=== PATIENT | male | born 1950 | race African-American/Black ===

== ENCOUNTER 2017-06-21 17:43 | Inpatient (IN) | payer OTHER ==
[2017-06-21] MEDS ORDERED: Aspirin Low Dose CHEW TAB* 81 MG PO ONE (18:30)
[2017-06-21 18:55] LABS: Hematocrit 44 % (42-52); Hemoglobin 14.6 g/dl (14.0-18.0); Mean Corpuscular HGB Conc 33 g/dl (31-36); Mean Corpuscular Hemoglobin 30 pg (27-31); Mean Corpuscular Volume 90 fL (80-94); Mean Platelet Volume 8 um3 (7.4-10.4); Red Blood Count 4.91 10^6/ul (4.0-5.4); Red Cell Distribution Width 15 % (10.5-15); White Blood Count 7.7 10^3/ul (3.5-10.8)
[2017-06-21 19:09] LABS: Albumin 3.2 g/dL (3.2-5.2); BUN/Creatinine Ratio 13.3 (8-20); Calcium 8.9 mg/dL (8.6-10.3); EGFR African American 56.4 (>60); EGFR Non-African American 43.8 (>60); Globulin 2.3 g/dL (2-4); Potassium 4.2 mmol/L (3.5-5.0); Total Bilirubin 1.1 mg/dL (0.2-1.0); Total Protein 5.5 g/dL (6.4-8.9)
--- NOTE | 2017-06-21 19:10 | RAD ---
Indication: Pneumonia, CHF. No prior study is available for comparison. 2 views of the chest including dual energy PA views demonstrates cardiomegaly. There is no evidence of alveolar consolidation. No pleural fluid, pneumonia or pneumothorax is noted. There may be some mild vascular congestion noted. IMPRESSION: Cardiomegaly with mild vascular congestion.
[2017-06-21] MEDS ORDERED: Furosemide IV* 10 MG/ML 2 ML VIAL (20 MG) IV SLOW PU ONE (19:33)
[2017-06-21 20:22] LABS: Troponin I 0.08 ng/mL (<0.04)
--- NOTE | 2017-06-21 20:38 | ED ---
Estefani Christopher Thomas, scribed for Alexandra Núñez MD on 06/21/17 at 1905 . HPI Chest Pain - HPI Summary HPI Summary: The pt is a 67 y/o M referred to the ED from Dr. Gagnon office and c/o chest pressure that began three weeks. The pt rates the pressure 6/10 and has been intermittent over the last three weeks. The pressure is aggravated by lying down. The pressure is alleviated by nothing. The patient has treated the pressure with nothing [employer]. Pt additionally c/o pedal edema and SOB (when he lies down and during exertion). In the last day, there are no acute changes from these complaints, which have been present for the last three weeks. The pressure is present in the ED. He is not on any blood thinners. He does not take daily ASA. PMHx: HTN, TIA. PSHx: hernia repair. SHx: no smoking, no alcohol use, no illicit drug use. FHx: negative for CVA. - History of Current Complaint Chief Complaint: EDChestPainROMI Hx Obtained From: Patient Onset/Duration: Started Weeks Ago - 3, Still Present Timing: Constant Pain Intensity: 6 Pain Scale Used: 0-10 Numeric Character: Pressure/Squeezing Aggravating Factor(s): Position - lying down Alleviating Factor(s): Nothing Associated Signs and Symptoms: Positive: Shortness of Breath - when lying down and during exertion, Edema - pedal, Other: - POS: chest pressure. Negative: Chest Pain - Allergy/Home Medications Allergies/Adverse Reactions: Allergies Allergy/AdvReac Type Severity Reaction Status Date / Time No Known Allergies Allergy Verified 06/21/17 19:16 PMH/Surg Hx/FS Hx/Imm Hx Previously Healthy: No Cardiovascular History: Reports: Hx Hypertension Neurological History: Reports: Hx Transient Ischemic Attacks (TIA) - Surgical History Surgery Procedure, Year, and Place: hernia repair Infectious Disease History: No Infectious Disease History: Denies: Traveled Outside the [place] in Last 30 Days - Family History Known Family History: Negative: Other - NEG: CVA - Social History Alcohol Use: None Substance Use Type: Reports: None Smoking Status (MU): Never Smoked Tobacco Review of Systems Negative: Fever Positive: Other - POS: chest pressure (onset three weeks ago). Negative: Chest Pain Positive: Shortness Of Breath Positive: Edema - pedal All Other Systems Reviewed And Are Negative: Yes Physical Exam Triage Information Reviewed: Yes Vital Signs On Initial Exam: Initial Vitals Temp Pulse Resp BP Pulse Ox 97.8 F 50 14 142/103 98 06/21/17 17:50 06/21/17 17:50 06/21/17 17:50 06/21/17 17:50 06/21/17 17:50 Vital Signs Reviewed: Yes Appearance: Positive: Well-Appearing, No Pain Distress Skin: Positive: Warm, Skin Color Reflects Adequate Perfusion, Dry Eyes: Positive: EOMI, JOHANNY ENT: Positive: Pharynx normal, TMs normal Neck: Positive: Supple, Nontender Respiratory/Lung Sounds: Positive: Clear to Auscultation, Breath Sounds Present. Negative: Rales, Rhonchi, Wheezes Cardiovascular: Positive: RRR, Leg Edema Left, Leg Edema Right. Negative: Murmur, Rub, Other - NEG: gallop Abdomen Description: Positive: Nontender, Soft. Negative: Distended, Guarding, Other: - NEG: rebound Musculoskeletal: Positive: Strength/ROM Intact, Edema Left, Edema Right Neurological: Positive: Sensory/Motor Intact, Alert, Oriented to Person Place, Time, CN Intact II-III Psychiatric: Positive: Affect/Mood Appropriate - Sanchez Coma Scale Coma Scale Total: 15 Diagnostics - Vital Signs Vital Signs Temp Pulse Resp BP Pulse Ox 06/21/17 18:35 98.5 F 108 20 128/107 100 06/21/17 18:34 98 06/21/17 17:50 97.8 F 50 14 142/103 98 - Laboratory Lab Results: Lab Results 06/21/17 Range/Units 18:46 WBC 7.7 (3.5-10.8) 10^3/ul RBC 4.91 (4.0-5.4) 10^6/ul Hgb 14.6 (14.0-18.0) g/dl Hct 44 (42-52) % MCV 90 (80-94) fL MCH 30 (27-31) pg MCHC 33 (31-36) g/dl RDW 15 (10.5-15) % Plt Count 246 (150-450) 10^3/ul MPV 8 (7.4-10.4) um3 Neut % (Auto) 73.9 (38-83) % Lymph % (Auto) 15.5 L (25-47) % Ransom % (Auto) 7.9 (1-9) % Eos % (Auto) 2.0 (0-6) % Baso % (Auto) 0.7 (0-2) % Absolute Neuts (auto) 5.7 (1.5-7.7) 10^3/ul Absolute Lymphs (auto) 1.2 (1.0-4.8) 10^3/ul Absolute Monos (auto) 0.6 (0-0.8) 10^3/ul Absolute Eos (auto) 0.2 (0-0.6) 10^3/ul Absolute Basos (auto) 0.1 (0-0.2) 10^3/ul Absolute Nucleated RBC 0.01 10^3/ul Nucleated RBC % 0.1 Result Diagrams: 06/21/17 18:46 06/21/17 18:46 Lab Statement: Any lab studies that have been ordered have been reviewed, and results considered in the medical decision making process. - Radiology CXR Xray Interpretation: No Acute Changes - CXR reveals Cardiomegaly with mild vascular congestion. ED physician has reviewed this radiology report and agrees. Radiology Interpretation Completed By: Radiologist - EKG 17:56 Cardiac Rate: NL - 80 BPM EKG Interpretation: A-Fib. LVH. PVCs. Nonspecific T-wave changes. EKG Comparison: Other - None to compare Re-Evaluation - Re-Evaluation First Eval Re-Evaluation Time: 17:30 Change: Unchanged Comment: He does have a Hx of cardiomegaly, but he does not have a Hx of CHF. He states that he has a Hx of A-Fib but only during stress tests. Chest Pain Course/Dx - Course Course Of Treatment: 67 yo male sent by Dr. Huber with 3 weeks of cp and sob lying down ekg shows lvh and afib and new twave inversions (per dr. Huber's ekg ). Pt only knows of a hx of afib on stress test, he does have mild failure and cardiomegaly on cxr - the cardiomegaly is not new. Pt's trop is .08 low dose lasix was started given failure, lower ext edema and elevated bnp. Case discussed with Dr. Morales who is admitting the pt - Diagnoses Provider Diagnoses: Coronary syndrome, acute, CHF (congestive heart failure) - Provider Notifications Discussed Care Of Patient With: Mike Morales Time Discussed With Above Provider: 19:25 Instructed by Provider To: Other - I consulted with Dr. Morales, hospitalist, who accepts the patient for admission. Discharge - Discharge Plan Condition: Fair Disposition: ADMITTED TO [facility] Referrals: Javier Huber MD [Primary Care Provider] - The documentation as recorded by the Estefani serna Thomas accurately reflects the service I personally performed and the decisions made by me, Alexandra Núñez MD.
[2017-06-21 20:55] LABS: TSH (Thyroid Stimulating Horm) 1.2 mcIU/mL (0.34-5.60)
[2017-06-21] MEDS ORDERED: Albuterol HFA INHALER* 8 gm MDI INH PRN (21:14)
[2017-06-21] MEDS: Metoprolol Tartrate TAB* 25 MG PO SCH (22:26)
[2017-06-21] MEDS: Rivaroxaban TAB(*) 20 MG TAB PO SCH (22:27)
[2017-06-21 22:37] LABS: Magnesium 2.2 mg/dL (1.9-2.7)
--- NOTE | 2017-06-22 01:00 | HP ---
MEDICINE HISTORY AND PHYSICAL: DATE OF ADMISSION: 06/21/17 PROVIDER: Akua Darby NP ATTENDING PHYSICIAN: Dr. Mike Morales * (as dictated by Akua Darby NP) PRIMARY CARE PROVIDER: Javier Huber MD CHIEF COMPLAINT: Increasing dyspnea. HISTORY OF PRESENT ILLNESS: Mr. Bhatia is a 67-year-old male patient who was referred to the ER by his primary care provider with concerns for increasing dyspnea and chest pain. Mr. Bhatia is a very pleasant 67-year-old gentleman who endorses a history of increasing dyspnea x3 weeks. He reports that he has difficulty breathing mostly at night and with exertion. The patient reports paroxysmal nocturnal dyspnea with resultant decrease in sleep. He reports orthopnea and states that he does feel better when he sits up. He reports accompanying pressure in his throat and mid sternum that occurs when he is lying down, but is better when he sits up. He reports decreased p.o. intake, loss of appetite as well as fatigue. The patient states that he is still working at the [employer], but that he has to push himself to get through the day as he does become tired more easily and has dyspnea with exertion. He has been using his albuterol inhaler more often and yesterday used it 3 times. He has been treating his symptoms with . The patient is noted to be in atrial fibrillation. Upon entering the room, I did note rate as high as 130 when I initially entered and then they settle down into the 120s to 110s. Mr. Bhatia states that he knew he had a history of AFib. He was told that he had it on a stress test once but then thought it went away. He states he is to see a sap bw architect, but he does not the name of the sap bw architect. He states that he had a stress test and was seeing the sap bw architect for high blood pressure. He states that he was then taken off of his medications because he did not need them anymore. He does note that he has a history of mitral valve regurgitation and is unaware of any other cardiac concerns expressed in the past. Here in the ER, the patient was noted to have a BNP of 897. His chest x-ray shows cardiomegaly with mild vascular congestion. His EKG shows atrial fibrillation with nonspecific ST changes and T-wave inversions noted in the lateral leads. There are no old medical records for comparison. PAST MEDICAL HISTORY: 1. Hypertension. 2. Paroxysmal atrial fibrillation, not previously on medication. 3. Exercise-induced asthma. 4. Mitral regurgitation. 5. Seasonal allergies. HOME MEDICATIONS: Include albuterol 2 puffs inhaled q.4 hours p.r.n. Of note, the patient's medications list from [place] states Advair, but the patient states he has not taken this for many months. ALLERGIES: Environmental allergies. No known drug allergies. FAMILY HISTORY: The patient reports his uncle and aunt with diabetes. He reports a history of breast and throat cancer in his mother. SOCIAL HISTORY: The patient states that he once smoked one pack of cigarettes in high school and no further smoking history. He drinks very rarely and socially only. He denies any history of illicit drug use. He works at the [employer]. He is . His , Emily, is his surrogate decision maker and healthcare proxy. REVIEW OF SYSTEMS: As per HPI, all those not mentioned in the HPI are negative. PHYSICAL EXAMINATION GENERAL: Mr. Bhatia is a very pleasant gentleman, who is lying in the ED stretcher, in no acute distress. VITAL SIGNS: Temperature 98.5, heart rate 112, respiratory rate 22, blood pressure 105/82, and O2 saturation is 99% on 2 L nasal cannula. HEENT: Head is atraumatic, normocephalic. Face is symmetrical. Pupils are equal, round, reactive to light. Extraocular movements are intact. Oral mucosa appears moist. There is no oropharyngeal erythema or exudate. NECK: Supple, no lymphadenopathy appreciated. No JVD noted. RESPIRATORY: Lungs are clear to auscultation. No accessory muscle use was noted. CARDIAC: S1, S2 heart sounds. Regular rate and rhythm. No murmurs, rubs or gallops. ABDOMEN: Soft, nontender, nondistended. EXTREMITIES: The patient has 2+ pitting edema to the bilateral lower extremities. Distal pulses are 1+ and symmetrical. There was no clubbing or cyanosis. The patient has full range of motion in all extremities. SKIN: Limited assessment, but appears warm, dry and grossly intact. NEURO: Cranial nerves II through XII are grossly intact. The patient moves all extremities. Sensation is intact to light touch in the upper and lower extremities. PSYCH: He is alert and oriented x3. His affect is appropriate. LABORATORY DATA AND DIAGNOSTIC STUDIES: CBC, WBC 7.7, hemoglobin 14.6, hematocrit 44, platelet count 246. CMP, sodium 138, potassium 4.2, chloride 107 , carbon dioxide 25, BUN 21, creatinine 1.58, glucose 95, lactic acid 1.4. Calcium 8.9. Total bilirubin 1.1. Troponin 0.08, BNP 897. Albumin 3.2, TSH 1.2. Chest x-ray again shows cardiomegaly with mild vascular congestion. EKG as per above. ASSESSMENT AND PLAN: Mr. Bhatia is a 67-year-old male patient who presents today with concern for increasing dyspnea, atrial fibrillation, and symptoms concerning for congestive heart failure with acute exacerbation. He will be admitted to the telemetry floor. Plan is as follows: 1. Suspected congestive heart failure exacerbation. The patient will be monitored on telemetry. He is ordered strict I's and O's and daily weights. He will be started on metoprolol given his concurrent atrial fibrillation as well as captopril. The patient's blood pressures here in the ER are rather variable and are as high as 142/103 and as low as 105/82, which is likely secondary to the Lasix the patient received. He was ordered a transthoracic echocardiogram and he will continue the IV Lasix tomorrow morning. Again, the patient was just started on beta-dionna and JEY inhibitor given the concern for new heart failure. 2. History of paroxysmal atrial fibrillation. It is unclear if the patient is in paroxysmal atrial fibrillation or if he has chronic atrial fibrillation at this point. The patient does not appear to have had good followup in regards to his atrial fibrillation with Cardiology and I am not sure if there are other EKGs on record from [place]. We will request records from [place] to better understand the patient's cardiac history and in any case, I have discussed with the patient the concern for his increased stroke risk with atrial fibrillation and being asymptomatic. The patient has had symptoms for greater than 3 weeks, which is likely secondary to atrial fibrillation, which was not symptomatic until the patient started to decompensate. The patient has a CHADS2-VASC score of 2 for age 65 to 74 and hypertension history. The patient is started on Xarelto and we will also start him on metoprolol 25 mg b.i.d. We will also attempt to see if we can locate the patient's Cardiology records. I was unable to locate any records for the patient. 3. Elevated creatinine. This appears to be secondary to mild chronic kidney disease. The patient has had previously elevated creatinine as far back as 2012 and this is actually improved from previous. 4. History of hypertension. The patient is not previously on any medications, but is currently on metoprolol and captopril. Continue to monitor patient's pressure and adjust medications accordingly. 5. History of mitral regurgitation. Continue to follow. We will reevaluate on echocardiogram. 6. History of exercise-induced asthma, continue p.r.n. albuterol. 7. FEN, the patient is ordered a vegetarian, heart healthy diet. 8. DVT prophylaxis. The patient will be started on Xarelto, has also ordered LIBRADO hose to help with lower extremity. 9. Code status. The patient is a full code. TIME SPENT: Time spent on this admission was approximately 60 minutes, more than half that time was spent [id number] with the patient and family obtaining history and physical, performing physical examination and reviewing the plan of care. Plan of care was also reviewed with my attending, Dr. Morales , who is in agreement. AKUA DARBY, YULIYA [id number]/[facility] #: [id number] CELE
[2017-06-22 06:27] LABS: Hematocrit 43 % (42-52); Hemoglobin 14.3 g/dl (14.0-18.0); Mean Corpuscular HGB Conc 33 g/dl (31-36); Mean Corpuscular Hemoglobin 30 pg (27-31); Mean Corpuscular Volume 91 fL (80-94); Mean Platelet Volume 8 um3 (7.4-10.4); Red Blood Count 4.72 10^6/ul (4.0-5.4); Red Cell Distribution Width 15 % (10.5-15); White Blood Count 7.2 10^3/ul (3.5-10.8)
[2017-06-22 06:47] LABS: BUN/Creatinine Ratio 11.9 (8-20); Calcium 8.7 mg/dL (8.6-10.3); EGFR African American 52.5 (>60); EGFR Non-African American 40.8 (>60); Potassium 4.3 mmol/L (3.5-5.0)
[2017-06-22] MEDS: Rivaroxaban TAB(*) 20 MG TAB PO SCH (08:39)
[2017-06-22] MEDS: Metoprolol Tartrate TAB* 25 MG PO SCH (08:40)
[2017-06-22] MEDS: Captopril TAB* 12.5 MG PO SCH ×3 (08:40→20:49)
[2017-06-22] MEDS: Furosemide IV* 10 MG/ML VIAL (40 MG) IV SLOW PU SCH (08:41)
[2017-06-22] MEDS ORDERED: Metolazone TAB* 5 MG PO ONE (09:10)
--- NOTE | 2017-06-22 09:32 | ECHO ---
Patient: FAIZA PATINO Rec#: [id number] : 1950 Date: 06/22/2017 Age: 67y Height: 175.26 cm / 69.0 in Weight: 81.65 kg / 180.0 lbs Sex: M BSA: 1.98 Room#: [facility] Admit Date#: 06/21/2017 Type: Inpatient Referring: Cecy Cordova Reading: Olu Sterling DO [employer] Worker: Angela Reyes RDCS CC: Javier Huber MD Transthoracic Echocardiogram Indication: Dyspnea, CHF. BP: 113/85 HR: 99 Rhythm: A-Fib Findings History: HTN, PAF, and mitral regurgitation. Technical Comments: The study quality is good. Completed at 0835. Left Ventricle: The left ventricular chamber size is moderately dilated. Moderate concentric left ventricular hypertrophy is observed. There is global hypokinesis of the left ventricle with minor regional variation. There is severely decreased left ventricular systolic function. The estimated ejection fraction is 20-25%. The assessment of diastolic function is non-diagnostic. Left Atrium: The left atrium is severely dilated. Right Ventricle: The right ventricular cavity size is normal. The right ventricular global systolic function is moderately reduced. Right Atrium: The right atrial cavity size is severely dilated. Aortic Valve: The aortic valve is trileaflet. The aortic valve leaflets are mildly thickened. There is a trace of aortic regurgitation. There is no evidence of aortic stenosis. Mitral Valve: Mild mitral annular calcification present. There is moderate to severe mitral regurgitation. There is no evidence of mitral stenosis. Tricuspid Valve: The tricuspid valve leaflets are mildly thickened. There is moderate tricuspid regurgitation. There is evidence of severe pulmonary hypertension. There is no tricuspid stenosis. Pulmonic Valve: The pulmonic valve appears normal. There is trace to mild pulmonic regurgitation. There is no pulmonic stenosis. Pericardium: There is no significant pericardial effusion. Aorta: There is mild dilatation of the ascending aorta. There is no dilatation of the aortic arch. The aortic root is normal in size. Pulmonary Artery: The main pulmonary artery appears normal. Venous: The inferior vena cava is dilated. There is less than 50% respiratory change in the inferior vena cava dimension. Conclusions The left ventricular chamber size is moderately dilated. Moderate concentric left ventricular hypertrophy is observed. There is global hypokinesis of the left ventricle with minor regional variation. There is severely decreased left ventricular systolic function. The estimated ejection fraction is 20-25%. The left atrium is severely dilated. The right ventricular cavity size is normal. The right ventricular global systolic function is moderately reduced. The right atrial cavity size is severely dilated. There is moderate to severe mitral regurgitation, more consistent with severe secondary/functional mitral regurgitation There is moderate tricuspid regurgitation. There is evidence of severe pulmonary hypertension. No prior studies available for comparison at time of interpretation Measurements Name Value Normal Range RVIDd (AP) 2D 3.7 cm (0.9 - 2.6) RVDdMajor (2D) 4.2 cm (2.2 - 4.4) RAd ISD 4CH 7.4 cm (3.4 - 4.9) RA (A4C)W 4.8 cm (2.9 - 4.6) IVSd (2D) 1.5 cm (0.6 - 1) LVPWd (2D) 1.3 cm (0.6 - 1) LVIDd (2D) 6.2 cm (3.6 - 5.4) LVIDs (2D) 5.4 cm - LV FS (2D) 14 % (25 - 45) Aortic Annulus 2.4 cm (1.4 - 2.6) Ao root diameter (2D) 3.4 cm (2.1 - 3.5) Ascending Ao 3.7 cm (2.1 - 3.4) Aortic arch 2.7 cm (1.8 - 3.4) LA dimension (AP) 2D 5.7 cm (2.3 - 3.8) LAd ISD 4CH 7 cm (2.9 - 5.3) LA ISD 4CH W 7.3 cm (2.5 - 4.5) Name Value Normal Range LA ESV SP 4CH (A/L) 178 ml - LA ESV SP 2CH (A/L) 204 ml - LA ESV BP (A/L) 209 ml - LA ESV BP (A/L) index 105.6 ml/m2 - LA ESV SP 4CH (MOD) 149 ml - LA ESV SP 2CH (MOD) 187 ml - Name Value Normal Range MV E-wave Vmax 0.79 m/sec - MV deceleration time 126.8 msec - MV A-wave Vmax 0.22 m/sec - MV E:A ratio 51.15 ratio - LV septal e' Vmax 0.04 m/sec - LV lateral e' Vmax 0.05 m/sec - LV E:e' septal ratio 19.75 ratio - LV E:e' lateral ratio 15.8 ratio - Name Value Normal Range AV Vmax 0.87 m/sec - AV VTI 17.6 cm - AV peak gradient 3.06 mmHg - AV mean gradient 1.99 mmHg - LVOT Vmax 0.52 m/sec - LVOT VTI 9.23 cm - LVOT peak gradient 1.1 mmHg - LVOT mean gradient 0.63 mmHg - Name Value Normal Range MR Vmax 4.3 m/sec - MR VTI 129 cm - MR flow (PISA) 273 ml/sec - MR PISA radius 0.9 cm - Name Value Normal Range TR Vmax 3.57 m/sec - TR peak gradient 51 mmHg - RAP 20 mmHg - RVSP 71 mmHg - IVC diameter 2.7 cm - Name Value Normal Range PV Vmax 0.6 m/sec - PV peak gradient 1.46 mmHg -
[2017-06-22] MEDS ORDERED: Furosemide IV* 10 MG/ML 2 ML VIAL (20 MG) IV SLOW PU ONE (09:40)
--- NOTE | 2017-06-22 10:12 | PN ---
Subjective Date of Service: 06/22/17 Interval History: HOSPITALIST PROGRESS NOTE Patient seen and examined at bedside. He feels a little better today, but still has some dyspnea, especially with exertion, and some chest pressure. Thinks he gained 6lbs total, but it appears to be more than that. Family History: Unchanged from Admission Social History: Unchanged from Admission Past Medical History: Unchanged from Admission Objective Active Medications: Albuterol (Ventolin Hfa Inhaler*) 2 puff INH Q4H PRN PRN Reason: SOB/WHEEZING Last Admin: 06/22/17 00:36 Dose: 2 puff Captopril (Capoten Tab*) 6.25 mg PO TID [facility] Last Admin: 06/22/17 08:40 Dose: 6.25 mg Carvedilol (Coreg Tab*) 12.5 mg PO BID [facility] Furosemide (Lasix Iv*) 40 mg IV SLOW PU DAILY [facility] Last Admin: 06/22/17 08:41 Dose: 40 mg Rivaroxaban (Xarelto (*)) 20 mg PO DAILY [facility] Last Admin: 06/22/17 08:39 Dose: 20 mg Spironolactone (Aldactone Tab*) 25 mg PO DAILY [facility] Vital Signs 06/22/17 06/22/17 06/22/17 02:23 07:15 07:20 Temperature 97.7 F 97.5 F Pulse Rate 82 70 Respiratory 16 19 18 Rate Blood Pressure 113/85 100/80 (mmHg) O2 Sat by Pulse 100 100 Oximetry 06/22/17 08:31 Temperature Pulse Rate Respiratory Rate Blood Pressure 132/106 (mmHg) O2 Sat by Pulse Oximetry Oxygen Devices in Use Now: None Appearance: Pleasant gentleman sitting up in bed in [facility]. Eyes: No Scleral Icterus Ears/Nose/Mouth/Throat: Mucous Membranes Moist Neck: Trachea Midline Respiratory: Symmetrical Chest Expansion and Respiratory Effort, - - BS+ bilaterally with bibasilar rales Cardiovascular: - - Normal S1 and S2, irregularly irregular, +SM Abdominal: NL Sounds; No Tenderness; No Distention Extremities: - - Bilateral LE edema Neurological: Alert and Oriented x 3, NL Muscle Strength and Tone Lines/Tubes/Other Access: Clean, Dry and Intact Peripheral IV Nutrition: Taking PO's Result Diagrams: 06/22/17 05:58 06/22/17 05:58 Assess/Plan/Problems-Billing Assessment: Mr. Bhatia is a 67yo M with PMH of HTN, PAF, asthma, mitral regurgitation, who presented to ED with c/o dyspnea and chest pain, found to have newly diagnosed CHF. - Patient Problems (1) Acute systolic CHF (congestive heart failure) Comment: - Echo showed EF 20-25% with global hypokinesis, moderate to severe MR. - Continue diuresis, but will add Metolazone to Furosemide. - Continue ACEI and beta-dionna. - Continue Xarelto. - Cardiology consult requested. (2) Atrial fibrillation Comment: - Rate is controlled with beta-dionna. - Continue Xarelto. (3) CKD (chronic kidney disease) stage 3, GFR 30-59 ml/min Comment: - Monitor renal function with addition of diuretics and ACEI. (4) Asthma Comment: - Continue Albuterol PRN. (5) DVT prophylaxis (6) Full code status Status and Disposition: Inpatient for management of symptomatic CHF requiring >48h for stabilization.
[2017-06-22] MEDS: Spironolactone TAB* 25 MG PO SCH (10:30)
[2017-06-22] MEDS: Carvedilol TAB* 25 MG PO SCH ×2 (10:35→20:49)
--- NOTE | 2017-06-22 14:17 | CONSULT ---
Subjective Date of Service: 06/22/17 Interval History: Date of consult 06/22/[address] Javier Huber Wood Box Maker: Dr. Palumbo CC: Dyspnea Reason for consult: Systolic HF, atrial fibrillation, mitral regurgitation. HPI Mr. Bhatia is a 67 year old black man with a history of HTN not currently on treatment with known hypertensive EKG and Echo changes 02/2016, CKD, PAfib, mitral valve prolapse. His BP was 142/98 in 03/2016 and at that time oral anti- coagulation and anti-hypertensives were recommended and he declined. He presented to his PMD's office with increasing dyspnea for 3 weeks, orthopnea, chest pressure when laying flat. He also reports poor appetite and fatigue. No recent syncope. No palpitations. He was found with recurrent atrial fibrillation and systolic heart failure with moderate to severe (more consistent with severe MR). He has received IV diuretics and has had good UOP. PAST MEDICAL HISTORY: 1. Hypertension. 2. Hypertensive heart disease 3. Paroxysmal atrial fibrillation 4. Mitral regurgitation. ALLERGIES: Environmental allergies. No known drug allergies. FAMILY HISTORY: The patient reports his uncle and aunt with diabetes. He reports a history of breast and throat cancer in his mother. SOCIAL HISTORY: No tobacco use He drinks very rarely and socially only. He denies any history of illicit drug use. He works at the [employer]. He is . His , Emily, is his surrogate decision maker and healthcare proxy. Medications Active Medications: Albuterol (Ventolin Hfa Inhaler*) 2 puff INH Q4H PRN PRN Reason: SOB/WHEEZING Last Admin: 06/22/17 00:36 Dose: 2 puff Captopril (Capoten Tab*) 6.25 mg PO TID [facility] Last Admin: 06/22/17 08:40 Dose: 6.25 mg Carvedilol (Coreg Tab*) 12.5 mg PO BID [facility] Last Admin: 06/22/17 10:35 Dose: 12.5 mg Furosemide (Lasix Iv*) 40 mg IV SLOW PU DAILY [facility] Last Admin: 06/22/17 08:41 Dose: 40 mg Rivaroxaban (Xarelto(*)) 15 mg PO DAILY@1700 [facility] Spironolactone (Aldactone Tab*) 25 mg PO DAILY [facility] Last Admin: 06/22/17 10:30 Dose: 25 mg Home Medications: Albuterol HFA INHALER* [Ventolin HFA Inhaler*] 2 puff INH Q4H PRN 06/21/17 [ History Confirmed 06/21/17] Review of Systems - Measurements Intake and Output: Intake and Output Last 24 Hours 06/20/17 06/21/17 06/22/17 06/23/17 06:59 06:59 06:59 06:59 Intake Total 150 220 Output Total 600 1000 Balance -450 -780 Weight 179 lb 14.4 oz 178 lb 12.8 oz Intake: Oral 150 220 Output: Urine 600 1000 Other: Estimated Void Medium # Bowel Movements 0 # Voids 2 - Review of Systems Constitutional Symptoms: Positive: Weakness, Fatigue Dermatology: Negative: Rash, Skin Lesions HEENT: Negative: Change in Hearing, Vertigo Eyes: Negative: Change in Vision, Double Vision Thyroid: Negative: Cold Intolerance, Heat Intolerance, Sweatiness, Primary Hypothyroidism, Primary Hyperthyroidism Pulmonary: Positive: Respiratory Distress, Shortness of Breath, Exercise Intolerance Negative: Cough, Sputum, Hemoptysis, Wheezing, COPD, Home Oxygen Cardiology: Positive: Chest Pain, Shortness of Breath, Edema, Orthopnea Negative: Palpitations, Swelling of Ankles, Peripheral Vascular Dis, Syncope , Claudication Gastroenterology: Positive: Nausea, Anorexia Negative: Abdominal Pain, Vomiting, Constipation, Diarrhea Musculoskeletal: Negative: Joint Pain, Joint Stiffness Endocrinology: Negative: Calluses, Hirsutism, Polydipsia, Polyuria Hematologic/Lymphatic: Negative: Anemia, Easy Brusing, Use of Anticoagulant, Use of Antiplatelet Drugs Neurology: Negative: Change in Balancing, Change in Coordination, Change in Memory, Change in Speech, Change in Sphincter Function, Change in Walking, Numbness\ Paresthesiae, Unexplained Weakness Psychiatry: Negative: Unusual Anxiety, Suicidal Ideation Allergic/Immunologic: Negative: Hx Anaphylaxis, Hx Angioedema, Hx HIV, Immunocompromise Review of Systems Statement: All other review of systems negative, unless stated above. Objective Vital Signs: Temp Pulse Resp BP Pulse Ox 97.6 F 97 18 134/113 98 06/22/17 11:36 06/22/17 11:31 06/22/17 11:31 06/22/17 11:31 06/22/17 11:31 Oxygen Devices in Use Now: None Appearance: nad, very pleasant Neck: Trachea Midline, - - probable + jvd Respiratory: Symmetrical Chest Expansion and Respiratory Effort, - - bibasilar cracles Cardiovascular: RRR, - - no obvious significant murmur appreciated, 1-2+ pitting lower extremity edema Abdominal: NL Sounds; No Tenderness; No Distention Extremities: No Clubbing, Cyanosis Skin: No Rash or Ulcers Neurological: Alert and Oriented x 3 Laboratory Results: 06/22/17 05:58 06/22/17 05:58 Total Bilirubin 1.10 mg/dL (0.2-1.0) H 06/21/17 18:46 AST 30 U/L (13-39) 06/21/17 18:46 ALT 39 U/L (7-52) 06/21/17 18:46 Alkaline Phosphatase 53 U/L (34-104) 06/21/17 18:46 B-Natriuretic Peptide 897 pg/mL (-100) H 06/21/17 18:46 Total Protein 5.5 g/dL (6.4-8.9) L 06/21/17 18:46 Albumin 3.2 g/dL (3.2-5.2) 06/21/17 18:46 Globulin 2.3 g/dL (2-4) 06/21/17 18:46 Albumin/Globulin Ratio 1.4 (1-3) 06/21/17 18:46 TSH 1.20 mcIU/mL (0.34-5.60) 06/21/17 18:46 06/21/17 06/22/17 21:47 01:04 Troponin I 0.08 H* 0.07 H* Labs 01/2016: Cr 1.6 Tchol 165, tri 168, hdl 80, ldl 51 Diagnostic Imagin03/16/2016: Normal LV cavity size Moderate LVH, LVEF 55% Severe LA enlargement Mild RV enlargement with preserved RV function Mild MVP with moderate eccentric MR Mild-mod TR, normal estimated PASP EKG 01/31/2016: Afib, LVH with repolarization abnormalities EKG 02/28/2016: NSR, LVH with repolarization abnormalities EKG 06/21/2017: Probable coarse AFib rate 80 bpm, LVH with repolarization abnormalities, PVC's CXR 06/21/2017: Enlarged cardiac silhouette with mild vascular congestion TTE 06/22/2017: LVEDD 6.2 cm moderately dilated, LVEF 20-25%, LA severely dilated , RV size normal with moderately reduced function, moderate to severe MR ( appears more consistent with severe) appearance of secondary/functional MR, severe RA dilation Assessment/Plan Mr. Bhatia is a 67-year-old man with a history of hypertension, hypertensive heart disease not adherent with BP medication, CKD, PAfib, mitral regurgitation admitted with new onset systolic HF LVEF 20-25% in the setting of severe hypertension - Continue IV diuresis, trend bmp, i/o, weights - Add aldactone 25 mg PO daily (ordered) - Add coreg 12.5 mg PO BID (ordered) - Continue captopril 6.25 mg PO TID - Uptitrate AceI and BB dosing as tolerated - Continue oral anticoagulation - I emphasized medication adherence with patient - Discussed with Dr. Palumbo on phone. Overall I suspect hypertensive heart disease as main culprit for presentation. Will optimize CHF medications, plan for coronary angiogram. If no need for revascularization patient will follow up with Dr. Palumbo to re-evaluate etiology and severity of MR once BP better controlled and medically optimized. Thank you for allowing me to participate in the cardiovascular care of this patient. Please do not hesitate to contact me with questions or concerns.
[2017-06-22] MEDS ORDERED: Acetaminophen TAB* 325 MG PO PRN (14:39)
[2017-06-23 05:51] LABS: BUN/Creatinine Ratio 12.3 (8-20); Calcium 8.9 mg/dL (8.6-10.3); EGFR African American 44.2 (>60); EGFR Non-African American 34.4 (>60); Potassium 3.7 mmol/L (3.5-5.0)
--- NOTE | 2017-06-23 08:55 | PN ---
Subjective Date of Service: 06/23/17 Interval History: HOSPITALIST PROGRESS NOTE Patient seen and examined at bedside. He feels better this AM. Breathing is easier, but he has not walked around yet. Denies CP or palpitations. Family History: Unchanged from Admission Social History: Unchanged from Admission Past Medical History: Unchanged from Admission Objective Active Medications: Acetaminophen (Tylenol Tab*) 650 mg PO Q6H PRN PRN Reason: pain/fever Albuterol (Ventolin Hfa Inhaler*) 2 puff INH Q4H PRN PRN Reason: SOB/WHEEZING Last Admin: 06/22/17 00:36 Dose: 2 puff Captopril (Capoten Tab*) 6.25 mg PO TID [facility] Last Admin: 06/22/17 20:49 Dose: 6.25 mg Carvedilol (Coreg Tab*) 12.5 mg PO BID [facility] Last Admin: 06/22/17 20:49 Dose: 12.5 mg Furosemide (Lasix Iv*) 40 mg IV SLOW PU DAILY [facility] Last Admin: 06/22/17 08:41 Dose: 40 mg Prochlorperazine Edisylate (Compazine Inj*) 5 mg IV Q6H PRN PRN Reason: NAUSEA/VOMITING Rivaroxaban (Xarelto(*)) 15 mg PO DAILY@1700 [facility] Spironolactone (Aldactone Tab*) 25 mg PO DAILY [facility] Last Admin: 06/22/17 10:30 Dose: 25 mg Vital Signs 06/23/17 06/23/17 06/23/17 00:16 03:57 07:44 Temperature 98.5 F 98.4 F 97.8 F Pulse Rate 92 130 77 Respiratory 16 16 18 Rate Blood Pressure 118/79 130/81 117/83 (mmHg) O2 Sat by Pulse 95 100 99 Oximetry Oxygen Devices in Use Now: None Appearance: Pleasant gentleman sitting up in bed in [facility]. Eyes: No Scleral Icterus Ears/Nose/Mouth/Throat: Mucous Membranes Moist Neck: Trachea Midline Respiratory: Symmetrical Chest Expansion and Respiratory Effort, - - BS+ bilaterally with faint bibasilar rales Cardiovascular: - - Normal S1 and S2, irregularly irregular Abdominal: NL Sounds; No Tenderness; No Distention Extremities: - - Bilateral mild to moderate LE edema Neurological: Alert and Oriented x 3, NL Muscle Strength and Tone Lines/Tubes/Other Access: Clean, Dry and Intact Peripheral IV Nutrition: Taking PO's Result Diagrams: 06/22/17 05:58 06/23/17 05:31 Assess/Plan/Problems-Billing Assessment: Mr. Bhatia is a 67yo M with PMH of HTN, PAF, asthma, mitral regurgitation, who presented to ED with c/o dyspnea and chest pain, found to have newly diagnosed CHF. - Patient Problems (1) Acute systolic CHF (congestive heart failure) Comment: - Echo showed EF 20-25% with global hypokinesis, moderate to severe MR. - Responded well to Metolazone and Furosemide - weight down to 170lbs, breathing is easier. - Continue ACEI and beta-dionna. - Continue Xarelto. - Cardiology consult appreciated. (2) Atrial fibrillation Comment: - Rate is controlled with beta-dionna. - Continue Xarelto. (3) CKD (chronic kidney disease) stage 3, GFR 30-59 ml/min Comment: - Monitor renal function with addition of diuretics and ACEI. - Creatinine trending up, but likely revealing his true renal function. (4) Asthma Comment: - Continue Albuterol PRN. (5) DVT prophylaxis Comment: - Xarelto. (6) Full code status Status and Disposition: Inpatient for management of symptomatic CHF requiring >48h for stabilization. Son called at [phone] and updated about patient's condition with his permission.
[2017-06-23] MEDS: Spironolactone TAB* 25 MG PO SCH (09:24)
[2017-06-23] MEDS: Furosemide IV* 10 MG/ML VIAL (40 MG) IV SLOW PU SCH (09:24)
[2017-06-23] MEDS: Carvedilol TAB* 25 MG PO SCH ×2 (09:25→20:58)
[2017-06-23] MEDS: Captopril TAB* 12.5 MG PO SCH ×3 (09:25→20:58)
[2017-06-23] MEDS ORDERED: Potassium Chlor TAB* 20 MEQ TAB.ER PO ONE (12:45)
[2017-06-23] MEDS: Rivaroxaban TAB(*) 15 MG PO SCH (17:12)
[2017-06-24 05:51] LABS: BUN/Creatinine Ratio 13.4 (8-20); Calcium 8.4 mg/dL (8.6-10.3); EGFR African American 44.5 (>60); EGFR Non-African American 34.6 (>60); Potassium 3.2 mmol/L (3.5-5.0)
[2017-06-24] MEDS: Potassium Chlor TAB* 20 MEQ TAB.ER PO SCH ×2 (07:53→12:36)
[2017-06-24] MEDS: Captopril TAB* 12.5 MG PO SCH ×3 (07:55→20:22)
[2017-06-24] MEDS: Carvedilol TAB* 25 MG PO SCH ×2 (07:55→20:23)
[2017-06-24] MEDS: Spironolactone TAB* 25 MG PO SCH (07:55)
[2017-06-24 11:10] LABS: Magnesium 1.9 mg/dL (1.9-2.7)
--- NOTE | 2017-06-24 13:02 | PN ---
Subjective Date of Service: 06/24/17 Interval History: HOSPITALIST PROGRESS NOTE Patient seen and examined at bedside. He feels better today. Breathing is much better, but felt some lightheadedness after walking yesterday. Denies CP or palpitations. Had some episodes of Vtach, asymptomatic. Family History: Unchanged from Admission Social History: Unchanged from Admission Past Medical History: Unchanged from Admission Objective Active Medications: Acetaminophen (Tylenol Tab*) 650 mg PO Q6H PRN PRN Reason: pain/fever Albuterol (Ventolin Hfa Inhaler*) 2 puff INH Q4H PRN PRN Reason: SOB/WHEEZING Last Admin: 06/22/17 00:36 Dose: 2 puff Captopril (Capoten Tab*) 6.25 mg PO TID [facility] Last Admin: 06/24/17 07:55 Dose: 6.25 mg Carvedilol (Coreg Tab*) 12.5 mg PO BID [facility] Last Admin: 06/24/17 07:55 Dose: 12.5 mg Prochlorperazine Edisylate (Compazine Inj*) 5 mg IV Q6H PRN PRN Reason: NAUSEA/VOMITING Rivaroxaban (Xarelto(*)) 15 mg PO DAILY@1700 [facility] Stop: 06/24/17 19:00 Last Admin: 06/23/17 17:12 Dose: 15 mg Spironolactone (Aldactone Tab*) 25 mg PO DAILY [facility] Last Admin: 06/24/17 07:55 Dose: 25 mg Vital Signs 06/24/17 06/24/17 06/24/17 09:11 09:12 11:27 Temperature 98.5 F Pulse Rate 58 85 Respiratory 19 18 Rate Blood Pressure 113/75 (mmHg) O2 Sat by Pulse 98 98 99 Oximetry Oxygen Devices in Use Now: None Appearance: Pleasant gentleman sitting up in bed in [facility]. Eyes: No Scleral Icterus Ears/Nose/Mouth/Throat: Mucous Membranes Moist Neck: Trachea Midline Respiratory: Symmetrical Chest Expansion and Respiratory Effort, Clear to Auscultation Cardiovascular: - - Normal S1 and S2, irregularly irregular Abdominal: NL Sounds; No Tenderness; No Distention Extremities: - - Mild bilateral LE edema Neurological: Alert and Oriented x 3, NL Muscle Strength and Tone Lines/Tubes/Other Access: Clean, Dry and Intact Peripheral IV Nutrition: Taking PO's Result Diagrams: 06/22/17 05:58 06/24/17 05:12 Assess/Plan/Problems-Billing Assessment: Mr. Bhatia is a 67yo M with PMH of HTN, PAF, asthma, mitral regurgitation, who presented to ED with c/o dyspnea and chest pain, found to have newly diagnosed CHF. - Patient Problems (1) Acute systolic CHF (congestive heart failure) Comment: - Echo showed EF 20-25% with global hypokinesis, moderate to severe MR. - Responded well to Metolazone and Furosemide - weight down to 169lbs, breathing is easier. - Will hold Lasix for now, as he was lightheaded yesterday and creatinine trended up. - Continue ACEI and beta-dionna. - Continue Xarelto. - Cardiology consult appreciated - plan for cath 06/26/17. (2) Atrial fibrillation Comment: - Rate is controlled with beta-dionna. - Continue Xarelto. (3) CKD (chronic kidney disease) stage 3, GFR 30-59 ml/min Comment: - Monitor renal function with addition of diuretics and ACEI. - Creatinine trending up, but likely revealing his true renal function. (4) Asthma Comment: - Continue Albuterol PRN. (5) DVT prophylaxis Comment: - Xarelto. (6) Full code status Status and Disposition: Inpatient for management of symptomatic CHF requiring >48h for stabilization. Son called at [phone] and updated about patient's condition with his permission.
[2017-06-24] MEDS: PROCHLORPERAZINE INJ 5 MG/ML 2 ML VIAL IV PRN (15:28)
[2017-06-24] MEDS: Simethicone CHEW TAB* 80 MG PO PRN (19:05)
[2017-06-24] MEDS: Rivaroxaban TAB(*) 15 MG PO SCH (20:23)
[2017-06-24] MEDS: Al Hydrox/Mg Hydrox/Simet LIQ* 30 ML UDC PO PRN (20:23)
[2017-06-24] MEDS ORDERED: Morphine INJ* 2 MG/ML 1 ML SYRINGE IV ONE (21:26)
--- NOTE | 2017-06-24 22:22 | PN ---
Progress Note - Progress Note Date of Service: 06/24/17 Note: Cross cover note Called for abdominal pain. Given simethicone then maalox without help. 2mg IV morphine without effect. Seen by this author. Pt reports pain since lunch. Last BM "a little while ago" not bloody nor diarrhea. Abdominal exam- soft, non tender to deep palpation, +bs, ND. Will check abdominal film and follow.
[2017-06-25] MEDS ORDERED: Metoprolol Tartrate IV* 1 MG/ML 5 ML VIAL IV ONE (02:53)
[2017-06-25] MEDS: Al Hydrox/Mg Hydrox/Simet LIQ* 30 ML UDC PO PRN (03:16)
[2017-06-25] MEDS: Simethicone CHEW TAB* 80 MG PO PRN (03:16)
[2017-06-25 05:43] LABS: BUN/Creatinine Ratio 16.4 (8-20); Calcium 9.2 mg/dL (8.6-10.3); EGFR African American 51.5 (>60); Potassium 3.8 mmol/L (3.5-5.0)
[2017-06-25] MEDS: PROCHLORPERAZINE INJ 5 MG/ML 2 ML VIAL IV PRN (08:26)
--- NOTE | 2017-06-25 08:27 | RAD ---
Indication: Abdominal pain. CHF. Dyspnea. Comparison: No relevant prior exams available on the [facility] for comparison. Technique: Supine and LEFT lateral decubitus abdomen views. Report: Long segment mild to moderate small bowel dilatation with air-fluid levels. Negative for dilatation of the colon or appreciable stool within the colon. Negative for free air. Negative for suspicious calcifications or mass effect. IMPRESSION: The constellation of findings may represent ileus or partial distal small bowel obstruction.
[2017-06-25] MEDS: Captopril TAB* 12.5 MG PO SCH ×3 (09:40→20:59)
[2017-06-25] MEDS: Carvedilol TAB* 25 MG PO SCH ×2 (09:40→20:58)
[2017-06-25] MEDS: Spironolactone TAB* 25 MG PO SCH (09:40)
[2017-06-25] MEDS ORDERED: Morphine INJ* 2 MG/ML 1 ML SYRINGE IV PRN (11:27)
[2017-06-25] MEDS ORDERED: diPHENhydraMINE PO* 25 MG PO ONE (11:42)
[2017-06-25] MEDS ORDERED: Diazepam TAB(*) 5 MG PO ONE (11:42)
--- NOTE | 2017-06-25 12:43 | PN ---
Subjective Date of Service: 06/25/17 Interval History: HOSPITALIST PROGRESS NOTE Patient seen and examined at bedside. He denies CP, palpitations or dyspnea. His major complaint at this time is nausea. He states after eating a garden burger yesterday, he developed abdominal pain, followed by nausea. One episode of vomiting last night, but no diarrhea so far. Abdominal pain is improved today, but nausea persists. Family History: Unchanged from Admission Social History: Unchanged from Admission Past Medical History: Unchanged from Admission Objective Active Medications: Acetaminophen (Tylenol Tab*) 650 mg PO Q6H PRN PRN Reason: pain/fever Al Hydrox/Mg Hydrox/Simethicone (Maalox Plus*) 30 ml PO Q4H PRN PRN Reason: INDIGESTION Last Admin: 06/25/17 03:16 Dose: 30 ml Albuterol (Ventolin Hfa Inhaler*) 2 puff INH Q4H PRN PRN Reason: SOB/WHEEZING Last Admin: 06/22/17 00:36 Dose: 2 puff Captopril (Capoten Tab*) 6.25 mg PO TID [facility] Last Admin: 06/25/17 09:40 Dose: 6.25 mg Carvedilol (Coreg Tab*) 25 mg PO BID [facility] Last Admin: 06/25/17 09:40 Dose: 25 mg Sodium Chloride (Ns 0.9% 1000 Ml*) 1,000 mls @ 75 mls/hr IV .per rate [facility] Morphine Sulfate (Morphine Inj (Syringe)*) 2 mg IV Q4H PRN PRN Reason: PAIN Prochlorperazine Edisylate (Compazine Inj*) 5 mg IV Q6H PRN PRN Reason: NAUSEA/VOMITING Last Admin: 06/25/17 08:26 Dose: 5 mg Simethicone (Mylicon*) 80 mg PO BID PRN PRN Reason: INDIGESTION Last Admin: 06/25/17 03:16 Dose: 80 mg Spironolactone (Aldactone Tab*) 25 mg PO DAILY [facility] Last Admin: 06/25/17 09:40 Dose: 25 mg Vital Signs 06/25/17 06/25/17 07:49 08:00 Temperature 99.4 F Pulse Rate 83 Respiratory 16 16 Rate Blood Pressure 131/104 (mmHg) O2 Sat by Pulse 98 Oximetry Oxygen Devices in Use Now: None Appearance: Pleasant gentleman lying in bed in NAD. Eyes: No Scleral Icterus Ears/Nose/Mouth/Throat: Mucous Membranes Moist Neck: Trachea Midline Respiratory: Symmetrical Chest Expansion and Respiratory Effort, Clear to Auscultation Cardiovascular: - - Normal S1 and S2 Abdominal: - - Mild distention, soft, NT, NG, NR, BS+ and hypoactive Extremities: - - Mild bilateral LE edema Neurological: Alert and Oriented x 3, NL Muscle Strength and Tone Lines/Tubes/Other Access: Clean, Dry and Intact Peripheral IV Nutrition: Taking PO's Result Diagrams: 06/22/17 05:58 06/25/17 05:06 Assess/Plan/Problems-Billing Assessment: Mr. Bhatia is a 67yo M with PMH of HTN, PAF, asthma, mitral regurgitation, who presented to ED with c/o dyspnea and chest pain, found to have newly diagnosed CHF. - Patient Problems (1) Ileus Comment: - AxR suggests ileus vs pSBO. - Will change diet to clear liquids and continue symptomatic treatment. - Encouraged to ambulate. (2) Acute systolic CHF (congestive heart failure) Comment: - Echo showed EF 20-25% with global hypokinesis, moderate to severe MR. - Responded well to Metolazone and Furosemide - weight down to 169lbs, breathing is easier. - Will hold Lasix for now, as he was lightheaded yesterday and creatinine trended up. - Continue ACEI and will increase beta-dionna. - Continue Xarelto. - Cardiology consult appreciated - plan for cath 06/26/17. (3) Atrial fibrillation Comment: - Increase beta-dionna. - Continue Xarelto. (4) CKD (chronic kidney disease) stage 3, GFR 30-59 ml/min Comment: - Monitor renal function with addition of diuretics and ACEI. - Creatinine down to 1.7. (5) Asthma Comment: - Continue Albuterol PRN. (6) DVT prophylaxis Comment: - Xarelto. (7) Full code status Status and Disposition: Inpatient for management of symptomatic CHF requiring >48h for stabilization.
[2017-06-26] MEDS: NS 0.9% 1000 ML* 1,000 ML IV SCH ×2 (00:19→14:23)
[2017-06-26 05:31] LABS: BUN/Creatinine Ratio 19.6 (8-20); Calcium 8.4 mg/dL (8.6-10.3); EGFR African American 58.5 (>60); EGFR Non-African American 45.5 (>60); Potassium 3.6 mmol/L (3.5-5.0)
[2017-06-26] MEDS ORDERED: diPHENhydraMINE PO* 25 MG PO ONE (06:00)
[2017-06-26] MEDS ORDERED: Diazepam TAB(*) 5 MG PO ONE (06:00)
--- NOTE | 2017-06-26 08:15 | RAD ---
INDICATION: Follow-up ileus COMPARISON: Similar radiograph June 24, 2017 TECHNIQUE: Supine and upright views of the abdomen were obtained. FINDINGS: Again seen are multiple air-filled loops of small bowel on the supine view radiograph measuring up to 3.4 cm in diameter. On the standing view there are multiple air-fluid levels throughout the small bowel. There is a paucity of gas and stool overlying the distal colon and rectum. IMPRESSION: Radiographic findings are compatible with ileus with a slight reduction in diameter of the dilated small bowel from 3.8 to 3.4 cm.
[2017-06-26] MEDS ORDERED: Diazepam TAB(*) 5 MG ONE (08:38)
[2017-06-26] MEDS ORDERED: diPHENhydraMINE PO* 25 MG ONE (08:39)
[2017-06-26] MEDS ORDERED: fentaNYL* 50 MCG/ML 2 ML VIAL (100 MCG VIAL) ONE (08:59)
[2017-06-26] MEDS ORDERED: Midazolam* 1 MG/ML 5 ML VIAL (5 MG) ONE (08:59)
[2017-06-26] MEDS ORDERED: Heparin 2 UNITS/ML IVPREMIX* 3,000 ML IV ONE (09:00)
[2017-06-26] MEDS ORDERED: Iodixanol* (CONTRAST) 320 MG/ML 100 ML SDV ONE (09:00)
[2017-06-26] MEDS ORDERED: Lidocaine 1% INJ* 10 MG/ML 30 ML SDV ONE (09:00)
[2017-06-26] MEDS ORDERED: Heparin 2 UNITS/ML IVPREMIX* 1,000 ML IV ONE ×2 (09:29→09:36)
[2017-06-26] MEDS: Captopril TAB* 12.5 MG PO SCH (10:32)
--- NOTE | 2017-06-26 13:07 | PN ---
Subjective Date of Service: 06/26/17 Interval History: HOSPITALIST PROGRESS NOTE Patient seen and examined at bedside. He just returned from [facility] where he received Benadryl and Valium and he's now sedated. Family History: Unchanged from Admission Social History: Unchanged from Admission Past Medical History: Unchanged from Admission Objective Active Medications: Acetaminophen (Tylenol Tab*) 650 mg PO Q6H PRN PRN Reason: pain/fever Al Hydrox/Mg Hydrox/Simethicone (Maalox Plus*) 30 ml PO Q4H PRN PRN Reason: INDIGESTION Last Admin: 06/25/17 03:16 Dose: 30 ml Albuterol (Ventolin Hfa Inhaler*) 2 puff INH Q4H PRN PRN Reason: SOB/WHEEZING Last Admin: 06/22/17 00:36 Dose: 2 puff Apixaban (Eliquis*) 5 mg PO BID [facility] Carvedilol (Coreg Tab*) 25 mg PO BID [facility] Last Admin: 06/25/17 20:58 Dose: 25 mg Sodium Chloride (Ns 0.9% 1000 Ml*) 1,000 mls @ 75 mls/hr IV .per rate [facility] Stop: 06/26/17 16:00 Last Admin: 06/26/17 00:19 Dose: 75 mls/hr Lisinopril (Prinivil Tab*) 10 mg PO DAILY [facility] Morphine Sulfate (Morphine Inj (Syringe)*) 2 mg IV Q4H PRN PRN Reason: PAIN Last Admin: 06/25/17 15:18 Dose: 2 mg Prochlorperazine Edisylate (Compazine Inj*) 5 mg IV Q6H PRN PRN Reason: NAUSEA/VOMITING Last Admin: 06/25/17 08:26 Dose: 5 mg Simethicone (Mylicon*) 80 mg PO BID PRN PRN Reason: INDIGESTION Last Admin: 06/25/17 03:16 Dose: 80 mg Spironolactone (Aldactone Tab*) 25 mg PO DAILY [facility] Last Admin: 06/25/17 09:40 Dose: 25 mg Vital Signs 06/26/17 06/26/17 06/26/17 10:57 11:00 11:01 Temperature 97.2 F Pulse Rate 60 88 63 Respiratory 18 Rate Blood Pressure 130/99 130/99 (mmHg) O2 Sat by Pulse 96 91 96 Oximetry Oxygen Devices in Use Now: Nasal Cannula Appearance: Pleasant gentleman lying in bed in NAD. Eyes: No Scleral Icterus Ears/Nose/Mouth/Throat: Mucous Membranes Moist Neck: Trachea Midline Respiratory: Symmetrical Chest Expansion and Respiratory Effort, Clear to Auscultation Cardiovascular: - - Normal S1 and S2, irregularly irregular, +SM Neurological: - - Sedated, arousable to voice and touch Lines/Tubes/Other Access: Clean, Dry and Intact Peripheral IV Nutrition: Taking PO's Result Diagrams: 06/22/17 05:58 06/26/17 04:54 Assess/Plan/Problems-Billing Assessment: Mr. Bhatia is a 67yo M with PMH of HTN, PAF, asthma, mitral regurgitation, who presented to ED with c/o dyspnea and chest pain, found to have newly diagnosed CHF. - Patient Problems (1) Ileus Comment: - AxR suggests ileus vs pSBO, improving. - Will advance diet when he's more awake. - Encouraged to ambulate. (2) Acute systolic CHF (congestive heart failure) Comment: - Echo showed EF 20-25% with global hypokinesis, moderate to severe MR. - Responded well to Metolazone and Furosemide - weight down to 168lbs, breathing is easier. - Continue ACEI and beta-dionna. - Continue Xarelto. - Cath showed no CAD. (3) Atrial fibrillation Comment: - Continue beta-dionna. - Continue Xarelto. (4) CKD (chronic kidney disease) stage 3, GFR 30-59 ml/min Comment: - Monitor renal function with addition of diuretics and ACEI. - Creatinine down to 1.5. (5) Asthma Comment: - Continue Albuterol PRN. (6) DVT prophylaxis Comment: - Xarelto. (7) Full code status Status and Disposition: Inpatient for management of symptomatic CHF requiring >48h for stabilization. Plan for d/c in AM if renal function stable, with [facility] to f/u with Dr. Palumbo.
[2017-06-26] MEDS: Carvedilol TAB* 25 MG PO SCH ×2 (14:26→20:45)
[2017-06-26] MEDS: Spironolactone TAB* 25 MG PO SCH (14:26)
[2017-06-26] MEDS ORDERED: Lisinopril TAB* 10 MG PO SCH (17:00)
[2017-06-26] MEDS: Apixaban* 5 MG TAB PO SCH (20:45)
--- NOTE | 2017-06-27 04:01 | CATH ---
CC: Dr. Palumbo, [facility]; Olu Sterling, * CARDIAC CATHETERIZATION REPORT: DATE OF PROCEDURE: 06/26/17 - ROOM #441 PROCEDURE: Cardiac catheterization including right heart catheterization, coronary angiography. INDICATIONS: Congestive heart failure, mitral regurgitation, atrial fibrillation. The patient is a 67-year-old gentleman, who came to the hospital because of congestive heart failure. He was found to have a severely reduced LV systolic function, ejection fraction of 25% with severe mitral regurgitation. The patient also had positive troponins. Cardiac catheterization was recommended. DESCRIPTION OF PROCEDURE: The patient was brought to the cardiac catheterization lab in a fasting state. Informed consent had been obtained prior to the procedure. All labs were reviewed. The patient does have chronic renal insufficiency, thus a left ventriculogram was not done. The patient did use Visipaque dye. The patient was placed supine on the catheterization table. Both femoral arteries were cleaned and draped in usual fashion. 1% lidocaine was used for local anesthesia. The right femoral vein was entered by a modified Seldinger technique and an 8-Green[place]ic sheath introducer was placed. The patient underwent a right heart catheterization using a balloon tip [place] catheter. Multiple hemodynamic and oxygen saturation tracings were obtained. The right femoral artery was entered via modified Seldinger technique, and a 6- [place] sheath introducer was placed. The patient underwent coronary angiography using a 6-Green[place] JL4 catheter, a 6-[place] AR1 catheter. At the end of the procedure, an angiogram of the femoral artery demonstrated normal position of the catheter and a Mynx closure device was deployed. The patient tolerated the procedure well. There were no complications. A total of 60 cc of Visipaque dye was used. A total of 11 minutes of fluoro time was used. FINDINGS: HEMODYNAMICS: Right atrial pressure with a mean of 9, right ventricular pressure 36/5 with an end-diastolic pressure of 8, pulmonary artery pressure of 34/18 with a mean of 24, pulmonary capillary wedge pressure with mean of 19 with V-waves up to 26. Central aortic blood pressure 112/86 with a mean of 98. Oxygen saturation, right atrial saturation 60%, pulmonary artery saturation was clotted and could not be measured, central aortic saturation 90%. CORONARY ARTERIES: 1. Left main artery: The left main was normal in size. It bifurcated into the LAD and circumflex. There was no evidence of stenosis. 2. Left anterior descending artery: The LAD was normal in size. It gave off 2 diagonal vessels. There was no evidence of stenosis. 3. Left circumflex artery: The left circumflex artery was normal in size. It gave off 2 obtuse marginal branches. There was no evidence of stenosis. 4. Right coronary artery: The right coronary artery was a large dominant vessel. It gave off the PDA. There was no evidence of stenosis. IMPRESSION: 1. Moderate pulmonary hypertension. 2. Normal coronary arteries. 3. Mynx closure device to the femoral artery. RECOMMENDATIONS: The patient will be continued on maximum medical therapy. The patient will be discharged on a Life Vest because of his LV dysfunction and nonsustained ventricular tachycardia. The patient will have a repeat echocardiogram in a month to reevaluate his mitral regurgitation and LV function. [id number] #: [id number] MTDLiseth
[2017-06-27 05:26] LABS: EGFR African American 55.2 (>60); EGFR Non-African American 42.9 (>60); Potassium 3.6 mmol/L (3.5-5.0)
[2017-06-27] MEDS: Spironolactone TAB* 25 MG PO SCH (09:29)
[2017-06-27] MEDS: Apixaban* 5 MG TAB PO SCH ×2 (09:30→22:23)
[2017-06-27] MEDS: Lisinopril TAB* 10 MG PO SCH (09:30)
[2017-06-27] MEDS: Carvedilol TAB* 25 MG PO SCH ×2 (09:30→22:24)
--- NOTE | 2017-06-27 10:32 | PN ---
Subjective Date of Service: 06/27/17 - CC: leg edema Interval History: Breathing is good, no orthopnea or PND. His is not yet walking post cath. Leg swelling persists. Medications Active Medications: Acetaminophen (Tylenol Tab*) 650 mg PO Q6H PRN PRN Reason: pain/fever Al Hydrox/Mg Hydrox/Simethicone (Maalox Plus*) 30 ml PO Q4H PRN PRN Reason: INDIGESTION Last Admin: 06/25/17 03:16 Dose: 30 ml Albuterol (Ventolin Hfa Inhaler*) 2 puff INH Q4H PRN PRN Reason: SOB/WHEEZING Last Admin: 06/22/17 00:36 Dose: 2 puff Apixaban (Eliquis*) 5 mg PO BID [facility] Last Admin: 06/27/17 09:30 Dose: 5 mg Carvedilol (Coreg Tab*) 25 mg PO BID [facility] Last Admin: 06/27/17 09:30 Dose: 25 mg Lisinopril (Prinivil Tab*) 10 mg PO 09 [facility] Last Admin: 06/27/17 09:30 Dose: 10 mg Morphine Sulfate (Morphine Inj (Syringe)*) 2 mg IV Q4H PRN PRN Reason: PAIN Last Admin: 06/25/17 15:18 Dose: 2 mg Prochlorperazine Edisylate (Compazine Inj*) 5 mg IV Q6H PRN PRN Reason: NAUSEA/VOMITING Last Admin: 06/25/17 08:26 Dose: 5 mg Simethicone (Mylicon*) 80 mg PO BID PRN PRN Reason: INDIGESTION Last Admin: 06/25/17 03:16 Dose: 80 mg Spironolactone (Aldactone Tab*) 25 mg PO DAILY [facility] Last Admin: 06/27/17 09:29 Dose: 25 mg Objective Vital Signs: Temp Pulse Resp BP Pulse Ox 98.5 F 89 16 108/74 99 06/27/17 09:16 06/27/17 09:16 06/27/17 09:16 06/27/17 09:16 06/27/17 09:16 Oxygen Devices in Use Now: Nasal Cannula Appearance: lying in bed, 40 degrees in nad, very pleasant Eyes: No Scleral Icterus, PERRLA Ears/Nose/Mouth/Throat: Clear Oropharnyx, Mucous Membranes Moist Neck: NL Appearance and Movements; NL JVP, Trachea Midline, - Respiratory: Symmetrical Chest Expansion and Respiratory Effort, Clear to Auscultation, - Cardiovascular: - - Irregularly irregular, soft systolic murmer apex. Abdominal: NL Sounds; No Tenderness; No Distention Extremities: No Clubbing, Cyanosis - Teds on, 2+ edema in the feet, minimal in his legs. Skin: No Rash or Ulcers Neurological: Alert and Oriented x 3 Lines/Tubes/Other Access: Clean, Dry and Intact Peripheral IV Laboratory Results: 06/22/17 05:58 06/27/17 04:47 Total Bilirubin 1.10 mg/dL (0.2-1.0) H 06/21/17 18:46 AST 30 U/L (13-39) 06/21/17 18:46 ALT 39 U/L (7-52) 06/21/17 18:46 Alkaline Phosphatase 53 U/L (34-104) 06/21/17 18:46 B-Natriuretic Peptide 897 pg/mL (-100) H 06/21/17 18:46 Total Protein 5.5 g/dL (6.4-8.9) L 06/21/17 18:46 Albumin 3.2 g/dL (3.2-5.2) 06/21/17 18:46 Globulin 2.3 g/dL (2-4) 06/21/17 18:46 Albumin/Globulin Ratio 1.4 (1-3) 06/21/17 18:46 TSH 1.20 mcIU/mL (0.34-5.60) 06/21/17 18:46 06/21/17 06/22/17 21:47 01:04 Troponin I 0.08 H* 0.07 H* Diagnostic Imagin03/16/2016: Normal LV cavity size Moderate LVH, LVEF 55% Severe LA enlargement Mild RV enlargement with preserved RV function Mild MVP with moderate eccentric MR Mild-mod TR, normal estimated PASP TTE 06/22/2017: LVEDD 6.2 cm moderately dilated, LVEF 20-25%, LA severely dilated , RV size normal with moderately reduced function, moderate to severe MR ( appears more consistent with severe) appearance of secondary/functional MR, severe RA dilation Cath 06/26/17: Normal C's. No V gram. EKG Data: Monitor: afib, 70's - 90's, rare PVC's. Assessment/Plan Mr. Bhatia is a 67-year-old man with a history of hypertension, MVProlapse and MR longstanding, admitted with CHF, history c/w 3 weeks CHF prior to admission found in recurrent afib, RVR, newly depressed LVEF 20-25%, worsened MR and TR and severe elevation in PA pressure. Cath yesterday showed normal coronary arteries, LVEDP normal, wedge 19. Improved clinically with dieresis and CHF cocktail. Renal function is stable post cath. AFIB: Needs ANAHY guided CV, will likely need an antiarrhythmic based on MR/MVPr and enlarged LA. It sounds like plans for out patient follow up for this were made with Dr. Perales. Lifelong anticoagulation for asymptomatic afib, CHADs score 2 (CHF and HTN), CHADsVasc 3. CM: Continue Coreg, lisinopril and diuretic, as discussed consider alternating aldactone with furosemide with daily weights and follow up electrolytes for KCL , BUN and creatinine. Continue with plans for life vest on discharge. MR/MVPr: Careful follow up needed, he may need valve repair to help stabilize CM, afib , I discussed this possibility with the patient. Focused f/u echo today to look at MR on medical management. May go back to moderate if/when sinus rhythm restored if not back there now. Recommend airline radio operator to assist with education on low salt diet.
[2017-06-27] MEDS ORDERED: Potassium Chlor TAB* 20 MEQ TAB.ER PO ONE (12:16)
[2017-06-27] MEDS ORDERED: Midazolam* 1 MG/ML 5 ML VIAL (5 MG) ONE (13:31)
[2017-06-27] MEDS ORDERED: Naloxone* 0.4 MG/ML 1 ML VIAL ONE (13:31)
[2017-06-27] MEDS ORDERED: fentaNYL* 50 MCG/ML 2 ML VIAL (100 MCG VIAL) ONE (13:31)
[2017-06-27] MEDS ORDERED: Lidocaine 2% VISCOUS* 15 ML UDC ONE (13:32)
[2017-06-27] MEDS ORDERED: Flumazenil* 0.1 MG/ML 5 ML MDV ONE (13:32)
--- NOTE | 2017-06-27 16:03 | PN ---
Subjective Date of Service: 06/27/17 Interval History: HOSPITALIST PROGRESS NOTE Patient seen and examined at bedside. He feels well today, offered no complaints. Family History: Unchanged from Admission Social History: Unchanged from Admission Past Medical History: Unchanged from Admission Objective Active Medications: Acetaminophen (Tylenol Tab*) 650 mg PO Q6H PRN PRN Reason: pain/fever Al Hydrox/Mg Hydrox/Simethicone (Maalox Plus*) 30 ml PO Q4H PRN PRN Reason: INDIGESTION Last Admin: 06/25/17 03:16 Dose: 30 ml Albuterol (Ventolin Hfa Inhaler*) 2 puff INH Q4H PRN PRN Reason: SOB/WHEEZING Last Admin: 06/22/17 00:36 Dose: 2 puff Apixaban (Eliquis*) 5 mg PO BID [facility] Last Admin: 06/27/17 09:30 Dose: 5 mg Carvedilol (Coreg Tab*) 25 mg PO BID [facility] Last Admin: 06/27/17 09:30 Dose: 25 mg Lisinopril (Prinivil Tab*) 10 mg PO 09 [facility] Last Admin: 06/27/17 09:30 Dose: 10 mg Morphine Sulfate (Morphine Inj (Syringe)*) 2 mg IV Q4H PRN PRN Reason: PAIN Last Admin: 06/25/17 15:18 Dose: 2 mg Prochlorperazine Edisylate (Compazine Inj*) 5 mg IV Q6H PRN PRN Reason: NAUSEA/VOMITING Last Admin: 06/25/17 08:26 Dose: 5 mg Simethicone (Mylicon*) 80 mg PO BID PRN PRN Reason: INDIGESTION Last Admin: 06/25/17 03:16 Dose: 80 mg Spironolactone (Aldactone Tab*) 25 mg PO DAILY [facility] Last Admin: 06/27/17 09:29 Dose: 25 mg Vital Signs 06/27/17 06/27/17 10:47 11:16 Temperature 98.4 F Pulse Rate 70 Respiratory 16 Rate Blood Pressure 91/53 106/70 (mmHg) O2 Sat by Pulse 100 Oximetry Oxygen Devices in Use Now: None Appearance: Pleasant gentleman sitting up in bed in NAD. Eyes: No Scleral Icterus Ears/Nose/Mouth/Throat: Mucous Membranes Moist Neck: Trachea Midline Respiratory: Symmetrical Chest Expansion and Respiratory Effort, Clear to Auscultation Cardiovascular: - - Normal S1 and S2, irregularly irregular Abdominal: NL Sounds; No Tenderness; No Distention Neurological: Alert and Oriented x 3, NL Muscle Strength and Tone Lines/Tubes/Other Access: Clean, Dry and Intact Peripheral IV Nutrition: Taking PO's Result Diagrams: 06/22/17 05:58 06/27/17 04:47 Assess/Plan/Problems-Billing Assessment: Mr. Bhatia is a 67yo M with PMH of HTN, PAF, asthma, mitral regurgitation, who presented to ED with c/o dyspnea and chest pain, found to have newly diagnosed CHF. - Patient Problems (1) Ileus Comment: - AxR suggests ileus vs pSBO, improving. Feels hungry today. - Encouraged to ambulate. (2) Acute systolic CHF (congestive heart failure) Comment: - Echo showed EF 20-25% with global hypokinesis, moderate to severe MR. - Responded well to Metolazone and Furosemide - weight down to 166lbs, breathing is easier. - Continue ACEI and beta-dionna. - Continue Xarelto. - Cath showed no CAD. - Initially plan was to follow up with Dr. Palumbo as outpatient, but patient has now decided to follow up with Dr. Velasquez. - Awaiting Life Vest. (3) Atrial fibrillation Comment: - Continue beta-dionna. - Continue Eliquis. - Dr. Velasquez will attempt ANAHY CV today. (4) CKD (chronic kidney disease) stage 3, GFR 30-59 ml/min Comment: - Monitor renal function with addition of diuretics and ACEI. - Creatinine stable around 1.6. (5) Asthma Comment: - Continue Albuterol PRN. (6) DVT prophylaxis Comment: - Eliquis. (7) Full code status Status and Disposition: Inpatient for management of symptomatic CHF requiring >48h for stabilization. and son called and updated.
[2017-06-27] MEDS ORDERED: NS 0.9% 250 ML* 250 ML IV ONE (18:59)
--- NOTE | 2017-06-27 19:51 | TEE ---
Patient: FAIZA PATINO Rec#: [id number] : 1950 Date: 06/27/2017 Age: 67y Height: 175 cm / 68.9 in Weight: 82 kg / 180.7 lbs Sex: M BSA: 1.98 Room#: 441 Admit Date#: 06/21/2017 Type: Inpatient Referring: Carol Velasquez MD Performing: Carol Velasquez MD Reading: Carol Velasquez MD Principal Network Architect: Tiffany Santos RD,RDMS Nurse: Mary Rogers Transesophageal Echocardiogram Indication: AFIB BP: 130/94 HR: 83 Rhythm: A-Fib Findings History: HTN, MVP, MV regurge, Afib Technical Comments: The study quality is good. Left Ventricle: The left ventricular chamber size is moderately dilated. There is diffuse global hypokinesis of the left ventricle. There is severely decreased left ventricular systolic function. The estimated ejection fraction is 20-25%. The assessment of diastolic function is non-diagnostic. Left Atrium: The left atrium is severely dilated. There is severe continuous spontaneous echo contrast visualized in the left atrium cavity and appendage. The left atrial appendage velocity is moderately reduced. Unable to rule out a mass or thrombus in the left atrial appendage. Right Ventricle: The right ventricular cavity size is normal. The right ventricular global systolic function is mildly reduced. Right Atrium: The right atrial cavity size is severely dilated. The bubble study is negative. A patent foramen ovale is not demonstrated with color Doppler and agitated contrast. Aortic Valve: The aortic valve is trileaflet. Small, fine echogenicities ,most likely Lambl's excrescences, noted on valve There is a trace of aortic regurgitation. There is no evidence of aortic stenosis. Mitral Valve: The mitral valve leaflets are mildly thickened. There is mild mitral valve prolapse. There is mild mitral regurgitation. There is no evidence of mitral stenosis. Tricuspid Valve: The tricuspid valve leaflets are normal. There is trace tricuspid regurgitation. Pulmonic Valve: The pulmonic valve appears normal. There is a trace pulmonic regurgitation. Pericardium: There is no significant pericardial effusion. Aorta: There is borderline dilatation of the ascending aorta. There is mild dilatation of the aortic root. Pulmonary Artery: The main pulmonary artery appears normal. Venous: The inferior vena cava appears normal. The flow pattern of the pulmonary veins appear normal. 3 out of 4 viens well visualized The superior vena cava appears normal. ANAHY Procedures: All standard views were attempted within the limitations of patient tolerance and safety. History and physical as well as labs were reviewed. The patient was in a fasting state. Risks and benefits of the procedure, including alternatives, were discussed and written informed consent was obtained. The patient and/or their health care guest services representative expressed understanding of the procedure, risks and benefits. Baseline and continuous monitoring of blood pressure, heart rate, pulse oximetry and heart rhythm was performed throughout the procedure. The appropriate time-out procedure was performed as per [facility] protocol. The patient was placed in the left lateral decubitus position. The patient's posterior pharynx was anesthetized with 20ml of 2% viscous lidocaine. The patient received IV Midazolam with a total dose of 5 mg. The patient received IV Fentanyl with a total dose of 25 mcg. An oral bite block was inserted for protection of oral dentition. The multiplane transesophageal echocardiogram probe was inserted through the posterior oropharynx and advanced into the esophagus without difficulty. Multiple 2D images were obtained of the heart and its related structures. Color flow Doppler was used for evaluation. Spectral Doppler was also used. The atrial septum was interrogated with color flow Doppler. At the conclusion of the procedure the probe was removed with continuous suction without complications. The patient tolerated the procedure with no apparent complications. Contrast: Intravenous agitated saline contrast was used to assess intracardiac shunting. Image 55 Conclusions The left ventricular chamber size is moderately dilated. There is diffuse global hypokinesis of the left ventricle. The estimated ejection fraction is 20-25%. The right ventricular global systolic function is mildly reduced. There is a trace of aortic regurgitation. There is trace to mild mitral regurgitation. There is trace tricuspid regurgitation. There is borderline dilatation of the ascending aorta: 3.6 c,. The left atrium is severely dilated. There is severe continuous spontaneous echo contrast visualized in the left atrium cavity and appendage. Possible thrombus in the left atrial appendage. The left atrial appendage velocity is moderately reduced. The right atrial cavity size is severely dilated. No evidence of a patent foramen ovale demonstrated with color Doppler and agitated contrast. The patient was in atrial fibrillation throughout the study. Compared with admission transthoracic echo, EF unchanged, the degree of MR and TR have improved markedly. Measurements Name Value Normal Range Aortic Annulus 2.2 cm (1.4 - 2.6) Ao root diameter (2D) 3.6 cm (2.1 - 3.5) Ascending Ao 3.6 cm (2.1 - 3.4) Name Value Normal Range MV E-wave Vmax 0.41 m/sec - MV deceleration time 153.37 msec - MV A-wave Vmax 0.02 m/sec - MV E:A ratio 34.23 ratio -
[2017-06-28] MEDS: Apixaban* 5 MG TAB PO SCH (09:21)
[2017-06-28] MEDS: Carvedilol TAB* 25 MG PO SCH (09:21)
[2017-06-28] MEDS: Lisinopril TAB* 10 MG PO SCH (09:21)
[2017-06-28 12:13] VITALS: BP 99/66
[2017-06-29] MEDS ORDERED: Spironolactone TAB* 25 MG PO SCH (07:18)
--- NOTE | 2017-06-30 00:37 | DS ---
CC: Hank Gautam NP; Dr. Carol Velasquez * DISCHARGE SUMMARY: DATE OF ADMISSION: 06/21/17 DATE OF DISCHARGE: 06/28/17 NEW PRIMARY CARE PROVIDER: Hank Gautam NP NEW STILL CLEANER TUBE: Dr. Carol Velasquez. DISCHARGE DIAGNOSES: 1. Acute systolic congestive heart failure exacerbation with ejection fraction 20% to 25%. 2. Non-ischemic cardiomyopathy. 3. Atrial fibrillation. 4. Left atrial appendage "smoke." 5. Ileus. 6. Chronic kidney disease, stage 3. 7. Mitral regurgitation. SECONDARY DIAGNOSES: 1. Hypertension. 2. Asthma. MEDICATION LIST: Albuterol HFA 2 puffs inhaled q.4 hours p.r.n. shortness of breath. New medications: 1. Aldactone 25 mg p.o. on Mondays, Wednesdays, and Fridays. 2. Furosemide 20 mg p.o. on Sundays, Tuesdays, , and Saturdays. 3. Lisinopril 10 mg p.o. daily. 4. Coreg 25 mg p.o. b.i.d. 5. Eliquis 5 mg p.o. b.i.d. HOSPITAL COURSE: Mr. Bhatia is a 67-year-old male with a past medical history as stated above that presented to the emergency room with complaints of progressive dyspnea for 3 weeks preceding admission. It was initially with exertion and it progressed to paroxysmal nocturnal dyspnea and orthopnea. For more details about his presentation, I refer you to his history and physical. The patient was found to have congestive heart failure exacerbation and also he was in atrial fibrillation. He was admitted for further evaluation. A transthoracic echocardiogram showed an ejection fraction of 20% to 25% with severe dilatation of the left atrium, [id number] mitral regurgitation, and global hypokinesis of the left ventricle. The patient was seen in consultation by Cardiology (Dr. Sterling) and he obtained records from [facility] that reviewed in February 2016, the patient had normal ejection fraction of 55% with severe LA enlargement, but normal left ventricle cavity size. His impression was the patient had a history of hypertension; hypertensive heart disease, not adherent with BP medication; chronic kidney disease; paroxysmal atrial fibrillation; mitral regurgitation; admitted with new-onset systolic heart failure in the setting of severe hypertension. His recommendation was to continue diuresis with IV furosemide, add Aldactone, add Coreg, add an JEY inhibitor, and uptitrate doses as tolerated. He also recommended continuation of oral anticoagulation as the patient has a CHADS2- VASc score of at least 2. He discussed the case with the patient's choke reamer at [facility] (Dr. Palumbo) and the recommendation was to continue medical management and to pursue a cardiac cath to rule out coronary artery disease. The patient responded well to diuresis and his weight dropped from 181 on admission to 166 with significant improvement of his dyspnea. On 06/26/17, the patient underwent a cardiac catheterization with Dr. Haq. He was found to have moderate pulmonary hypertension and normal coronary arteries. His recommendation was to continue maximum medical therapy and as the patient was having episodes of V-tach while on telemetry, he also recommended a LifeVest considering also his LV dysfunction. The patient was seen in followup by Dr. Velasquez and her recommendation was for cardioversion and she felt that restoring sinus rhythm would help improve his ejection fraction. The patient underwent ANAHY on 06/27/17 that showed ejection fraction of 20% to 25 %. Severe continuous spontaneous echo contrast visualized in the left atrial cavity and appendage representing a possible thrombus in the left atrial appendage, so for that reason, cardioversion was not performed. On the other hand, his mitral regurgitation appears to be much improved, now only trace to mild. The plan is for the patient to continue anticoagulation for 6 to 8 weeks and then be reevaluated with another ANAHY to see if cardioversion can be pursued at that time. On a separate note, the patient did have an episode of ileus after eating a veggie burger. His abdomen x-ray did not show any specific signs of obstruction and he had improvement on his symptoms. The patient is felt to be medically stable for discharge today. He received extensive education regarding his congestive heart failure, atrial fibrillation , hypertension, and the importance of compliance with medications and diet. At this point, he wishes to change primary care provider and choke reamer and the arrangements will be made for followup appointments. He received education about symptoms that should prompt his return to the emergency room. His and his son (who is a cardiac nurse in [place]) were also updated about the patient's hospital course and plan of care for the future. PHYSICAL EXAMINATION: Vital Signs: Temperature 97.6, heart rate is 61, respiratory rate is 16, oxygen saturation 99% on room air, blood pressure is 99/ 66. General: The patient is a pleasant gentleman, sitting up in bed, in no acute distress. CVS: Normal S1, S2. Irregularly irregular with a systolic murmur. Chest: Breath sounds present bilaterally with no added sounds. Abdomen is soft, nontender. Bowel sounds are present. Extremities: The patient has [id number] pitting edema around the ankle area. Neuro: He is alert, awake, and oriented x3. Able to move all 4 extremities. DIET: Heart-healthy vegan diet. The patient was advised to avoid caffeine. ACTIVITIES: As tolerated. DISPOSITION: To home. STATUS WHILE IN THE HOSPITAL: Inpatient. Please keep in mind this is a summarized version of this patient's prolonged and complex hospital stay. If you need more information, please feel free to call me at [phone] or please obtain the full medical records. TIME SPENT: Approximately 50 minutes was spent to complete this discharge. [id number]/CPS #: [id number] MTDD
== END 2017-06-28 13:17 | disposition home or self-care (01) | DRG 286 ==
LOC: ED 17:43 → MEDTELE 20:23
PROVIDERS: ADMIT Internal Medicine; ATTEND Internal Medicine
PROC: 4A023N6 Measurement of Cardiac Sampling and Pressure, Right Heart, Percutaneous Approach (ICD-10-PCS; 2017-06-26)
PROC: B2111ZZ Fluoroscopy of Multiple Coronary Arteries using Low Osmolar Contrast (ICD-10-PCS; 2017-06-26)
PROC: B24BZZ4 Ultrasonography of Heart with Aorta, Transesophageal (ICD-10-PCS; principal; 2017-06-27 10:30)
DX: I48.0 Paroxysmal atrial fibrillation (principal); I50.23 Acute on chronic systolic (congestive) heart failure; I47.2 Ventricular tachycardia; I27.2 Other secondary pulmonary hypertension; I42.8 Other cardiomyopathies; I08.1 Rheumatic disorders of both mitral and tricuspid valves; K56.7 Ileus, unspecified; I13.0 Hypertensive heart and chronic kidney disease with heart failure and stage 1 through stage 4 chronic kidney disease, or unspecified chronic kidney disease; I51.3 Intracardiac thrombosis, not elsewhere classified; N18.3 Chronic kidney disease, stage 3 (moderate); F17.210 Nicotine dependence, cigarettes, uncomplicated; J45.990 Exercise induced bronchospasm; R10.9 Unspecified abdominal pain; Z79.01 Long term (current) use of anticoagulants; Z86.73 Personal history of transient ischemic attack (TIA), and cerebral infarction without residual deficits; Z83.3 Family history of diabetes mellitus; Z80.3 Family history of malignant neoplasm of breast; Z80.8 Family history of malignant neoplasm of other organs or systems
CPT/HCPCS: 36415; 71020; 74020; 80048; 80053; 83605; 83735; 83880; 84443; 84484; 85025; 93005; 93306; 93312; 93325; 93456; 94640; 94760; 99156; 99157; A9270-GY; C1760; C1769; C1887; J0780; J1644; J1940; J2001; J2250; J2270; J2310; J3010

== ENCOUNTER 2017-07-26 08:30 | Day surgery (SDC) | payer OTHER ==
[2017-07-26] MEDS ORDERED: Buffered Lidocaine 0.9% SYRIN* 5 ML/SYR SYRINGE ONE (08:45)
[2017-07-26] MEDS ORDERED: KETAMINE HCL* 50 MG/ML 10 ML VIAL ONE (09:57)
[2017-07-26] MEDS ORDERED: fentaNYL* 50 MCG/ML 2 ML VIAL (100 MCG VIAL) ONE (09:57)
[2017-07-26] MEDS ORDERED: Midazolam* 1 MG/ML 5 ML VIAL (5 MG) ONE (09:57)
[2017-07-26] MEDS ORDERED: Phenylephrine IV* 40 MCG/ML 10 ML SYRINGE ONE (10:00)
[2017-07-26] MEDS ORDERED: Propofol* 10 MG/ML 20 ML BTL IV PUSH ONE (10:00)
[2017-07-26] MEDS ORDERED: EPHEDrine (Pressors)* 50 MG/ML VIAL ONE (10:00)
[2017-07-26] MEDS ORDERED: Amiodarone IV VIAL* 3 ML ONE (11:21)
[2017-07-26 13:41] VITALS: BP 130/94
== END 2017-07-26 13:56 | disposition home or self-care (01) ==
LOC: OR 08:30
PROVIDERS: ATTEND Specialist
DX: I48.1 Persistent atrial fibrillation (principal); Z79.01 Long term (current) use of anticoagulants; I50.42 Chronic combined systolic (congestive) and diastolic (congestive) heart failure; I34.0 Nonrheumatic mitral (valve) insufficiency
CPT/HCPCS: 92960; 93005; 93312; 93325; J0282; J2250; J2704; J3010

== ENCOUNTER 2017-07-30 12:48 | Emergency (ER) | payer OTHER ==
[2017-07-30 13:52] LABS: Hematocrit 40 % (42-52); Hemoglobin 13.5 g/dl (14.0-18.0); Mean Corpuscular HGB Conc 34 g/dl (31-36); Mean Corpuscular Hemoglobin 30 pg (27-31); Mean Corpuscular Volume 88 fL (80-94); Mean Platelet Volume 7 um3 (7.4-10.4); Red Blood Count 4.51 10^6/ul (4.0-5.4); Red Cell Distribution Width 14 % (10.5-15); White Blood Count 6.4 10^3/ul (3.5-10.8)
[2017-07-30 14:07] LABS: Albumin 3.2 g/dL (3.2-5.2); BUN/Creatinine Ratio 9.9 (8-20); Calcium 8.7 mg/dL (8.6-10.3); EGFR African American 55.2 (>60); EGFR Non-African American 42.9 (>60); Globulin 2.3 g/dL (2-4); Potassium 3.8 mmol/L (3.5-5.0); Total Protein 5.5 g/dL (6.4-8.9)
[2017-07-30 14:09] LABS: Troponin I 0.01 ng/mL (<0.04)
[2017-07-30 14:49] LABS: TSH (Thyroid Stimulating Horm) 0.61 mcIU/mL (0.34-5.60)
[2017-07-30] MEDS ORDERED: fentaNYL* 50 MCG/ML 2 ML VIAL (100 MCG VIAL) ONE (15:00)
[2017-07-30] MEDS ORDERED: Midazolam* 1 MG/ML 10 ML VIAL (10 MG) ONE (15:01)
[2017-07-30] MEDS ORDERED: Flumazenil* 0.1 MG/ML 5 ML MDV ONE (15:23)
[2017-07-30] MEDS ORDERED: Naloxone* 0.4 MG/ML 1 ML VIAL ONE (15:23)
[2017-07-30 16:50] VITALS: BP 141/105
--- NOTE | 2017-07-30 18:40 | ED ---
Juan F Christopher Nilda, scribed for Tye Gonzalez MD on 07/30/17 at 1338 . HPI Cardiac - HPI Summary HPI Summary: This patient is a 67 year old M presenting to [facility] accompanied by with a chief complaint of elevated heart rate since this morning after checking rate [employer]ESSING [employer]INE [employer]. Patient consulted with Dr. Velasquez ([employer]), who recommended that he visit the ED. The patient rates pain 0/10 in severity. Symptoms aggravated by nothing and alleviated by spontaneous resolution. Patient also reports burning mid-sternal chest pain that is still present. PMHx includes A-fib. Four days ago , patient had a cardioversion. - History of Current Complaint Chief Complaint: EDDysrhythmPalp Stated Complaint: AFIB Time Seen by Provider: 07/30/17 13:20 Hx Obtained From: Patient Onset/Duration: Started Hours Ago Timing: Constant Current Severity: Moderate Pain Intensity: 0 Pain Scale Used: 0-10 Numeric Chest Pain Location: Mid Sternal Chest Pain Radiates: No Character: Burning Aggravating Factor(s): Nothing Alleviating Factor(s): Spontaneous Resolution Associated Signs and Symptoms: Positive: Chest Pain - burning chest pain - Additional Pertinent History Primary Care Physician: [id number] - Allergy/Home Medications Allergies/Adverse Reactions: Allergies Allergy/AdvReac Type Severity Reaction Status Date / Time No Known Allergies Allergy Verified 07/26/17 08:46 PMH/Surg Hx/FS Hx/Imm Hx Cardiovascular History: Reports: Hx Congestive Heart Failure, Hx Hypertension, Hx Valvular Heart Disease - MVR, Other Cardiovascular Problems/Disorders - a fib , heart cath 06/2017, EF 20-25 Denies: Hx Peripheral Vascular Disease Respiratory History: Reports: Hx Asthma - exercise induced, Hx Seasonal Allergies GI History: Reports: Other GI Disorders - ileus 05/2017 admission History: Reports: Other Problems/Disorders - CKD Sensory History: Reports: Hx Contacts or Glasses - Both Denies: Hx Hearing Aid Opthamlomology History: Reports: Hx Contacts or Glasses - Both Neurological History: Reports: Hx Transient Ischemic Attacks (TIA) - Surgical History Surgery Procedure, Year, and Place: hernia repair, heart cath 06/26/17, [facility] Hx Anesthesia Reactions: No - heavy extended sedation with diazepam and diphenhydramine Infectious Disease History: Yes Infectious Disease History: Denies: Traveled Outside the [place] in Last 30 Days - Family History Known Family History: Positive: Hypertension, Diabetes Negative: Other - NEG: CVA - Social History Alcohol Use: None Substance Use Type: Reports: None Smoking Status (MU): Never Smoked Tobacco Review of Systems Positive: Chest Pain - burning mid-sternal (still present), Other - tachycardia (resolved) Negative: Cough All Other Systems Reviewed And Are Negative: Yes Physical Exam Triage Information Reviewed: Yes Vital Signs On Initial Exam: Initial Vitals Temp Pulse Resp BP Pulse Ox 97.8 F 59 12 129/88 100 07/30/17 12:57 07/30/17 12:57 07/30/17 12:57 07/30/17 12:57 07/30/17 12:57 Vital Signs Reviewed: Yes Appearance: Positive: Well-Appearing, No Pain Distress Skin: Positive: Warm, Skin Color Reflects Adequate Perfusion, Dry Head/Face: Positive: Normal Head/Face Inspection Eyes: Positive: Normal ENT: Positive: Normal ENT inspection Neck: Positive: Supple, Nontender Respiratory/Lung Sounds: Positive: Clear to Auscultation, Breath Sounds Present Cardiovascular: Positive: Other - Irregularly iregular heart rate Abdomen Description: Positive: Nontender, Soft Bowel Sounds: Positive: Present Musculoskeletal: Positive: Normal Neurological: Positive: Normal Psychiatric: Positive: Normal, Affect/Mood Appropriate Diagnostics - Vital Signs Vital Signs Temp Pulse Resp BP Pulse Ox 07/30/17 12:57 97.8 F 59 12 129/88 100 - Laboratory Lab Results: Lab Results 07/30/17 07/30/17 07/30/17 Range/Units 13:44 13:44 13:44 WBC 6.4 (3.5-10.8) 10^3/ul RBC 4.51 (4.0-5.4) 10^6/ul Hgb 13.5 L (14.0-18.0) g/dl Hct 40 L (42-52) % MCV 88 (80-94) fL MCH 30 (27-31) pg MCHC 34 (31-36) g/dl RDW 14 (10.5-15) % Plt Count 220 (150-450) 10^3/ul MPV 7 L (7.4-10.4) um3 Neut % (Auto) 70.5 (38-83) % Lymph % (Auto) 16.2 L (25-47) % Potter % (Auto) 9.7 H (1-9) % Eos % (Auto) 2.6 (0-6) % Baso % (Auto) 1.0 (0-2) % Absolute Neuts (auto) 4.5 (1.5-7.7) 10^3/ul Absolute Lymphs (auto) 1.0 (1.0-4.8) 10^3/ul Absolute Monos (auto) 0.6 (0-0.8) 10^3/ul Absolute Eos (auto) 0.2 (0-0.6) 10^3/ul Absolute Basos (auto) 0.1 (0-0.2) 10^3/ul Absolute Nucleated RBC 0 10^3/ul Nucleated RBC % 0 Sodium 137 (133-145) mmol/L Potassium 3.8 (3.5-5.0) mmol/L Chloride 106 (101-111) mmol/L Carbon Dioxide 27 (22-32) mmol/L Anion Gap 4 (2-11) mmol/L BUN 16 (6-24) mg/dL Creatinine 1.61 H (0.67-1.17) mg/dL Est GFR ( Amer) 55.2 (>60) Est GFR (Non-Af Amer) 42.9 (>60) BUN/Creatinine Ratio 9.9 (8-20) Glucose 86 (70-100) mg/dL Lactic Acid 0.7 (0.5-2.0) mmol/L Calcium 8.7 (8.6-10.3) mg/dL Magnesium 2.0 (1.9-2.7) mg/dL Total Bilirubin 1.00 (0.2-1.0) mg/dL AST 15 (13-39) U/L ALT 15 (7-52) U/L Alkaline Phosphatase 48 (34-104) U/L Troponin I 0.01 (<0.04) ng/mL Total Protein 5.5 L (6.4-8.9) g/dL Albumin 3.2 (3.2-5.2) g/dL Globulin 2.3 (2-4) g/dL Albumin/Globulin Ratio 1.4 (1-3) TSH 0.61 (0.34-5.60) mcIU/mL Result Diagrams: 07/30/17 13:44 07/30/17 13:44 Lab Statement: Any lab studies that have been ordered have been reviewed, and results considered in the medical decision making process. - EKG 1251 Cardiac Rate: NL - 62 bpm EKG Rhythm: Atrial Flutter Re-Evaluation - Re-Evaluation First Eval Re-Evaluation Time: 14:33 Comment: ED Physician discussed plan with patient to have Dr. Allison cardiovert him in ED. Patient understands and is agreeable with this plan. Disposition - Course Course Of Treatment: Mr. Bhatia presented in A-flutter with a controlled rate after being cardioverted 4 days ago. He was found to be a little hypokalemic and that was replaced. Dr. Allison was contacted and came in to cardiovert him but decided against it based on a history of problems with anesthesiology. He will F/U with Dr. Velasquez tomorrow. - Diagnoses Provider Diagnoses: A-fib - Physician Notifications Discussed Care Of Patient With: Dwight Allison - [employer] Time Discussed With Above Provider: 14:27 Instructed by Provider To: MD Will See In ED - Dr. Allison agreed to cardiovert patient in ED. Discharge - Discharge Plan Condition: Stable Disposition: HOME Patient Education Materials: A-fib (Atrial Fibrillation) (ED) Referrals: Carol Velasquez MD [Medical Doctor] - (Follow up with Dr. Velasquez tomorrow. ) Additional Instructions: RETURN TO THE EMERGENCY DEPARTMENT FOR CHANGING OR WORSENING SYMPTOMS. The documentation as recorded by the Juan F serna Nilda accurately reflects the service I personally performed and the decisions made by me, Tye Gonzalez MD.
== END 2017-07-30 16:51 | disposition home or self-care (01) ==
LOC: ED 12:48
DX: I48.91 Unspecified atrial fibrillation (principal); R07.9 Chest pain, unspecified
CPT/HCPCS: 36415; 80053; 83605; 83735; 84443; 84484; 85025; 93005; 99282; J2250; J2310; J3010

== ENCOUNTER 2017-08-11 10:53 | Inpatient (IN) | payer OTHER ==
[2017-08-11] MEDS ORDERED: Aspirin Low Dose CHEW TAB* 81 MG PO ONE (11:19)
[2017-08-11 12:03] LABS: Hematocrit 43 % (42-52); Hemoglobin 14.6 g/dl (14.0-18.0); Mean Corpuscular HGB Conc 34 g/dl (31-36); Mean Corpuscular Hemoglobin 30 pg (27-31); Mean Corpuscular Volume 90 fL (80-94); Mean Platelet Volume 7 um3 (7.4-10.4); Red Blood Count 4.81 10^6/ul (4.0-5.4); Red Cell Distribution Width 14 % (10.5-15); White Blood Count 6.4 10^3/ul (3.5-10.8)
[2017-08-11 12:11] LABS: Urine Bilirubin Negative (Negative); Urine Glucose Negative (Negative); Urine Nitrite Negative (Negative)
--- NOTE | 2017-08-11 12:16 | RAD ---
INDICATION: High blood pressure COMPARISON: Similar chest x-ray dated June 21, 2017 TECHNIQUE: Single AP portable view of the chest was obtained. FINDINGS: Image quality is compromised due to the relative inferiority of a portable chest x-ray. Since the prior chest x-ray there has been application, assumed to be external, of multiple iatrogenic devices including what appears to be a buckle overlying the midline lower neck. There is again seen a mild degree of cardiomegaly. The lungs are grossly clear. There is no evidence of a large pleural effusion. Visualized bones are normal for the patient's age. IMPRESSION: Persistent mild cardiomegaly without definite radiographic evidence of acute cardiopulmonary disease.
[2017-08-11 12:17] LABS: Albumin 3.7 g/dL (3.2-5.2); BUN/Creatinine Ratio 9.7 (8-20); Calcium 9.3 mg/dL (8.6-10.3); EGFR African American 53.6 (>60); EGFR Non-African American 41.7 (>60); Globulin 2.5 g/dL (2-4); Magnesium 2.1 mg/dL (1.9-2.7); Total Bilirubin 1.3 mg/dL (0.2-1.0); Total Protein 6.2 g/dL (6.4-8.9)
[2017-08-11 12:20] LABS: Troponin I 0.01 ng/mL (<0.04)
[2017-08-11 12:46] LABS: TSH (Thyroid Stimulating Horm) 1.22 mcIU/mL (0.34-5.60)
[2017-08-11] MEDS ORDERED: Furosemide IV* 10 MG/ML 2 ML VIAL (20 MG) IV SLOW PU ONE (13:06)
[2017-08-11] MEDS ORDERED: Labetalol IV* 5 MG/ML 20 ML VIAL IV PUSH ONE (13:24)
[2017-08-11] MEDS ORDERED: Albuterol HFA INHALER* 8 gm MDI INH PRN (15:07)
[2017-08-11] MEDS: Furosemide TAB* 20 MG PO SCH (16:10)
--- NOTE | 2017-08-11 17:56 | HP ---
HOSPITAL MEDICINE HISTORY AND PHYSICAL: DATE OF ADMISSION: 08/11/17 PRIMARY CARE PROVIDER: Dr. Lepe. ATTENDING PHYSICIAN: Dr. Shala Hodges* (dictation provided by Omar Hanley NP) . CHIEF COMPLAINT: Elevated blood pressure, 2-pound weight gain, and shortness of breath. HISTORY OF PRESENT ILLNESS: Mr. Bhatia is a 67-year-old male with a past medical history of non-ischemic cardiomyopathy and ejection fraction of 20% to 25%; history of V-tach, wearing current LifeVest; CKD, stage 3, who presents today to the hospital with concern that his blood pressure is elevated, that he has gained 2 pounds, and that he is short of breath. Mr. Bhatia states that he was last seen by Dr. Velasquez approximately 2 weeks ago, at which time, a cardioversion was performed. The patient at that point was in atrial fibrillation and it was felt that with his advanced cardiomyopathy and poor systolic function that he was not tolerating that well. He remained in sinus rhythm for approximately 2 days thereafter, but then did go back into atrial fibrillation. Plan was for the patient to follow up with Dr. Velasquez on , next week. The patient states over these past 2 weeks, he has been tired and resting mostly during the day. He has had more shortness of breath than usual. He denies any other complaints. There has been no chest pain, no cough. No nausea, vomiting, diarrhea, or abdominal pain. The patient took his blood pressure at home and it was noted to be running about 120s/110 and it was also noted that his weight had gone from 164 to 166 over a 24-hour period. He reviewed this with the son, who is a cardiac nurse, who strongly encouraged him to come see emergency room for evaluation. In the emergency room, Mr. Bhatia was confirmed to be in atrial fibrillation. The patient's heart rate is running about 120 to 130/110. His O2 saturation is 100% on room air at rest; however, when he gets up to ambulate to the bathroom, his O2 saturation drops into the low 80s. He has been given 20 mg of Lasix. Chest x-ray shows no real significant change from previous. His labs are unremarkable. PAST MEDICAL HISTORY: 1. Nonischemic cardiomyopathy with an ejection fraction of 20% to 25%. 2. CKD, stage 3. 3. AFib/flutter. 4. Hypertension. 5. Mitral regurgitation. 6. Ventricular tachycardia, now wearing LifeVest. MEDICATIONS: 1. Albuterol 2 puffs inhaled q.4 hours p.r.n. 2. Amiodarone 200 mg p.o. daily. 3. Apixaban 5 mg p.o. b.i.d. 4. Carvedilol 25 mg p.o. b.i.d. 5. Furosemide 20 mg p.o. Sunday, Sunday, , and Sunday. 6. Spironolactone 25 mg p.o. on Sunday, Sunday, and Sunday. ALLERGIES: No known drug allergies. FAMILY HISTORY: His uncle and aunt had diabetes. There is a history of breast and throat cancer in his mother. SOCIAL HISTORY: The patient smoked 1 pack of cigarettes as a teenager, but none since. He drinks alcohol very occasionally. There is no apparent drug use. He is retired from the [employer]. His is a healthcare proxy. REVIEW OF SYSTEMS: A 14-point review of systems was completed with Mr. Bhatia and all those not mentioned above were negative. PHYSICAL EXAMINATION GENERAL: Mr. Bhatia is sitting up in the bed. He is in no acute distress. VITAL SIGNS: Temperature 98, pulse rate 75, respiratory rate 20, O2 saturation 100% on room air, blood pressure 145/108. LUNGS: Clear to auscultation bilaterally with no accessory muscle use and good aeration. HEART: S1, S2. No murmur, rub, or gallop, and regular. ABDOMEN: Soft, nontender with bowel sounds positive x4. NEURO: He is alert. He is oriented x3. He moves all extremities equally. There is no facial asymmetry or focal weakness. Extraocular movements are intact. EXTREMITIES: No cyanosis, no edema. SKIN: Intact. DIAGNOSTIC STUDIES/LAB DATA: WBC 6.4, hemoglobin 14.6, hematocrit 43, platelet count 242. Sodium 139, potassium 4.0, chloride 106, serum bicarbonate 29, BUN 16, creatinine 1.65, glucose 104, lactic acid 1.1. Troponin is 0.01. BNP 852. Urine shows no evidence of infection. Chest x-ray shows cardiomegaly with no clear evidence of pulmonary or vascular congestion. EKG shows AFib. ASSESSMENT AND PLAN: Mr. Bhatia is a 67-year-old male with a past medical history of nonischemic cardiomyopathy and an ejection fraction of 20% to 25%, who has been noted to have ventricular tachycardia, now wears a LifeVest, who presents today to the hospital with concern for elevated blood pressure, weight gain, and shortness of breath. Our plans are for observation for the followin. Congestive heart failure: The patient shows evidence of congestive heart failure with his elevated blood pressure and weight gain. He has been given 20 mg of IV Lasix in the emergency room and has urinated multiple times. I think given his fragility overall that additional diuretic should be held until the patient can be reevaluated in the a.m., as he seems to be having a robust response thus far to that small dose intravenously. I suspect that his congestive heart failure is related to his atrial fibrillation, we will treat as below. 2. Atrial fibrillation: I spoke with Dr. Velasquez, who is his outpatient cooperative education director. She recommends that we set him up for a planned cardioversion in the a.m. He will be n.p.o. after midnight except for meds. In the meantime, we will continue his amiodarone and Eliquis. He is rate controlled. 3. Chronic kidney disease, stage 3, at baseline. Monitor. 4. DVT prophylaxis: With Eliquis. 5. Code status: Full code. TIME SPENT: Approximately 60 minutes was spent on the admission of this patient , more than half of the time was spent with the patient at the bedside reviewing the events leading up to this hospitalization, performing the physical examination, and reviewing my plan of care. OMAR HANLEY NP ADDENDUM TO HISTORY AND PHYSICAL: Mr. Bhatia is a 67-year-old male with history of cardiomyopathy with EF of 20%. It is a non-ischemic cardiomyopathy. The patient also has a history of atrial fibrillation and wears LifeVest. He came in complaining of high blood pressures. His pressures had been in the 130s/100 in the emergency department. He complains of shortness of breath with exertion, which apparently is chronic for the patient. Nevertheless, he is in atrial fibrillation for which he was cardioverted in the past. He is going to be placed on overnight observation. The plan is for Dr. Velasquez to see the patient in the morning and possibly perform a cardioversion. For further details of the patient's presentation and plan, please see history and physical dictated by Omar Hanley NP, on 08/11/17, with which I agree. Shala Hodges MD [id number]/CPS #: [id number]/CPS #: [id number] CELE
--- NOTE | 2017-08-11 19:17 | HP ---
HISTORY AND PHYSICAL: ADDENDUM: Mr. Bhatia is a 67-year-old male with history of cardiomyopathy with EF of 20%. It is a n on-ischemic cardiomyopathy. The patient also has a history of atrial fibrillation and wears LifeVes t. He came in complaining of high blood pressures. His pressures had been in the 130s/100 in the e mergency department. He complains of shortness of breath with exertion, which apparently is chronic for the patient. Nevertheless, he is in atrial fibrillation for which he was cardioverted in the p ast. He is going to be placed on overnight observation. The plan is for Dr. Velasquez to see the pat ient in the morning and possibly perform a cardioversion. For further details of the patient's presentation and plan, please see history and physical dictated by Siri Hanley NP, on 08/11/17, with which I agree. [id number]/CPS #: [id number]
--- NOTE | 2017-08-11 21:19 | PN ---
Progress Note - Progress Note Date of Service: 08/11/17 Note: Called by patient's primary RN with patient complaint of lower abdominal pain. On exam patient was tender at full in the mid lower abdomen. Post void bladder scan found 850ml urine. Fallon catheter ordered.
[2017-08-11] MEDS: Carvedilol TAB* 25 MG PO SCH (21:27)
[2017-08-11] MEDS: Apixaban* 5 MG TAB PO SCH (21:27)
--- NOTE | 2017-08-12 00:02 | PN ---
Progress Note - Progress Note Date of Service: 08/11/17 Note: Patient here with A-fib, and mild CHF exacerbation. Has had urinary frequency in AM, now no urine output in PM. Bladder scan shows 900 ml urine. Nurse attempted to place hinds. metal fabrication supervisor RN attempted to place hinds then coude, unsuccessful. There is blood and clots in catheter. Procedure: area cleaned and draped with chlorhexadine. Then cleaned area X3 with betadine. Attempted to pass 16f coude, no urine output, and caused pain at base of penis. Called Dr. Lewis, on-call urology, and he agreed to come and see patient.
[2017-08-12] MEDS ORDERED: Lidocaine 2% JELLY* 6 ML JELLY TOPICAL PRN (00:46)
[2017-08-12] MEDS ORDERED: Lidocaine 2% PF * 5 ML VIAL INJ ONE (01:30)
--- NOTE | 2017-08-12 04:03 | CONS ---
CONSULTATION AND PROCEDURE NOTE: DATE OF CONSULT/PROCEDURE: LOCATION: The patient is in room number 444. DIAGNOSIS: Urinary retention. PROCEDURE: 1. Attempt at complex placement of Fallon and Coude urethral catheters. 2. Placement of suprapubic catheter (Bonnani, 14-gauge catheter). HISTORY OF PRESENT ILLNESS: I was called at midnight by Dr. Brett Holder for urgent consult on this 67-year-old male because or urinary retention, and unsuccessful attempts at placement of a urethral catheter. Mr Bhatia was admitted because of arrhythmias and is scheduled for cardioversion in the morning. He was complaining of suprapubic discomfort and a bladder scan showed residual of about 850 cc. Several attempts at placement of urethral catheters by the nursing staff, and by Dr. Holder were unsuccessful and urgent consultation was obtained. Mr Bhatia history is negative. He denies any previous urological procedures. He has stable and moderate obstructive voiding symptoms with nocturia once or twice, day frequency of about every 2 to 3 hours. He reports having adequate urinary stream and no feeling of incomplete bladder emptying. He denies any episodes of gross hematuria or urinary tract infections. The patient has been able to void about 100 cc at a time; however, he continued to have suprapubic discomfort, feeling of incomplete emptying, and a large postvoid residual of about 800 cc by bladder scan. PHYSICAL EXAMINATION: On examination, he looks moderately uncomfortable. The bladder feels distended, reaching just below the umbilicus. External genitalia are normal. He is circumcised. Rectal exam shows a moderately enlarged, but non-suspicious prostate. PROCEDURE DESCRIPTION: Attempts at placement of a #16 Fr regular catheter, a 16 Fr coude catheter, and a 12- Grenadian coude tipped catheter were unsuccessful with resistance at the level of the posterior urethra. Urethral bleeding was noted with the attempted catheterizations. It was then decided to place a suprapubic catheter. The suprapubic area was prepped and draped. A total of 5 cc of 2% Xylocaine were used to infiltrate the skin and the abdominal wall just above the pubic bone in the midline. A 22-gauge spinal needle was then passed in the suprapubic area and into the bladder, and clear urine was aspirated. The depth of the needle was used to estimated the location of the bladder. A 14-gauge Bonnani catheter was then placed without difficulty, coiling it inside the bladder. The tab on the catheter was then secured to the skin with 3-0 Prolene sutures. A dressing was applied. Urine was draining and looked clear. PLAN: The plan is to keep the suprapubic catheter in place. The patient will require a cystoscopy at a later date to determine the cause of the urinary retention and to correct it. [id number] #: [id number] MTDD
[2017-08-12 06:04] LABS: BUN/Creatinine Ratio 9.8 (8-20); Calcium 8.9 mg/dL (8.6-10.3); EGFR African American 50.4 (>60); EGFR Non-African American 39.2 (>60); Potassium 3.7 mmol/L (3.5-5.0)
--- NOTE | 2017-08-12 08:36 | ED ---
Andrea Christopher Nikita, scribed for Owen Gurrola MD on 08/11/17 at 1127 . Hypertension - HPI Summary HPI Summary: This patient is a 67 year old M presenting to ED with a chief complaint of hypertension since earlier this morning. The patient rates the pain 0/10 in severity. Symptoms aggravated by nothing. Symptoms alleviated by nothing. Patient reports SOB (started yesterday) and wheezing. Patient denies CP and a TATE. - History of Current Complaint Chief Complaint: EDHypertension Stated Complaint: HIGH BP Time Seen by Provider: 08/11/17 11:02 Hx Obtained From: Patient Onset/Duration: Started Hours Ago, Still Present Timing: Constant Aggravating Factor(s): Nothing Alleviating Factor(s): Nothing Associated Signs & Symptoms: Other: - Patient reports SOB (started yesterday) and wheezing. Patient denies CP and a TATE. - Allergies/Home Medications Allergies/Adverse Reactions: Allergies Allergy/AdvReac Type Severity Reaction Status Date / Time No Known Allergies Allergy Verified 08/11/17 10:59 PMH/Surg Hx/FS Hx/Imm Hx Cardiovascular History: Reports: Hx Congestive Heart Failure, Hx Hypertension, Hx Valvular Heart Disease - MVR, Other Cardiovascular Problems/Disorders - a fib , heart cath 06/2017, EF 20-25 Denies: Hx Peripheral Vascular Disease Respiratory History: Reports: Hx Asthma - exercise induced, Hx Seasonal Allergies GI History: Reports: Other GI Disorders - ileus 05/2017 admission History: Reports: Other Problems/Disorders - CKD Sensory History: Reports: Hx Contacts or Glasses - Both Denies: Hx Hearing Aid Opthamlomology History: Reports: Hx Contacts or Glasses - Both Neurological History: Reports: Hx Transient Ischemic Attacks (TIA) - Surgical History Surgery Procedure, Year, and Place: hernia repair, heart cath 06/26/17, [facility] [place] Anesthesia Reactions: No - heavy extended sedation with diazepam and diphenhydramine Infectious Disease History: No Infectious Disease History: Denies: Traveled Outside the [place] in Last 30 Days - Family History Known Family History: Positive: Hypertension, Diabetes Negative: Other - NEG: CVA - Social History Alcohol Use: None Substance Use Type: Reports: None Smoking Status (MU): Never Smoked Tobacco Review of Systems Positive: Other - hypertension. Negative: Chest Pain Positive: Shortness Of Breath, Other - wheezing Negative: Headache All Other Systems Reviewed And Are Negative: Yes Physical Exam - Summary Physical Exam Summary: GENERAL: ~Patient is a well-developed and nourished MALE who is lying comfortable in the stretcher. ~Patient is not in any acute respiratory distress. HEAD AND FACE: No signs of trauma. ~No ecchymosis, hematomas or skull depressions. No sinus tenderness. EYES: PERRLA, EOMI x 2, No injected conjunctiva, no nystagmus. EARS: Hearing grossly intact. Ear canals and tympanic membranes are within normal limits. MOUTH: Oropharynx within normal limits. NECK: Supple, trachea is midline, no adenopathy, no JVD, no carotid bruit, no c- spine tenderness, neck with full ROM. CHEST: Symmetric, no tenderness at palpation LUNGS: Clear to auscultation bilaterally. No wheezing or crackles. CVS: Regular rate and rhythm, S1 and S2 present, no murmurs or gallops appreciated. ABDOMEN: Soft, non-tender. No signs of distention. No rebound no guarding, and no masses palpated. Bowel sounds are normal. EXTREMITIES: FROM in all major joints, no edema, no cyanosis or clubbing. NEURO: Alert and oriented x 3. No acute neurological deficits. Speech is normal and follows commands. SKIN: Dry and warm Triage Information Reviewed: Yes Vital Signs On Initial Exam: Initial Vitals Temp Pulse Resp BP Pulse Ox 97.0 F 70 16 166/115 99 08/11/17 10:56 08/11/17 10:56 08/11/17 10:56 08/11/17 10:56 08/11/17 10:56 Vital Signs Reviewed: Yes Diagnostics - Vital Signs Vital Signs Temp Pulse Resp BP Pulse Ox 08/11/17 10:56 97.0 F 70 16 166/115 99 - Laboratory Lab Results: Lab Results 08/11/17 08/11/17 08/11/17 Range/Units 11:20 11:45 11:45 WBC 6.4 (3.5-10.8) 10^3/ul RBC 4.81 (4.0-5.4) 10^6/ul Hgb 14.6 (14.0-18.0) g/dl Hct 43 (42-52) % MCV 90 (80-94) fL MCH 30 (27-31) pg MCHC 34 (31-36) g/dl RDW 14 (10.5-15) % Plt Count 242 (150-450) 10^3/ul MPV 7 L (7.4-10.4) um3 Neut % (Auto) 73.7 (38-83) % Lymph % (Auto) 15.2 L (25-47) % [facility] % (Auto) 8.1 (1-9) % Eos % (Auto) 2.1 (0-6) % Baso % (Auto) 0.9 (0-2) % Absolute Neuts (auto) 4.7 (1.5-7.7) 10^3/ul Absolute Lymphs (auto) 1.0 (1.0-4.8) 10^3/ul Absolute Monos (auto) 0.5 (0-0.8) 10^3/ul Absolute Eos (auto) 0.1 (0-0.6) 10^3/ul Absolute Basos (auto) 0.1 (0-0.2) 10^3/ul Absolute Nucleated RBC 0.01 10^3/ul Nucleated RBC % 0.1 Sodium 139 (133-145) mmol/L Potassium 4.0 (3.5-5.0) mmol/L Chloride 106 (101-111) mmol/L Carbon Dioxide 29 (22-32) mmol/L Anion Gap 4 (2-11) mmol/L BUN 16 (6-24) mg/dL Creatinine 1.65 H (0.67-1.17) mg/dL Est GFR ( Amer) 53.6 (>60) Est GFR (Non-Af Amer) 41.7 (>60) BUN/Creatinine Ratio 9.7 (8-20) Glucose 104 H (70-100) mg/dL Lactic Acid (0.5-2.0) mmol/L Calcium 9.3 (8.6-10.3) mg/dL Magnesium 2.1 (1.9-2.7) mg/dL Total Bilirubin 1.30 H (0.2-1.0) mg/dL AST 16 (13-39) U/L ALT 18 (7-52) U/L Alkaline Phosphatase 44 (34-104) U/L Total Creatine Kinase 61 (10-223) U/L CK-MB (CK-2) 2.1 (0.6-6.3) ng/mL Troponin I 0.01 (<0.04) ng/mL B-Natriuretic Peptide 852 H ( - 100) pg/mL Total Protein 6.2 L (6.4-8.9) g/dL Albumin 3.7 (3.2-5.2) g/dL Globulin 2.5 (2-4) g/dL Albumin/Globulin Ratio 1.5 (1-3) TSH 1.22 (0.34-5.60) mcIU/mL Urine Color Urine Appearance Urine pH (5-9) Ur Specific [place] (1.010-1.030) Urine Protein (Negative) Urine Ketones (Negative) Urine Blood (Negative) Urine Nitrate (Negative) Urine Bilirubin (Negative) Urine Urobilinogen (Negative) Ur Leukocyte Esterase (Negative) Urine Glucose (Negative) 08/11/17 08/11/17 Range/Units 11:45 11:52 WBC (3.5-10.8) 10^3/ul RBC (4.0-5.4) 10^6/ul Hgb (14.0-18.0) g/dl Hct (42-52) % MCV (80-94) fL MCH (27-31) pg MCHC (31-36) g/dl RDW (10.5-15) % Plt Count (150-450) 10^3/ul MPV (7.4-10.4) um3 Neut % (Auto) (38-83) % Lymph % (Auto) (25-47) % [facility] % (Auto) (1-9) % Eos % (Auto) (0-6) % Baso % (Auto) (0-2) % Absolute Neuts (auto) (1.5-7.7) 10^3/ul Absolute Lymphs (auto) (1.0-4.8) 10^3/ul Absolute Monos (auto) (0-0.8) 10^3/ul Absolute Eos (auto) (0-0.6) 10^3/ul Absolute Basos (auto) (0-0.2) 10^3/ul Absolute Nucleated RBC 10^3/ul Nucleated RBC % Sodium (133-145) mmol/L Potassium (3.5-5.0) mmol/L Chloride (101-111) mmol/L Carbon Dioxide (22-32) mmol/L Anion Gap (2-11) mmol/L BUN (6-24) mg/dL Creatinine (0.67-1.17) mg/dL Est GFR ( Amer) (>60) Est GFR (Non-Af Amer) (>60) BUN/Creatinine Ratio (8-20) Glucose (70-100) mg/dL Lactic Acid 1.1 (0.5-2.0) mmol/L Calcium (8.6-10.3) mg/dL Magnesium (1.9-2.7) mg/dL Total Bilirubin (0.2-1.0) mg/dL AST (13-39) U/L ALT (7-52) U/L Alkaline Phosphatase (34-104) U/L Total Creatine Kinase (10-223) U/L CK-MB (CK-2) (0.6-6.3) ng/mL Troponin I (<0.04) ng/mL B-Natriuretic Peptide ( - 100) pg/mL Total Protein (6.4-8.9) g/dL Albumin (3.2-5.2) g/dL Globulin (2-4) g/dL Albumin/Globulin Ratio (1-3) TSH (0.34-5.60) mcIU/mL Urine Color Yellow Urine Appearance Clear Urine pH 6.0 (5-9) Ur Specific [place] 1.013 (1.010-1.030) Urine Protein Negative (Negative) Urine Ketones Negative (Negative) Urine Blood Negative (Negative) Urine Nitrate Negative (Negative) Urine Bilirubin Negative (Negative) Urine Urobilinogen Negative (Negative) Ur Leukocyte Esterase Negative (Negative) Urine Glucose Negative (Negative) Result Diagrams: 08/11/17 11:45 08/12/17 05:22 Lab Statement: Any lab studies that have been ordered have been reviewed, and results considered in the medical decision making process. - Radiology CXR Radiology Interpretation Completed By: Radiologist - Persistent mild cardiomegaly without definite radiographic evidence of acute cardiopulmonary disease. ED physician has reviewed this radiology report and agrees. - EKG 1132 Cardiac Rate: Other Rate - aFib at 79 bpm EKG Interpretation: ST elevation in V4,V5, and V6; similar to 07/30/17 Hypertension Course/Dx - Course Assessment/Plan: This patient is a 67 year old M presenting to ED with a chief complaint of hypertension since earlier this morning. The patient rates the pain 0/10 in severity. Symptoms aggravated by nothing. Symptoms alleviated by nothing. Patient reports SOB (started yesterday) and wheezing. Patient denies CP and a TATE. CXR reveals persistent mild cardiomegaly without definite radiographic evidence of acute cardiopulmonary disease. ED physician has reviewed this radiology report and agrees. EKG reveals aFib at [address] elevation in V4,V5, and V6; similar to 07/30/17. In the ED course, pt was given ASA. Consulted Dr. Velasquez at 1441 who recommends pt for admission. Test results at his baseline period. Urinalysis is negative for UTI. CXR shows no acute pathology. In the ED course, pt was given labetalol for HTN and lasix for CHF. The pt continues to be hypertensive and hypoxic especially when he ambulates. O2 sat drops to low 80s. At this point, we contacted Dr. Hodges who accepts pt for admission. Dx is uncontrolled hypertension, CHF exacerbation, and hypoxia. - Diagnoses Provider Diagnoses: HTN (hypertension), CHF (congestive heart failure), Hypoxia - Physician Notifications Discussed Care Of Patient With: Carol Velasquez Time Discussed With Above Provider: 14:41 Instructed by Provider To: Other - Consulted Dr. Velasquez who recommends pt for admission. Consulted Dr. Hodges who accepts pt for admission. Discharge - Discharge Plan Condition: Stable Disposition: ADMITTED TO [facility] The documentation as recorded by the Andrea serna Nikita accurately reflects the service I personally performed and the decisions made by me, Owen Gurrola MD.
[2017-08-12 08:56] LABS: Magnesium 1.9 mg/dL (1.9-2.7)
[2017-08-12] MEDS ORDERED: Acetaminophen TAB* 325 MG PO PRN (10:16)
[2017-08-12] MEDS: Apixaban* 5 MG TAB PO SCH ×2 (10:18→20:58)
--- NOTE | 2017-08-12 10:20 | PN ---
Subjective Date of Service: 08/12/17 Interval History: Mr. Bhatia was seen and evaluated at the bedside this morning where is found to be resting in bed visiting with his spouse. He reports he feels better compared to admission yesterday and reports his SOB has resolved. He reports some discomfort at the suprapubic site reporting it is "sore" but denying pain. Denies ever having urinary retention prior to this episode. He currently feels comfortable and denies SOB, CP. Denies palpitations. Denies ever having an increase in LE edema. Objective Active Medications: Acetaminophen (Tylenol Tab*) 650 mg PO Q6H PRN PRN Reason: FEVER/PAIN Albuterol (Ventolin Hfa Inhaler*) 2 puff INH Q4H PRN PRN Reason: SOB/WHEEZING Amiodarone HCl (Cordarone Tab*) 200 mg PO DAILY [facility] Apixaban (Eliquis*) 5 mg PO BID [facility] Last Admin: 08/12/17 10:18 Dose: 5 mg Carvedilol (Coreg Tab*) 25 mg PO BID [facility] Last Admin: 08/11/17 21:27 Dose: 25 mg Furosemide (Lasix Tab*) 20 mg PO SUTUTHSA [facility] Last Admin: 08/11/17 16:10 Dose: 20 mg Lidocaine HCl (Lidocaine 2% Jelly*) 1 applic TOPICAL TID PRN PRN Reason: PAIN - MODERATE TO SEVERE Last Admin: 08/12/17 01:04 Dose: 1 applic Spironolactone (Aldactone Tab*) 25 mg PO MOWEFR [facility] Vital Signs 08/11/17 08/11/17 08/11/17 14:29 14:30 14:45 Temperature Pulse Rate 71 69 73 Respiratory 27 18 24 Rate Blood Pressure 140/116 152/115 152/109 (mmHg) O2 Sat by Pulse 100 100 96 Oximetry 08/11/17 08/11/17 08/11/17 15:28 19:41 19:45 Temperature 98 F 98.7 F 97.6 F Pulse Rate 75 78 70 Respiratory 20 24 12 Rate Blood Pressure 145/108 154/112 157/107 (mmHg) O2 Sat by Pulse 100 95 100 Oximetry 08/11/17 08/11/17 08/12/17 20:00 23:17 03:59 Temperature 98.8 F 98.3 F Pulse Rate 75 68 Respiratory 13 16 20 Rate Blood Pressure 128/89 124/81 (mmHg) O2 Sat by Pulse 99 100 Oximetry 08/12/17 07:35 Temperature 98.6 F Pulse Rate 65 Respiratory 16 Rate Blood Pressure 137/91 (mmHg) O2 Sat by Pulse 100 Oximetry Oxygen Devices in Use Now: None Appearance: 67 yo well appearing male A+O x3 Eyes: No Scleral Icterus, PERRLA Ears/Nose/Mouth/Throat: NL Teeth, Lips, Gums, Mucous Membranes Moist Neck: NL Appearance and Movements; NL JVP Respiratory: Symmetrical Chest Expansion and Respiratory Effort, Clear to Auscultation, - Cardiovascular: NL Sounds; No Murmurs; No JVD, No Edema, - - irregularly irregular Abdominal: - - soft, nondistended. Suprapubic catheter is draining pink tinged urine. no clots noted. insertion site is sore but no noted hematoma. Dressing CD +I. Extremities: No Edema, No Clubbing, Cyanosis Skin: No Rash or Ulcers, No Nodules or Sclerosis Neurological: Alert and Oriented x 3, NL Sensation, NL Muscle Strength and Tone Lines/Tubes/Other Access: Clean, Dry and Intact Hinds - suprapubic, Clean, Dry and Intact Peripheral IV Nutrition: - - NPO for CV Result Diagrams: 08/11/17 11:45 08/12/17 05:22 Additional Lab and Data: Lab Results 08/11/17 08/11/17 08/11/17 Range/Units 11:20 11:45 11:45 WBC 6.4 (3.5-10.8) 10^3/ul RBC 4.81 (4.0-5.4) 10^6/ul Hgb 14.6 (14.0-18.0) g/dl Hct 43 (42-52) % MCV 90 (80-94) fL MCH 30 (27-31) pg MCHC 34 (31-36) g/dl RDW 14 (10.5-15) % Plt Count 242 (150-450) 10^3/ul MPV 7 L (7.4-10.4) um3 Neut % (Auto) 73.7 (38-83) % Lymph % (Auto) 15.2 L (25-47) % [place] % (Auto) 8.1 (1-9) % Eos % (Auto) 2.1 (0-6) % Baso % (Auto) 0.9 (0-2) % Absolute Neuts (auto) 4.7 (1.5-7.7) 10^3/ul Absolute Lymphs (auto) 1.0 (1.0-4.8) 10^3/ul Absolute Monos (auto) 0.5 (0-0.8) 10^3/ul Absolute Eos (auto) 0.1 (0-0.6) 10^3/ul Absolute Basos (auto) 0.1 (0-0.2) 10^3/ul Absolute Nucleated RBC 0.01 10^3/ul Nucleated RBC % 0.1 Sodium 139 (133-145) mmol/L Potassium 4.0 (3.5-5.0) mmol/L Chloride 106 (101-111) mmol/L Carbon Dioxide 29 (22-32) mmol/L Anion Gap 4 (2-11) mmol/L BUN 16 (6-24) mg/dL Creatinine 1.65 H (0.67-1.17) mg/dL Est GFR ( Amer) 53.6 (>60) Est GFR (Non-Af Amer) 41.7 (>60) BUN/Creatinine Ratio 9.7 (8-20) Glucose 104 H (70-100) mg/dL Lactic Acid (0.5-2.0) mmol/L Calcium 9.3 (8.6-10.3) mg/dL Magnesium 2.1 (1.9-2.7) mg/dL Total Bilirubin 1.30 H (0.2-1.0) mg/dL AST 16 (13-39) U/L ALT 18 (7-52) U/L Alkaline Phosphatase 44 (34-104) U/L Total Creatine Kinase 61 (10-223) U/L CK-MB (CK-2) 2.1 (0.6-6.3) ng/mL Troponin I 0.01 (<0.04) ng/mL B-Natriuretic Peptide 852 H ( - 100) pg/mL Total Protein 6.2 L (6.4-8.9) g/dL Albumin 3.7 (3.2-5.2) g/dL Globulin 2.5 (2-4) g/dL Albumin/Globulin Ratio 1.5 (1-3) TSH 1.22 (0.34-5.60) mcIU/mL Urine Color Urine Appearance Urine pH (5-9) Ur Specific [place] (1.010-1.030) Urine Protein (Negative) Urine Ketones (Negative) Urine Blood (Negative) Urine Nitrate (Negative) Urine Bilirubin (Negative) Urine Urobilinogen (Negative) Ur Leukocyte Esterase (Negative) Urine Glucose (Negative) 08/11/17 08/11/17 Range/Units 11:45 11:52 WBC (3.5-10.8) 10^3/ul RBC (4.0-5.4) 10^6/ul Hgb (14.0-18.0) g/dl Hct (42-52) % MCV (80-94) fL MCH (27-31) pg MCHC (31-36) g/dl RDW (10.5-15) % Plt Count (150-450) 10^3/ul MPV (7.4-10.4) um3 Neut % (Auto) (38-83) % Lymph % (Auto) (25-47) % [place] % (Auto) (1-9) % Eos % (Auto) (0-6) % Baso % (Auto) (0-2) % Absolute Neuts (auto) (1.5-7.7) 10^3/ul Absolute Lymphs (auto) (1.0-4.8) 10^3/ul Absolute Monos (auto) (0-0.8) 10^3/ul Absolute Eos (auto) (0-0.6) 10^3/ul Absolute Basos (auto) (0-0.2) 10^3/ul Absolute Nucleated RBC 10^3/ul Nucleated RBC % Sodium (133-145) mmol/L Potassium (3.5-5.0) mmol/L Chloride (101-111) mmol/L Carbon Dioxide (22-32) mmol/L Anion Gap (2-11) mmol/L BUN (6-24) mg/dL Creatinine (0.67-1.17) mg/dL Est GFR ( Amer) (>60) Est GFR (Non-Af Amer) (>60) BUN/Creatinine Ratio (8-20) Glucose (70-100) mg/dL Lactic Acid 1.1 (0.5-2.0) mmol/L Calcium (8.6-10.3) mg/dL Magnesium (1.9-2.7) mg/dL Total Bilirubin (0.2-1.0) mg/dL AST (13-39) U/L ALT (7-52) U/L Alkaline Phosphatase (34-104) U/L Total Creatine Kinase (10-223) U/L CK-MB (CK-2) (0.6-6.3) ng/mL Troponin I (<0.04) ng/mL B-Natriuretic Peptide ( - 100) pg/mL Total Protein (6.4-8.9) g/dL Albumin (3.2-5.2) g/dL Globulin (2-4) g/dL Albumin/Globulin Ratio (1-3) TSH (0.34-5.60) mcIU/mL Urine Color Yellow Urine Appearance Clear Urine pH 6.0 (5-9) Ur Specific [place] 1.013 (1.010-1.030) Urine Protein Negative (Negative) Urine Ketones Negative (Negative) Urine Blood Negative (Negative) Urine Nitrate Negative (Negative) Urine Bilirubin Negative (Negative) Urine Urobilinogen Negative (Negative) Ur Leukocyte Esterase Negative (Negative) Urine Glucose Negative (Negative) Assess/Plan/Problems-Billing Assessment: 67 yo male with a PMH of HTN, non-ischemic cardiomyopathy with EF 20 -25% with hx of Vtach currently wearing a LifeVest, CKD stage 3 who presented to the ER on 08/11/17 with c/o 2lbs weight gain, elevated blood pressure and SOB found in be in afib. He also developed acute urinary retention with failure to place hinds and is now s/p suprapubic catheter placement by Urologist. - Patient Problems (1) Acute systolic CHF (congestive heart failure) Comment: - Dx in jun 2017 thought to be secondary to HTN disease and noncompliance to HTN medications. Suspect current episode is 2nd to afib. symptoms improved overnight with diuresing. Plan for cardioversion this am with Dr. Velasquez. - Echo 07/28/17 showed EF 20-25% with severe left ventricular dysfunction - Cath on 07/08 showed no CAD. - Hx of Vtach. Continue Life Vest (has had for approx 2 months). - Continue lasix and spironlactone per home med schedule - PRN lasix as needed. - Daily Weights (no weight yet today) (2) Atrial fibrillation Comment: - Continue beta-dionna. amiodarone - Continue Eliquis. - Dr. Velasquez will attempt ANAHY CV today. (3) Acute urinary retention Comment: - Placed by Urologist Dr. Ocampo, will need f/u after discharge and will require a systoscopy at a later date. (4) Asthma Comment: - Controlled, not an active issue. Continue Albuterol PRN. (5) CKD (chronic kidney disease) stage 3, GFR 30-59 ml/min Comment: - Monitor renal function with addition of diuretics - Creatinine stable around 1.7 which is baseline (6) DVT prophylaxis Comment: - Eliquis. (7) Full code status Status and Disposition: inpatient. Possible DC home tomorrow if stable.
[2017-08-12] MEDS: Carvedilol TAB* 25 MG PO SCH ×2 (10:24→20:59)
[2017-08-12] MEDS: Amiodarone TAB* 200 MG PO SCH (10:24)
[2017-08-12] MEDS ORDERED: fentaNYL* 50 MCG/ML 2 ML VIAL (100 MCG VIAL) ONE (11:33)
[2017-08-12] MEDS ORDERED: Naloxone* 0.4 MG/ML 1 ML VIAL ONE (11:33)
[2017-08-12] MEDS ORDERED: Flumazenil* 0.1 MG/ML 5 ML MDV ONE (11:33)
[2017-08-12] MEDS ORDERED: Midazolam* 1 MG/ML 5 ML VIAL (5 MG) ONE (11:34)
[2017-08-12] MEDS ORDERED: Potassium Chlor TAB* 10 MEQ TAB.ER PO ONE (11:44)
[2017-08-12] MEDS: Furosemide TAB* 20 MG PO SCH (15:54)
--- NOTE | 2017-08-12 23:09 | CARD ---
ELECTRICAL CARDIOVERSION: DATE OF PROCEDURE: 08/12/17 PREPROCEDURE DIAGNOSES: Atrial flutter and cardiomyopathy. POSTPROCEDURE DIAGNOSES: Atrial flutter and cardiomyopathy. PROCEDURE IN DETAIL: The indications, risks, and benefits of the procedure were discussed with the patient and with his significant other. He has had a history suggestive of sleep apnea in addition to a history of low blood pressure with previous transesophageal echo guided cardioversions, but the decision was made to proceed with conscious sedation under my guidance. The patient received a total of 5 mg of Versed and 25 mcg of fentanyl and he received a 100 joules o f energy across the chest wall via AP patches following in a time-out procedure. The cardioversion was successful and the patient was in normal sinus rhythm at 60 beats per minute w ith PACs postcardioversion. He had some transient apnea postcardioversion, but this did not require Romazicon/reversal and he wo uld awake with prompting. CONCLUSION: Successful electrical cardioversion, mild apnea with sedation. No desaturation. [id number] #: [id number]
--- NOTE | 2017-08-13 02:02 | CONS ---
CC: Lissette Lepe MD* CARDIOLOGY CONSULTATION NOTE: DATE OF CONSULTATION: 08/12/17 REASON FOR CONSULTATION: Congestive heart failure and atrial flutter. HISTORY OF PRESENT ILLNESS: Mr. Bhatia is a 67-year-old gentleman, whom I follow as an outpatient, although relatively new patient to me. The patient has a severe nonischemic cardiomyopathy with an ejection fraction of 25%. Initially, thought to be secondary to AFib/flutter of uncertain duration. Conversion was delayed because of thrombus noted on his June admission. Transesophageal echo-guided cardioversion on 07/26/17 only transiently successful and he is being loaded with amiodarone. The patient had mild increase in weight and shortness of breath and was therefore advised by his son to present to the emergency room yesterday. He was found in congestive heart failure and treated with intravenous Lasix with significant improvement in his breathing; however, he had urinary obstruction requiring a suprapubic catheter with Dr. Lewis overnight. Currently, the patient is feeling better overall than on admission. He is here with his significant other, who concurs. She mentions that he will at times when he is falling asleep stop breathing and describes some heavy breathing associated with this and she is worried about his sleep and wondering about his sleep. PAST MEDICAL HISTORY: The patient has a past medical history of: 1. Persistent atrial fibrillation. 2. Nonischemic cardiomyopathy (cath June 2017, normal coronaries and depressed ejection fraction). 3. Hypertension. 4. Mitral insufficiency. 5. Renal insufficiency. MEDICATIONS: Inpatient medications include: 1. Tylenol p.r.n. 2. Albuterol inhaler p.r.n. 3. Amiodarone 200 mg a day. 4. Eliquis 5 mg b.i.d. 5. Coreg 25 mg b.i.d. 6. Lasix 20 mg a day. 7. Aldactone 25 mg a day. FAMILY HISTORY: Significant for breast and throat cancer of his mother. SOCIAL HISTORY: Significant that he smoked briefly as a teenager. Rare alcohol , none recently. Retired from [employer]. He has a son, who is a cardiac ICU nurse and a daughter who is working in the [place] area. REVIEW OF SYSTEMS: Negative for fevers, chills, sweats, change in bowel or bowel habits and negative for chest pain. PHYSICAL EXAMINATION: On exam, the patient is 5 feet 9 inches, weighs 169 pounds with a BMI of 25. Vital signs on admission, blood pressure 166/115, pulse 72, afebrile, respiratory rate 16, oxygen saturation is 99%. Vital signs at the time of the consultation this morning showed blood pressure 137/91, pulse was 65, respiratory rate is 16, oxygen saturation 100% on room air and he was afebrile at 98.6. General Appearance: Lean, somewhat older gentleman, able to lie at 30 degrees comfortably. Psychologically, pleasant and cooperative. Neurologically, awake, alert, oriented to person, place, and time. Cranial nerves II through XII intact. Grossly normal sensory and motor function in the upper and lower extremities and gait. Skin: Warm, dry. No cyanosis or rashes appreciated. HEENT: Pupils are equal and round. Mucous membranes are moderately moist. Neck: No increase in internal jugular venous pulsation. No thyromegaly or lymphadenopathy. Breath sounds mildly diminished in the bases and distant throughout. Coronary: S1, S2, irregularly irregular without murmurs. Abdomen: Soft. No hepatomegaly and lower extremities were free of edema. LABORATORY DATA/DIAGNOSTIC STUDIES: Labs show white count 6.4, hemoglobin 14.6 , hematocrit 43, platelets 242. Sodium 140, potassium 3.7, chloride 107, bicarb 26, BUN 17, creatinine 1.74, glucose 102. Troponins 0.01, 0.02, 0.01, BNP of 852 (on 06/21/17, it was 897). TSH 1.22. Urinalysis with specific gravity 1.03, pH of 6, leukocyte esterase negative, glucose negative. Chest x-ray from 08/11/17 showed cardiomegaly and no clear evidence of acute pulmonary disease. ECG on admission consistent with atrial flutter variable block with a ventricular rate of 79 beats a minute. QRS axis of 0. Normal interventricular conduction time. LVH by voltage criteria with deeply inverted T waves in the lateral leads consistent with repolarization abnormalities. Transesophageal echo from 07/26/17 showed an ejection fraction of 20% to 25%, moderate RV hypokinesis, no thrombus in the left atrial appendage, moderate mitral insufficiency, mild tricuspid insufficiency. IMPRESSION: In summary, Mr. Bhatia is a 67-year-old gentleman with persistent atrial fibrillation/flutter of uncertain duration, who did not maintain sinus rhythm 3 weeks ago following cardioversion and is being loaded on amiodarone. He presented with weight gain and increased shortness of breath concerning for decompensated congestive heart failure and these symptoms improved with diuresis , although hospital liaison to urinary retention and a suprapubic catheter. The patient underwent successful electrical cardioversion today associated with some mild transient sleep apnea observed with sedation. I would like to continue him on his current regimen. He can continue with daily weights and his LifeVest. It is my hope that with zoroastrian of sinus rhythm, his ejection fraction may improve. If not, we will need to look into permanent defibrillator. Additional recommendations will be made pending his clinical course and response to the above treatment. I would recommend outpatient referral for sleep study based on his response to anesthesia today and the potential impact of sleep apnea on atrial fibrillation and cardiomyopathy. [id number]/[facility] #: [id number] MTDD
[2017-08-13 05:59] LABS: Hematocrit 40 % (42-52); Hemoglobin 13.3 g/dl (14.0-18.0); Mean Corpuscular HGB Conc 33 g/dl (31-36); Mean Corpuscular Hemoglobin 30 pg (27-31); Mean Corpuscular Volume 90 fL (80-94); Mean Platelet Volume 7 um3 (7.4-10.4); Red Blood Count 4.44 10^6/ul (4.0-5.4); Red Cell Distribution Width 15 % (10.5-15); White Blood Count 6.7 10^3/ul (3.5-10.8)
[2017-08-13 06:13] LABS: BUN/Creatinine Ratio 8.6 (8-20); Calcium 8.7 mg/dL (8.6-10.3); EGFR African American 46.4 (>60); EGFR Non-African American 36.1 (>60); Magnesium 1.9 mg/dL (1.9-2.7); Potassium 3.9 mmol/L (3.5-5.0)
[2017-08-13] MEDS ORDERED: Potassium Chlor TAB* 20 MEQ TAB.ER PO ONE (08:05)
[2017-08-13] MEDS: Amiodarone TAB* 200 MG PO SCH (09:22)
[2017-08-13] MEDS: Carvedilol TAB* 25 MG PO SCH (09:22)
[2017-08-13] MEDS: Apixaban* 5 MG TAB PO SCH (09:22)
[2017-08-13] MEDS ORDERED: Spironolactone TAB* 25 MG PO SCH (15:07)
--- NOTE | 2017-08-13 16:08 | CONS ---
CC: Dr. Velasquez FOLLOWUP CONSULTATION NOTE: DATE OF CONSULT: 08/13/17 LOCATION: The patient is in room #444. HISTORY OF PRESENT ILLNESS: Mr. Bhatia is doing well. His suprapubic catheter is working and draining pinkish colored urine. He has not been able to void per urethra. The patient is still being worked up for his cardiac condition and is still maintained on anticoagulation with Eliquis. The plan at this time is to keep him on suprapubic catheter drainage and then to see him in the office after his discharge. I will be doing a flexible cystoscopy in the office under local anesthesia. That should determine the cause of the urinary retention and why a Fallon catheter could not be placed. It is possible he might require an internal urethrotomy or transurethral resection of the prostate after proper workup. In that situation, the patient would need to go off the anticoagulation. In that situation, I will be consulting Dr. Velasquez for cardiology clearance. If the suprapubic catheter gets occluded because of blood clots, then the patient will need to go into the operating room on an urgent basis for cystoscopy. [id number]/[facility] #: [id number] CELE
[2017-08-13 16:28] VITALS: BP 116/80
--- NOTE | 2017-08-13 17:13 | PN ---
Subjective Date of Service: 08/13/17 Interval History: Patient seen and examined at bedside. Patient denies SOB. Urine blood tinged but states it has been like that since suprapubic catheter placed. Ambulated today independently. Family History: Unchanged from Admission Social History: Unchanged from Admission Past Medical History: Unchanged from Admission Objective Active Medications: Acetaminophen (Tylenol Tab*) 650 mg PO Q6H PRN Albuterol (Ventolin Hfa Inhaler*) 2 puff INH Q4H PRN Amiodarone HCl (Cordarone Tab*) 200 mg PO DAILY LAYLA Apixaban (Eliquis*) 5 mg PO BID LAYLA Carvedilol (Coreg Tab*) 25 mg PO BID LAYLA Furosemide (Lasix Tab*) 20 mg PO SUTUTHSA LAYLA Lidocaine HCl (Lidocaine 2% Jelly*) 1 applic TOPICAL TID PRN Spironolactone (Aldactone Tab*) 25 mg PO MOWEFR [facility] 08/13/17 08/13/17 08/13/17 07:41 11:03 15:20 Temperature 97.9 F 98.5 F 98.1 F Pulse Rate 54 57 64 Respiratory 16 20 16 Rate Blood Pressure 132/86 123/84 116/80 (mmHg) O2 Sat by Pulse 100 100 99 Oximetry Oxygen Devices in Use Now: None Appearance: sitting up in bed, NAD Eyes: No Scleral Icterus, PERRLA Ears/Nose/Mouth/Throat: NL Teeth, Lips, Gums Neck: NL Appearance and Movements; NL JVP Respiratory: Symmetrical Chest Expansion and Respiratory Effort, Clear to Auscultation Cardiovascular: NL Sounds; No Murmurs; No JVD, RRR Abdominal: NL Sounds; No Tenderness; No Distention Extremities: No Edema Skin: No Rash or Ulcers Neurological: Alert and Oriented x 3, NL Muscle Strength and Tone Lines/Tubes/Other Access: Clean, Dry and Intact Peripheral IV Nutrition: Taking PO's Result Diagrams: 08/13/17 05:44 08/13/17 05:44 Assess/Plan/Problems-Billing 67 yo male with a PMH of HTN, non-ischemic cardiomyopathy with EF 20-25% with hx of Vtach currently wearing a LifeVest, CKD stage 3 who presented to the ER on 08/11/17 with c/o 2lbs weight gain, elevated blood pressure and SOB found in be in afib. He also presented with acute urinary retention and is now s/p suprapubic catheter. - Patient Problems (1) Acute systolic CHF (congestive heart failure) (2) Atrial fibrillation (3) Acute urinary retention (4) Asthma (5) CKD (chronic kidney disease) stage 3, GFR 30-59 ml/min (6) DVT prophylaxis (7) Full code status Status and Disposition: Inpatient. Stable to be discharged home.
--- NOTE | 2017-08-14 20:17 | DS ---
CC: Dr. Lepe; Dr. Velasquez; Dr. Lewis* DISCHARGE SUMMARY: DATE OF ADMISSION: 08/11/17 DATE OF DISCHARGE: 08/13/17 PRIMARY CARE PHYSICIAN: Dr. Lepe. CONSTRUCTION COST ESTIMATOR: Dr. Vleasquez. CONSULTATIONS WHILE IN THE HOSPITAL: 1. Dr. Velasquez, Cardiology. 2. Dr. Cristofer Lewis, Urology. ATTENDING PHYSICIAN: Dr. Elke Cole* (report dictated by Mireille Argueta NP). PRIMARY DIAGNOSES: 1. Acute on chronic systolic heart failure. 2. Atrial fibrillation. SECONDARY DIAGNOSES: 1. Chronic kidney disease, stage 3. 2. Atrial fibrillation. 3. Atrial flutter. 4. Hypertension. 5. Mitral regurgitation. 6. Ventricular tachycardia. STUDIES WHILE IN THE HOSPITAL: on 08/11/17, the patient demonstrated mild cardiomegaly without definite radiographic evidence of acute cardiopulmonary disease. PROCEDURES WHILE IN THE HOSPITAL: Suprapubic catheter placement, 08/12/17. Please refer to Dr. Lewis's dictation for detail. Other procedure while in the hospital: Electrical cardioversion, 08/12/17, please refer to Dr. Velasquez's note for detail. Successful electrical cardioversion, mild apnea with sedation. No desaturation. MEDICATIONS AT THE TIME OF DISCHARGE: The following medications are the medications that the patient came in on: 1. Ventolin HFA 2 puffs inhaled every 4 hours as needed. 2. Eliquis 5 mg oral twice daily. 3. Coreg 25 mg oral twice daily. 4. Lasix 20 mg oral every Sunday, Sunday, , and Sunday. 5. Aldactone 25 mg oral every Sunday, Sunday, and Sunday. 6. Amiodarone 200 mg oral daily. HISTORY OF PRESENT ILLNESS AND HOSPITAL COURSE: Mr. Bhatia is a 67-year-old male with past medical history of nonischemic cardiomyopathy with ejection fraction of 20% to 25%, V-tach, currently wearing LifeVest, and CKD, stage 3, who presented to the emergency room on 08/11/17 with a concern of increased weight gain and elevated blood pressure. Upon presentation, the patient stated over the past 2 weeks, he has been increasingly tired and had a weight gain up to 166. In the emergency room, the patient was found to be in atrial fibrillation with a heart rate of 120 to 130. His oxygen saturation was 100%, but with ambulation his oxygen saturation dropped in to the 80s. The patient was admitted to the medical floor for congestive heart failure, and then to telemetry for congestive heart failure exacerbation. The patient was given a few doses of IV Lasix. Subsequently, the consultation was obtained from Dr. Carol Velasquez and electrical cardioversion was arranged. This took place on . Please see report for detail. The patient was continued on Eliquis for anticoagulation and amiodarone. The patient was successfully cardioverted back to normal sinus rhythm. After a few doses of IV diuretics, the patient was transitioned back to his home regimen of spironolactone alternating with Lasix. With these medications, his weight came down to 160 pounds on the day of discharge. Early in the morning of 08/12/17, the patient had difficulty urinating. There were multiple attempts to pass a Fallon catheter. For this reason, Urology was urgently consulted. A suprapubic catheter was placed by Dr. Lewis. Please refer to his consultation for detail. The plan is for the patient to go home with a suprapubic catheter and follow up later this week in Dr. Lewis's office for cystoscopy. On 08/13/17, the patient had remained in sinus rhythm for 24 hours and vital signs were as follows: Temperature 98.1, heart rate 64, respiratory rate , blood pressure 116/80, oxygen saturation 99% on room air. At this point, the patient was stable for discharge. He was able to ambulate independently. DISCHARGE PLAN: The patient is discharged on a heart-healthy diet, low sodium. The patient has been instructed to take his weight daily and to notify his physician if he had greater than 3-pound weight gain or loss. The patient has 2 followup appointments, which unfortunately were made an hour apart. The patient has a followup appointment with Dr. Velasquez on 08/17/17 at 2:45 p.m. and a followup appointment with Dr. Lewis on 08/17/17 at 1:45 p.m. The patient is instructed to reschedule either the Cardiology or Urology appointment. In addition, the patient is to follow up with Dr. Lepe in 4 to 7 days. I have also sent a referral to Dr. Zuniga's office for the patient to be arranged for an outpatient sleep study. The patient will have visiting nurses to help and care for the suprapubic catheter. The patient's partner does live in [place] and I discussed with the patient and his partner that he should consider that although he is independent at home, he does have a low ejection fraction and hence possibly decreased exercise tolerance. It is most likely the patient will need help with basic grocery shopping and cooking. I recommended that the patient have family close by to help him with these activities. This is a summarized report of a complex medical history and hospital stay. For more details, please see the entire medical record. TIME SPENT: Time for this discharge was 60 minutes, and over half the time was spent with the patient and his partner reviewing medications, discharge plans, and followup instructions. MIREILLE ARGUETA NP [id number]/[facility] [place] #: [id number] CELE
== END 2017-08-13 19:40 | disposition home or self-care (01) | DRG 291 ==
LOC: ED 10:53 → MEDTELE 14:17 → OBSVTOIN 08-12 09:00
PROVIDERS: ADMIT Internal Medicine; ATTEND Internal Medicine
PROC: 0T9B30Z Drainage of Bladder with Drainage Device, Percutaneous Approach (ICD-10-PCS; principal; 2017-08-12)
PROC: 5A2204Z Restoration of Cardiac Rhythm, Single (ICD-10-PCS; 2017-08-12)
DX: I13.0 Hypertensive heart and chronic kidney disease with heart failure and stage 1 through stage 4 chronic kidney disease, or unspecified chronic kidney disease (principal); I50.23 Acute on chronic systolic (congestive) heart failure; I47.2 Ventricular tachycardia; I48.91 Unspecified atrial fibrillation; I48.92 Unspecified atrial flutter; I42.9 Cardiomyopathy, unspecified; N18.3 Chronic kidney disease, stage 3 (moderate); I34.0 Nonrheumatic mitral (valve) insufficiency; R33.9 Retention of urine, unspecified; J45.909 Unspecified asthma, uncomplicated; Z79.899 Other long term (current) drug therapy; Z91.14 Patient's other noncompliance with medication regimen; Z79.01 Long term (current) use of anticoagulants; Z79.1 Long term (current) use of non-steroidal anti-inflammatories (NSAID); Z80.3 Family history of malignant neoplasm of breast; Z80.0 Family history of malignant neoplasm of digestive organs; Z87.891 Personal history of nicotine dependence
CPT/HCPCS: 36415; 71010; 80048; 80053; 81003; 82550; 82553; 83605; 83735; 83880; 84443; 84484; 85025; 93005; A9270-GY; G0378; J1940; J2250; J2310; J3010

== ENCOUNTER 2017-11-07 08:16 | Observation (INO) | payer OTHER ==
--- NOTE | 2017-11-03 20:43 | HP ---
HISTORY AND PHYSICAL: DATE OF PLANNED ADMISSION AND SURGERY: 11/07/17 HISTORY OF PRESENT ILLNESS: Mr. Bhatia is a 67-year-old male who is admitted with urinary retention and prostate enlargement for transurethral resection of the prostate. Please see the enclosed history and physical and cardiology note by Dr. Velasquez dated 10/18/17. Mr. Bhatia had history of progressive symptoms of bladder outlet obstruction, and when he was admitted on 08/11/17 because of arrhythmias, he was noted to be in urinary retention. A Fallon catheter could not be introduced and I placed a suprapubic catheter at his bedside, draining about 800 cc of clear urine. The patient then underwent a cystoscopy in the office which showed a large obstructing prostate. A Fallon catheter was then placed over a guidewire and the suprapubic catheter was removed. He had been maintained on catheter drainage and on finasteride since that time. He was given a trial of voiding, it was not successful. Attempt at performing urodynamic studies was not successful because the urodynamic catheter could not be introduced into his bladder because of his large prostate and associated high bladder neck which could not be negotiated with the UDS catheter. The Fallon catheter was again replaced over a guidewire passed through a flexible cystoscope. The patient has been on catheter drainage since then. Because of the above history and the failure of medical treatment with the persistent urinary retention, he is admitted for transurethral resection of the prostate. Mr. Bhatia has cardiac history which is detailed in Dr. Velasquez's note. He has history of cardiomyopathy and atrial fibrillation and has been maintained on Eliquis which was discontinued 4 days prior to his surgery. He had a recent urinary tract infections which was appropriately treated with antibiotics. MEDICATIONS: He is presently maintained on: 1. Spironolactone 25 mg 3 times per week. 2. Furosemide 20 mg 3 times per week. 3. Carvedilol 12.5 mg twice a day. 4. Amiodarone 200 mg daily. 5. Ventolin inhaler. ALLERGIES: He denies any allergies to medications. FAMILY HISTORY: Negative for prostate carcinoma. PHYSICAL EXAMINATION GENERAL: He is a pleasant and healthy looking black male who looks his age. VITAL SIGNS: Blood pressure 104/74, pulse of 95 and regular. LUNGS: Clear. HEART: Irregular. ABDOMEN: Soft. No masses, no tenderness and no CVA tenderness. EXTERNAL GENITALIA: He has a Fallon catheter in place, draining clear urine. HENNY: large, but non suspicious prostate. No induration. EXTREMITIES: Show no edema. IMPRESSION: 1. Urinary retention secondary to prostate enlargement. 2. Nonobstructive cardiomyopathy. 3. Atrial fibrillation. 4. Paroxysmal atrial tachycardia. 5. Mitral valve disorder. PLAN/RECOMMENDATIONS: Plan is for transurethral resection of the prostate. I discussed the operation in detail with the patient. I explained to him that his work up lacked urodynamic studies to confirm normal detrusor function, however his sensations of bladder fullness suggest adequate detrusor function. Even if he is not able to void post op, it will be possible for him to perform self cath after the TURP. Some of the potential complications including hematuria, infection, small incidence of urinary incontinence and high incidence of retrograde ejaculation. The patient was cleared by Dr. Velasquez for his surgery. All his questions were answered. [id number]/[facility] #: [id number] CELE
[~2017-11-07 08:16] MED LIST: Buffered Lidocaine 0.9% SYRIN* 5 ML/SYR SYRINGE INTRADERM ONE; NS 0.9% 1000 ML* 1,000 ML IV SCH
[2017-11-07] MEDS ORDERED: cefTRIAXone(*) 2 GM ADDV.VIAL IVPB ONE (08:50)
[2017-11-07] MEDS ORDERED: Buffered Lidocaine 0.9% SYRIN* 5 ML/SYR SYRINGE ONE (08:50)
[2017-11-07] MEDS ORDERED: Midazolam* 1 MG/ML 2 ML VIAL (2 MG) ONE (08:58)
[2017-11-07] MEDS ORDERED: Famotidine IV* 10 MG/ML 2 ML (20 mg) ONE (10:02)
[2017-11-07] MEDS ORDERED: Propofol* 10 MG/ML 20 ML BTL IV PUSH ONE (10:02)
[2017-11-07] MEDS ORDERED: Dexamethasone IV* 4 MG/ML 1 ML (4 MG) ONE (10:02)
[2017-11-07] MEDS ORDERED: fentaNYL* 50 MCG/ML 2 ML VIAL (100 MCG VIAL) ONE ×2 (10:02→13:02)
[2017-11-07] MEDS ORDERED: Lidocaine 2% PF * 5 ML VIAL ONE (10:02)
[2017-11-07] MEDS ORDERED: KETAMINE HCL* 50 MG/ML 10 ML VIAL ONE (10:02)
[2017-11-07] MEDS ORDERED: Naloxone* 0.4 MG/ML 1 ML VIAL IV PRN (10:44)
[2017-11-07] MEDS ORDERED: DiMENhydriNATE IV* 50 MG/ML VIAL IV PUSH PRN (10:44)
[2017-11-07] MEDS ORDERED: Acetaminophen TAB* 325 MG PO PRN (10:44)
[2017-11-07] MEDS: fentaNYL* 50 MCG/ML 2 ML VIAL (100 MCG VIAL) IV PRN ×4 (13:05→13:45)
[2017-11-07] MEDS ORDERED: Acetaminophen TAB* 325 MG ONE (13:25)
[2017-11-07] MEDS ORDERED: oxyCODONE/Acetamin 5/325 MG* TAB PO PRN (14:27)
[2017-11-07] MEDS ORDERED: Oxybutynin TAB* 5 MG PO PRN (14:27)
[2017-11-07] MEDS ORDERED: Lidocaine 2% JELLY* 6 ML JELLY TOPICAL PRN (14:28)
[2017-11-07] MEDS ORDERED: Albuterol HFA INHALER* 8 gm MDI INH PRN (14:35)
[2017-11-07] MEDS: Carvedilol TAB* 6.25 MG PO SCH (21:17)
[2017-11-07] MEDS: Amoxicillin/Clavulanate TAB* 875 MG PO SCH (21:18)
--- NOTE | 2017-11-08 02:57 | OP ---
DATE OF OPERATION: 11/07/17 - ROOM #333 DATE OF : 48 SURGEON: Cristofer Lewis MD ANESTHESIOLOGIST: Dr. Uli Amor ANESTHESIA: General. PRE-OP DIAGNOSES: 1. Urinary retention. 2. Benign prostatic hyperplasia. POST-OP DIAGNOSES: 1. Urinary retention. 2. Benign prostatic hyperplasia. OPERATIVE PROCEDURE: Transurethral resection of the prostate. INDICATION FOR PROCEDURE: Mr. Bhatia is a 67-year-old white male who required placement of a suprapubic catheter 3 months ago because of urinary retention and inability to introduce a Fallon catheter due to a very large and obstructing prostate. Office cystoscopy showed a large obstructing prostate and diffuse bladder trabeculations. Urodynamic studies could not be performed because of inability to introduce the urodynamic catheter past the prostate. The patient has been maintained on finasteride since his retention episode. He was given a trial of voiding that was not successful. He is now admitted for TURP. PATHOLOGY AT CYSTOSCOPY: The penile and bulbar urethrae looked normal. The prostatic urethra measured 4.5 cm in length and there was significant degree of obstruction by trilobar hyperplasia of the prostate with large lateral, anterior , and median lobes. Examination of the bladder showed catheter reaction. The ureteral orifices looked normal. There were no suspicious bladder lesions seen. No calculi or diverticula were noted. The prostate adenoma was moderately vascular, was large, and obstructing. DESCRIPTION OF PROCEDURE: After successful general anesthesia, the patient was placed in the lithotomy position and was prepped and draped in the usual manner. Cystoscopy was performed. The findings in the prostatic urethra and in the bladder were noted. The resectoscope was then introduced inside the bladder. Mannitol/sorbitol solution was used for irrigation and the inflow and outflow were adjusted to avoid overdistention of the bladder. The median lobe was resected first, flush with the post bladder neck, allowing the visualization of the ureteral orifices. Resection of the protruding portions of the lateral lobes into the bladder neck were then performed circumferentially. The resectoscope was then positioned in the mid prostatic urethra and resection of the residual median lobe was performed. The adenomatous prostate tissue was then resected circumferentially. The resectoscope was then positioned at the level of the veru. The left lateral lobe was resected, starting at 5 o'clock and proceeding anteriorly. The right lobe was resected next. The anterior and the apical tissues were resected last. The limits of the resection were the bladder neck proximally, the veru distally and the capsule circumferentially. The bleeders were electrocoagulated and controlled. The resection was somewhat demanding because of the vascularity of the gland and of its size. At the completion of the resection, the prostatic urethra was wide open. There was no residual obstructing adenomatous tissue. The external sphincter, the veru, the capsule, the bladder, and the ureteral orifices were all intact. There was no perforation into the capsule and no open sinuses. The prostate chips were then irrigated out and evacuated and weighed 45 g. After final inspection which showed good hemostasis, no residual prostate chips and open prostatic urethra, the resectoscope was removed and a size 22-Trinidadian Fallon catheter was passed inside the bladder and the balloon inflated with 40 cc of water. The catheter was placed under gentle traction and taped to the right thigh of the patient. Irrigation yielded clear returns. The patient tolerated the procedure well and left the operating room in good condition. The blood loss was estimated at about 100 cc. The specimen was prostate chips. All the irrigation fluid used was accounted for in the suction indicating minimal or no fluid absorption. [id number]/[facility] #: [id number] [facility]ITALLiseth
[2017-11-08] MEDS ORDERED: cefTRIAXone(*) 1 GM in NS 0.9% 50 ML* 50 ML IVPB ONE (07:00)
[2017-11-08 07:36] VITALS: BP 126/77
[2017-11-08] MEDS ORDERED: Finasteride TAB* 5 MG PO SCH (09:00)
[2017-11-08] MEDS ORDERED: Furosemide TAB* 20 MG PO SCH (09:00)
[2017-11-08] MEDS ORDERED: Amiodarone TAB* 200 MG PO SCH (09:00)
[2017-11-08] MEDS ORDERED: Pneumococcal *Vac Polyvalent 0.5 ML VIAL IM ONE (09:00)
[2017-11-08] MEDS: Amoxicillin/Clavulanate TAB* 875 MG PO SCH (09:47)
[2017-11-08] MEDS: Carvedilol TAB* 6.25 MG PO SCH (09:48)
--- NOTE | 2017-11-08 13:22 | DS ---
DISCHARGE SUMMARY: DATE OF ADMISSION: 11/07/17 DATE OF DISCHARGE: 11/08/17 FINAL DIAGNOSES: 1. Urinary retention. 2. Benign prostatic hyperplasia. 3. Nonobstructive cardiomyopathy. 4. History of paroxysmal atrial fibrillation. 5. Mitral valve disorder. OPERATION: Cystoscopy and transurethral resection of the prostate on 11/07/17. HISTORY: Mr. Bhatia is a 67-year-old male, who had long history of bladder outlet obstruction and he went into urinary retention about 3 months ago. The prostate was very large and he could not have a Fallon catheter placed and ended up requiring an urgent placement of a suprapubic catheter. He was then worked up in the office and had cystoscopy which showed a very large obstructing prostate. The bladder showed diffuse trabeculations. The suprapubic catheter was replaced with a Fallon. Urodynamic studies could not be performed because of inability to introduce the urodynamic catheter in the bladder past the prostate. The patient has been maintained on finasteride for the last 3 months. He was given a trial of voiding while on finasteride and on tamsulosin and he could not void and the Fallon had to be replaced. Because of the above history and findings and failure of medical treatment and persistent urinary retention, he was admitted for TURP. PAST MEDICAL HISTORY AND SYSTEM REVIEW: The patient has history of nonobstructive cardiomyopathy, paroxysmal atrial fibrillation, history of systolic and diastolic heart failure, mitral valve disorder, and atrial fibrillation. He is followed by Dr. Velasquez. He was recently evaluated and she felt that he is an acceptable candidate for surgery and she cleared him up for the TURP. The detailed cardiac history and workup is in her chart which is in the record. MEDICATIONS: The patient is maintained on the following medications: 1. Spironolactone 25 mg every other day. 2. Lasix 20 mg every other day. 3. Carvedilol 12.5 mg twice a day. 4. Amiodarone 200 mg daily. 5. Finasteride 5 mg daily. 6. Tamsulosin 0.4 mg daily. 7. The patient has been on Eliquis 5 mg daily twice a day and this was discontinued 4 days preoperatively. ALLERGIES: The patient denies any allergies to medications. PHYSICAL EXAMINATION: His preoperative physical examination was within normal except for the atrial fibrillation. His lab work was within normal. He has been maintained on antibiotics in preparation for his surgery. His preoperative urine culture was negative. COURSE IN HOSPITAL: The patient was admitted the morning of his procedure. He underwent an uncomplicated transurethral resection of the prostate under general anesthesia. The prostate was large and vascular but the procedure went well. His blood loss was 100 cc or less. He tolerated the surgery very well. He was kept for observation overnight. He did very well and by the morning, his urine was clear and had good urine output and normal vital signs. The patient is being discharged home on all his preoperative medications with the exception of the tamsulosin and the Eliquis. He will be seen in the office in 4 or 5 days for Fallon catheter removal. I expect that he should have a good result. Instructions were given for followup care. [id number]/[facility] #: [id number] CELE
[2017-11-09] MEDS ORDERED: Spironolactone TAB* 25 MG PO SCH (09:00)
== END 2017-11-08 11:15 | disposition home or self-care (01) ==
LOC: OR 08:16 → SSU 14:24
PROVIDERS: ADMIT Urology; ATTEND Urology
DX: N40.1 Benign prostatic hyperplasia with lower urinary tract symptoms (principal); R33.8 Other retention of urine; I42.2 Other hypertrophic cardiomyopathy; Z86.79 Personal history of other diseases of the circulatory system; I05.9 Rheumatic mitral valve disease, unspecified
CPT/HCPCS: 88305; 90471; 90732; A9270-GY; G0009; G0378; J0696; J1100; J2250; J2704; J3010

== ENCOUNTER 2019-04-28 17:17 | Emergency (ER) | payer OTHER ==
--- OUTSIDE RECORDS SUMMARY | 2019-04-28 17:32 | XMS REPORT | Continuity of Care Document ---
:1950 External Reference #:[id number] Author Name Sigrid Christianson Care Team Providers Name Role Phone Lissette Lepe MD Primary Care Physician Unavailable Payers Date Identification Numbers Payment Provider Subscriber Expires: 2018 Policy Number: [id number] [employer] Emily Bhatia PayID: [id number] [address] [place] [address] Policy Number: [id number] [employer] Emily Bhatia PayID: [id number] [address] [place] [address] Advance Directives Type Date Description Status Comment Other Directive 07/19/2017 Health Care Proxy Current and Verified Problems Active Problems Provider Date Persistent atrial fibrillation Carol Velasquez M.D. Onset: 07/03/2017 Mitral valve disorder Carol Velasquez M.D. 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 Onset: 07/03/2017 diastolic heart failure Paroxysmal atrial fibrillation Carol Velasquez M.D. Onset: 08/17/2017 Nonobstructive cardiomyopathy Carol Velasquez M.D. Onset: 08/17/2017 Sleep apnea Gricel Marinelli DNP, RN, Onset: 10/23/2017 [facility] Obstructive sleep apnea syndrome Gricel Marinelli DNP, RN, Onset: 01/14/2018 [facility] Cardiomyopathy Carol Velasquez M.D. Onset: 05/31/2018 Essential hypertension Carol Velasquez M.D. Onset: 05/31/2018 Family History Date Family Member(s) Observation Comments General Hypertension Mother Hypertension Mother due to Cancer () Mother due to Breast Cancer () First Brother Diabetes Type II First Brother Hypertension First Sister Diabetes Type II Social History Type Date Description Comments Sex Unknown Marital Status Lives With Spouse Occupation Retired Tobacco Use Start: Unknown Never Smoked Cigarettes Smoking Status Reviewed: 04/28/19 Never Smoked Cigarettes ETOH Use Denies alcohol use Tobacco Use Start: Unknown Patient has never smoked Recreational Drug Use Denies Drug Use Exercise Type/Frequency Does not exercise Limited by cardiac condition Allergies, Adverse Reactions, Alerts Description No Known Drug Allergies Medications Active Medications SIG Qnty Indications Ordering Date Provider Carvedilol 1 tab by mouth 180tabs Carol Velasquez, 02/14/2019 25mg twice a day M.D. Tablets Amlodipine Besylate 1 by mouth every 90tabs Carol Velasquez, 02/14/2019 day M.D. 10mg Tablets Propafenone HCL take 1 tablet by 180tabs I48.0 Mireille Argueta, 04/25/2018 mouth twice daily N.P. 150mg Tablets Mandibular fabricate oral 1units G47.33 Gricel Marinelli, 01/14/2018 Advancement Device appliance DNP, RN, MARKETING COMM[employer]ICATION [employer] /mandibular Device advancement device for sleep apnea with needed adjustments. Compression knee high closed 1Pair Carol Velasquez, 09/04/2017 Stockings toe moderate M.D. Misc compression 20-30 mmHg Methyl-Cobalamin ( 1 by mouth every Unknown Vitamin B12) other day 1000mcg Lozenges Coq10 1 by mouth every Unknown 200mg day Capsules Magnesium Zumxr ( 1 po daily Unknown Mag Oxide , Mag Citrate) 250mg Capsules Eliquis 1 by mouth twice a 180tabs Carol Velasquez, 5mg Tablets day M.D. Ventolin HFA 2 puffs by mouth 8gm Hank Dain PLASTIC DUPLICATOR four times a day as 108(90Base) mcg/Act needed Aerosol Finasteride 1 by mouth every Unknown 5mg other day Tablets Chawanprash daily- syrup Unknown Triphala GI 1 po daily Unknown Wellness Tablet Advanced 1 softgel po daily Unknown Bio-Curcumin With Johanne & Turmerones 600mg/60mg History Medications Amlodipine Besylate 1 by mouth every 90tabs I10 Carol Velasquez, 11/07/2018 - 5mg day M.D. 03/23/2019 Tablets Bio Curcumin 1 tab daily Mireille Argueta, 04/05/2018 - N.P. 04/24/2018 Vivotif one capsule every 4caps Z71.89 Hank Gautam NP 11/09/2017 - Capsules DR other day for 4 11/14/2017 doses (over 8 days) keep refrigerated Healthy Respiratory 1 daily Unknown - Support 07/24/2017 Advanced Bio-Curcumin 1 daily Unknown - 05/30/2018 Lisinopril 1 by mouth every Unknown - 10mg Tablets day 07/24/2017 Furosemide 1 by mouth every 40tabs Carol Velasquez, - 20mg Tablets ,steven gutierrez thurs, M.D. 04/25/2018 and as directed(pt also takes on sunday as bottle states)On Hold Amiodarone HCL 1 by mouth every 30tabs Carol Velasquez, - 200mg day M.D. 03/21/2018 Tablets Tamsulosin HCL 1 by mouth every Unknown - 0.4mg day 11/09/2017 Capsules Amoxicillin/Clavulana 1 by mouth twice a Cristofer Lewis, - te Potassium day until finished MD 11/09/2017 875-125mg ( start taking Tablets 10/25/17) Flecainide Acetate 1/2 tablet by Unknown - mouth twice a day 04/25/2018 100mg Tablets PT to stop on 04/20/18 Omeprazole 1 by mouth every Unknown - 40mg day On Hold 03/02/2018 Capsules Carvedilol 1/2 tablet tab by 90tabs Carol Velasquez, - 25mg Tablets mouth twice a day 1 M.D. 03/23/2019 tablet po twice daily Spironolactone take 1 tablet by 90tabs Mireille Argueta, - 25mg mouth daily N.P. 03/23/2019 Tablets Immunizations CPT Code Status Date Vaccine Reaction Lot # [id number] Given 05/09/2018 Hepatitis A Vaccine Adult [id number] Dosage [id number] Given 11/09/2017 Tdap - No immediat [id number] Tetanus/Diptheria/Acellula reaction... r Pertussis [id number] Given 11/09/2017 Hepatitis A Vaccine Adult no immedite [id number] Dosage reaction... Vital Signs Date Vital Result Comment 04/28/2019 3:26pm Height 69 inches 5'9" Weight 177.12 lb Heart Rate 63 /min BP Systolic 90 mmHg BP Diastolic 60 mmHg Body Temperature 96.8 F O2 % BldC Oximetry 97 % BMI (Body Mass Index) 26.2 kg/m2 03/24/2019 3:36pm Height 69 inches 5'9" Weight 186.00 lb with shoes Heart Rate 70 /min BP Systolic 118 mmHg Rue lg cuff BP Diastolic 82 mmHg Rue lg cuff BP Systolic Sitting 112 mmHg Lue lg cuff BP Diastolic Sitting 74 mmHg Lue lg cuff BP Systolic Standing 111 mmHg Lue lg cuff BP Diastolic Standing 70 mmHg Lue lg cuff Respiratory Rate 16 /min BMI (Body Mass Index) 27.5 kg/m2 11/07/2018 2:45pm Height 69 inches 5'9" Weight 183.00 lb w/ shoes Heart Rate 61 /min BP Systolic Sitting 150 mmHg Lue reg cuff BP Diastolic Sitting 120 mmHg Lue reg cuff BP Systolic Standing 145 mmHg Lue reg cuff BP Diastolic Standing 120 mmHg Lue reg cuff Respiratory Rate 16 /min O2 % BldC Oximetry 100 % BMI (Body Mass Index) 27.0 kg/m2 Ejection Fraction 50-55% 01/01/18 echo 05/31/2018 3:47pm Height 69 inches 5'9" Weight 178.00 lb with sandals Heart Rate 66 /min BP Systolic Sitting 120 mmHg Lue reg cuff BP Diastolic Sitting 90 mmHg Lue reg cuff BP Systolic Standing 126 mmHg Lue reg cuff BP Diastolic Standing 98 mmHg Lue reg cuff BP Systolic Recheck 136 mmHg HR 62 Home BP Monitor BP Diastolic Recheck 98 mmHg HR 62 Home BP Monitor BMI (Body Mass Index) 26.3 kg/m2 Ejection Fraction 50-55% date 01/01/18 ECHO 05/16/2018 8:48am Height 69 inches 5'9" Weight 177.00 lb w/shoes Heart Rate 76 /min BP Systolic Sitting 146 mmHg Rue reg cuff BP Diastolic Sitting 102 mmHg Rue reg cuff BMI (Body Mass Index) 26.1 kg/m2 Ejection Fraction 50-55% Echo 01/01/18 05/10/2018 1:16pm Height 69 inches 5'9" Weight 178.00 lb Heart Rate 66 /min BP Systolic 120 mmHg Silvia Jesi reg cuff BP Diastolic 90 mmHg Silvia Jesi reg cuff BP Systolic Sitting 118 mmHg Jesi reg cuff BP Diastolic Sitting 76 mmHg Jesi reg cuff BP Systolic Standing 112 mmHg Jesi reg cuff BP Diastolic Standing 70 mmHg Jesi reg cuff BP Systolic Recheck 131 mmHg home cuff BP Diastolic Recheck 91 mmHg home cuff BMI (Body Mass Index) 26.3 kg/m2 05/02/2018 1:34pm Height 69 inches 5'9" Weight 177.00 lb Heart Rate 68 /min BP Systolic 168 mmHg Home cuff, Jesi sitting BP Diastolic 116 mmHg Home cuff, Jesi sitting BP Systolic Sitting 158 mmHg Joaquin reg cuff BP Diastolic Sitting 78 mmHg Joaquin reg cuff BP Systolic Standing 152 mmHg joaquin reg cuff BP Diastolic Standing 70 mmHg joaquin reg cuff BP Systolic Lying Down 175 mmHg home cuff, Joaquin sitting BP Diastolic Lying Down 125 mmHg home cuff, Joaquin sitting Respiratory Rate 16 /min BMI (Body Mass Index) 26.1 kg/m2 04/25/2018 11:12am Height 69 inches 5'9" Weight 178.00 lb w/shoes Heart Rate 64 /min BP Systolic Sitting 138 mmHg LA reg cuff BP Diastolic Sitting 90 mmHg LA reg cuff BMI (Body Mass Index) 26.3 kg/m2 Ejection Fraction 50-55% Echo 01/03/18 04/05/2018 8:38am Height 69 inches 5'9" Weight 174.00 lb Heart Rate 60 /min BP Systolic Sitting 150 mmHg rue reg cuff BP Diastolic Sitting 98 mmHg rue reg cuff BP Systolic Standing 148 mmHg BP Diastolic Standing 104 mmHg Respiratory Rate 16 /min BMI (Body Mass Index) 25.7 kg/m2 Ejection Fraction 50-55% 01/01/2018 echo 03/22/2018 11:38am Height 69 inches 5'9" Weight 176.00 lb w/ shoes Heart Rate 82 /min BP Systolic Sitting 110 mmHg lue rg cuff BP Diastolic Sitting 82 mmHg lue rg cuff BP Systolic Standing 112 mmHg lue rg cuff BP Diastolic Standing 88 mmHg lue rg cuff Respiratory Rate 18 /min BMI (Body Mass Index) 26.0 kg/m2 Ejection Fraction 50-55% echo 01/01/18 03/07/2018 2:09pm Weight 181.00 lb Heart Rate 72 /min BP Systolic Sitting 120 mmHg BP Diastolic Sitting 78 mmHg Body Temperature 97.9 F O2 % BldC Oximetry 99 % 01/14/2018 11:45am Height 68 inches 5'8" Heart Rate 50 /min BP Systolic Sitting 116 mmHg Lue large cuff BP Diastolic Sitting 68 mmHg Lue large cuff Respiratory Rate 12 /min O2 % BldC Oximetry 98 % 01/03/2018 1:20pm Height 68 inches 5'8" Weight 180.00 lb Heart Rate 60 /min BP Systolic Sitting 128 mmHg Lue reg cuff BP Diastolic Sitting 94 mmHg Lue reg cuff BP Systolic Standing 112 mmHg Lue BP Diastolic Standing 90 mmHg Lue Respiratory Rate 16 /min BMI (Body Mass Index) 27.4 kg/m2 Ejection Fraction 50-55% 01/01/18 11/09/2017 1:34pm Weight 185.50 lb Heart Rate 60 /min BP Systolic 110 mmHg BP Diastolic 60 mmHg Body Temperature 98.2 F O2 % BldC Oximetry 99 % 11/01/2017 10:14am Height 68.25 inches 5'8.25" Weight 180.00 lb No shoes Heart Rate 62 /min BP Systolic Sitting 130 mmHg Lue reg cuff BP Diastolic Sitting 92 mmHg Lue reg cuff BP Systolic Standing 126 mmHg Lue reg cuff BP Diastolic Standing 90 mmHg Lue reg cuff Respiratory Rate 16 /min BMI (Body Mass Index) 27.2 kg/m2 Ejection Fraction 45-50% 09/14/2017-echo 10/23/2017 2:30pm Height 68.25 inches 5'8.25" Weight 170.50 lb no clothes Heart Rate 68 /min BP Systolic Sitting 104 mmHg Rue reg cuff BP Diastolic Sitting 68 mmHg Rue reg cuff Respiratory Rate 16 /min O2 % BldC Oximetry 98 % On Ra BMI (Body Mass Index) 25.7 kg/m2 10/18/2017 2:17pm Height 68.25 inches 5'8.25" Weight 169.50 lb with shoes Heart Rate 60 /min BP Systolic Sitting 164 mmHg Rue reg cuff BP Diastolic Sitting 100 mmHg Rue reg cuff BP Systolic Standing 172 mmHg Rue reg cuff BP Diastolic Standing 120 mmHg Rue reg cuff Respiratory Rate 17 /min O2 % BldC Oximetry 98 % BMI (Body Mass Index) 25.6 kg/m2 09/04/2017 2:54pm Height 68.25 inches 5'8.25" Weight 173.50 lb No shoes Heart Rate 60 /min BP Systolic Sitting 116 mmHg Lue reg cuff BP Diastolic Sitting 86 mmHg Lue reg cuff BP Systolic Standing 110 mmHg Lue reg cuff BP Diastolic Standing 80 mmHg Lue reg cuff Respiratory Rate 15 /min BMI (Body Mass Index) 26.2 kg/m2 Ejection Fraction 20-25% 06/22/2017-echo 08/28/2017 3:26pm Height 68.25 inches 5'8.25" Weight 173.00 lb with shoes and lifevest Heart Rate 58 /min lying at rest BP Systolic 116 mmHg lying down Lue BP Diastolic 72 mmHg lying down Lue BP Systolic Sitting 108 mmHg sitting pulse 70 BP Diastolic Sitting 68 mmHg sitting pulse 70 BP Systolic Standing 100 mmHg standing pulse 80 BP Diastolic Standing 66 mmHg standing pulse 80 Respiratory Rate 16 /min BMI (Body Mass Index) 26.1 kg/m2 08/17/2017 2:30pm Height 68.25 inches 5'8.25" Weight 171.00 lb Heart Rate 64 /min BP Systolic Sitting 102 mmHg Rue reg cuff BP Diastolic Sitting 88 mmHg Rue reg cuff BP Systolic Standing 100 mmHg Rue BP Diastolic Standing 80 mmHg Rue Respiratory Rate 16 /min BMI (Body Mass Index) 25.8 kg/m2 Ejection Fraction 20-25% 07/26/17 Michael 07/19/2017 8:40am Height 68.25 inches 5'8.25" Weight 173.00 lb Heart Rate 55 /min BP Systolic Sitting 128 mmHg BP Diastolic Sitting 96 mmHg Body Temperature 97.4 F O2 % BldC Oximetry 98 % BMI (Body Mass Index) 26.1 kg/m2 07/03/2017 9:38am Height 68.25 inches 5'8.25" Weight 173.00 lb No shoes Heart Rate 62 /min BP Systolic 97 mmHg Lue home unit HR 84 BP Diastolic 77 mmHg Lue home unit HR 84 BP Systolic Sitting 102 mmHg Rue reg cuff BP Diastolic Sitting 78 mmHg Rue reg cuff BP Systolic Standing 106 mmHg Rue reg cuff BP Diastolic Standing 76 mmHg Rue reg cuff Respiratory Rate 15 /min BMI (Body Mass Index) 26.1 kg/m2 Ejection Fraction 20-25% 06/22/2017-echo Results Test Date Facility Test Result H/L Range Note Order 04/28/2019 [facility] In-House EKG <pending> Basic Metabolic 05/13/2018 [facility] Sodium 139 mmol/L N 135- 145 [address] [place] [address] [phone] Potassium 4.1 mmol/L N 3.5-5.0 Chloride 105 mmol/L N 101-111 Co2 Carbon Dioxide 25 mmol/L N 22-32 Anion Gap 9 mmol/L N 2-11 Glucose 73 mg/dL N 70-100 Blood Urea Nitrogen 14 mg/dL N 6-24 Creatinine 1.68 mg/dL High 0.67-1.17 BUN/Creatinine Ratio 8.3 N 8-20 Calcium 9.3 mg/dL N 8.6-10.3 Egfr Non- 40.7 >60 Egfr 49.3 >60 1 Basic Metabolic Panel 04/29/2018 [facility] Sodium 138 mmol/L N 135-145 [address] [place] [address] [phone] Potassium 4.5 mmol/L N 3.5-5.0 Chloride 106 mmol/L N 101-111 Co2 Carbon Dioxide 26 mmol/L N 22-32 Anion Gap 6 mmol/L N 2-11 Glucose 97 mg/dL N 70-100 Blood Urea Nitrogen 16 mg/dL N 6-24 Creatinine 1.59 mg/dL High 0.67-1.17 BUN/Creatinine Ratio 10.1 N 8-20 Calcium 9.4 mg/dL N 8.6-10.3 Egfr Non- 43.4 >60 Egfr 52.5 >60 2 Comp Metabolic Panel 01/04/2018 [facility] Sodium 141 mmol/L N 133-145 [address] [place] [address] [phone] Potassium 4.2 mmol/L N 3.5-5.0 Chloride 107 mmol/L N 101-111 Co2 Carbon Dioxide 27 mmol/L N 22-32 Anion Gap 7 mmol/L N 2-11 Glucose 79 mg/dL N 70-100 Blood Urea Nitrogen 13 mg/dL N 6-24 Creatinine 1.73 mg/dL High 0.67-1.17 BUN/Creatinine Ratio 7.5 Low 8-20 Calcium 9.4 mg/dL N 8.6-10.3 Total Protein 6.2 g/dL Low 6.4-8.9 Albumin 3.8 g/dL N 3.2-5.2 Globulin 2.4 g/dL N 2-4 Albumin/Globulin Ratio 1.6 N 1-3 Total Bilirubin 0.90 mg/dL N 0.2-1.0 Alkaline Phosphatase 39 U/L N 34-104 Alt 8 U/L N 7-52 Ast 12 U/L Low 13-39 Egfr Non- 39.5 >60 Egfr 50.8 >60 3 Laboratory test 01/04/2018 [facility] TSH (Thyroid 0.50 mcIU/mL N 0.34-5.[address] Stim [place]orm) [place] [address] [phone] Free T4 (Free Thyroxine) 1.10 ng/dL N 0.61-1.12 T3 Total 0.72 ng/mL Low 0.87-1.78 Laboratory test 01/03/2018 [facility] TSH (Thyroid <pending> finding [address] Stim [place]) [place] [address] [phone] Free T4 (Free Thyroxine) <pending> T3 Total <pending> Laboratory test 08/11/2017 [facility] B-Type 852 pg/mL High [address] [place] [address] Peptide BNP [phone] Comp Metabolic 08/11/2017 [facility] Sodium 139 mmol/L N 133- [address] [place] [address] [phone] Potassium 4.0 mmol/L N 3.5-5.0 Chloride 106 mmol/L N 101-111 Co2 Carbon Dioxide 29 mmol/L N 22-32 Anion Gap 4 mmol/L N 2-11 Glucose 104 mg/dL High 70-100 Blood Urea Nitrogen 16 mg/dL N 6-24 Creatinine 1.65 mg/dL High 0.67-1.17 BUN/Creatinine Ratio 9.7 N 8-20 Calcium 9.3 mg/dL N 8.6-10.3 Total Protein 6.2 g/dL Low 6.4-8.9 Albumin 3.7 g/dL N 3.2-5.2 Globulin 2.5 g/dL N 2-4 Albumin/Globulin Ratio 1.5 N 1-3 Total Bilirubin 1.30 mg/dL High 0.2-1.0 Alkaline Phosphatase 44 U/L N 34-104 Alt 18 U/L N 7-52 Ast 16 U/L N 13-39 Egfr Non- 41.7 N >60 Egfr 53.6 N >60 5 Laboratory test 08/11/2017 [facility] Magnesium 2.1 mg/dL N 1.9-2.[address] [place] [address] [phone] Creatine Kinase(CK) 61 U/L N 10-223 Troponin-I (TnI) 0.01 ng/mL N <0.04 CKMB 08/11/2017 [facility] CKMB ng/mL 2.1 ng/mL N 0.6-6.[address] [place] [address] [phone] CBC Auto Diff 08/11/2017 [facility] White Blood 6.4 10^3/uL N 3.5-10.[address] [place] [address] [phone] Red Blood Count 4.81 10^6/uL N 4.0-5.4 Hemoglobin 14.6 g/dL N 14.0-18.0 Hematocrit 43 % N 42-52 Mean Corpuscular Volume 90 fL N 80-94 Mean Corpuscular Hemoglobin 30 pg N 27-31 Mean Corpuscular HGB Conc 34 g/dL N 31-36 Red Cell Distribution Width 14 % N 10.5-15 Platelet Count 242 10^3/uL N 150-450 Mean Platelet Volume 7 um3 Low 7.4-10.4 Abs Neutrophils 4.7 10^3/uL N 1.5-7.7 Abs Lymphocytes 1.0 10^3/uL N 1.0-4.8 Abs Monocytes 0.5 10^3/uL N 0-0.8 Abs Eosinophils 0.1 10^3/uL N 0-0.6 Abs Basophils 0.1 10^3/uL N 0-0.2 Abs Nucleated RBC 0.01 10^3/uL N Granulocyte % 73.7 % N 38-83 Lymphocyte % 15.2 % Low 25-47 Monocyte % 8.1 % N 1-9 Eosinophil % 2.1 % N 0-6 Basophil % 0.9 % N 0-2 Nucleated Red Blood Cells % 0.1 N Laboratory test 08/11/2017 [facility] Lactic Acid 1.1 mmol/L N 0.5-2.0 6 finding [address] [place] [address] [phone] Laboratory test 08/11/2017 [facility] TSH (Thyroid 1.22 mcIU/mL N 0.34-5.[address] [place]) [place] [address] [phone] Urinalysis 08/11/2017 [facility] Urine Color Yellow N Profile [address] [place] [address] [phone] Urine Appearance Clear N Urine Specific [place] 1.013 N 1.010-1.030 Urine pH 6.0 N 5-9 Urine Urobilinogen Negative N Negative Urine Ketones Negative N Negative Urine Protein Negative N Negative Urine Leukocytes Negative N Negative Urine Blood Negative N Negative Urine Nitrite Negative N Negative Urine Bilirubin Negative N Negative Urine Glucose Negative N Negative Laboratory test 07/30/2017 [facility] Magnesium 2.0 mg/dL N 1.9-2.7 finding [address] [place] [address] [phone] Troponin-I (TnI) 0.01 ng/mL N <0.04 TSH (Thyroid Stim Horm) 0.61 mcIU/mL N 0.34-5.60 Comp Metabolic Panel 07/30/2017 [facility] Sodium 137 mmol/L N 133-145 [address] [place] [address] [phone] Potassium 3.8 mmol/L N 3.5-5.0 Chloride 106 mmol/L N 101-111 Co2 Carbon Dioxide 27 mmol/L N 22-32 Anion Gap 4 mmol/L N 2-11 Glucose 86 mg/dL N 70-100 Blood Urea Nitrogen 16 mg/dL N 6-24 Creatinine 1.61 mg/dL High 0.67-1.17 BUN/Creatinine Ratio 9.9 N 8-20 Calcium 8.7 mg/dL N 8.6-10.3 Total Protein 5.5 g/dL Low 6.4-8.9 Albumin 3.2 g/dL N 3.2-5.2 Globulin 2.3 g/dL N 2-4 Albumin/Globulin Ratio 1.4 N 1-3 Total Bilirubin 1.00 mg/dL N 0.2-1.0 Alkaline Phosphatase 48 U/L N 34-104 Alt 15 U/L N 7-52 Ast 15 U/L N 13-39 Egfr Non- 42.9 N >60 Egfr 55.2 N >60 7 CBC Auto Diff 07/30/2017 [facility] White Blood 6.4 10^3/uL N 3.5-10.[address] [place] [address] [phone] Red Blood Count 4.51 10^6/uL N 4.0-5.4 Hemoglobin 13.5 g/dL Low 14.0-18.0 Hematocrit 40 % Low 42-52 Mean Corpuscular Volume 88 fL N 80-94 Mean Corpuscular Hemoglobin 30 pg N 27-31 Mean Corpuscular HGB Conc 34 g/dL N 31-36 Red Cell Distribution Width 14 % N 10.5-15 Platelet Count 220 10^3/uL N 150-450 Mean Platelet Volume 7 um3 Low 7.4-10.4 Abs Neutrophils 4.5 10^3/uL N 1.5-7.7 Abs Lymphocytes 1.0 10^3/uL N 1.0-4.8 Abs Monocytes 0.6 10^3/uL N 0-0.8 Abs Eosinophils 0.2 10^3/uL N 0-0.6 Abs Basophils 0.1 10^3/uL N 0-0.2 Abs Nucleated RBC 0 10^3/uL N Granulocyte % 70.5 % N 38-83 Lymphocyte % 16.2 % Low 25-47 Monocyte % 9.7 % High 1-9 Eosinophil % 2.6 % N 0-6 Basophil % 1.0 % N 0-2 Nucleated Red Blood Cells % 0 N Laboratory test 07/30/2017 [facility] Lactic Acid 0.7 mmol/L N 0.5-2.0 [address] [place] [address] [phone] 1 Because ethnic data is not always readily available, this report includes an eGFR for both -Americans and non- Americans. The National Kidney Disease Education Program (NKDEP) does not endorse the use of the MDRD equation for patients that are not between the ages of 18 and 70, are , have extremes of body size, muscle mass, or nutritional status, or are non- or non-. According to the National Kidney Foundation, irrespective of diagnosis, the stage of the disease is based on the level of kidney function: Stage Description GFR(mL/min/1.73 m(2)) 1 Kidney damage with normal or decreased GFR 90 2 Kidney damage with mild decrease in GFR 60-89 3 Moderate decrease in GFR 30-59 4 Severe decrease in GFR 15-29 5 Kidney failure <15 (or dialysis) 2 Because ethnic data is not always readily available, this report includes an eGFR for both -Americans and non- Americans. The National Kidney Disease Education Program (NKDEP) does not endorse the use of the MDRD equation for patients that are not between the ages of 18 and 70, are , have extremes of body size, muscle mass, or nutritional status, or are non- or non-. According to the National Kidney Foundation, irrespective of diagnosis, the stage of the disease is based on the level of kidney function: Stage Description GFR(mL/min/1.73 m(2)) 1 Kidney damage with normal or decreased GFR 90 2 Kidney damage with mild decrease in GFR 60-89 3 Moderate decrease in GFR 30-59 4 Severe decrease in GFR 15-29 5 Kidney failure <15 (or dialysis) 3 Because ethnic data is not always readily available, this report includes an eGFR for both -Americans and non- Americans. The National Kidney Disease Education Program (NKDEP) does not endorse the use of the MDRD equation for patients that are not between the ages of 18 and 70, are , have extremes of body size, muscle mass, or nutritional status, or are non- or non-. According to the National Kidney Foundation, irrespective of diagnosis, the stage of the disease is based on the level of kidney function: Stage Description GFR(mL/min/1.73 m(2)) 1 Kidney damage with normal or decreased GFR 90 2 Kidney damage with mild decrease in GFR 60-89 3 Moderate decrease in GFR 30-59 4 Severe decrease in GFR 15-29 5 Kidney failure <15 (or dialysis) 4 >100 to <200 pg/mL: likely compensated congestive heart failure (CHF) 200 to 400 pg/mL: likely moderate CHF >400 pg/mL: likely moderate to severe CHF 5 Because ethnic data is not always readily available, this report includes an eGFR for both -Americans and non- Americans. The National Kidney Disease Education Program (NKDEP) does not endorse the use of the MDRD equation for patients that are not between the ages of 18 and 70, are , have extremes of body size, muscle mass, or nutritional status, or are non- or non-. According to the National Kidney Foundation, irrespective of diagnosis, the stage of the disease is based on the level of kidney function: Stage Description GFR(mL/min/1.73 m(2)) 1 Kidney damage with normal or decreased GFR 90 2 Kidney damage with mild decrease in GFR 60-89 3 Moderate decrease in GFR 30-59 4 Severe decrease in GFR 15-29 5 Kidney failure <15 (or dialysis) 6 [facility] Severe Sepsis and Septic Shock Management Bundle Measure requires all lactic acids initially measuring >2.0 mmol/L be repeated. 7 Because ethnic data is not always readily available, this report includes an eGFR for both -Americans and non- Americans. The National Kidney Disease Education Program (NKDEP) does not endorse the use of the MDRD equation for patients that are not between the ages of 18 and 70, are , have extremes of body size, muscle mass, or nutritional status, or are non- or non-. According to the National Kidney Foundation, irrespective of diagnosis, the stage of the disease is based on the level of kidney function: Stage Description GFR(mL/min/1.73 m(2)) 1 Kidney damage with normal or decreased GFR 90 2 Kidney damage with mild decrease in GFR 60-89 3 Moderate decrease in GFR 30-59 4 Severe decrease in GFR 15-29 5 Kidney failure <15 (or dialysis) 8 [facility] Severe Sepsis and Septic Shock Management Bundle Measure requires all lactic acids initially measuring >2.0 mmol/L be repeated. Procedures Date Code Description Status 04/28/2019 78946 EKG Tracing & Interpretation Completed 03/24/2019 [id number] EKG Tracing & Interpretation Completed 11/07/2018 17501 EKG Tracing & Interpretation Completed 05/16/2018 [id number] EKG Tracing & Interpretation Completed 05/02/2018 [id number] EKG Tracing & Interpretation Completed 04/25/2018 [id number] EKG Tracing & Interpretation Completed 04/05/2018 19716 EKG Tracing & Interpretation Completed 03/22/2018 [id number] EKG Tracing & Interpretation Completed 01/01/2018 68168 Echocardiogram, Limited Study Completed 01/01/2018 61663 Echocardiogram, Limited Study Completed 11/01/2017 [id number] EKG Tracing & Interpretation Completed 10/24/2017 84473 Sleep Study Unattended,HRT Rate,Oxygen Sat,Resp Completed Effort/Airflow 10/18/2017 91872 EKG Tracing & Interpretation Completed 09/12/2017 91874 ECHO Transthoracic, Real-Time 2D With Doppler And Color Completed Flow 09/12/2017 54495 ECHO Transthoracic, Real-Time 2D With Doppler And Color Completed Flow 08/28/2017 50044 EKG Tracing & Interpretation Completed 08/17/2017 06469 EKG Tracing & Interpretation Completed 08/13/2017 53327 EKG, Interpretation Only Completed 08/12/2017 87841 EKG, Interpretation Only Completed 08/12/2017 92528 Cardioversion Completed 07/26/2017 09788 Color Flow Doppler/Interp & Reprt Completed 07/26/2017 25119 Pulse Wave/Continuous-Interp.RPT Completed 07/26/2017 43899 Echocardiography, Transesophageal, Real Time W/Image 2D Completed W/W/O M-M 07/26/2017 28538 EKG, Interpretation Only Completed 07/03/2017 01674 EKG Tracing & Interpretation Completed 06/27/2017 91451 Moderate Sedation Services; Same Phys Each Additional 15 Completed Mins 06/27/2017 94048 Moderate Sedation Services; Same Phys Intl 15 Mins; PT >=5 Completed Years 06/27/2017 15301 Color Flow Doppler/Interp & Reprt Completed 06/27/2017 25599 Pulse Wave/Continuous-Interp.RPT Completed 06/27/2017 91933 Echocardiography, Transesophageal, Real Time W/Image 2D Completed W/W/O M-M 06/26/2017 93705 RT Heart Catheritization; Measurement Of Oxygen Saturation Completed 06/22/2017 25884 ECHO Transthorasic Realtime 2D W Doppler & Color Flow Hosp Completed Encounters Type Date Location Provider Dx Diagnosis Office Visit 03/24/2019 [facility] Carol Velasquez, I48.0 Paroxysmal atrial 3:20p Of [facility] M.D. fibrillation I44.2 Atrioventricular block, complete I34.0 Nonrheumatic mitral (valve) insufficiency I42.9 Cardiomyopathy, unspecified R06.02 Shortness of breath Z95.0 Presence of cardiac pacemaker I45.10 Unspecified right bundle-branch block Office Visit 11/07/2018 2:40p [facility] Carol Velasquez I48.0 Paroxysmal atrial Of [facility] M.D. fibrillation I42.9 Cardiomyopathy, unspecified I10 Essential (primary) hypertension R42 Dizziness and giddiness I34.0 Nonrheumatic mitral (valve) insufficiency Office Visit 05/31/2018 4:00p [facility] Carol Velasquez I48.0 Paroxysmal atrial Of [facility] M.D. fibrillation I42.9 Cardiomyopathy, unspecified I10 Essential (primary) hypertension R42 Dizziness and giddiness Office Visit 05/16/2018 9:00a [facility] Mireille S. I10 Essential ( primary) Of [facility] Foster, N.P. hypertension R94.31 Abnormal electrocardiogram [ECG] [EKG] I48.0 Paroxysmal atrial fibrillation R42 Dizziness and giddiness I42.9 Cardiomyopathy, unspecified Office Visit 05/10/2018 1:30p [facility] Nurse Visit I10 Essential (primary) Of [facility] IC hypertension Office Visit 04/25/2018 11:30a [facility] Mireille S. I48.0 Paroxysmal atrial Of [facility] Foster, N.P. fibrillation R42 Dizziness and giddiness G47.30 Sleep apnea, unspecified I42.9 Cardiomyopathy, unspecified R94.31 Abnormal electrocardiogram [ECG] [EKG] I10 Essential (primary) hypertension Office Visit 04/05/2018 9:00a [facility] Mireille S. I48.0 Paroxysmal atrial Of [facility] Foster, N.P. fibrillation R42 Dizziness and giddiness G47.30 Sleep apnea, unspecified I42.9 Cardiomyopathy, unspecified Office Visit 03/22/2018 11:40a [facility] Carol Velasquez I48.0 Paroxysmal atrial Of [facility] [place] [facility] [place] fibrillation I42.8 Other cardiomyopathies G47.30 Sleep apnea, unspecified R42 Dizziness and giddiness Office 03/07/2018 DoNotUse [facility] Internal Owen Thomas J06.9 Acute upper Visit 2:00p Medicine-Matthew Lucio M.D. respiratory infection, unspecified Office 01/14/2018 Pulmonology [facility] Sleep Gricel G47.33 Obstructive Visit 11:15a Services Of [facility] ZACHARY Marinelli, sleep apnea RN, [facility] (adult) (pediatric) Office 01/03/2018 [facility] Of Carol Velasquez, I48.0 Paroxysmal Visit 1:50p [facility] M.D. atrial fibrillation I42.9 Cardiomyopathy, unspecified Office Visit 11/09/2017 1:20p [facility] Hank Gautam, Z71.89 Other specified Medicine - [facility] [employer] counseling Z13.1 Encounter for screening for diabetes mellitus Z13.220 Encounter for screening for lipoid disorders Z23 Encounter for immunization Office Visit 11/01/2017 10:30a [facility] Harper Hastings I48.0 Paroxysmal atrial Of [facility] PA fibrillation I42.8 Other cardiomyopathies G47.30 Sleep apnea, unspecified Office Visit 10/23/2017 Pulmonology And Gricel G47.30 Sleep apnea, 2:30p Sleep Services Of ZACHARY Marinelli, RN, unspecified [facility] R40.0 Somnolence R35.1 Nocturia Office Visit 10/18/2017 2:30p [facility] Carol Velasquez I48.0 Paroxysmal atrial Of [facility] M.D. fibrillation I42.8 Other cardiomyopathies I95.1 Orthostatic hypotension R61 Generalized hyperhidrosis N39.0 Urinary tract infection, site not specified Office Visit 09/04/2017 3:00p [facility] Harper Hastings, I50.22 Chronic systolic Of [facility] PA (congestive) heart failure R42 Dizziness and giddiness Office Visit 08/17/2017 3:00p [facility] Carol Velasquez I48.0 Paroxysmal atrial Of [facility] M.D. fibrillation I42.8 Other cardiomyopathies G47.9 Sleep disorder, unspecified Office Visit 08/13/2017 [facility] Mireille Finley I50.23 Acute on chronic 10:30a Assoc,justice Argueta, N.P. systolic Hospitalists (congestive) heart failure I42.8 Other cardiomyopathies I48.0 Paroxysmal atrial fibrillation N18.3 Chronic kidney disease, stage 3 (moderate) Office Visit 08/12/2017 [facility] Maddie I50.23 Acute on chronic 10:29a justice Colón, [employer] systolic Hospitalists (congestive) heart failure I42.8 Other cardiomyopathies I48.0 Paroxysmal atrial fibrillation N18.3 Chronic kidney disease, stage 3 (moderate) Office Visit 08/12/2017 3:10p [facility] Carol Velasquez, I48.1 Persistent atrial Of [facility] M.D. fibrillation I50.9 Heart failure, unspecified Office Visit 08/11/2017 10:28a [facility] Siri Hanley, I50.23 Acute on chronic Assoc,justice N.PLita systolic Hospitalists (congestive) heart failure I42.8 Other cardiomyopathies I48.0 Paroxysmal atrial fibrillation N18.3 Chronic kidney disease, stage 3 (moderate) Office Visit 07/19/2017 9:40a [facility] Hank Dain, I48.1 Persistent atrial Medicine - [facility] [employer] fibrillation K30 Functional dyspepsia Office Visit 07/03/2017 9:45a [facility] Carol Velasquez, I48.1 Persistent atrial Of [facility] M.D. fibrillation I34.0 Nonrheumatic mitral (valve) insufficiency I50.42 Chronic combined systolic and diastolic hrt fail Office Visit 06/28/2017 [facility] Elke I48.91 Unspecified atrial 7:43a justice Colón M.D. fibrillation Hospitalists I50.9 Heart failure, unspecified N18.9 Chronic kidney disease, unspecified I10 Essential (primary) hypertension Office Visit 06/27/2017 10:13a [facility] Velasquez, I48.91 Unspecified atrial Cardiology Of M.D. fibrillation [facility] I50.9 Heart failure, unspecified I34.0 Nonrheumatic mitral (valve) insufficiency Office Visit 06/27/2017 [facility] Elke I48.91 Unspecified atrial 7:42a justice Colón M.D. fibrillation Hospitalists I50.9 Heart failure, unspecified N18.9 Chronic kidney disease, unspecified I10 Essential (primary) hypertension Office Visit 06/26/2017 [facility] Elke I48.91 Unspecified atrial 7:42a justice Colón M.D. fibrillation Hospitalists I50.9 Heart failure, unspecified N18.9 Chronic kidney disease, unspecified I10 Essential (primary) hypertension Office Visit 06/25/2017 [facility] I48.91 Unspecified atrial 7:42a justice Colón M.D. fibrillation Hospitalists M18.9 Osteoarthritis of first carpometacarpal joint, unspecified I50.9 Heart failure, unspecified I10 Essential (primary) hypertension Office Visit 06/24/2017 [facility] I48.91 Unspecified atrial 7:41a justice Colón M.D. fibrillation Hospitalists I50.9 Heart failure, unspecified N18.9 Chronic kidney disease, unspecified I10 Essential (primary) hypertension Office Visit 06/23/2017 [facility] Jeevan Juarez I50.9 Heart failure, 3:53p Of Shelton Haq M.D. unspecified Office Visit 06/23/2017 [facility] I48.91 Unspecified atrial 7:13a justice Colón M.D. fibrillation Hospitalists I50.9 Heart failure, unspecified N18.9 Chronic kidney disease, unspecified I10 Essential (primary) hypertension Office Visit 06/22/2017 [facility] I48.91 Unspecified atrial 7:12a justice Colón M.D. fibrillation Hospitalists I50.9 Heart failure, unspecified N18.9 Chronic kidney disease, unspecified I10 Essential (primary) hypertension Office Visit 06/22/2017 3:44p [facility] Olu Fniley R06.00 Dyspnea, Of Shelton Sterling DO unspecified FACC I50.21 Acute systolic (congestive) heart failure I13.0 Hyp hrt & chr kdny dis w hrt fail and stg 1-4/unsp chr kdny N18.9 Chronic kidney disease, unspecified I34.0 Nonrheumatic mitral (valve) insufficiency I48.0 Paroxysmal atrial fibrillation Office Visit 06/21/2017 [facility] I48.91 Unspecified 7:12a Ass[facility]ice flores NP atrial Hospitalists fibrillation I50.9 Heart failure, unspecified N18.9 Chronic kidney disease, unspecified I10 Essential (primary) hypertension Plan of Treatment Future Appointment(s):06/05/2019 2:40 pm - Carol Velasquez M.D. at [facility]04/28/2019 - Hank Gautam, NPZ00.00 Encounter for general adult medical examination without abnoR42 Dizziness and dfuyvspmtS95 Essential ( primary) hypertension
--- OUTSIDE RECORDS SUMMARY | 2019-04-28 17:33 | XMS REPORT | Continuity of Care Document ---
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 Lissette Lepe MD Primary Care Physician Unavailable Payers Date Identification Numbers Payment Provider Subscriber Expires: 2018 Policy Number: [id number] [employer] Emily Bhatia PayID: [id number] [address] [place] [address] Policy Number: [id number] [employer] Emily Bhatia PayID: [id number] [address] [place] [address] Advance Directives Type Date Description Status Comment [...] apnea Gricel Marinelli DNP, RN, Onset: 10/23/2017 [employer]- Obstructive sleep apnea syndrome Gricel Marinelli DNP, RN, Onset: 01/14/2018 [facility] Cardiomyopathy Carol Velasquez M.D. Onset: 05/31/2018 Essential [...] Unknown Never Smoked Cigarettes Smoking Status Reviewed: 03/24/19 Never Smoked Cigarettes ETOH Use Denies alcohol [...] G47.33 Gricel Marinelli, 01/14/2018 Advancement Device appliance ZACHARY, RN, [facility] /mandibular Device advancement device for sleep apnea [...] HFA 2 puffs by mouth 8gm Hank Dain, ATTENDING ANESTHESIOLOGIST four times a day as 108(90Base) mcg/Act [...] Code Status Date Vaccine Reaction Lot # [id number] Given 05/09/2018 Hepatitis A Vaccine Adult [id number] Dosage 47986 Given 11/09/2017 Tdap - No immediat [id number] Tetanus/Diptheria/Acellula reaction... r Pertussis [id number] Given 11/09/2017 Hepatitis A Vaccine Adult no immedite [id number] Dosage reaction... Vital Signs Date Vital Result Comment 03/24/2019 3:36pm Height 69 inches 5'9" Weight [...] reg cuff BP Systolic Standing 112 mmHg Ejsi reg cuff BP Diastolic Standing 70 mmHg [...] Date Facility Test Result H/L Range Note Basic Metabolic 05/13/2018 [facility] Sodium 139 mmol/L N 135- 145 Panel [address] [place] [address] [phone] Potassium 4.1 mmol/L N 3.5-5.0 Chloride 105 mmol/L N 101-111 Co2 Carbon Dioxide 25 mmol/L N 22-32 Anion Gap 9 mmol/L N 2-11 Glucose 73 mg/dL N 70-100 Blood Urea Nitrogen 14 mg/dL N 6-24 Creatinine 1.68 mg/dL High 0.67-1.17 BUN/Creatinine Ratio 8.3 N 8-20 Calcium 9.3 mg/dL N 8.6-10.3 Egfr Non- 40.7 >60 Egfr 49.3 >60 1 Basic Metabolic Panel 04/29/2018 [facility] Sodium 138 mmol/L N 135-145 [address] [place] [address] [phone] Potassium 4.5 mmol/L N 3.5-5.0 Chloride 106 mmol/L N 101-111 Co2 Carbon Dioxide 26 mmol/L N 22-32 Anion Gap 6 mmol/L N 2-11 Glucose 97 mg/dL N 70-100 Blood Urea Nitrogen 16 mg/dL N 6-24 Creatinine 1.59 mg/dL High 0.67-1.17 BUN/Creatinine Ratio 10.1 N 8-20 Calcium 9.4 mg/dL N 8.6-10.3 Egfr Non- 43.4 >60 Egfr 52.5 >60 2 Comp Metabolic Panel 01/04/2018 [facility] Sodium 141 mmol/L N 133-145 [address] [place] [address] [phone] Potassium 4.2 mmol/L N 3.5-5.0 Chloride 107 [...] Egfr 50.8 >60 3 Laboratory test 01/04/2018 [facility] TSH (Thyroid 0.50 mcIU/mL N 0.34-5.[address] Stim Horm) [place] [address] [phone] Free T4 (Free Thyroxine) 1.10 ng/dL N 0.61-1.12 T3 Total 0.72 ng/mL Low 0.87-1.78 Laboratory test 01/03/2018 [facility] TSH (Thyroid <pending> finding [address]) [place] [address] [phone] Free T4 (Free Thyroxine) <pending> T3 Total <pending> Laboratory test 08/11/2017 [facility] Lactic Acid 1.1 mmol/L N 0.5-2.[address] [place] [address] [phone] CBC Auto Diff 08/11/2017 [facility] White Blood 6.4 10^3/uL N 3.5-10.[address] [place] [address] [phone] Red Blood Count 4.81 10^6/uL N 4.0-5.4 [...] Cells % 0.1 N Laboratory test 08/11/2017 [facility] B-Type 852 pg/mL High [address] [place] [address] Peptide BNP [phone] Comp Metabolic 08/11/2017 [facility] Sodium 139 mmol/L N 133- [address] [place] [address] [phone] Potassium 4.0 mmol/L N 3.5-5.0 Chloride 106 [...] 41.7 N >60 Egfr 53.6 N >60 6 Laboratory test 08/11/2017 [facility] Magnesium 2.1 mg/dL N 1.9-2.[address] [place] [address] [phone] Creatine Kinase(CK) 61 U/L N 10-223 Troponin-I (TnI) 0.01 ng/mL N <0.04 CKMB 08/11/2017 [facility] CKMB ng/mL 2.1 ng/mL N 0.6-6.[address] [place] [address] [phone] Laboratory test 08/11/2017 [facility] TSH 1.22 mcIU/mL N 0.34- 5.[address] ([place] [address] Stim Foqx) [phone] Urinalysis 08/11/2017 [facility] Urine Color Yellow N Profile [address] [place] [address] [phone] Urine Appearance Clear N Urine Specific [place] 1.013 N 1.010-1.030 Urine pH 6.0 N 5-9 Urine Urobilinogen Negative N Negative Urine Ketones Negative N Negative Urine Protein Negative N Negative Urine Leukocytes Negative N Negative Urine Blood Negative N Negative Urine Nitrite Negative N Negative Urine Bilirubin Negative N Negative Urine Glucose Negative N Negative CBC Auto Diff 07/30/2017 [facility] White Blood 6.4 10^3/uL N 3.5-10.[address] [place] [address] [phone] Red Blood Count 4.51 10^6/uL N 4.0-5.4 [...] Cells % 0 N Laboratory test 07/30/2017 [facility] Lactic Acid 0.7 mmol/L N 0.5-2.0 7 finding [address] [place] [address] [phone] Comp Metabolic 07/30/2017 [facility] Sodium 137 mmol/L N 133- 145 Panel [address] [place] [address] [phone] Potassium 3.8 mmol/L N 3.5-5.0 Chloride 106 [...] 42.9 N >60 Egfr 55.2 N >60 8 Laboratory test 07/30/2017 [facility] Magnesium 2.0 mg/dL N 1.9-2.7 finding [address] [place] [address] [phone] Troponin-I (TnI) 0.01 ng/mL N <0.04 TSH (Thyroid Stim Horm) 0.61 mcIU/mL N 0.34-5.60 1 Because ethnic data is not always [...] 5 Kidney failure <15 (or dialysis) 4 [place] Severe Sepsis and Septic Shock Management Bundle Measure requires all lactic acids initially measuring >2.0 mmol/L be repeated. 5 >100 to <200 pg/mL: likely compensated congestive heart failure (CHF) 200 to 400 pg/mL: likely moderate CHF >400 pg/mL: likely moderate to severe CHF 6 Because ethnic data is not always readily [...] 15-29 5 Kidney failure <15 (or dialysis) 7 [facility] Severe Sepsis and Septic Shock Management Bundle Measure requires all lactic acids initially measuring >2.0 mmol/L be repeated. 8 Because ethnic data is not always readily [...] 15-29 5 Kidney failure <15 (or dialysis) Procedures Date Code Description Status 03/24/2019 91730 EKG Tracing & Interpretation Completed 11/07/2018 81736 EKG Tracing & Interpretation Completed 05/16/2018 95674 EKG Tracing & Interpretation Completed 05/02/2018 39465 EKG Tracing & Interpretation Completed 04/25/2018 85104 EKG Tracing & Interpretation Completed 04/05/2018 86360 EKG Tracing & Interpretation Completed 03/22/2018 39806 EKG Tracing & Interpretation Completed 01/01/2018 48785 Echocardiogram, Limited Study Completed 01/01/2018 71570 Echocardiogram, Limited Study Completed 11/01/2017 12230 EKG Tracing & Interpretation Completed 10/24/2017 94693 Sleep Study Unattended,HRT Rate,Oxygen Sat,Resp Completed Effort/Airflow 10/18/2017 52893 EKG Tracing & Interpretation Completed 09/12/2017 55728 ECHO Transthoracic, Real-Time 2D With Doppler And Color Completed Flow 09/12/2017 25893 ECHO Transthoracic, Real-Time 2D With Doppler And Color Completed Flow 08/28/2017 18399 EKG Tracing & Interpretation Completed 08/17/2017 34469 EKG Tracing & Interpretation Completed 08/13/2017 54432 EKG, Interpretation Only Completed 08/12/2017 24220 EKG, Interpretation Only Completed 08/12/2017 49970 Cardioversion Completed 07/26/2017 22359 Color Flow Doppler/Interp & Reprt Completed 07/26/2017 35667 Pulse Wave/Continuous-Interp.RPT Completed 07/26/2017 33974 Echocardiography, Transesophageal, Real Time W/Image 2D Completed W/W/O M-M 07/26/2017 68216 EKG, Interpretation Only Completed 07/03/2017 99784 EKG Tracing & Interpretation Completed 06/27/2017 85378 Moderate Sedation Services; Same Phys Each Additional 15 Completed Mins 06/27/2017 42724 Moderate Sedation Services; Same Phys Intl 15 Mins; PT >=5 Completed Years 06/27/2017 91058 Color Flow Doppler/Interp & Reprt Completed 06/27/2017 41915 Pulse Wave/Continuous-Interp.RPT Completed 06/27/2017 64888 Echocardiography, Transesophageal, Real Time W/Image 2D Completed W/W/O M-M 06/26/2017 61040 RT Heart Catheritization; Measurement Of Oxygen Saturation Completed 06/22/2017 35308 ECHO Transthorasic Realtime 2D W Doppler & Color Flow Hosp Completed Encounters Type Date Location Provider Dx Diagnosis Office Visit 03/24/2019 [facility] Carol Velasquez, I48.0 Paroxysmal atrial 3:20p Of [employer] M.D. fibrillation I44.2 Atrioventricular block, complete I34.0 Nonrheumatic mitral (valve) insufficiency I42.9 Cardiomyopathy, unspecified R06.02 Shortness of breath Z95.0 Presence of cardiac pacemaker I45.10 Unspecified right bundle-branch block Office Visit 11/07/2018 2:40p [facility] Carol Velasquez I48.0 Paroxysmal atrial Of [employer] M.D. fibrillation I42.9 Cardiomyopathy, unspecified I10 Essential (primary) hypertension R42 Dizziness and giddiness I34.0 Nonrheumatic mitral (valve) insufficiency Office Visit 05/31/2018 4:00p [facility] Carol Velasquez I48.0 Paroxysmal atrial Of [employer] M.D. fibrillation I42.9 Cardiomyopathy, unspecified I10 Essential (primary) hypertension R42 Dizziness and giddiness Office Visit 05/16/2018 9:00a [facility] Mireille S. I10 Essential ( primary) Of [employer] Foster, N.P. hypertension R94.31 Abnormal electrocardiogram [ECG] [EKG] I48.0 Paroxysmal atrial fibrillation R42 Dizziness and giddiness I42.9 Cardiomyopathy, unspecified Office Visit 05/10/2018 1:30p [facility] Nurse Visit I10 Essential (primary) Of [employer] IC hypertension Office Visit 04/25/2018 11:30a [facility] Mireille S. I48.0 Paroxysmal atrial Of [employer] Foster, N.P. fibrillation R42 Dizziness and giddiness G47.30 Sleep apnea, unspecified I42.9 Cardiomyopathy, unspecified R94.31 Abnormal electrocardiogram [ECG] [EKG] I10 Essential (primary) hypertension Office Visit 04/05/2018 9:00a [facility] Mireille S. I48.0 Paroxysmal atrial Of [employer] Foster, N.P. fibrillation R42 Dizziness and giddiness G47.30 Sleep apnea, unspecified I42.9 Cardiomyopathy, unspecified Office Visit 03/22/2018 11:40a [facility] Carol Velasquez I48.0 Paroxysmal atrial Of [employer] [facility] [place] fibrillation I42.8 Other cardiomyopathies G47.30 Sleep apnea, unspecified R42 Dizziness and giddiness Office 03/07/[address] [facility] Internal Owen Thomas J06.9 Acute upper Visit 2:00p Julieta-Matthew Lucio M.D. respiratory infection, unspecified Office 01/14/2018 [facility] Gricel G47.33 Obstructive Visit 11:15a Services Of [facility] ZACHARY Marinelli, sleep apnea RN, [facility] (adult) (pediatric) Office 01/03/2018 [facility] Of Carol Velasquez I48.0 Paroxysmal Visit 1:50p [employer] M.D. atrial fibrillation I42.9 Cardiomyopathy, unspecified Office Visit 11/09/2017 1:20p [facility] Internal Hanksophia Gautam, Z71.89 Other specified Medicine - [employer] ATTENDING ANESTHESIOLOGIST counseling Z13.1 Encounter for screening for diabetes mellitus Z13.220 Encounter for screening for lipoid disorders Z23 Encounter for immunization Office Visit 11/01/2017 10:30a [facility] Harper Hastings I48.0 Paroxysmal atrial Of [employer] [place] fibrillation I42.8 Other cardiomyopathies G47.30 Sleep apnea, unspecified Office Visit 10/23/2017 Pulmonology And Gricel G47.30 Sleep apnea, 2:30p Sleep Services Of ZACHARY Marinelli, RN, unspecified [facility] R40.0 Somnolence R35.1 Nocturia Office Visit 10/18/2017 2:30p [facility] Carol Velasquez I48.0 Paroxysmal atrial Of [employer] M.D. fibrillation I42.8 Other cardiomyopathies I95.1 Orthostatic hypotension R61 Generalized hyperhidrosis N39.0 Urinary tract infection, site not specified Office Visit 09/04/2017 3:00p [facility] Harper Hastings, I50.22 Chronic systolic Of [employer] Estate [employer]iter [place] (congestive) heart failure R42 Dizziness and giddiness Office Visit 08/17/2017 3:00p [facility] Carol Velasquez I48.0 Paroxysmal atrial Of [employer]iter M.D. fibrillation I42.8 Other cardiomyopathies G47.9 Sleep disorder, unspecified Office Visit 08/13/2017 [facility] Mireille SLita I50.23 Acute on chronic 10:30a justice Colón, N.P. systolic Hospitalists (congestive) heart failure I42.8 Other cardiomyopathies I48.0 Paroxysmal atrial fibrillation N18.3 Chronic kidney disease, stage 3 (moderate) Office Visit 08/12/2017 [facility] Maddie I50.23 Acute on chronic 10:29a justice Colón NP systolic Hospitalists (congestive) heart failure I42.8 Other cardiomyopathies I48.0 Paroxysmal atrial fibrillation N18.3 Chronic kidney disease, stage 3 (moderate) Office Visit 08/12/2017 3:10p [facility] Carol Velasquez, I48.1 Persistent atrial Of [employer]iter M.D. fibrillation I50.9 Heart failure, unspecified Office Visit 08/11/2017 10:28a [facility] Siri Talon, I50.23 Acute on chronic Assoc,justice N.PLita systolic Hospitalists (congestive) heart failure I42.8 Other cardiomyopathies I48.0 Paroxysmal atrial fibrillation N18.3 Chronic kidney disease, stage 3 (moderate) Office Visit 07/19/2017 9:40a [facility] Internal Hank Dain, I48.1 Persistent atrial Medicine - [employer] ATTENDING ANESTHESIOLOGIST fibrillation K30 Functional dyspepsia Office Visit 07/03/2017 9:45a [facility] Carol Velasquez, I48.1 Persistent atrial Of [employer] M.D. fibrillation I34.0 Nonrheumatic mitral (valve) insufficiency I50.42 Chronic combined systolic and diastolic hrt fail Office Visit 06/28/2017 [facility] Elke I48.91 Unspecified atrial 7:43a justice Colón M.D. fibrillation Hospitalists I50.9 Heart failure, unspecified N18.9 Chronic kidney disease, unspecified I10 Essential (primary) hypertension Office Visit 06/27/2017 10:13a [place] Carol Velasquez, I48.91 Unspecified atrial Cardiology Of M.D. fibrillation [employer] I50.9 Heart failure, unspecified I34.0 Nonrheumatic mitral (valve) insufficiency Office Visit 06/27/2017 [facility] Elke I48.91 Unspecified atrial 7:42a justice Colón M.D. fibrillation Hospitalists I50.9 Heart failure, unspecified N18.9 Chronic kidney disease, unspecified I10 Essential (primary) hypertension Office Visit 06/26/2017 [facility] Elke I48.91 Unspecified atrial 7:42a justice Colón M.D. fibrillation Hospitalists I50.9 Heart failure, unspecified N18.9 Chronic kidney disease, unspecified I10 Essential (primary) hypertension Office Visit 06/25/2017 [facility] Elke I48.91 Unspecified atrial 7:42a justice Colón M.D. fibrillation Hospitalists M18.9 Osteoarthritis of first carpometacarpal joint, unspecified I50.9 Heart failure, unspecified I10 Essential (primary) hypertension Office Visit 06/24/2017 [facility] I48.91 Unspecified atrial 7:41a justice Colón M.D. fibrillation Hospitalists I50.9 Heart failure, unspecified N18.9 Chronic kidney disease, unspecified I10 Essential (primary) hypertension Office Visit 06/23/2017 [facility] Jeevan Juarez I50.9 Heart failure, 3:53p Of Shelton Haq M.D. unspecified Office Visit 06/23/2017 [facility] I48.91 Unspecified atrial 7:13a justice Colón M.D. fibrillation Hospitalists I50.9 Heart failure, unspecified N18.9 Chronic kidney disease, unspecified I10 Essential (primary) hypertension Office Visit 06/22/2017 [facility] I48.91 Unspecified atrial 7:12a justice Colón M.D. fibrillation Hospitalists I50.9 Heart failure, unspecified N18.9 Chronic kidney disease, unspecified I10 Essential (primary) hypertension Office Visit 06/22/2017 3:44p [facility] Olu SLita R06.00 Dyspnea, Of [facility] [place], unspecified FACC I50.21 Acute systolic (congestive) heart failure I13.0 Hyp hrt & chr kdny dis w hrt fail and stg 1-4/unsp chr kdny N18.9 Chronic kidney disease, unspecified I34.0 Nonrheumatic mitral (valve) insufficiency I48.0 Paroxysmal atrial fibrillation Office Visit 06/21/2017 [facility] I48.91 Unspecified 7:12a Ass[employer]ice flores NP atrial Hospitalists fibrillation I50.9 Heart failure, unspecified N18.9 Chronic kidney disease, unspecified I10 Essential (primary) hypertension Plan of Treatment Future Appointment(s):06/05/2019 2:40 pm - Carol Velasquez M.D. at [facility]03/24/2019 - Carol Velasquez M.D.I48.0 Paroxysmal atrial fibrillationNew Orders:Echocardiogram, Scheduled: 04/17/19I44.2 Atrioventricular block, luxysexzG25.0 Nonrheumatic mitral (valve) insufficiencyComments:no murmur on exam.Follow up:Release: Op note MV repair OP note Pacer ztktlraN60.9 Cardiomyopathy, unspecifiedNew Orders:Echocardiogram, Scheduled: 04/17/19R06.02 Shortness of breathNew Orders:Echocardiogram, Scheduled: 04/17/19Follow up:after testing , April or JgslqyQ82.0 Presence of cardiac pacemakerFollow up:Have copies sent to me to review.I45.10 Unspecified right bundle-branch block
--- OUTSIDE RECORDS SUMMARY | 2019-04-28 17:33 | XMS REPORT | Continuity of Care Document ---
:1950 External Reference #:[id number] Author Name Nesha Donato Care Team Providers Name Role Phone Carol Velasquez MD Care Team Information Dispatch Manager Unavailable Lissette Lepe MD Primary Care Physician Unavailable Payers Date Identification Numbers Payment Provider Subscriber Expires: 2018 Policy Number: [id number] [employer] Emily Bhatia PayID: [id number] [address] [place] [address] Policy Number: [id number] [employer] Emily Bhatia PayID: [id number] [address] [place] [address] Advance Directives Type Date Description Status Comment [...] apnea Gricel Marinelli DNP, RN, Onset: 10/23/2017 [employer]- Obstructive sleep apnea syndrome Gricel Marinelli DNP, RN, Onset: 01/14/2018 [facility] Cardiomyopathy Carol Velasquez M.D. Onset: 05/31/2018 Essential [...] Marinelli, 01/14/2018 Advancement Device appliance ZACHARY, RN, [facility] /mandibular Device advancement device for sleep apnea [...] 2 puffs by mouth 8gm Hank Dain, [employer] OPERATOR four times a day as 108(90Base) mcg/Act [...] Code Status Date Vaccine Reaction Lot # [id number] Given 05/09/2018 Hepatitis A Vaccine Adult [id number] Dosage [id number] Given 11/09/2017 Tdap - No immediat [id number] Tetanus/Diptheria/Acellula reaction... r Pertussis [id number] Given 11/09/2017 Hepatitis A Vaccine Adult no immedite [id number] Dosage reaction... Vital Signs Date Vital Result [...] Result H/L Range Note Basic Metabolic 05/13/2018 [facility] Sodium 139 mmol/L N 135- 145 Panel [address] [place] [address] [phone] Potassium 4.1 mmol/L N 3.5-5.0 Chloride 105 mmol/L N 101-111 Co2 Carbon Dioxide 25 mmol/L N 22-32 Anion Gap 9 mmol/L N 2-11 Glucose 73 mg/dL N 70-100 Blood Urea Nitrogen 14 mg/dL N 6-24 Creatinine 1.68 mg/dL High 0.67-1.17 BUN/Creatinine Ratio 8.3 N 8-20 Calcium 9.3 mg/dL N 8.6-10.3 Egfr Non- 40.7 >60 Egfr 49.3 >60 1 Basic Metabolic Panel 04/29/2018 [facility] Sodium 138 mmol/L N 135-145 [address] [place] [address] [phone] Potassium 4.5 mmol/L N 3.5-5.0 Chloride 106 mmol/L N 101-111 Co2 Carbon Dioxide 26 mmol/L N 22-32 Anion Gap 6 mmol/L N 2-11 Glucose 97 mg/dL N 70-100 Blood Urea Nitrogen 16 mg/dL N 6-24 Creatinine 1.59 mg/dL High 0.67-1.17 BUN/Creatinine Ratio 10.1 N 8-20 Calcium 9.4 mg/dL N 8.6-10.3 Egfr Non- 43.4 >60 Egfr 52.5 >60 2 Comp Metabolic Panel 01/04/2018 [facility] Sodium 141 mmol/L N 133-145 [address] [place] [address] [phone] Potassium 4.2 mmol/L N 3.5-5.0 Chloride 107 [...] Egfr 50.8 >60 3 Laboratory test 01/04/2018 [facility] TSH (Thyroid 0.50 mcIU/mL N 0.34-5.[address] Stim [address]orm) [place] [address] [phone] Free T4 (Free Thyroxine) 1.10 ng/dL N 0.61-1.12 T3 Total 0.72 ng/mL Low 0.87-1.78 Laboratory test 01/03/2018 [facility] TSH (Thyroid <pending> finding [address]) [place] [address] [phone] Free T4 (Free Thyroxine) <pending> T3 Total <pending> Laboratory test 08/11/2017 [facility] Lactic Acid 1.1 mmol/L N 0.5-2.[address] [place] [address] [phone] CBC Auto Diff 08/11/2017 [facility] White Blood 6.4 10^3/uL N 3.5-10.[address] [place] [address] [phone] Red Blood Count 4.81 10^6/uL N 4.0-5.4 [...] Cells % 0.1 N Laboratory test 08/11/2017 [facility] B-Type 852 pg/mL High [address] [place] [address] Peptide BNP [phone] Comp Metabolic 08/11/2017 [facility] Sodium 139 mmol/L N 133- [address] [place] [address] [phone] Potassium 4.0 mmol/L N 3.5-5.0 Chloride 106 [...] 53.6 N >60 6 Laboratory test 08/11/2017 [facility] Magnesium 2.1 mg/dL N 1.9-2.[address] [place] [address] [phone] Creatine Kinase(CK) 61 U/L N 10-223 Troponin-I (TnI) 0.01 ng/mL N <0.04 CKMB 08/11/2017 [facility] CKMB ng/mL 2.1 ng/mL N 0.6-6.[address] [place] [address] [phone] Laboratory test 08/11/2017 [facility] TSH 1.22 mcIU/mL N 0.34- 5.[address] ([place] [address] Stim Howp) [phone] Urinalysis 08/11/2017 [facility] Urine Color Yellow N Profile [address] [place] [address] [phone] Urine Appearance Clear N Urine Specific [place] 1.013 N 1.010-1.030 Urine pH 6.0 N 5-9 Urine Urobilinogen Negative N Negative Urine Ketones Negative N Negative Urine Protein Negative N Negative Urine Leukocytes Negative N Negative Urine Blood Negative N Negative Urine Nitrite Negative N Negative Urine Bilirubin Negative N Negative Urine Glucose Negative N Negative CBC Auto Diff 07/30/2017 [facility] White Blood 6.4 10^3/uL N 3.5-10.[address] [place] [address] [phone] Red Blood Count 4.51 10^6/uL N 4.0-5.4 [...] Cells % 0 N Laboratory test 07/30/2017 [facility] Lactic Acid 0.7 mmol/L N 0.5-2.0 7 finding [address] [place] [address] [phone] Comp Metabolic 07/30/2017 [facility] Sodium 137 mmol/L N 133- 145 Panel [address] [place] [address] [phone] Potassium 3.8 mmol/L N 3.5-5.0 Chloride 106 [...] 55.2 N >60 8 Laboratory test 07/30/2017 [facility] Magnesium 2.0 mg/dL N 1.9-2.7 finding [address] [place] [address] [phone] Troponin-I (TnI) 0.01 ng/mL N <0.04 TSH [...] 5 Kidney failure <15 (or dialysis) 7 [facility] Severe Sepsis and Septic Shock [...] dialysis) Procedures Date Code Description Status 03/24/2019 99244 EKG Tracing & Interpretation Completed 11/07/2018 60485 EKG Tracing & Interpretation Completed 05/16/2018 45230 EKG Tracing & Interpretation Completed 05/02/2018 61758 EKG Tracing & Interpretation Completed 04/25/2018 60727 EKG Tracing & Interpretation Completed 04/05/2018 43508 EKG Tracing & Interpretation Completed 03/22/2018 58427 EKG Tracing & Interpretation Completed 01/01/2018 20092 Echocardiogram, Limited Study Completed 01/01/2018 87068 Echocardiogram, Limited Study Completed 11/01/2017 43551 EKG Tracing & Interpretation Completed 10/24/2017 94404 Sleep Study Unattended,HRT Rate,Oxygen Sat,Resp Completed Effort/Airflow 10/18/2017 65010 EKG Tracing & Interpretation Completed 09/12/2017 81507 ECHO Transthoracic, Real-Time 2D With Doppler And Color Completed Flow 09/12/2017 71406 ECHO Transthoracic, Real-Time 2D With Doppler And Color Completed Flow 08/28/2017 56284 EKG Tracing & Interpretation Completed 08/17/2017 68080 EKG Tracing & Interpretation Completed 08/13/2017 39661 EKG, Interpretation Only Completed 08/12/2017 18166 EKG, Interpretation Only Completed 08/12/2017 17395 Cardioversion Completed 07/26/2017 58135 Color Flow Doppler/Interp & Reprt Completed 07/26/2017 28273 Pulse Wave/Continuous-Interp.RPT Completed 07/26/2017 45915 Echocardiography, Transesophageal, Real Time W/Image 2D Completed W/W/O M-M 07/26/2017 23789 EKG, Interpretation Only Completed 07/03/2017 05762 EKG Tracing & Interpretation Completed 06/27/2017 31636 Moderate Sedation Services; Same Phys Each Additional 15 Completed Mins 06/27/2017 38953 Moderate Sedation Services; Same Phys Intl 15 Mins; PT >=5 Completed Years 06/27/2017 71615 Color Flow Doppler/Interp & Reprt Completed 06/27/2017 92005 Pulse Wave/Continuous-Interp.RPT Completed 06/27/2017 35966 Echocardiography, Transesophageal, Real Time W/Image 2D Completed W/W/O M-M 06/26/2017 37824 RT Heart Catheritization; Measurement Of Oxygen Saturation Completed 06/22/2017 65101 ECHO Transthorasic Realtime 2D W Doppler & Color Flow Hosp Completed Encounters Type Date Location Provider Dx Diagnosis Office Visit 03/24/2019 [facility] Carol Velasquez, I48.0 Paroxysmal atrial 3:20p Of Graduate Assistant M.D. fibrillation I44.2 Atrioventricular block, complete I34.0 Nonrheumatic mitral (valve) insufficiency I42.9 Cardiomyopathy, unspecified R06.02 Shortness of breath Z95.0 Presence of cardiac pacemaker I45.10 Unspecified right bundle-branch block Office Visit 11/07/2018 2:40p [facility] Carol Velasquez I48.0 Paroxysmal atrial Of Graduate Assistant M.D. fibrillation I42.9 Cardiomyopathy, unspecified I10 Essential (primary) hypertension R42 Dizziness and giddiness I34.0 Nonrheumatic mitral (valve) insufficiency Office Visit 05/31/2018 4:00p [facility] Carol Velasquez I48.0 Paroxysmal atrial Of Graduate Assistant M.D. fibrillation I42.9 Cardiomyopathy, unspecified I10 Essential (primary) hypertension R42 Dizziness and giddiness Office Visit 05/16/2018 9:00a [facility] Mireille S. I10 Essential ( primary) Of Graduate Assistant Foster, N.P. hypertension R94.31 Abnormal electrocardiogram [ECG] [EKG] I48.0 Paroxysmal atrial fibrillation R42 Dizziness and giddiness I42.9 Cardiomyopathy, unspecified Office Visit 05/10/2018 1:30p [facility] Nurse Visit I10 Essential (primary) Of Graduate Assistant IC hypertension Office Visit 04/25/2018 11:30a [facility] Mireille S. I48.0 Paroxysmal atrial Of Graduate Assistant Foster, N.P. fibrillation R42 Dizziness and giddiness G47.30 Sleep apnea, unspecified I42.9 Cardiomyopathy, unspecified R94.31 Abnormal electrocardiogram [ECG] [EKG] I10 Essential (primary) hypertension Office Visit 04/05/2018 9:00a [facility] Mireille S. I48.0 Paroxysmal atrial Of Graduate Assistant Foster, N.P. fibrillation R42 Dizziness and giddiness G47.30 Sleep apnea, unspecified I42.9 Cardiomyopathy, unspecified Office Visit 03/22/2018 11:40a [facility] Carol Velasquez I48.0 Paroxysmal atrial Of Graduate Assistant AT [facility] M.D. fibrillation I42.8 Other cardiomyopathies G47.30 Sleep apnea, unspecified R42 Dizziness and giddiness Office 03/07/2018 [facility] Internal wOen Thomas J06.9 Acute upper Visit 2:00p Julieta-Matthew Lucio M.D. respiratory infection, unspecified Office 01/14/2018 [facility] Gricel G47.33 Obstructive Visit 11:15a Services Of [facility] ZACHARY Marinelli, sleep apnea RN, [facility] (adult) (pediatric) Office 01/03/2018 [facility] Of Carol Velasquez I48.0 Paroxysmal Visit 1:50p Graduate Assistant M.D. atrial fibrillation I42.9 Cardiomyopathy, unspecified Office Visit 11/09/2017 1:20p [facility] Hanksophia Gautam, Z71.89 Other specified Medicine - [employer] O[employer] counseling Z13.1 Encounter for screening for diabetes mellitus Z13.220 Encounter for screening for lipoid disorders Z23 Encounter for immunization Office Visit 11/01/2017 10:30a [facility] Harper Hastings I48.0 Paroxysmal atrial Of Graduate Assistant [place] fibrillation I42.8 Other cardiomyopathies G47.30 Sleep apnea, unspecified Office Visit 10/23/2017 Pulmonology And Gricel G47.30 Sleep apnea, 2:30p Sleep Services Of ZACHARY Marinelli, RN, unspecified [facility] R40.0 Somnolence R35.1 Nocturia Office Visit 10/18/2017 2:30p [facility] Carol Velasquez I48.0 Paroxysmal atrial Of Graduate Assistant M.D. fibrillation I42.8 Other cardiomyopathies I95.1 Orthostatic hypotension R61 Generalized hyperhidrosis N39.0 Urinary tract infection, site not specified Office Visit 09/04/2017 3:00p [facility] Harper Hastings, I50.22 Chronic systolic Of Graduate Assistant [place] (congestive) heart failure R42 Dizziness and giddiness Office Visit 08/17/2017 3:00p [facility] Carol Velasquez I48.0 Paroxysmal atrial Of Graduate Assistant M.D. fibrillation I42.8 Other cardiomyopathies G47.9 Sleep disorder, unspecified Office Visit 08/13/2017 [facility] Mireille SLita I50.23 Acute on chronic 10:30a justice Colón, N.P. systolic Hospitalists (congestive) heart failure I42.8 Other cardiomyopathies I48.0 Paroxysmal atrial fibrillation N18.3 Chronic kidney disease, stage 3 (moderate) Office Visit 08/12/2017 [facility] Maddie I50.23 Acute on chronic 10:29a justice Colón NP systolic Hospitalists (congestive) heart failure I42.8 Other cardiomyopathies I48.0 Paroxysmal atrial fibrillation N18.3 Chronic kidney disease, stage 3 (moderate) Office Visit 08/12/2017 3:10p [facility] Carol Velasquez, I48.1 Persistent atrial Of Graduate Assistant M.D. fibrillation I50.9 Heart failure, unspecified Office Visit 08/11/2017 10:28a [facility] Siri Talon, I50.23 Acute on chronic Assoc,justice N.PLita systolic Hospitalists (congestive) heart failure I42.8 Other cardiomyopathies I48.0 Paroxysmal atrial fibrillation N18.3 Chronic kidney disease, stage 3 (moderate) Office Visit 07/19/2017 9:40a [facility] Hank Dain, I48.1 Persistent atrial Medicine - [employer] O[employer]ATOR fibrillation K30 Functional dyspepsia Office Visit 07/03/2017 9:45a [facility] Carol Velasquez, I48.1 Persistent atrial Of Graduate Assistant M.D. fibrillation I34.0 Nonrheumatic mitral (valve) insufficiency I50.42 Chronic combined systolic and diastolic hrt fail Office Visit 06/28/2017 [facility] Elke I48.91 Unspecified atrial 7:43a justice Colón M.D. fibrillation Hospitalists I50.9 Heart failure, unspecified N18.9 Chronic kidney disease, unspecified I10 Essential (primary) hypertension Office Visit 06/27/2017 10:13a [facility] Carol Velasquez, I48.91 Unspecified atrial Cardiology Of M.D. fibrillation Graduate Assistant I50.9 Heart failure, unspecified I34.0 Nonrheumatic mitral (valve) insufficiency Office Visit 06/27/2017 [facility] Elke I48.91 Unspecified atrial 7:42a justice Colón M.D. fibrillation Hospitalists I50.9 Heart failure, unspecified N18.9 Chronic kidney disease, unspecified I10 Essential (primary) hypertension Office Visit 06/26/2017 [facility] Elke I48.91 Unspecified atrial 7:42a justice Colón M.D. fibrillation Hospitalists I50.9 Heart failure, unspecified N18.9 Chronic kidney disease, unspecified I10 Essential (primary) hypertension Office Visit 06/25/2017 [facility] Elke I48.91 Unspecified atrial 7:42a justice Colón M.D. fibrillation Hospitalists M18.9 Osteoarthritis of first carpometacarpal joint, unspecified I50.9 Heart failure, unspecified I10 Essential (primary) hypertension Office Visit 06/24/2017 [facility] I48.91 Unspecified atrial 7:41a justice Colón M.D. fibrillation Hospitalists I50.9 Heart failure, unspecified N18.9 Chronic kidney disease, unspecified I10 Essential (primary) hypertension Office Visit 06/23/2017 [facility] Jeevan Juarez I50.9 Heart failure, 3:53p Of Shelton Haq M.D. unspecified Office Visit 06/23/2017 [facility] I48.91 Unspecified atrial 7:13a justice Colón M.D. fibrillation Hospitalists I50.9 Heart failure, unspecified N18.9 Chronic kidney disease, unspecified I10 Essential (primary) hypertension Office Visit 06/22/2017 [facility] I48.91 Unspecified atrial 7:12a justice Colón M.D. fibrillation Hospitalists I50.9 Heart failure, unspecified N18.9 Chronic kidney disease, unspecified I10 Essential (primary) hypertension Office Visit 06/22/2017 3:44p [facility] Olu SLita R06.00 Dyspnea, Of [facility] Sterling, unspecified FACC I50.21 Acute systolic (congestive) heart failure I13.0 Hyp hrt & chr kdny dis w hrt fail and stg 1-4/unsp chr kdny N18.9 Chronic kidney disease, unspecified I34.0 Nonrheumatic mitral (valve) insufficiency I48.0 Paroxysmal atrial fibrillation Office Visit 06/21/2017 [facility] I48.91 Unspecified 7:12a Assjustice flores NP atrial Hospitalists fibrillation I50.9 Heart failure, unspecified N18.9 Chronic kidney disease, unspecified I10 Essential (primary) hypertension Plan of Treatment Future Appointment(s):06/05/2019 2:40 pm - Carol Velasquez M.D. at [facility]03/24/2019 - Carol Velasquez M.D.I48.0 Paroxysmal atrial fibrillationNew Orders:Echocardiogram, Scheduled: 04/17/19I44.2 Atrioventricular block, [id number] Nonrheumatic mitral (valve) insufficiencyComments:no murmur on exam.Follow up:Release: Op note MV repair OP note Pacer oaukdoaY50.9 Cardiomyopathy, unspecifiedNew Orders:Echocardiogram, Scheduled: 04/17/19R06.02 Shortness of breathNew Orders:Echocardiogram, Scheduled: 04/17/19Follow up:after testing , April or QfsvmwB32.0 Presence of cardiac pacemakerFollow up:Have copies sent to me to review.I45.10 Unspecified right bundle-branch block
--- OUTSIDE RECORDS SUMMARY | 2019-04-28 17:33 | XMS REPORT | Continuity of Care Document ---
:1950 External Reference #:[id number] Author Name Nesha Donato Care Team Providers Name Role Phone Carol Velasquez MD Care Team Information Call Worker Person Unavailable Lissette Lepe MD Primary Care Physician Unavailable Payers Date Identification Numbers Payment Provider Subscriber Expires: 2018 Policy Number: [id number] [employer] Emily Bhatia PayID: [id number] [address] [place] [address] Policy Number: [id number] [employer] Emily Bhatia PayID: [id number] [address] [place] [address] Advance Directives Type Date Description Status Comment [...] apnea Gricel Marinelli DNP, RN, Onset: 10/23/2017 AN/SSN 2 4 OPERATOR- Obstructive sleep apnea syndrome Gricel Marinelli DNP, RN, Onset: 01/14/2018 [facility] Cardiomyopathy Carol Velasquez M.D. Onset: 05/31/2018 [...] Provider Carvedilol 1 tab by mouth 180tabs Craol Velasquez, 02/14/2019 25mg twice a day M.D. Tablets Amlodipine Besylate 1 by mouth every 90tabs Carol Velasquez, 02/14/2019 day M.D. 10mg Tablets Propafenone HCL take 1 tablet by 180tabs I48.0 Mireille Argueta, 04/25/2018 mouth twice daily N.P. 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 r Pertussis [id number] Given 11/09/2017 Hepatitis A Vaccine Adult no immedite [id number] Dosage reaction... Vital Signs Date Vital Result [...] Result H/L Range Note Basic Metabolic 05/13/2018 [facility] Sodium 139 mmol/L N 135- 145 Panel [address] [place] [address] [phone] Potassium 4.1 mmol/L N 3.5-5.0 Chloride 105 mmol/L N 101-111 Co2 Carbon Dioxide 25 mmol/L N 22-32 Anion Gap 9 mmol/L N 2-11 Glucose 73 mg/dL N 70-100 Blood Urea Nitrogen 14 mg/dL N 6-24 Creatinine 1.68 mg/dL High 0.67-1.17 BUN/Creatinine Ratio 8.3 N 8-20 Calcium 9.3 mg/dL N 8.6-10.3 Egfr Non- 40.7 >60 Egfr 49.3 >60 1 Basic Metabolic Panel 04/29/2018 [facility] Sodium 138 mmol/L N 135-145 [address] [place] [address] [phone] Potassium 4.5 mmol/L N 3.5-5.0 Chloride 106 mmol/L N 101-111 Co2 Carbon Dioxide 26 mmol/L N 22-32 Anion Gap 6 mmol/L N 2-11 Glucose 97 mg/dL N 70-100 Blood Urea Nitrogen 16 mg/dL N 6-24 Creatinine 1.59 mg/dL High 0.67-1.17 BUN/Creatinine Ratio 10.1 N 8-20 Calcium 9.4 mg/dL N 8.6-10.3 Egfr Non- 43.4 >60 Egfr 52.5 >60 2 Comp Metabolic Panel 01/04/2018 [facility] Sodium 141 mmol/L N 133-145 [address] [place] [address] [phone] Potassium 4.2 mmol/L N 3.5-5.0 Chloride 107 [...] Egfr 50.8 >60 3 Laboratory test 01/04/2018 [facility] TSH (Thyroid 0.50 mcIU/mL N 0.34-5.[address] [place]) [place] [address] [phone] Free T4 (Free Thyroxine) 1.10 ng/dL N 0.61-1.12 T3 Total 0.72 ng/mL Low 0.87-1.78 Laboratory test 01/03/2018 [facility] TSH (Thyroid <pending> finding [address] [place]) [place] [address] [phone] Free T4 (Free Thyroxine) <pending> T3 Total <pending> Laboratory test 08/11/2017 [facility] Lactic Acid 1.1 mmol/L N 0.5-2.[address] [place] [address] [phone] CBC Auto Diff 08/11/2017 [facility] White Blood 6.4 10^3/uL N 3.5-10.[address] [place] [address] [phone] Red Blood Count 4.81 10^6/uL N 4.0-5.4 [...] Cells % 0.1 N Laboratory test 08/11/2017 [facility] B-Type 852 pg/mL High [address] [place] [address] Peptide BNP [phone] Comp Metabolic 08/11/2017 [facility] Sodium 139 mmol/L N 133- [address] [place] [address] [phone] Potassium 4.0 mmol/L N 3.5-5.0 Chloride 106 [...] 53.6 N >60 6 Laboratory test 08/11/2017 [facility] Magnesium 2.1 mg/dL N 1.9-2.[address] [place] [address] [phone] Creatine Kinase(CK) 61 U/L N 10-223 Troponin-I (TnI) 0.01 ng/mL N <0.04 CKMB 08/11/2017 [facility] CKMB ng/mL 2.1 ng/mL N 0.6-6.[address] [place] [address] [phone] Laboratory test 08/11/2017 [facility] TSH 1.22 mcIU/mL N 0.34- 5.[address] ([place] [address] Stim Ayhu) [phone] Urinalysis 08/11/2017 [facility] Urine Color Yellow N Profile [address] [place] [address] [phone] Urine Appearance Clear N Urine Specific [place] 1.013 N 1.010-1.030 Urine pH 6.0 N 5-9 Urine Urobilinogen Negative N Negative Urine Ketones Negative N Negative Urine Protein Negative N Negative Urine Leukocytes Negative N Negative Urine Blood Negative N Negative Urine Nitrite Negative N Negative Urine Bilirubin Negative N Negative Urine Glucose Negative N Negative CBC Auto Diff 07/30/2017 [facility] White Blood 6.4 10^3/uL N 3.5-10.[address] [place] [address] [phone] Red Blood Count 4.51 10^6/uL N 4.0-5.4 [...] Cells % 0 N Laboratory test 07/30/2017 [facility] Lactic Acid 0.7 mmol/L N 0.5-2.0 7 finding [address] [place] [address] [phone] Comp Metabolic 07/30/2017 [facility] Sodium 137 mmol/L N 133- 145 Panel [address] [place] [address] [phone] Potassium 3.8 mmol/L N 3.5-5.0 Chloride 106 [...] 55.2 N >60 8 Laboratory test 07/30/2017 [facility] Magnesium 2.0 mg/dL N 1.9-2.7 finding [address] [place] [address] [phone] Troponin-I (TnI) 0.01 ng/mL N <0.04 TSH [...] 5 Kidney failure <15 (or dialysis) [facility] Severe Sepsis and Septic Shock Management Bundle [...] dialysis) Procedures Date Code Description Status 03/24/2019 43180 EKG Tracing & Interpretation Completed 11/07/2018 76237 EKG Tracing & Interpretation Completed 05/16/2018 28143 EKG Tracing & Interpretation Completed 05/02/2018 78888 EKG Tracing & Interpretation Completed 04/25/2018 40186 EKG Tracing & Interpretation Completed 04/05/2018 03317 EKG Tracing & Interpretation Completed 03/22/2018 68090 EKG Tracing & Interpretation Completed 01/01/2018 86477 Echocardiogram, Limited Study Completed 01/01/2018 02639 Echocardiogram, Limited Study Completed 11/01/2017 34708 EKG Tracing & Interpretation Completed 10/24/2017 09404 Sleep Study Unattended,HRT Rate,Oxygen Sat,Resp Completed Effort/Airflow 10/18/2017 23712 EKG Tracing & Interpretation Completed 09/12/2017 38145 ECHO Transthoracic, Real-Time 2D With Doppler And Color Completed Flow 09/12/2017 70960 ECHO Transthoracic, Real-Time 2D With Doppler And Color Completed Flow 08/28/2017 44561 EKG Tracing & Interpretation Completed 08/17/2017 52984 EKG Tracing & Interpretation Completed 08/13/2017 03667 EKG, Interpretation Only Completed 08/12/2017 06524 EKG, Interpretation Only Completed 08/12/2017 27715 Cardioversion Completed 07/26/2017 62770 Color Flow Doppler/Interp & Reprt Completed 07/26/2017 08409 Pulse Wave/Continuous-Interp.RPT Completed 07/26/2017 60930 Echocardiography, Transesophageal, Real Time W/Image 2D Completed W/W/O M-M 07/26/2017 19782 EKG, Interpretation Only Completed 07/03/2017 05109 EKG Tracing & Interpretation Completed 06/27/2017 88852 Moderate Sedation Services; Same Phys Each Additional 15 Completed Mins 06/27/2017 68874 Moderate Sedation Services; Same Phys Intl 15 Mins; PT >=5 Completed Years 06/27/2017 17064 Color Flow Doppler/Interp & Reprt Completed 06/27/2017 79251 Pulse Wave/Continuous-Interp.RPT Completed 06/27/2017 34578 Echocardiography, Transesophageal, Real Time W/Image 2D Completed W/W/O M-M 06/26/2017 90643 RT Heart Catheritization; Measurement Of Oxygen Saturation Completed 06/22/2017 92899 ECHO Transthorasic Realtime 2D W Doppler & Color Flow Hosp Completed Encounters Type Date Location Provider Dx Diagnosis Office Visit 03/24/2019 [facility] Carol Velasquez, I48.0 Paroxysmal atrial 3:20p Of Welt Sole Layer M.D. fibrillation I44.2 Atrioventricular block, complete I34.0 Nonrheumatic mitral (valve) insufficiency I42.9 Cardiomyopathy, unspecified R06.02 Shortness of breath Z95.0 Presence of cardiac pacemaker I45.10 Unspecified right bundle-branch block Office Visit 11/07/2018 2:40p [facility] Carol Velasquez I48.0 Paroxysmal atrial Of Welt Sole Layer M.D. fibrillation I42.9 Cardiomyopathy, unspecified I10 Essential (primary) hypertension R42 Dizziness and giddiness I34.0 Nonrheumatic mitral (valve) insufficiency Office Visit 05/31/2018 4:00p [facility] Carol Velasquez I48.0 Paroxysmal atrial Of Welt Sole Layer M.D. fibrillation I42.9 Cardiomyopathy, unspecified I10 Essential (primary) hypertension R42 Dizziness and giddiness Office Visit 05/16/2018 9:00a [facility] Mireille S. I10 Essential ( primary) Of Welt Sole Layer Foster, N.P. hypertension R94.31 Abnormal electrocardiogram [ECG] [EKG] I48.0 Paroxysmal atrial fibrillation R42 Dizziness and giddiness I42.9 Cardiomyopathy, unspecified Office Visit 05/10/2018 1:30p [facility] Nurse Visit I10 Essential (primary) Of Welt Sole Layer IC hypertension Office Visit 04/25/2018 11:30a [facility] Mireille S. I48.0 Paroxysmal atrial Of [place] Sole Layer Foster, N.P. fibrillation R42 Dizziness and giddiness G47.30 Sleep apnea, unspecified I42.9 Cardiomyopathy, unspecified R94.31 Abnormal electrocardiogram [ECG] [EKG] I10 Essential (primary) hypertension Office Visit 04/05/2018 9:00a [facility] Mireille S. I48.0 Paroxysmal atrial Of Welt Sole Layer Foster, N.P. fibrillation R42 Dizziness and giddiness G47.30 Sleep apnea, unspecified I42.9 Cardiomyopathy, unspecified Office Visit 03/22/2018 11:40a [facility] Carol Velasquez I48.0 Paroxysmal atrial Of Welt Sole Layer [facility] [place]. fibrillation I42.8 Other cardiomyopathies G47.30 Sleep apnea, unspecified R42 Dizziness and giddiness Office 03/07/2018 [facility] Owen Thomas J06.9 Acute upper Visit 2:00p Julieta-Matthew Lucio M.D. respiratory infection, unspecified Office 01/14/2018 [facility] Gricel G47.33 Obstructive Visit 11:15a Services Of [facility] ZACHARY Marinelli, sleep apnea RN, [facility] (adult) (pediatric) Office 01/03/2018 [facility] Of Carol Velasquez I48.0 Paroxysmal Visit 1:50p Welt Sole Layer M.D. atrial fibrillation I42.9 Cardiomyopathy, unspecified Office Visit 11/09/2017 1:20p [facility] Hanksophia Gautam, Z71.89 Other specified Medicine - [employer] counseling Z13.1 Encounter for screening for diabetes mellitus Z13.220 Encounter for screening for lipoid disorders Z23 Encounter for immunization Office Visit 11/01/2017 10:30a [facility] Harper Hastings I48.0 Paroxysmal atrial Of Welt Sole Layer PA fibrillation I42.8 Other cardiomyopathies G47.30 Sleep apnea, unspecified Office Visit 10/23/2017 [facility] G47.30 Sleep apnea, 2:30p Sleep Services Of ZACHARY Marinelli, RN, unspecified [facility] R40.0 Somnolence R35.1 Nocturia Office Visit 10/18/2017 2:30p [facility] Carol Velasquez I48.0 Paroxysmal atrial Of Welt Sole Layer M.D. fibrillation I42.8 Other cardiomyopathies I95.1 Orthostatic hypotension R61 Generalized hyperhidrosis N39.0 Urinary tract infection, site not specified Office Visit 09/04/2017 3:00p [facility] Harper Hastings, I50.22 Chronic systolic Of Welt Sole Layer PA (congestive) heart failure R42 Dizziness and giddiness Office Visit 08/17/2017 3:00p [facility] Carol Velasquez I48.0 Paroxysmal atrial Of Welt Sole Layer M.D. fibrillation I42.8 Other cardiomyopathies G47.9 Sleep disorder, unspecified Office Visit 08/13/2017 [facility] Mireille SLita I50.23 Acute on chronic 10:30a justice Colón, N.P. systolic Hospitalists (congestive) heart failure I42.8 Other cardiomyopathies I48.0 Paroxysmal atrial fibrillation N18.3 Chronic kidney disease, stage 3 (moderate) Office Visit 08/12/2017 [facility] Maddie I50.23 Acute on chronic 10:29a justice Colón NP systolic Hospitalists (congestive) heart failure I42.8 Other cardiomyopathies I48.0 Paroxysmal atrial fibrillation N18.3 Chronic kidney disease, stage 3 (moderate) Office Visit 08/12/2017 3:10p [facility] Carol Velasquez, I48.1 Persistent atrial Of Welt Sole Layer M.D. fibrillation I50.9 Heart failure, unspecified Office Visit 08/11/2017 10:28a [facility] Siri Talon, I50.23 Acute on chronic Assoc,justice N.PLita systolic Hospitalists (congestive) heart failure I42.8 Other cardiomyopathies I48.0 Paroxysmal atrial fibrillation N18.3 Chronic kidney disease, stage 3 (moderate) Office Visit 07/19/2017 9:40a [facility] Hank Dain, I48.1 Persistent atrial Medicine - [employer] fibrillation K30 Functional dyspepsia Office Visit 07/03/2017 9:45a [facility] Carol Velasquez, I48.1 Persistent atrial Of Welt Sole Layer M.D. fibrillation I34.0 Nonrheumatic mitral (valve) insufficiency I50.42 Chronic combined systolic and diastolic hrt fail Office Visit 06/28/2017 [facility] Elke I48.91 Unspecified atrial 7:43a justice Colón M.D. fibrillation Hospitalists I50.9 Heart failure, unspecified N18.9 Chronic kidney disease, unspecified I10 Essential (primary) hypertension Office Visit 06/27/2017 10:13a [facility] Carol Velasquez, I48.91 Unspecified atrial Cardiology Of M.D. fibrillation Welt Sole Layer I50.9 Heart failure, unspecified I34.0 Nonrheumatic mitral (valve) insufficiency Office Visit 06/27/2017 [facility] Elke I48.91 Unspecified atrial 7:42a justice Colón M.D. fibrillation Hospitalists I50.9 Heart failure, unspecified N18.9 Chronic kidney disease, unspecified I10 Essential (primary) hypertension Office Visit 06/26/2017 [facility] Elke I48.91 Unspecified atrial 7:42a justice Colón M.D. fibrillation Hospitalists I50.9 Heart failure, unspecified N18.9 Chronic kidney disease, unspecified I10 Essential (primary) hypertension Office Visit 06/25/2017 [facility] Elke I48.91 Unspecified atrial 7:42a justice Colón M.D. fibrillation Hospitalists M18.9 Osteoarthritis of first carpometacarpal joint, unspecified I50.9 Heart failure, unspecified I10 Essential (primary) hypertension Office Visit 06/24/2017 [facility] I48.91 Unspecified atrial 7:41a justice Colón M.D. fibrillation Hospitalists I50.9 Heart failure, unspecified N18.9 Chronic kidney disease, unspecified I10 Essential (primary) hypertension Office Visit 06/23/2017 [facility] Jeevan Juarez I50.9 Heart failure, 3:53p Of Shelton Haq M.D. unspecified Office Visit 06/23/2017 [facility] I48.91 Unspecified atrial 7:13a justice Colón M.D. fibrillation Hospitalists I50.9 Heart failure, unspecified N18.9 Chronic kidney disease, unspecified I10 Essential (primary) hypertension Office Visit 06/22/2017 [facility] I48.91 Unspecified atrial 7:12a justice Colón M.D. fibrillation Hospitalists I50.9 Heart failure, unspecified N18.9 Chronic kidney disease, unspecified I10 Essential (primary) hypertension Office Visit 06/22/2017 3:44p [facility] Olu SLita R06.00 Dyspnea, Of [facility] [place], unspecified FACC I50.21 Acute systolic (congestive) heart failure I13.0 Hyp hrt & chr kdny dis w hrt fail and stg 1-4/unsp chr kdny N18.9 Chronic kidney disease, unspecified I34.0 Nonrheumatic mitral (valve) insufficiency I48.0 Paroxysmal atrial fibrillation Office Visit 06/21/2017 [facility] I48.91 Unspecified 7:12a Ass[employer]ice flores NP atrial Hospitalists fibrillation I50.9 Heart failure, unspecified N18.9 Chronic kidney disease, unspecified I10 Essential (primary) hypertension Plan of Treatment Future Appointment(s):06/05/2019 2:40 pm - Carol Velasquez M.D. at [facility]03/24/2019 - Carol Velasquez M.D.I48.0 Paroxysmal atrial fibrillationNew Orders:Echocardiogram, Scheduled: 04/17/19I44.2 Atrioventricular block, gqnsevfrY21.0 Nonrheumatic mitral (valve) insufficiencyComments:no murmur on exam.Follow up:Release: Op note MV repair OP note Pacer ejlhizfE45.9 Cardiomyopathy, unspecifiedNew Orders:Echocardiogram, Scheduled: 04/17/19R06.02 Shortness of breathNew Orders:Echocardiogram, Scheduled: 04/17/19Follow up:after testing , April or PicckhB73.0 Presence of cardiac pacemakerFollow up:Have copies sent to me to review.I45.10 Unspecified right bundle-branch block
--- OUTSIDE RECORDS SUMMARY | 2019-04-28 17:34 | XMS REPORT | Continuity of Care Document ---
:1950 External Reference #:[id number] Author Name Nesha Donato Care Team Providers Name Role Phone Carol Velasquez MD Care Team Information Private Eye Unavailable Lissette Lepe MD Primary Care Physician Unavailable Payers Date Identification Numbers Payment Provider Subscriber Expires: 2018 Policy Number: [id number] [employer] Emily Bhatia PayID: [id number] [address] [place] [address] Policy Number: [id number] [employer] Emily Bhatia PayID: [id number] [address] [place] [address] Advance Directives Type Date Description Status Comment [...] apnea Gricel Marinelli DNP, RN, Onset: 10/23/2017 [facility]- Obstructive sleep apnea syndrome Gricel Marinelli DNP, RN, Onset: 01/14/2018 [facility] Cardiomyopathy Carol Velasquez M.D. Onset: [...] Marinelli, 01/14/2018 Advancement Device appliance ZACHARY, RN, [facility] /mandibular Device advancement device for [...] 2 puffs by mouth 8gm Hank Dain, [employer] four times a day as 108(90Base) mcg/Act [...] Code Status Date Vaccine Reaction Lot # [id number] Given 05/09/2018 Hepatitis A Vaccine Adult [id number] Dosage [id number] Given 11/09/2017 Tdap - No immediat [id number] Tetanus/Diptheria/Acellula reaction... r Pertussis [id number] Given 11/09/2017 Hepatitis A Vaccine Adult no immedite [id number] Dosage reaction... Vital Signs Date Vital Result [...] Result H/L Range Note Basic Metabolic 05/13/2018 [facility] Sodium 139 mmol/L N 135- 145 Panel [address] [place] [address] [phone] Potassium 4.1 mmol/L N 3.5-5.0 Chloride 105 mmol/L N 101-111 Co2 Carbon Dioxide 25 mmol/L N 22-32 Anion Gap 9 mmol/L N 2-11 Glucose 73 mg/dL N 70-100 Blood Urea Nitrogen 14 mg/dL N 6-24 Creatinine 1.68 mg/dL High 0.67-1.17 BUN/Creatinine Ratio 8.3 N 8-20 Calcium 9.3 mg/dL N 8.6-10.3 Egfr Non- 40.7 >60 Egfr 49.3 >60 1 Basic Metabolic Panel 04/29/2018 [facility] Sodium 138 mmol/L N 135-145 [address] [place] [address] [phone] Potassium 4.5 mmol/L N 3.5-5.0 Chloride 106 mmol/L N 101-111 Co2 Carbon Dioxide 26 mmol/L N 22-32 Anion Gap 6 mmol/L N 2-11 Glucose 97 mg/dL N 70-100 Blood Urea Nitrogen 16 mg/dL N 6-24 Creatinine 1.59 mg/dL High 0.67-1.17 BUN/Creatinine Ratio 10.1 N 8-20 Calcium 9.4 mg/dL N 8.6-10.3 Egfr Non- 43.4 >60 Egfr 52.5 >60 2 Comp Metabolic Panel 01/04/2018 [facility] Sodium 141 mmol/L N 133-145 [address] [place] [address] [phone] Potassium 4.2 mmol/L N 3.5-5.0 Chloride 107 [...] Egfr 50.8 >60 3 Laboratory test 01/04/2018 [facility] TSH (Thyroid 0.50 mcIU/mL N 0.34-5.[address] [place]) [place] [address] [phone] Free T4 (Free Thyroxine) 1.10 ng/dL N 0.61-1.12 T3 Total 0.72 ng/mL Low 0.87-1.78 Laboratory test 01/03/2018 [facility] TSH (Thyroid <pending> finding [address]) [place] [address] [phone] Free T4 (Free Thyroxine) <pending> T3 Total <pending> Laboratory test 08/11/2017 [facility] Lactic Acid 1.1 mmol/L N 0.5-2.[address] [place] [address] [phone] CBC Auto Diff 08/11/2017 [facility] White Blood 6.4 10^3/uL N 3.5-10.[address] [place] [address] [phone] Red Blood Count 4.81 10^6/uL N 4.0-5.4 [...] Cells % 0.1 N Laboratory test 08/11/2017 [facility] B-Type 852 pg/mL High [address] [place] [address] Peptide BNP [phone] Comp Metabolic 08/11/2017 [facility] Sodium 139 mmol/L N 133- [address] [place] [address] [phone] Potassium 4.0 mmol/L N 3.5-5.0 Chloride 106 [...] 53.6 N >60 6 Laboratory test 08/11/2017 [facility] Magnesium 2.1 mg/dL N 1.9-2.[address] [place] [address] [phone] Creatine Kinase(CK) 61 U/L N 10-223 Troponin-I (TnI) 0.01 ng/mL N <0.04 CKMB 08/11/2017 [facility] CKMB ng/mL 2.1 ng/mL N 0.6-6.[address] [place] [address] [phone] Laboratory test 08/11/2017 [facility] TSH 1.22 mcIU/mL N 0.34- 5.[address] ([place] [address] Stim Kkwu) [phone] Urinalysis 08/11/2017 [facility] Urine Color Yellow N Profile [address] [place] [address] [phone] Urine Appearance Clear N Urine Specific [place] 1.013 N 1.010-1.030 Urine pH 6.0 N 5-9 Urine Urobilinogen Negative N Negative Urine Ketones Negative N Negative Urine Protein Negative N Negative Urine Leukocytes Negative N Negative Urine Blood Negative N Negative Urine Nitrite Negative N Negative Urine Bilirubin Negative N Negative Urine Glucose Negative N Negative CBC Auto Diff 07/30/2017 [facility] White Blood 6.4 10^3/uL N 3.5-10.[address] [place] [address] [phone] Red Blood Count 4.51 10^6/uL N 4.0-5.4 [...] Cells % 0 N Laboratory test 07/30/2017 [facility] Lactic Acid 0.7 mmol/L N 0.5-2.0 7 finding [address] [place] [address] [phone] Comp Metabolic 07/30/2017 [facility] Sodium 137 mmol/L N 133- 145 Panel [address] [place] [address] [phone] Potassium 3.8 mmol/L N 3.5-5.0 Chloride 106 [...] 55.2 N >60 8 Laboratory test 07/30/2017 [facility] Magnesium 2.0 mg/dL N 1.9-2.7 finding [address] [place] [address] [phone] Troponin-I (TnI) 0.01 ng/mL N <0.04 TSH [...] 5 Kidney failure <15 (or dialysis) [address] [facility] Severe Sepsis and Septic Shock Management Bundle [...] dialysis) Procedures Date Code Description Status 03/24/2019 91209 EKG Tracing & Interpretation Completed 11/07/2018 03219 EKG Tracing & Interpretation Completed 05/16/2018 13396 EKG Tracing & Interpretation Completed 05/02/2018 72151 EKG Tracing & Interpretation Completed 04/25/2018 46895 EKG Tracing & Interpretation Completed 04/05/2018 63927 EKG Tracing & Interpretation Completed 03/22/2018 13437 EKG Tracing & Interpretation Completed 01/01/2018 32993 Echocardiogram, Limited Study Completed 01/01/2018 51637 Echocardiogram, Limited Study Completed 11/01/2017 70746 EKG Tracing & Interpretation Completed 10/24/2017 18759 Sleep Study Unattended,HRT Rate,Oxygen Sat,Resp Completed Effort/Airflow 10/18/2017 17674 EKG Tracing & Interpretation Completed 09/12/2017 07158 ECHO Transthoracic, Real-Time 2D With Doppler And Color Completed Flow 09/12/2017 53602 ECHO Transthoracic, Real-Time 2D With Doppler And Color Completed Flow 08/28/2017 84234 EKG Tracing & Interpretation Completed 08/17/2017 51327 EKG Tracing & Interpretation Completed 08/13/2017 87076 EKG, Interpretation Only Completed 08/12/2017 25815 EKG, Interpretation Only Completed 08/12/2017 77244 Cardioversion Completed 07/26/2017 10693 Color Flow Doppler/Interp & Reprt Completed 07/26/2017 19155 Pulse Wave/Continuous-Interp.RPT Completed 07/26/2017 21709 Echocardiography, Transesophageal, Real Time W/Image 2D Completed W/W/O M-M 07/26/2017 16642 EKG, Interpretation Only Completed 07/03/2017 55098 EKG Tracing & Interpretation Completed 06/27/2017 80409 Moderate Sedation Services; Same Phys Each Additional 15 Completed Mins 06/27/2017 66506 Moderate Sedation Services; Same Phys Intl 15 Mins; PT >=5 Completed Years 06/27/2017 95312 Color Flow Doppler/Interp & Reprt Completed 06/27/2017 97240 Pulse Wave/Continuous-Interp.RPT Completed 06/27/2017 43025 Echocardiography, Transesophageal, Real Time W/Image 2D Completed W/W/O M-M 06/26/2017 82469 RT Heart Catheritization; Measurement Of Oxygen Saturation Completed 06/22/2017 37121 ECHO Transthorasic Realtime 2D W Doppler & Color Flow Hosp Completed Encounters Type Date Location Provider Dx Diagnosis Office Visit 03/24/2019 [facility] Carol Velasquez, I48.0 Paroxysmal atrial 3:20p Of Heating Technician M.D. fibrillation I44.2 Atrioventricular block, complete I34.0 Nonrheumatic mitral (valve) insufficiency I42.9 Cardiomyopathy, unspecified R06.02 Shortness of breath Z95.0 Presence of cardiac pacemaker I45.10 Unspecified right bundle-branch block Office Visit 11/07/2018 2:40p [facility] Carol Velasquez I48.0 Paroxysmal atrial Of Heating Technician M.D. fibrillation I42.9 Cardiomyopathy, unspecified I10 Essential (primary) hypertension R42 Dizziness and giddiness I34.0 Nonrheumatic mitral (valve) insufficiency Office Visit 05/31/2018 4:00p [facility] Carol Velasquez I48.0 Paroxysmal atrial Of Heating Technician M.D. fibrillation I42.9 Cardiomyopathy, unspecified I10 Essential (primary) hypertension R42 Dizziness and giddiness Office Visit 05/16/2018 9:00a [facility] Mireille S. I10 Essential ( primary) Of Heating Technician Foster, N.P. hypertension R94.31 Abnormal electrocardiogram [ECG] [EKG] I48.0 Paroxysmal atrial fibrillation R42 Dizziness and giddiness I42.9 Cardiomyopathy, unspecified Office Visit 05/10/2018 1:30p [facility] Nurse Visit I10 Essential (primary) Of Heating Technician IC hypertension Office Visit 04/25/2018 11:30a [facility] Mireille S. I48.0 Paroxysmal atrial Of Heating Technician Foster, N.P. fibrillation R42 Dizziness and giddiness G47.30 Sleep apnea, unspecified I42.9 Cardiomyopathy, unspecified R94.31 Abnormal electrocardiogram [ECG] [EKG] I10 Essential (primary) hypertension Office Visit 04/05/2018 9:00a [facility] Mireille S. I48.0 Paroxysmal atrial Of Heating Technician Foster, N.P. fibrillation R42 Dizziness and giddiness G47.30 Sleep apnea, unspecified I42.9 Cardiomyopathy, unspecified Office Visit 03/22/2018 11:40a [facility] Carol Velasquez I48.0 Paroxysmal atrial Of Heating Technician [facility] [place]. fibrillation I42.8 Other cardiomyopathies G47.30 Sleep apnea, unspecified R42 Dizziness and giddiness Office 03/07/2018 [facility] Internal Owen Thomas J06.9 Acute upper Visit 2:00p Julieta-Matthew Lucio M.D. respiratory infection, unspecified Office 01/14/2018 [facility] Gricel G47.33 Obstructive Visit 11:15a Services Of [facility] ZACHARY Marinelli, sleep apnea RN, [facility] (adult) (pediatric) Office 01/03/2018 [facility] Of Carol Velasquez I48.0 Paroxysmal Visit 1:50p Heating Technician M.D. atrial fibrillation I42.9 Cardiomyopathy, unspecified Office Visit 11/09/2017 1:20p [facility] Internal Hanksophia Gautam, Z71.89 Other specified Medicine - [employer] counseling Z13.1 Encounter for screening for diabetes mellitus Z13.220 Encounter for screening for lipoid disorders Z23 Encounter for immunization Office Visit 11/01/2017 10:30a [facility] Harper Hastings I48.0 Paroxysmal atrial Of Heating Technician PA fibrillation I42.8 Other cardiomyopathies G47.30 Sleep apnea, unspecified Office Visit 10/23/2017 [facility]mon[facility] And Gricel G47.30 Sleep apnea, 2:30p Sleep Services Of ZACHARY Marinelli, RN, unspecified [facility] R40.0 Somnolence R35.1 Nocturia Office Visit 10/18/2017 2:30p [facility] Carol Velasquez I48.0 Paroxysmal atrial Of Heating Technician M.D. fibrillation I42.8 Other cardiomyopathies I95.1 Orthostatic hypotension R61 Generalized hyperhidrosis N39.0 Urinary tract infection, site not specified Office Visit 09/04/2017 3:00p [facility] Harper Hastings, I50.22 Chronic systolic Of Heating Technician PA (congestive) heart failure R42 Dizziness and giddiness Office Visit 08/17/2017 3:00p [facility] Carol Velasquez I48.0 Paroxysmal atrial Of Heating Technician M.D. fibrillation I42.8 Other cardiomyopathies G47.9 Sleep disorder, unspecified Office Visit 08/13/2017 [facility] Mireille SLita I50.23 Acute on chronic 10:30a justice Colón, N.P. systolic Hospitalists (congestive) heart failure I42.8 Other cardiomyopathies I48.0 Paroxysmal atrial fibrillation N18.3 Chronic kidney disease, stage 3 (moderate) Office Visit 08/12/2017 [facility] Maddie I50.23 Acute on chronic 10:29a justice Colón NP systolic Hospitalists (congestive) heart failure I42.8 Other cardiomyopathies I48.0 Paroxysmal atrial fibrillation N18.3 Chronic kidney disease, stage 3 (moderate) Office Visit 08/12/2017 3:10p [facility] Carol Velasquez, I48.1 Persistent atrial Of Heating Technician M.D. fibrillation I50.9 Heart failure, unspecified Office Visit 08/11/2017 10:28a [facility] Siri Talon, I50.23 Acute on chronic Assoc,justice N.PLita systolic Hospitalists (congestive) heart failure I42.8 Other cardiomyopathies I48.0 Paroxysmal atrial fibrillation N18.3 Chronic kidney disease, stage 3 (moderate) Office Visit 07/19/2017 9:40a [facility] Internal Hank Dain, I48.1 Persistent atrial Medicine - [employer] fibrillation K30 Functional dyspepsia Office Visit 07/03/2017 9:45a [facility] Carol Velasquez, I48.1 Persistent atrial Of Heating Technician M.D. fibrillation I34.0 Nonrheumatic mitral (valve) insufficiency I50.42 Chronic combined systolic and diastolic hrt fail Office Visit 06/28/2017 [facility] Elke I48.91 Unspecified atrial 7:43a justice Colón M.D. fibrillation Hospitalists I50.9 Heart failure, unspecified N18.9 Chronic kidney disease, unspecified I10 Essential (primary) hypertension Office Visit 06/27/2017 10:13a [place] Carol Velasquez, I48.91 Unspecified atrial Cardiology Of M.D. fibrillation Heating Technician I50.9 Heart failure, unspecified I34.0 Nonrheumatic mitral (valve) insufficiency Office Visit 06/27/2017 [facility] Elke I48.91 Unspecified atrial 7:42a justice Colón M.D. fibrillation Hospitalists I50.9 Heart failure, unspecified N18.9 Chronic kidney disease, unspecified I10 Essential (primary) hypertension Office Visit 06/26/2017 [facility] Elke I48.91 Unspecified atrial 7:42a justice Colón M.D. fibrillation Hospitalists I50.9 Heart failure, unspecified N18.9 Chronic kidney disease, unspecified I10 Essential (primary) hypertension Office Visit 06/25/2017 [facility] Elke I48.91 Unspecified atrial 7:42a justice Colón M.D. fibrillation Hospitalists M18.9 Osteoarthritis of first carpometacarpal joint, unspecified I50.9 Heart failure, unspecified I10 Essential (primary) hypertension Office Visit 06/24/2017 [facility] I48.91 Unspecified atrial 7:41a justice Colón M.D. fibrillation Hospitalists I50.9 Heart failure, unspecified N18.9 Chronic kidney disease, unspecified I10 Essential (primary) hypertension Office Visit 06/23/2017 [facility] Jeevan Juarez I50.9 Heart failure, 3:53p Of Shelton Hqa M.D. unspecified Office Visit 06/23/2017 [facility] I48.91 Unspecified atrial 7:13a justice Colón M.D. fibrillation Hospitalists I50.9 Heart failure, unspecified N18.9 Chronic kidney disease, unspecified I10 Essential (primary) hypertension Office Visit 06/22/2017 [facility] I48.91 Unspecified atrial 7:12a justice Colón M.D. fibrillation Hospitalists I50.9 Heart failure, unspecified N18.9 Chronic kidney disease, unspecified I10 Essential (primary) hypertension Office Visit 06/22/2017 3:44p [facility] Olu SLita R06.00 Dyspnea, Of [facility] [place], unspecified FACC I50.21 Acute systolic (congestive) heart failure I13.0 Hyp hrt & chr kdny dis w hrt fail and stg 1-4/unsp chr kdny N18.9 Chronic kidney disease, unspecified I34.0 Nonrheumatic mitral (valve) insufficiency I48.0 Paroxysmal atrial fibrillation Office Visit 06/21/2017 [facility] I48.91 Unspecified 7:12a [employer] flores NP atrial Hospitalists fibrillation I50.9 Heart failure, unspecified N18.9 Chronic kidney disease, unspecified I10 Essential (primary) hypertension Plan of Treatment Future Appointment(s):06/05/2019 2:40 pm - Carol Velasquez M.D. at [facility]03/24/2019 - Carol Velasquez M.D.I48.0 Paroxysmal atrial fibrillationNew Orders:Echocardiogram, Scheduled: 04/17/19I44.2 Atrioventricular block, okujslkdA53.0 Nonrheumatic mitral (valve) insufficiencyComments:no murmur on exam.Follow up:Release: Op note MV repair OP note Pacer lkkpcimP89.9 Cardiomyopathy, unspecifiedNew Orders:Echocardiogram, Scheduled: 04/17/19R06.02 Shortness of breathNew Orders:Echocardiogram, Scheduled: 04/17/19Follow up:after testing , April or JwpuhhH30.0 Presence of cardiac pacemakerFollow up:Have copies sent to me to review.I45.10 Unspecified right bundle-branch block
--- OUTSIDE RECORDS SUMMARY | 2019-04-28 17:34 | XMS REPORT | Continuity of Care Document ---
:1950 External Reference #:[id number] Author Name Nesha Donato Care Team Providers Name Role Phone Carol Velasquez MD Care Team Information Payroll Representative Unavailable Lissette Lepe MD Primary Care Physician Unavailable Payers Date Identification Numbers Payment Provider Subscriber Expires: 2018 Policy Number: [id number] [employer] Emily Bhatia PayID: [id number] [address] [place] [address] Policy Number: [id number] [employer] Emily Bhatia PayID: [id number] [address] [place] [address] Advance Directives Type Date Description Status Comment [...] apnea Gricel Marinelli DNP, RN, Onset: 10/23/2017 [employer]- Obstructive sleep apnea syndrome Gricel Marinelli DNP, RN, Onset: 01/14/2018 [facility] Cardiomyopathy Carol Velasquez M.D. Onset: [...] Marinelli, 01/14/2018 Advancement Device appliance ZACHARY, RN, [facility] /mandibular Device advancement device for [...] 2 puffs by mouth 8gm Hank Dain, DIE CUT OPERATOR four times a day as 108(90Base) [...] Code Status Date Vaccine Reaction Lot # [id number] Given 05/09/2018 Hepatitis A Vaccine Adult [id number] Dosage [id number] Given 11/09/2017 Tdap - No immediat [id number] Tetanus/Diptheria/Acellula reaction... r Pertussis [id number] Given 11/09/2017 Hepatitis A Vaccine Adult no immedite [id number] Dosage reaction... Vital Signs Date Vital Result [...] Result H/L Range Note Basic Metabolic 05/13/2018 [facility] Sodium 139 mmol/L N 135- 145 Panel [address] [place] [address] [phone] Potassium 4.1 mmol/L N 3.5-5.0 Chloride 105 mmol/L N 101-111 Co2 Carbon Dioxide 25 mmol/L N 22-32 Anion Gap 9 mmol/L N 2-11 Glucose 73 mg/dL N 70-100 Blood Urea Nitrogen 14 mg/dL N 6-24 Creatinine 1.68 mg/dL High 0.67-1.17 BUN/Creatinine Ratio 8.3 N 8-20 Calcium 9.3 mg/dL N 8.6-10.3 Egfr Non- 40.7 >60 Egfr 49.3 >60 1 Basic Metabolic Panel 04/29/2018 [facility] Sodium 138 mmol/L N 135-145 [address] [place] [address] [phone] Potassium 4.5 mmol/L N 3.5-5.0 Chloride 106 mmol/L N 101-111 Co2 Carbon Dioxide 26 mmol/L N 22-32 Anion Gap 6 mmol/L N 2-11 Glucose 97 mg/dL N 70-100 Blood Urea Nitrogen 16 mg/dL N 6-24 Creatinine 1.59 mg/dL High 0.67-1.17 BUN/Creatinine Ratio 10.1 N 8-20 Calcium 9.4 mg/dL N 8.6-10.3 Egfr Non- 43.4 >60 Egfr 52.5 >60 2 Comp Metabolic Panel 01/04/2018 [facility] Sodium 141 mmol/L N 133-145 [address] [place] [address] [phone] Potassium 4.2 mmol/L N 3.5-5.0 Chloride 107 [...] Egfr 50.8 >60 3 Laboratory test 01/04/2018 [facility] TSH (Thyroid 0.50 mcIU/mL N 0.34-5.[address] Stim [place]orm) [place] [address] [phone] Free T4 (Free Thyroxine) 1.10 ng/dL N 0.61-1.12 T3 Total 0.72 ng/mL Low 0.87-1.78 Laboratory test 01/03/2018 [facility] TSH (Thyroid <pending> finding [address] Stim [place]orm) [place] [address] [phone] Free T4 (Free Thyroxine) <pending> T3 Total <pending> Laboratory test 08/11/2017 [facility] Lactic Acid 1.1 mmol/L N 0.5-2.[address] [place] [address] [phone] CBC Auto Diff 08/11/2017 [facility] White Blood 6.4 10^3/uL N 3.5-10.[address] [place] [address] [phone] Red Blood Count 4.81 10^6/uL N 4.0-5.4 [...] Cells % 0.1 N Laboratory test 08/11/2017 [facility] B-Type 852 pg/mL High [address] [place] [address] Peptide BNP [phone] Comp Metabolic 08/11/2017 [facility] Sodium 139 mmol/L N 133- [address] [place] [address] [phone] Potassium 4.0 mmol/L N 3.5-5.0 Chloride 106 [...] 53.6 N >60 6 Laboratory test 08/11/2017 [facility] Magnesium 2.1 mg/dL N 1.9-2.[address] [place] [address] [phone] Creatine Kinase(CK) 61 U/L N 10-223 Troponin-I (TnI) 0.01 ng/mL N <0.04 CKMB 08/11/2017 [facility] CKMB ng/mL 2.1 ng/mL N 0.6-6.[address] [place] [address] [phone] Laboratory test 08/11/2017 [facility] TSH 1.22 mcIU/mL N 0.34- 5.[address] ([place] [address] Stim Pgfz) [phone] Urinalysis 08/11/2017 [facility] Urine Color Yellow N Profile [address] [place] [address] [phone] Urine Appearance Clear N Urine Specific [place] 1.013 N 1.010-1.030 Urine pH 6.0 N 5-9 Urine Urobilinogen Negative N Negative Urine Ketones Negative N Negative Urine Protein Negative N Negative Urine Leukocytes Negative N Negative Urine Blood Negative N Negative Urine Nitrite Negative N Negative Urine Bilirubin Negative N Negative Urine Glucose Negative N Negative CBC Auto Diff 07/30/2017 [facility] White Blood 6.4 10^3/uL N 3.5-10.[address] [place] [address] [phone] Red Blood Count 4.51 10^6/uL N 4.0-5.4 [...] Cells % 0 N Laboratory test 07/30/2017 [facility] Lactic Acid 0.7 mmol/L N 0.5-2.0 7 finding [address] [place] [address] [phone] Comp Metabolic 07/30/2017 [facility] Sodium 137 mmol/L N 133- 145 Panel [address] [place] [address] [phone] Potassium 3.8 mmol/L N 3.5-5.0 Chloride 106 [...] 55.2 N >60 8 Laboratory test 07/30/2017 [facility] Magnesium 2.0 mg/dL N 1.9-2.7 finding [address] [place] [address] [phone] Troponin-I (TnI) 0.01 ng/mL N <0.04 TSH [...] 5 Kidney failure <15 (or dialysis) 7 [facility] Severe Sepsis and Septic Shock Management [...] dialysis) Procedures Date Code Description Status 03/24/2019 32363 EKG Tracing & Interpretation Completed 11/07/2018 55590 EKG Tracing & Interpretation Completed 05/16/2018 22000 EKG Tracing & Interpretation Completed 05/02/2018 10542 EKG Tracing & Interpretation Completed 04/25/2018 93965 EKG Tracing & Interpretation Completed 04/05/2018 00933 EKG Tracing & Interpretation Completed 03/22/2018 50690 EKG Tracing & Interpretation Completed 01/01/2018 02783 Echocardiogram, Limited Study Completed 01/01/2018 96089 Echocardiogram, Limited Study Completed 11/01/2017 60415 EKG Tracing & Interpretation Completed 10/24/2017 04973 Sleep Study Unattended,HRT Rate,Oxygen Sat,Resp Completed Effort/Airflow 10/18/2017 84097 EKG Tracing & Interpretation Completed 09/12/2017 53070 ECHO Transthoracic, Real-Time 2D With Doppler And Color Completed Flow 09/12/2017 26788 ECHO Transthoracic, Real-Time 2D With Doppler And Color Completed Flow 08/28/2017 33687 EKG Tracing & Interpretation Completed 08/17/2017 78002 EKG Tracing & Interpretation Completed 08/13/2017 96441 EKG, Interpretation Only Completed 08/12/2017 56739 EKG, Interpretation Only Completed 08/12/2017 46330 Cardioversion Completed 07/26/2017 59277 Color Flow Doppler/Interp & Reprt Completed 07/26/2017 54715 Pulse Wave/Continuous-Interp.RPT Completed 07/26/2017 51419 Echocardiography, Transesophageal, Real Time W/Image 2D Completed W/W/O M-M 07/26/2017 17612 EKG, Interpretation Only Completed 07/03/2017 55170 EKG Tracing & Interpretation Completed 06/27/2017 01033 Moderate Sedation Services; Same Phys Each Additional 15 Completed Mins 06/27/2017 45000 Moderate Sedation Services; Same Phys Intl 15 Mins; PT >=5 Completed Years 06/27/2017 91839 Color Flow Doppler/Interp & Reprt Completed 06/27/2017 89113 Pulse Wave/Continuous-Interp.RPT Completed 06/27/2017 03000 Echocardiography, Transesophageal, Real Time W/Image 2D Completed W/W/O M-M 06/26/2017 36679 RT Heart Catheritization; Measurement Of Oxygen Saturation Completed 06/22/2017 23199 ECHO Transthorasic Realtime 2D W Doppler & Color Flow Hosp Completed Encounters Type Date Location Provider Dx Diagnosis Office Visit 03/24/2019 [facility] Carol Velasquez, I48.0 Paroxysmal atrial 3:20p Of Claims Sorter M.D. fibrillation I44.2 Atrioventricular block, complete I34.0 Nonrheumatic mitral (valve) insufficiency I42.9 Cardiomyopathy, unspecified R06.02 Shortness of breath Z95.0 Presence of cardiac pacemaker I45.10 Unspecified right bundle-branch block Office Visit 11/07/2018 2:40p [facility] Carol Velasquez I48.0 Paroxysmal atrial Of Claims Sorter M.D. fibrillation I42.9 Cardiomyopathy, unspecified I10 Essential (primary) hypertension R42 Dizziness and giddiness I34.0 Nonrheumatic mitral (valve) insufficiency Office Visit 05/31/2018 4:00p [facility] Carol Velasquez I48.0 Paroxysmal atrial Of Claims Sorter M.D. fibrillation I42.9 Cardiomyopathy, unspecified I10 Essential (primary) hypertension R42 Dizziness and giddiness Office Visit 05/16/2018 9:00a [facility] Mireille S. I10 Essential ( primary) Of Claims Sorter Foster, N.P. hypertension R94.31 Abnormal electrocardiogram [ECG] [EKG] I48.0 Paroxysmal atrial fibrillation R42 Dizziness and giddiness I42.9 Cardiomyopathy, unspecified Office Visit 05/10/2018 1:30p [facility] Nurse Visit I10 Essential (primary) Of Claims Sorter IC hypertension Office Visit 04/25/2018 11:30a [facility] Mireille S. I48.0 Paroxysmal atrial Of Claims Sorter Foster, N.P. fibrillation R42 Dizziness and giddiness G47.30 Sleep apnea, unspecified I42.9 Cardiomyopathy, unspecified R94.31 Abnormal electrocardiogram [ECG] [EKG] I10 Essential (primary) hypertension Office Visit 04/05/2018 9:00a [facility] Mireille S. I48.0 Paroxysmal atrial Of Claims Sorter Foster, N.P. fibrillation R42 Dizziness and giddiness G47.30 Sleep apnea, unspecified I42.9 Cardiomyopathy, unspecified Office Visit 03/22/2018 11:40a [facility] Carol Velasquez I48.0 Paroxysmal atrial Of Claims Sorter [facility] M.D. fibrillation I42.8 Other cardiomyopathies G47.30 Sleep apnea, unspecified R42 Dizziness and giddiness Office 03/07/2018 [facility] Internal Owen Thomas J06.9 Acute upper Visit 2:00p Julieta-Matthew Lucio M.D. respiratory infection, unspecified Office 01/14/2018 [facility] Gricel G47.33 Obstructive Visit 11:15a Services Of [facility] ZACHARY Marinelli, sleep apnea RN, [facility] (adult) (pediatric) Office 01/03/2018 [facility] Of Carol Velasquez I48.0 Paroxysmal Visit 1:50p Claims Sorter M.D. atrial fibrillation I42.9 Cardiomyopathy, unspecified Office Visit 11/09/2017 1:20p [facility] Internal Hanksophia Gautam, Z71.89 Other specified Medicine - Ccmob DIE CUT OPERATOR counseling Z13.1 Encounter for screening for diabetes mellitus Z13.220 Encounter for screening for lipoid disorders Z23 Encounter for immunization Office Visit 11/01/2017 10:30a [facility] Harper Hastings I48.0 Paroxysmal atrial Of Claims Sorter PA fibrillation I42.8 Other cardiomyopathies G47.30 Sleep apnea, unspecified Office Visit 10/23/2017 [facility] And Gricel G47.30 Sleep apnea, 2:30p Sleep Services Of ZACHARY Marinelli, RN, unspecified [facility] R40.0 Somnolence R35.1 Nocturia Office Visit 10/18/2017 2:30p [facility] Carol Velasquez I48.0 Paroxysmal atrial Of Claims Sorter M.D. fibrillation I42.8 Other cardiomyopathies I95.1 Orthostatic hypotension R61 Generalized hyperhidrosis N39.0 Urinary tract infection, site not specified Office Visit 09/04/2017 3:00p [facility] Harper Hastings, I50.22 Chronic systolic Of Claims Sorter PA (congestive) heart failure R42 Dizziness and giddiness Office Visit 08/17/2017 3:00p [facility] Carol Velasquez I48.0 Paroxysmal atrial Of Claims Sorter M.D. fibrillation I42.8 Other cardiomyopathies G47.9 Sleep disorder, unspecified Office Visit 08/13/2017 [facility] Mireille SLita I50.23 Acute on chronic 10:30a justice Colón, N.P. systolic Hospitalists (congestive) heart failure I42.8 Other cardiomyopathies I48.0 Paroxysmal atrial fibrillation N18.3 Chronic kidney disease, stage 3 (moderate) Office Visit 08/12/2017 [facility] Maddie I50.23 Acute on chronic 10:29a justice Colón NP systolic Hospitalists (congestive) heart failure I42.8 Other cardiomyopathies I48.0 Paroxysmal atrial fibrillation N18.3 Chronic kidney disease, stage 3 (moderate) Office Visit 08/12/2017 3:10p [facility] Carol Velasquez, I48.1 Persistent atrial Of Claims Sorter M.D. fibrillation I50.9 Heart failure, unspecified Office Visit 08/11/2017 10:28a [facility] Siri Talon, I50.23 Acute on chronic Assoc,justice N.PLita systolic Hospitalists (congestive) heart failure I42.8 Other cardiomyopathies I48.0 Paroxysmal atrial fibrillation N18.3 Chronic kidney disease, stage 3 (moderate) Office Visit 07/19/2017 9:40a [facility] Internal Hank Dain, I48.1 Persistent atrial Medicine - Ccmob DIE CUT OPERATOR fibrillation K30 Functional dyspepsia Office Visit 07/03/2017 9:45a [facility] Carol Velasquez, I48.1 Persistent atrial Of Claims Sorter M.D. fibrillation I34.0 Nonrheumatic mitral (valve) insufficiency I50.42 Chronic combined systolic and diastolic hrt fail Office Visit 06/28/2017 [facility] Elke I48.91 Unspecified atrial 7:43a justice Colón M.D. fibrillation Hospitalists I50.9 Heart failure, unspecified N18.9 Chronic kidney disease, unspecified I10 Essential (primary) hypertension Office Visit 06/27/2017 10:13a [facility]quez, I48.91 Unspecified atrial Cardiology Of M.D. fibrillation Claims Sorter I50.9 Heart failure, unspecified I34.0 Nonrheumatic mitral (valve) insufficiency Office Visit 06/27/2017 [facility] Elke I48.91 Unspecified atrial 7:42a justice Colón M.D. fibrillation Hospitalists I50.9 Heart failure, unspecified N18.9 Chronic kidney disease, unspecified I10 Essential (primary) hypertension Office Visit 06/26/2017 [facility] Elke I48.91 Unspecified atrial 7:42a justice Colón M.D. fibrillation Hospitalists I50.9 Heart failure, unspecified N18.9 Chronic kidney disease, unspecified I10 Essential (primary) hypertension Office Visit 06/25/2017 [facility] Elke I48.91 Unspecified atrial 7:42a justice Colón M.D. fibrillation Hospitalists M18.9 Osteoarthritis of first carpometacarpal joint, unspecified I50.9 Heart failure, unspecified I10 Essential (primary) hypertension Office Visit 06/24/2017 [facility] I48.91 Unspecified atrial 7:41a justice Colón M.D. fibrillation Hospitalists I50.9 Heart failure, unspecified N18.9 Chronic kidney disease, unspecified I10 Essential (primary) hypertension Office Visit 06/23/2017 [facility] Jeevan Juarez I50.9 Heart failure, 3:53p Of Shelton Haq M.D. unspecified Office Visit 06/23/2017 [facility] I48.91 Unspecified atrial 7:13a justice Colón M.D. fibrillation Hospitalists I50.9 Heart failure, unspecified N18.9 Chronic kidney disease, unspecified I10 Essential (primary) hypertension Office Visit 06/22/2017 [facility] I48.91 Unspecified atrial 7:12a justice Colón M.D. fibrillation Hospitalists I50.9 Heart failure, unspecified N18.9 Chronic kidney disease, unspecified I10 Essential (primary) hypertension Office Visit 06/22/2017 3:44p [facility] Olu SLita R06.00 Dyspnea, Of [facility] [place], unspecified FACC I50.21 Acute systolic (congestive) heart failure I13.0 Hyp hrt & chr kdny dis w hrt fail and stg 1-4/unsp chr kdny N18.9 Chronic kidney disease, unspecified I34.0 Nonrheumatic mitral (valve) insufficiency I48.0 Paroxysmal atrial fibrillation Office Visit 06/21/2017 [facility] I48.91 Unspecified 7:12a Assjustice flores NP atrial Hospitalists fibrillation I50.9 Heart failure, unspecified N18.9 Chronic kidney disease, unspecified I10 Essential (primary) hypertension Plan of Treatment Future Appointment(s):06/05/2019 2:40 pm - Carol Velasquez M.D. at [facility]03/24/2019 - Carol Velasquez M.D.I48.0 Paroxysmal atrial fibrillationNew Orders:Echocardiogram, Scheduled: 04/17/19I44.2 Atrioventricular block, [id number] Nonrheumatic mitral (valve) insufficiencyComments:no murmur on exam.Follow up:Release: Op note MV repair OP note Pacer qfrtcamM78.9 Cardiomyopathy, unspecifiedNew Orders:Echocardiogram, Scheduled: 04/17/19R06.02 Shortness of breathNew Orders:Echocardiogram, Scheduled: 04/17/19Follow up:after testing , April or HgybnfD21.0 Presence of cardiac pacemakerFollow up:Have copies sent to me to review.I45.10 Unspecified right bundle-branch block
--- OUTSIDE RECORDS SUMMARY | 2019-04-28 17:34 | XMS REPORT | Continuity of Care Document ---
:1950 External Reference #:[id number] Author Name Nesha Donato Care Team Providers Name Role Phone Carol Velasquez MD Care Team Information Per Assessment Nurse Unavailable Lissette Lepe MD Primary Care Physician Unavailable Payers Date Identification Numbers Payment Provider Subscriber Expires: 2018 Policy Number: [id number] [employer] Emily Bhatia PayID: [id number] [address] [place] [address] Policy Number: [id number] [employer] Emily Bhatia PayID: [id number] [address] [place] [address] Advance Directives Type Date Description Status Comment [...] apnea Gricel Marinelli DNP, RN, Onset: 10/23/2017 [employer]UDENT DEVELOPMENT SPECIALIST- Obstructive sleep apnea syndrome Gricel Marinelli DNP, RN, Onset: 01/14/2018 [facility] Cardiomyopathy Carol Velasquez M.D. Onset: 05/31/2018 [...] Marinelli, 01/14/2018 Advancement Device appliance ZACHARY, RN, [facility] /mandibular Device advancement device for sleep apnea [...] 2 puffs by mouth 8gm Hank Dain, WAGE ANALYST four times a day as 108(90Base) mcg/Act [...] Code Status Date Vaccine Reaction Lot # [id number] Given 05/09/2018 Hepatitis A Vaccine Adult [id number] Dosage 18261 Given 11/09/2017 Tdap - No immediat [id number] Tetanus/Diptheria/Acellula reaction... r Pertussis [id number] Given 11/09/2017 Hepatitis A Vaccine Adult no immedite [id number] Dosage reaction... Vital Signs Date Vital Result [...] Result H/L Range Note Basic Metabolic 05/13/2018 [facility] Sodium 139 mmol/L N 135- 145 Panel [address] [place] [address] [phone] Potassium 4.1 mmol/L N 3.5-5.0 Chloride 105 mmol/L N 101-111 Co2 Carbon Dioxide 25 mmol/L N 22-32 Anion Gap 9 mmol/L N 2-11 Glucose 73 mg/dL N 70-100 Blood Urea Nitrogen 14 mg/dL N 6-24 Creatinine 1.68 mg/dL High 0.67-1.17 BUN/Creatinine Ratio 8.3 N 8-20 Calcium 9.3 mg/dL N 8.6-10.3 Egfr Non- 40.7 >60 Egfr 49.3 >60 1 Basic Metabolic Panel 04/29/2018 [facility] Sodium 138 mmol/L N 135-145 [address] [place] [address] [phone] Potassium 4.5 mmol/L N 3.5-5.0 Chloride 106 mmol/L N 101-111 Co2 Carbon Dioxide 26 mmol/L N 22-32 Anion Gap 6 mmol/L N 2-11 Glucose 97 mg/dL N 70-100 Blood Urea Nitrogen 16 mg/dL N 6-24 Creatinine 1.59 mg/dL High 0.67-1.17 BUN/Creatinine Ratio 10.1 N 8-20 Calcium 9.4 mg/dL N 8.6-10.3 Egfr Non- 43.4 >60 Egfr 52.5 >60 2 Comp Metabolic Panel 01/04/2018 [facility] Sodium 141 mmol/L N 133-145 [address] [place] [address] [phone] Potassium 4.2 mmol/L N 3.5-5.0 Chloride 107 [...] Egfr 50.8 >60 3 Laboratory test 01/04/2018 [facility] TSH (Thyroid 0.50 mcIU/mL N 0.34-5.[address] Stim [place]) [place] [address] [phone] Free T4 (Free Thyroxine) 1.10 ng/dL N 0.61-1.12 T3 Total 0.72 ng/mL Low 0.87-1.78 Laboratory test 01/03/2018 [facility] TSH (Thyroid <pending> finding [address] [place]) [place] [address] [phone] Free T4 (Free Thyroxine) <pending> T3 Total <pending> Laboratory test 08/11/2017 [facility] Lactic Acid 1.1 mmol/L N 0.5-2.[address] [place] [address] [phone] CBC Auto Diff 08/11/2017 [facility] White Blood 6.4 10^3/uL N 3.5-10.[address] [place] [address] [phone] Red Blood Count 4.81 10^6/uL N 4.0-5.4 [...] Cells % 0.1 N Laboratory test 08/11/2017 [facility] B-Type 852 pg/mL High [address] [place] [address] Peptide BNP [phone] Comp Metabolic 08/11/2017 [facility] Sodium 139 mmol/L N 133- [address] [place] [address] [phone] Potassium 4.0 mmol/L N 3.5-5.0 Chloride 106 [...] 53.6 N >60 6 Laboratory test 08/11/2017 [facility] Magnesium 2.1 mg/dL N 1.9-2.[address] [place] [address] [phone] Creatine Kinase(CK) 61 U/L N 10-223 Troponin-I (TnI) 0.01 ng/mL N <0.04 CKMB 08/11/2017 [facility] CKMB ng/mL 2.1 ng/mL N 0.6-6.[address] [place] [address] [phone] Laboratory test 08/11/2017 [facility] TSH 1.22 mcIU/mL N 0.34- 5.[address] ([place] [address] Stim Aivs) [phone] Urinalysis 08/11/2017 [facility] Urine Color Yellow N Profile [address] [place] [address] [phone] Urine Appearance Clear N Urine Specific [place] 1.013 N 1.010-1.030 Urine pH 6.0 N 5-9 Urine Urobilinogen Negative N Negative Urine Ketones Negative N Negative Urine Protein Negative N Negative Urine Leukocytes Negative N Negative Urine Blood Negative N Negative Urine Nitrite Negative N Negative Urine Bilirubin Negative N Negative Urine Glucose Negative N Negative CBC Auto Diff 07/30/2017 [facility] White Blood 6.4 10^3/uL N 3.5-10.[address] [place] [address] [phone] Red Blood Count 4.51 10^6/uL N 4.0-5.4 [...] Cells % 0 N Laboratory test 07/30/2017 [facility] Lactic Acid 0.7 mmol/L N 0.5-2.0 7 finding [address] [place] [address] [phone] Comp Metabolic 07/30/2017 [facility] Sodium 137 mmol/L N 133- 145 Panel [address] [place] [address] [phone] Potassium 3.8 mmol/L N 3.5-5.0 Chloride 106 [...] 55.2 N >60 8 Laboratory test 07/30/2017 [facility] Magnesium 2.0 mg/dL N 1.9-2.7 finding [address] [place] [address] [phone] Troponin-I (TnI) 0.01 ng/mL N <0.04 TSH [...] 5 Kidney failure <15 (or dialysis) 7 [facility] Severe Sepsis and Septic Shock Management [...] dialysis) Procedures Date Code Description Status 03/24/2019 48968 EKG Tracing & Interpretation Completed 11/07/2018 32319 EKG Tracing & Interpretation Completed 05/16/2018 45426 EKG Tracing & Interpretation Completed 05/02/2018 21431 EKG Tracing & Interpretation Completed 04/25/2018 57957 EKG Tracing & Interpretation Completed 04/05/2018 93703 EKG Tracing & Interpretation Completed 03/22/2018 79400 EKG Tracing & Interpretation Completed 01/01/2018 52659 Echocardiogram, Limited Study Completed 01/01/2018 48848 Echocardiogram, Limited Study Completed 11/01/2017 33570 EKG Tracing & Interpretation Completed 10/24/2017 77921 Sleep Study Unattended,HRT Rate,Oxygen Sat,Resp Completed Effort/Airflow 10/18/2017 51782 EKG Tracing & Interpretation Completed 09/12/2017 53652 ECHO Transthoracic, Real-Time 2D With Doppler And Color Completed Flow 09/12/2017 00127 ECHO Transthoracic, Real-Time 2D With Doppler And Color Completed Flow 08/28/2017 98557 EKG Tracing & Interpretation Completed 08/17/2017 94201 EKG Tracing & Interpretation Completed 08/13/2017 48103 EKG, Interpretation Only Completed 08/12/2017 29272 EKG, Interpretation Only Completed 08/12/2017 27956 Cardioversion Completed 07/26/2017 50322 Color Flow Doppler/Interp & Reprt Completed 07/26/2017 04201 Pulse Wave/Continuous-Interp.RPT Completed 07/26/2017 66309 Echocardiography, Transesophageal, Real Time W/Image 2D Completed W/W/O M-M 07/26/2017 17358 EKG, Interpretation Only Completed 07/03/2017 05785 EKG Tracing & Interpretation Completed 06/27/2017 61308 Moderate Sedation Services; Same Phys Each Additional 15 Completed Mins 06/27/2017 10504 Moderate Sedation Services; Same Phys Intl 15 Mins; PT >=5 Completed Years 06/27/2017 49481 Color Flow Doppler/Interp & Reprt Completed 06/27/2017 43257 Pulse Wave/Continuous-Interp.RPT Completed 06/27/2017 07998 Echocardiography, Transesophageal, Real Time W/Image 2D Completed W/W/O M-M 06/26/2017 09723 RT Heart Catheritization; Measurement Of Oxygen Saturation Completed 06/22/2017 74458 ECHO Transthorasic Realtime 2D W Doppler & Color Flow Hosp Completed Encounters Type Date Location Provider Dx Diagnosis Office Visit 03/24/2019 [facility] Carol Velasquez, I48.0 Paroxysmal atrial 3:20p Of Measurement Supervisor M.D. fibrillation I44.2 Atrioventricular block, complete I34.0 Nonrheumatic mitral (valve) insufficiency I42.9 Cardiomyopathy, unspecified R06.02 Shortness of breath Z95.0 Presence of cardiac pacemaker I45.10 Unspecified right bundle-branch block Office Visit 11/07/2018 2:40p [facility] Carol Velasquez I48.0 Paroxysmal atrial Of Measurement Supervisor M.D. fibrillation I42.9 Cardiomyopathy, unspecified I10 Essential (primary) hypertension R42 Dizziness and giddiness I34.0 Nonrheumatic mitral (valve) insufficiency Office Visit 05/31/2018 4:00p [facility] Carol Velasquez I48.0 Paroxysmal atrial Of Measurement Supervisor M.D. fibrillation I42.9 Cardiomyopathy, unspecified I10 Essential (primary) hypertension R42 Dizziness and giddiness Office Visit 05/16/2018 9:00a [facility] Mireille S. I10 Essential ( primary) Of Measurement Supervisor Foster, N.P. hypertension R94.31 Abnormal electrocardiogram [ECG] [EKG] I48.0 Paroxysmal atrial fibrillation R42 Dizziness and giddiness I42.9 Cardiomyopathy, unspecified Office Visit 05/10/2018 1:30p [facility] Nurse Visit I10 Essential (primary) Of Measurement Supervisor IC hypertension Office Visit 04/25/2018 11:30a [facility] Mireille S. I48.0 Paroxysmal atrial Of Measurement Supervisor Foster, N.P. fibrillation R42 Dizziness and giddiness G47.30 Sleep apnea, unspecified I42.9 Cardiomyopathy, unspecified R94.31 Abnormal electrocardiogram [ECG] [EKG] I10 Essential (primary) hypertension Office Visit 04/05/2018 9:00a [facility] Mireille S. I48.0 Paroxysmal atrial Of Measurement Supervisor Foster, N.P. fibrillation R42 Dizziness and giddiness G47.30 Sleep apnea, unspecified I42.9 Cardiomyopathy, unspecified Office Visit 03/22/2018 11:40a [facility] Carol Velasquez I48.0 Paroxysmal atrial Of Measurement Supervisor [facility] [place]. fibrillation I42.8 Other cardiomyopathies G47.30 Sleep apnea, unspecified R42 Dizziness and giddiness Office 03/07/2018 [facility] Internal Owen Thomas J06.9 Acute upper Visit 2:00p Julieta-Matthew Lucio M.D. respiratory infection, unspecified Office 01/14/2018 [facility] Gricel G47.33 Obstructive Visit 11:15a Services Of [facility] ZACHARY Marinelli, sleep apnea RN, [facility] (adult) (pediatric) Office 01/03/2018 [facility] Of Carol Velasquez I48.0 Paroxysmal Visit 1:50p Measurement Supervisor M.D. atrial fibrillation I42.9 Cardiomyopathy, unspecified Office Visit 11/09/2017 1:20p [facility] Internal Hanksophia Gautam, Z71.89 Other specified Medicine - Ccmob WAGE ANALYST counseling Z13.1 Encounter for screening for diabetes mellitus Z13.220 Encounter for screening for lipoid disorders Z23 Encounter for immunization Office Visit 11/01/2017 10:30a [facility] Harper Hastings I48.0 Paroxysmal atrial Of Measurement Supervisor PA fibrillation I42.8 Other cardiomyopathies G47.30 Sleep apnea, unspecified Office Visit 10/23/2017 [facility] And [place] G47.30 Sleep apnea, 2:30p Sleep Services Of ZACHARY Marinelli, RN, unspecified [facility] R40.0 Somnolence R35.1 Nocturia Office Visit 10/18/2017 2:30p [facility] Carol Velasquez I48.0 Paroxysmal atrial Of Measurement Supervisor M.D. fibrillation I42.8 Other cardiomyopathies I95.1 Orthostatic hypotension R61 Generalized hyperhidrosis N39.0 Urinary tract infection, site not specified Office Visit 09/04/2017 3:00p [facility] Harper Hastings, I50.22 Chronic systolic Of Measurement Supervisor PA (congestive) heart failure R42 Dizziness and giddiness Office Visit 08/17/2017 3:00p [facility] Carol Velasquez I48.0 Paroxysmal atrial Of Measurement Supervisor M.D. fibrillation I42.8 Other cardiomyopathies G47.9 Sleep disorder, unspecified Office Visit 08/13/2017 [facility] Mireille SLita I50.23 Acute on chronic 10:30a justice Colón, N.P. systolic Hospitalists (congestive) heart failure I42.8 Other cardiomyopathies I48.0 Paroxysmal atrial fibrillation N18.3 Chronic kidney disease, stage 3 (moderate) Office Visit 08/12/2017 [facility] Maddie I50.23 Acute on chronic 10:29a justice Colón NP systolic Hospitalists (congestive) heart failure I42.8 Other cardiomyopathies I48.0 Paroxysmal atrial fibrillation N18.3 Chronic kidney disease, stage 3 (moderate) Office Visit 08/12/2017 3:10p [facility] Carol Velasquez, I48.1 Persistent atrial Of Measurement Supervisor M.D. fibrillation I50.9 Heart failure, unspecified Office Visit 08/11/2017 10:28a [facility] Siri Talon, I50.23 Acute on chronic Assoc,justice N.PLita systolic Hospitalists (congestive) heart failure I42.8 Other cardiomyopathies I48.0 Paroxysmal atrial fibrillation N18.3 Chronic kidney disease, stage 3 (moderate) Office Visit 07/19/2017 9:40a [facility] Internal Hank Dain, I48.1 Persistent atrial Medicine - Ccmob WAGE ANALYST fibrillation K30 Functional dyspepsia Office Visit 07/03/2017 9:45a [facility] Carol Velasquez, I48.1 Persistent atrial Of Measurement Supervisor M.D. fibrillation I34.0 Nonrheumatic mitral (valve) insufficiency I50.42 Chronic combined systolic and diastolic hrt fail Office Visit 06/28/2017 [facility] Elke I48.91 Unspecified atrial 7:43a justice Colón M.D. fibrillation Hospitalists I50.9 Heart failure, unspecified N18.9 Chronic kidney disease, unspecified I10 Essential (primary) hypertension Office Visit 06/27/2017 10:13a [facility] Velasquez, I48.91 Unspecified atrial Cardiology Of M.D. fibrillation Measurement Supervisor I50.9 Heart failure, unspecified I34.0 Nonrheumatic mitral (valve) insufficiency Office Visit 06/27/2017 [facility] Elke I48.91 Unspecified atrial 7:42a justice Colón M.D. fibrillation Hospitalists I50.9 Heart failure, unspecified N18.9 Chronic kidney disease, unspecified I10 Essential (primary) hypertension Office Visit 06/26/2017 [facility] Elke I48.91 Unspecified atrial 7:42a justice Colón M.D. fibrillation Hospitalists I50.9 Heart failure, unspecified N18.9 Chronic kidney disease, unspecified I10 Essential (primary) hypertension Office Visit 06/25/2017 [facility] Elke I48.91 Unspecified atrial 7:42a justice Colón M.D. fibrillation Hospitalists M18.9 Osteoarthritis of first carpometacarpal joint, unspecified I50.9 Heart failure, unspecified I10 Essential (primary) hypertension Office Visit 06/24/2017 [facility] I48.91 Unspecified atrial 7:41a justice Colón M.D. fibrillation Hospitalists I50.9 Heart failure, unspecified N18.9 Chronic kidney disease, unspecified I10 Essential (primary) hypertension Office Visit 06/23/2017 [facility] Jeevan Juarez I50.9 Heart failure, 3:53p Of Shelton Haq M.D. unspecified Office Visit 06/23/2017 [facility] I48.91 Unspecified atrial 7:13a justice Colón M.D. fibrillation Hospitalists I50.9 Heart failure, unspecified N18.9 Chronic kidney disease, unspecified I10 Essential (primary) hypertension Office Visit 06/22/2017 [facility] I48.91 Unspecified atrial 7:12a justice Colón M.D. fibrillation Hospitalists I50.9 Heart failure, unspecified N18.9 Chronic kidney disease, unspecified I10 Essential (primary) hypertension Office Visit 06/22/2017 3:44p [facility] Olu SLita R06.00 Dyspnea, Of [facility] Sterling, unspecified FACC I50.21 Acute systolic (congestive) heart failure I13.0 Hyp hrt & chr kdny dis w hrt fail and stg 1-4/unsp chr kdny N18.9 Chronic kidney disease, unspecified I34.0 Nonrheumatic mitral (valve) insufficiency I48.0 Paroxysmal atrial fibrillation Office Visit 06/21/2017 [facility] I48.91 Unspecified 7:12a Assjustice flores NP atrial Hospitalists fibrillation I50.9 Heart failure, unspecified N18.9 Chronic kidney disease, unspecified I10 Essential (primary) hypertension Plan of Treatment Future Appointment(s):06/05/2019 2:40 pm - Carol Velasquez M.D. at [facility]03/24/2019 - Carol Velasquez M.D.I48.0 Paroxysmal atrial fibrillationNew Orders:Echocardiogram, Scheduled: 04/17/19I44.2 Atrioventricular block, taeqaigzW76.0 Nonrheumatic mitral (valve) insufficiencyComments:no murmur on exam.Follow up:Release: Op note MV repair OP note Pacer ptifqeuL32.9 Cardiomyopathy, unspecifiedNew Orders:Echocardiogram, Scheduled: 04/17/19R06.02 Shortness of breathNew Orders:Echocardiogram, Scheduled: 04/17/19Follow up:after testing , April or EcbndcC53.0 Presence of cardiac pacemakerFollow up:Have copies sent to me to review.I45.10 Unspecified right bundle-branch block
--- NOTE | 2019-04-28 18:24 | ED ---
HPI Cardiac - HPI Summary HPI Summary: This pt is a 69 y/o male [facility] for E[facility] changes today. Pt notes he has been feeling SOB and dizziness since 04/24/19. He saw his PCP, Dr. Lepe, today for this and had an EKG that showed new changes compared to past EKGs. Pt describes dizziness as feeling off balanced and "disoriented." He states his symptoms are aggravated with exertion. Denies chest pain. PMHx includes pacemaker, valve repairs x2 (in 2018). Pt is followed up by Dr. Velasquez, care team coordinator scheduler. - History of Current Complaint Chief Complaint: EDDizziness Stated Complaint: WASNT FEELING WELL DR MILLA PER PT Time Seen by Provider: 04/28/19 18:10 Hx Obtained From: Patient Onset/Duration: Started Days Ago, Still Present Timing: Lasting Days Current Severity: None Pain Intensity: 0 Pain Scale Used: 0-10 Numeric Aggravating Factor(s): Exertion Alleviating Factor(s): Nothing Associated Signs and Symptoms: Positive: Dizziness, Shortness of Breath. Negative: Chest Pain, Fever - Additional Pertinent History Primary Care Physician: [id number] - Allergy/Home Medications Allergies/Adverse Reactions: Allergies Allergy/AdvReac Type Severity Reaction Status Date / Time Environmental Allergies Allergy Congestion Uncoded 04/28/19 17:27 Home Medications: Home Medications Carvedilol TAB* [Coreg TAB*] 25 mg PO BID 04/28/19 [History Confirmed 04/28/19] Chawanprash 5 ml PO DAILY 04/28/19 [History Confirmed 04/28/19] Curcumin W/Johanne & Turmerones 1 cap PO DAILY 04/28/19 [History Confirmed ] Cyanocobalamin TAB* [Vitamin B12 TAB*] 1,000 mcg PO EVERY OTHER DAY 04/28/19 [ History Confirmed 04/28/19] Magnesium Oxide [Magnesium] 250 mg PO DAILY 04/28/19 [History Confirmed 04/28/19 ] Triphala Wellness 1 cap PO DAILY 04/28/19 [History Confirmed 04/28/19] Ubidecarenone [Co Q-10] 200 mg PO DAILY 04/28/19 [History Confirmed 04/28/19] amLODIPine TAB* [Norvasc 5 mg TAB*] 10 mg PO DAILY 04/28/19 [History Confirmed 04/28/19] proPAFENone TAB* [Rythmol*] 150 mg PO BID 04/28/19 [History Confirmed 04/28/19] PMH/Surg Hx/FS Hx/Imm Hx Endocrine/Hematology History: Denies: Hx Bone Marrow Disease, Hx Sickle Cell Disease, Hx Anemia Cardiovascular History: Reports: Hx Cardiomegaly - nonischemic cardiomyopathy ejection fraction 20-25%, Hx Congestive Heart Failure, Hx Hypertension, Hx Pacemaker/ICD, Hx Valvular Heart Disease - MVR, Other Cardiovascular Problems/ Disorders - a fib, heart cath 06/2017, EF 20-25 Denies: Hx Peripheral Vascular Disease Respiratory History: Reports: Hx Asthma - exercise induced, Hx Pulmonary Edema, Hx Seasonal Allergies, Hx Sleep Apnea - recently diagnosed per pt, sleep study , Other Respiratory Problems/Disorders GI History: Reports: Hx Hiatal Hernia - history of per pt, Other GI Disorders - ileus 05/2017 admission History: Reports: Other Problems/Disorders - CKD Musculoskeletal History: Reports: Hx Tendonitis - history of, right shoulder, steriod injections Denies: Other Musculoskeletal History Sensory History: Reports: Hx Cataracts - bilateral cataracts per patient, Hx Contacts or Glasses - Both Denies: Hx Hearing Aid Opthamlomology History: Reports: Hx Cataracts - bilateral cataracts per patient , Hx Contacts or Glasses - Both Neurological History: Reports: Hx Transient Ischemic Attacks (TIA) Denies: Other Neuro Impairments/Disorders - Surgical History Surgery Procedure, Year, and Place: hernia repair, heart cath 06/26/17, [facility] [place] Hx Anesthesia Reactions: No - heavy extended sedation with diazepam and diphenhydramine Infectious Disease History: No Infectious Disease History: Denies: Traveled Outside the [place] in Last 30 Days - Family History Known Family History: Positive: Hypertension, Diabetes Negative: Other - NEG: CVA - Social History Alcohol Use: None Substance Use Type: Reports: None Smoking Status (MU): Never Smoked Tobacco Review of Systems Negative: Fever Negative: Chest Pain Positive: Shortness Of Breath Neurological: Other - POSITIVE: dizziness All Other Systems Reviewed And Are Negative: Yes Physical Exam - Summary Physical Exam Summary: Appearance: The patient is well-nourished in no acute distress and in no acute pain. Skin: The skin is warm and dry and skin color reflects adequate perfusion. HEENT: The head is normocephalic and atraumatic. The pupils are equal and reactive. The conjunctivae are clear and without drainage. Nares are patent and without drainage. Mouth reveals moist mucous membranes and the throat is without erythema and exudate. The external ears are intact. The ear canals are patent and without drainage. The tympanic membranes are intact. Neck: the neck is supple with full range of motion and non-tender. There are no carotid bruits. There is no neck vein distension. Respiratory: Chest is non-tender. Lungs are clear to auscultation and breath sounds are symmetrical and equal. Cardiovascular: Heart is regular rate and rhythm. There is no murmur or rub auscultated. There is no peripheral edema and pulses are symmetrical and equal. Abdomen: The abdomen is soft and non-tender. There are normal bowel sounds heard in all four quadrants and there is no organomegaly palpated. Musculoskeletal: There is no back tenderness noted. Extremities are non-tender with full range of motion. There is good capillary refill. There is no peripheral edema or calf tenderness elicited. Neurological: Patient is alert and oriented to person, place and time. The patient has symmetrical motor strength in all four extremities. Cranial nerves are grossly intact. Deep tendon reflexes are symmetrical and equal in all four extremities. Psychiatric: The patient has an appropriate affect and does not exhibit any anxiety or depression. Triage Information Reviewed: Yes Vital Signs On Initial Exam: Initial Vitals Temp Pulse Resp BP Pulse Ox 99.0 F 68 18 115/76 100 04/28/19 17:25 04/28/19 17:25 04/28/19 17:25 04/28/19 17:25 04/28/19 17:25 Vital Signs Reviewed: Yes Diagnostics - Vital Signs Vital Signs Temp Pulse Resp BP Pulse Ox 04/28/19 17:25 99.0 F 68 18 115/76 100 - Laboratory Result Diagrams: 04/28/19 18:37 04/28/19 18:37 Lab Statement: Any lab studies that have been ordered have been reviewed, and results considered in the medical decision making process. - Radiology Chest XR Radiology Interpretation Completed By: ED Physician Summary of Radiographic Findings: No acute process - EKG 18:13 Cardiac Rate: NL - at 64 bpm EKG Rhythm: Sinus Rhythm Summary of EKG Findings: new RBBB compared to prior EKG on 08/13/17. Disposition - Course Course Of Treatment: Mr. Bhatia resented with several days of feeling short of breath with exertion and when he calls dizziness but he has a hard time describing exactly what's happening calling it "disoriented". He was kept on a monitor here. His vitals are stable and he was nontoxic in appearance. His labs were unremarkable including a delayed troponin. He was sent over from his PCPs office because of EKG changes. And he has an intermittent right bundle branch block. Which appears to be new. He seems stable and I'll think anything immediately dangerous is happening and I recommended to follow-up with his PCP this week. - Diagnoses Provider Diagnoses: Dyspnea Discharge - Sign-Out/Discharge Documenting (check all that apply): Patient Departure - Discharge home Patient Received Moderate/Deep Sedation with Procedure: No - Discharge Plan Condition: Stable Disposition: HOME Patient Education Materials: Dyspnea (ED) Referrals: Lissette Lepe MD [Primary Care Provider] - Additional Instructions: Follow up with your primary care provider in 2-3 days. RETURN TO THE ED FOR ANY WORSENING OR NEW SYMPTOMS. - Billing Disposition and Condition Condition: STABLE Disposition: Home - Attestation Statements Document Initiated by Scribe: Yes Documenting Scribe: Netta Sanford Provider For Whom Scribe is Documenting (Include Credential): Tye Gonzalez MD Scribe Attestation: INetta, scribed for Tye Gonzalez MD on 04/28/19 at 2131. Scribe Documentation Reviewed: Yes Provider Attestation: The documentation as recorded by the Netta serna accurately reflects the service I personally performed and the decisions made by me, Tye Gonzalez MD Status of Scribe Document: Viewed
[2019-04-28 18:45] LABS: ABS Basophils 0.1 10^3/ul (0-0.2); ABS Eosinophils 0.2 10^3/ul (0-0.6); ABS Lymphocytes 1.3 10^3/ul (1.0-4.8); ABS Monocytes 0.7 10^3/ul (0-0.8); ABS Neutrophils 4.2 10^3/ul (1.5-7.7); Eosinophil % 2.9 %; Hematocrit 36 % (42-52); Lymphocyte % 19.9 %; Mean Corpuscular HGB Conc 33 g/dL (31-36); Mean Corpuscular Hemoglobin 26 pg (27-31); Mean Corpuscular Volume 79 fL (80-94); Mean Platelet Volume 6.6 fL (7.4-10.4); Platelet Count 325 10^3/uL (150-450); Red Blood Count 4.58 10^6 /uL (4.18-5.48); Red Cell Distribution Width 17 % (10-15); White Blood Count 6.4 10^3/uL (3.5-10.8)
[2019-04-28 19:02] LABS: Albumin 3.9 g/dL (3.2-5.2); Albumin/Globulin Ratio 1.3 (1-3); BUN/Creatinine Ratio 14.4 (8-20); Calcium 9.4 mg/dL (8.6-10.3); EGFR African American 61.1 (>60); EGFR Non-African American 50.5 (>60); Globulin 2.9 g/dL (2-4); Potassium 3.9 mmol/L (3.5-5.0); Total Bilirubin 0.7 mg/dL (0.2-1.0); Total Protein 6.8 g/dL (6.4-8.9)
[2019-04-28 19:04] LABS: Troponin I 0.01 ng/mL (<0.04)
[2019-04-28 21:20] VITALS: BP 120/85
== END 2019-04-28 21:19 | disposition home or self-care (01) ==
LOC: ED 17:17
DX: R06.00 Dyspnea, unspecified (principal); I50.9 Heart failure, unspecified; I11.0 Hypertensive heart disease with heart failure; Z95.810 Presence of automatic (implantable) cardiac defibrillator; Z79.899 Other long term (current) drug therapy
CPT/HCPCS: 36415; 71046; 80053; 83605; 83880; 84484; 85025; 85379; 93005; 99283

== ENCOUNTER 2019-07-05 07:46 | Inpatient (IN) | payer OTHER ==
[2019-07-05] MEDS ORDERED: NS 0.9% 1000 ML** 1,000 ML IV ONE (07:57)
--- NOTE | 2019-07-05 08:02 | ED ---
Dizziness - HPI Summary HPI Summary: This patient is a 69 year old M presenting to [facility] with a chief complaint of dizziness since this morning at 0553, 07/05/19. The CC is described as the room is moving side to side which slows down when closing his eyes. Symptoms aggravated by walking, better when resting. No tinnitus. No blurred vision. Patient reports he has never been this dizzy before and has never experienced vertigo before. Patient denies numbness/tingling in legs or arms. SHx 2 valve repairs. Patient is on Eliquis and uses a pacer. Hx Afib. After darion rocha called, patient now states his symptoms may have began at 1 am. - History Of Current Complaint Chief Complaint: EDDizziness Stated Complaint: DIZZY PER PT Time Seen by Provider: 07/05/19 07:53 Hx Obtained From: Patient Last Known Well Date: 552 Timing: Constant Character: Room Spinning Aggravating Factor(s): Nothing Alleviating Factor(s): Nothing Associated Signs And Symptoms: Positive: Other: - denies numbness or tingling - Allergies/Home Medications Allergies/Adverse Reactions: Allergies Allergy/AdvReac Type Severity Reaction Status Date / Time Environmental Allergies Allergy Congestion Uncoded 07/05/19 07:51 PMH/Surg Hx/FS Hx/Imm Hx Endocrine/Hematology History: Denies: Hx Bone Marrow Disease, Hx Sickle Cell Disease, Hx Anemia Cardiovascular History: Reports: Hx Cardiomegaly - nonischemic cardiomyopathy ejection fraction 20-25%, Hx Congestive Heart Failure, Hx Hypertension, Hx Pacemaker/ICD, Hx Valvular Heart Disease - MVR, Other Cardiovascular Problems/ Disorders - a fib, heart cath 06/2017, EF 20-25 Denies: Hx Peripheral Vascular Disease Respiratory History: Reports: Hx Asthma - exercise induced, Hx Pulmonary Edema, Hx Seasonal Allergies, Hx Sleep Apnea - recently diagnosed per pt, sleep study , Other Respiratory Problems/Disorders GI History: Reports: Hx Hiatal Hernia - history of per pt, Other GI Disorders - ileus 05/2017 admission History: Reports: Other Problems/Disorders - CKD Musculoskeletal History: Reports: Hx Tendonitis - history of, right shoulder, steriod injections Denies: Other Musculoskeletal History Sensory History: Reports: Hx Cataracts - bilateral cataracts per patient, Hx Contacts or Glasses - Both Denies: Hx Hearing Aid Opthamlomology History: Reports: Hx Cataracts - bilateral cataracts per patient , Hx Contacts or Glasses - Both Neurological History: Reports: Hx Transient Ischemic Attacks (TIA) Denies: Other Neuro Impairments/Disorders - Surgical History Surgery Procedure, Year, and Place: hernia repair, heart cath 06/26/17, [facility] [place] Hx Anesthesia Reactions: No - heavy extended sedation with diazepam and diphenhydramine Infectious Disease History: No Infectious Disease History: Denies: Traveled Outside the [place] in Last 30 Days - Family History Known Family History: Positive: Hypertension, Diabetes Negative: Other - NEG: CVA - Social History Alcohol Use: None Hx Substance Use: No Substance Use Type: Reports: None Hx Tobacco Use: No Smoking Status (MU): Never Smoked Tobacco Review of Systems Positive: Other - denies numbness or tingling Neurological: Other - dizziness All Other Systems Reviewed And Are Negative: Yes Physical Exam - Summary Physical Exam Summary: Constitutional: Well-developed, Well-nourished, Alert. (-) Distressed Skin: Warm, Dry HENT: Normocephalic; Atraumatic Eyes: Conjunctiva normal Neck: Musculoskeletal ROM normal neck. (-) JVD, (-) Nuchal rigidity Cardio: Rhythm regular, rate normal, Heart sounds normal; Intact distal pulses; Radial pulses are 2+ and symmetric. (-) Murmur Pulmonary/Chest wall: Effort normal. (-) Respiratory distress, (-) Wheezes, (-) Rales Abd: Soft. (-) Tenderness, (-) Distension, (-) Guarding, (-) Rebound Musculoskeletal: (-) Edema Neuro: Alert, PERRL, Oriented x3, Strength normal, Cranial nerves II-XII are grossly intact. SILT, Strength 5/5 BUE and BLE, (-) Dysmetria, (-) Nystagmus, notable leans to left side while ambulating NIH: 0 Psych: Mood and affect Normal Triage Information Reviewed: Yes Vital Signs On Initial Exam: Initial Vitals Temp Pulse Resp BP Pulse Ox 98.1 F 69 16 164/110 99 07/05/19 07:49 07/05/19 07:49 07/05/19 07:49 07/05/19 07:49 07/05/19 07:49 Vital Signs Reviewed: Yes Diagnostics - Vital Signs Vital Signs Temp Pulse Resp BP Pulse Ox 07/05/19 07:49 98.1 F 69 16 164/110 99 - Laboratory Result Diagrams: 07/05/19 08:15 07/05/19 08:15 Lab Statement: Any lab studies that have been ordered have been reviewed, and results considered in the medical decision making process. - CT Brain CT CT Interpretation Completed By: Radiologist Summary of CT Findings: Per radiologist,. NO EVIDENCE FOR GROSS ACUTE INFARCT, MASS EFFECT OR HEMORRHAGE. ED physician has reviewed this imaging report. Head CTA CT Interpretation Completed By: Radiologist Summary of CT Findings: Per radiologist,. 1. THERE IS A LINEAR INTRALUMINAL FILLING DEFECT IN THE POSTERIOR ASPECT OF THE RIGHT. CAROTID BULB EXTENDING INTO THE PROXIMAL INTERNAL CAROTID ARTERY SUGGESTIVE OF A SHORT. SEGMENTAL DISSECTION. NO SIGNIFICANT CAROTID ARTERY NARROWING IS PRESENT. 2. NO EVIDENCE FOR LARGE VESSEL INTRACRANIAL THROMBUS. CPT II Codes: 3100F. ED physician has reviewed this imaging report. - EKG 0832 Cardiac Rate: NL - 60 BPM Summary of EKG Findings: AV paced at rate of 60 BPM. Re-Evaluation - Re-Evaluation First Eval Re-Evaluation Time: 09:47 Comment: discusses results of consult w neurology and plan of care with pt. Second Eval Re-Evaluation Time: 10:59 Comment: discusses admission with pt, plan for repeat head CT and observation. Patient in agreement, states he is still having intermittent dizziness Dizzy Course/Dx - Course Course Of Treatment: 69 y/o male w hx afib, valve replacement, on eliquis p/w veritigo for several hours. Code aj called at 7:57 am, patient to CT scan. Dr. Hernadez calleda at 8:[address] Miranda Mitchell recommended CTA head/neck, MRI. - Diagnoses Provider Diagnoses: Vertigo, Gait abnormality - Provider Notifications Discussed Care Of Patient With: Dr. Emeka Jean - NeurologistStephen Time Discussed With Above Provider: 08:20 Instructed by Provider To: Other - Neurologist recommends taking a CTA now given his last creatinine was 1.4 while pending MRI and will discuss disposition afterwards 0917: Satya, radiologist:concerned for small right sided carotid dissection 0935: Miranda: thinks pt has a web not a dissection, recommends pt take his morning eliquis, statin, and MRI 1046: Unable to do MRI 2 /[address] Jean recommends repeat CT scan in 24, MRI on Sunday, q2 hr neuro checks 1050: hospitalist accepts pt for admission - Critical Care Time Critical Care Time: 30-74 min - 45 minutes Discharge ED - Sign-Out/Discharge Documenting (check all that apply): Patient Departure - admit Patient Received Moderate/Deep Sedation with Procedure: No - Discharge Plan Condition: Stable Disposition: ADMITTED TO [facility] - Billing Disposition and Condition Condition: STABLE Disposition: Admitted to [facility] - Attestation Statements Document Initiated by Scribe: Yes Documenting Scribe: Karena Davila Provider For Whom Arnie is Documenting (Include Credential): Dr. Chema Segura MD Scribe Attestation: IKarena , scribed for Dr. Chema Segura MD on 07/05/19 at 1112. Scribe Documentation Reviewed: Yes Provider Attestation: The documentation as recorded by the besseKarena accurately reflects the service I personally performed and the decisions made by me, Dr. Chema Segura MD Status of Scribe Document: Viewed
--- OUTSIDE RECORDS SUMMARY | 2019-07-05 08:23 | XMS REPORT | Continuity of Care Document ---
:1950 External Reference #:[id number] Author Name Hank Gautam NP (transmitted by agent of provider Chloé Cruz) Address [address], [place] [address] Care Team Providers Name Role Phone Lissette Lepe MD - Internal Care Team Information Disbursing Agent Medicine Luis Lara MD - Urology Care Team Information Disbursing Agent [phone] Joya Kilgore K., MD - Clinical Care Team Information Disbursing Agent [phone] Cardiac Electrophysiology Problems Active Problems Provider Date Persistent atrial fibrillation Carol Velasquez M.D. Onset: 07/03/2017 Mitral valve disorder Carol Velasquez M.D. 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 Onset: 07/03/2017 diastolic heart failure Paroxysmal atrial fibrillation Carol Velasquez M.D. Onset: 08/17/2017 Nonobstructive cardiomyopathy Carol Velasquez M.D. Onset: 08/17/2017 Sleep apnea Gricel Marinelli DNP, RN, Onset: 10/23/2017 [facility] Obstructive sleep apnea syndrome Gricel Marinelli DNP, RN, Onset: 01/14/2018 [facility] Cardiomyopathy Carol Velasquez M.D. Onset: 05/31/2018 Essential hypertension Carol Velasquez M.D. Onset: 05/31/2018 Social History Type Date Description Comments Sex Unknown Tobacco Use Start: Unknown Never Smoked Cigarettes Smoking Status Reviewed: 06/20/19 Never Smoked Cigarettes ETOH Use Denies alcohol use Tobacco Use Start: Unknown Patient has never smoked Recreational Drug Use Denies Drug Use Exercise Type/Frequency Does not exercise Limited by cardiac condition Allergies, Adverse Reactions, Alerts Description No Known Drug Allergies Medications Active Medications SIG Qnty Indications Ordering Date Provider Diclofenac Sodium apply 2 grams to 200gm M25.522 Hank Gautam NP 06/20/2019 1% affected area Gel twice daily Elbow Wear on left elbow 1units M25.522 Hank Gautam NP 06/20/2019 Support/Pressure during the day Pads/Left-Right/Smal l-Medium Misc Vitamin B-12 Every Other Day Unknown 04/28/2019 500mcg Tablets Magnesium Oxide Every Day Unknown 04/28/2019 250mg Tablets Chyawanprash 5 ml once daily Unknown 04/28/2019 Carvedilol 1 tab by mouth 180tabs Carol Velasquez, 02/14/2019 25mg twice a day M.D. Tablets Propafenone HCL take 1 tablet by 180tabs I48.0 Mireille Argueta, 04/25/2018 150mg mouth twice daily N.P. Tablets Mandibular fabricate oral 1units G47.33 Gricel Marinelli, 01/14/2018 Advancement Device appliance DNP, RN, SCALE TECHNICIAN-BC /mandibular Device advancement device for sleep apnea with needed adjustments. Compression knee high closed 1Pair Carol Velasquez, 09/04/2017 Stockings toe moderate M.D. Misc compression 20-30 mmHg Advanced 1 softgel po daily Unknown Bio-Curcumin With Johanne & Turmerones 600mg/60mg Triphala GI 1 po daily Unknown Wellness Tablet Finasteride 1 by mouth every Unknown 5mg other day Tablets Ventolin HFA 2 puffs by mouth 8gm Hank Gautam NP four times a day 108(90Base) mcg/Act as needed Aerosol Eliquis 1 by mouth twice a 180tabs Carol Velasquez, 5mg Tablets day M.D. Magnesium Zumxr ( 1 po daily Unknown Mag Oxide , Mag Citrate) 250mg Capsules Coq10 1 by mouth every Unknown 200mg Capsules day Methyl-Cobalamin ( 1 by mouth every Unknown Vitamin B12) other day 1000mcg Lozenges History Medications Amlodipine Besylate 1 by mouth every 90tabs Mireille Argueta, 05/26/2019 - 5mg day N.P. 06/05/2019 Tablets Co Q-10 Every Day Unknown 04/28/2019 - 200mg Capsules 06/12/2019 Curcumin W/Johanne & 1 cap every day Unknown 04/28/2019 - Turmerones 06/12/2019 Triphala 1 cap every day Unknown 04/28/2019 - 06/20/2019 Amlodipine Besylate 1/2 by mouth 90tabs Mireille Argueta, 02/14/2019 - every day N.P. 05/26/2019 10mg Tablets Immunizations CPT Code Status Date Vaccine Reaction Lot # [id number] Given 05/09/2018 Hepatitis A Vaccine Adult [id number] Dosage 18095 Given 11/09/2017 Tdap - No immediat [id number] Tetanus/Diptheria/Acellula reaction... r Pertussis 23770 Given 11/09/2017 Hepatitis A Vaccine Adult no immedite [id number] Dosage reaction... Vital Signs Date Vital Result Comment 06/20/2019 2:33pm Height 69 inches 5'9" Weight 178.50 lb Heart Rate 69 /min BP Systolic 128 mmHg BP Diastolic 80 mmHg Body Temperature 97.8 F O2 % BldC Oximetry 99 % BMI (Body Mass Index) 26.4 kg/m2 06/05/2019 2:39pm Height 69 inches 5'9" Weight 176.00 lb with shoes Heart Rate 60 /min BP Systolic Sitting 105 mmHg Lue BP Diastolic Sitting 70 mmHg Lue BP Systolic Standing 100 mmHg Lue BP Diastolic Standing 72 mmHg Lue BMI (Body Mass Index) 26.0 kg/m2 Ejection Fraction 48% Echo 03/27/19 Results Test Date Facility Test Result H/L Range Note Stool Occult 05/09/2019 Pharmacist In Charge In House Occult Blood negative x 3 ca BLD 1-3 [facility] - Stool Diag Iron & Iron 05/02/2019 [facility] Iron 24 g/dL Low 50-[address] [place] [address] [phone] Unsaturated Iron Binding < 366 g/dL Total Iron Binding Capacity 381 g/dL Normal 250-450 Transferrin 272 mg/dL Normal 203-362 % Iron Saturation 6 % Low 15-55 Laboratory test 05/02/2019 [facility] Ferritin 8.3 ng/mL Low 24-[address] [place] [address] [phone] Vitamin B12 And 05/02/2019 [facility] Vitamin B12 > 1450 High 180-914 1 Folate Serum [address] pg/[place] [address] [phone] Folic Acid (Folate) 10.37 ng/mL >3.99 Laboratory test 04/28/2019 [facility] Troponin-I (TnI) 0.01 ng/ mL <0.04 [address] [place], [place] [id number] [phone] Laboratory test 04/28/2019 [facility] B-Type 258 pg/mL High <= [address] [place] [address] Peptide BNP [phone] D Dimer Quantitative < 200 ng/mL Normal Less Than 230 3 CBC Auto 04/28/2019 [facility] White Blood 6.4 10^3/uL Normal 3.5-10.[address] [place] [address] [phone] Red Blood Count 4.58 10^6/uL Normal 4.18-5.48 Hemoglobin 12.0 g/dL Low 14.0-18.0 Hematocrit 36 % Low 42-52 Mean Corpuscular Volume 79 fL Low 80-94 Mean Corpuscular Hemoglobin 26 pg Low 27-31 Mean Corpuscular HGB Conc 33 g/dL Normal 31-36 Red Cell Distribution Width 17 % High 10-15 Platelet Count 325 10^3/uL Normal 150-450 Mean Platelet Volume 6.6 fL Low 7.4-10.4 Abs Neutrophils 4.2 10^3/uL Normal 1.5-7.7 Abs Lymphocytes 1.3 10^3/uL Normal 1.0-4.8 Abs Monocytes 0.7 10^3/uL Normal 0-0.8 Abs Eosinophils 0.2 10^3/uL Normal 0-0.6 Abs Basophils 0.1 10^3/uL Normal 0-0.2 Abs Nucleated RBC 0.0 10^3/uL Granulocyte % 64.8 % Lymphocyte % 19.9 % Monocyte % 10.9 % Eosinophil % 2.9 % Basophil % 1.5 % Nucleated Red Blood Cells % 0.0 Comp Metabolic 04/28/2019 [facility] Sodium 141 mmol/L Normal 135-145 Panel [address] [place] [address] [phone] Potassium 3.9 mmol/L Normal 3.5-5.0 Chloride 109 mmol/L Normal 101-111 Co2 Carbon Dioxide 26 mmol/L Normal 22-32 Anion Gap 6 mmol/L Normal 2-11 Glucose 97 mg/dL Normal 70-100 Blood Urea Nitrogen 20 mg/dL Normal 6-24 Creatinine 1.39 mg/dL High 0.67-1.17 BUN/Creatinine Ratio 14.4 Normal 8-20 Calcium 9.4 mg/dL Normal 8.6-10.3 Total Protein 6.8 g/dL Normal 6.4-8.9 Albumin 3.9 g/dL Normal 3.2-5.2 Globulin 2.9 g/dL Normal 2-4 Albumin/Globulin Ratio 1.3 Normal 1-3 Total Bilirubin 0.70 mg/dL Normal 0.2-1.0 Alkaline Phosphatase 55 U/L Normal 34-104 Alt 13 U/L Normal 7-52 Ast 13 U/L Normal 13-39 Egfr Non- 50.5 >60 Egfr 61.1 >60 4 Laboratory test 04/28/2019 [facility] Troponin-I (TnI) 0.01 ng/ mL <0.04 5 finding [address] [place] [address] [phone] Lactic Acid 1.0 mmol/L Normal 0.5-2.0 6 1 Normal Range 180 to 914 Indeterminate Range 145 to 180 Deficient Range <145 2 Troponin-I testing on Plasma Separator Tubes (PST) has a known false positive rate of 0.20-0.40%. All positive troponins reflex immediately to secondary confirmatory testing. Using the Write.[employer] DxI 800 Access Immunoassay systems, the 99th percentile upper reference limit was demonstrated to be < 0.03 ng/mL. 3 Please note: The following may produce a false positive D Dimer test: - Rheumatoid factor greater than 60 IU/ml - Plasma hemoglobin greater than 0.05 gm/dl - Bilirubin greater than 50 mg/dl - Lipids greater than 1000 mg/dl - FDP greater than 20 ug/ml 4 Because ethnic data is not always readily [...] 15-29 5 Kidney failure <15 (or dialysis) 5 Troponin-I testing on Plasma Separator Tubes (PST) has a known false positive rate of 0.20-0.40%. All positive troponins reflex immediately to secondary confirmatory testing. Using the Write[employer]my DxI 800 Access Immunoassay systems, the 99th percentile upper reference limit was demonstrated to be < 0.03 ng/mL. 6 [facility] Severe Sepsis and Septic Shock Management Bundle Measure requires all lactic acids initially measuring >2.0 mmol/L be repeated. Procedures Date Code Description Status 06/05/2019 85896 Pace Maker Eval W/Iterative Adjment Dual Lead Completed 06/05/2019 42700 Pace Maker Eval W/Iterative Adjment Dual Lead Completed 04/28/2019 33880 EKG Tracing & Interpretation Completed 03/24/2019 16298 EKG Tracing & Interpretation Completed Medical Devices Description No Information Available Encounters Type Date Location Provider Dx Diagnosis Office Visit 06/05/2019 [facility] Carol Velasquez, I48.0 Paroxysmal atrial 2:40p Of Pharmacist In Charge M.D. fibrillation I10 Essential (primary) hypertension I34.0 Nonrheumatic mitral (valve) insufficiency I42.9 Cardiomyopathy, unspecified R06.02 Shortness of breath Z95.810 Presence of automatic (implantable) cardiac defibrillator I45.10 Unspecified right bundle-branch block R42 Dizziness and giddiness Office Visit 05/02/2019 10:20a Pharmacist In Charge Internal Hank Dain, D64.9 Anemia, unspecified Medicine - [employer] R42 Dizziness and giddiness I10 Essential (primary) hypertension M54.9 Dorsalgia, unspecified Office Visit 04/28/2019 3:00p Pharmacist In Charge Internal Hank Dain, [employer] Z00.00 [facility] findings R42 Dizziness and giddiness I10 Essential (primary) hypertension Office Visit 03/24/2019 3:20p [facility] Carol Velasquez, I48.0 Paroxysmal atrial Of [facility] M.D. fibrillation I44.2 Atrioventricular block, complete I34.0 Nonrheumatic mitral (valve) insufficiency I42.9 Cardiomyopathy, unspecified R06.02 Shortness of breath Z95.0 Presence of cardiac pacemaker I45.10 Unspecified right bundle-branch block Assessments Date Code Description Provider 06/20/2019 M25.522 Pain in left elbow Hank YULIYA Gautam 06/20/2019 R22.2 Localized swelling, mass and lump, trunk Hank YULIYA Gautam 06/18/2019 I10 Essential (primary) hypertension Nurse Visit IC 06/05/2019 I48.0 Paroxysmal atrial fibrillation Ica Pacer Schedule 06/05/2019 I48.0 Paroxysmal atrial fibrillation Carol Velasquez M.D. 06/05/2019 Z95.0 Presence of cardiac pacemaker Carol Velasquez M.D. 06/05/2019 I42.9 Cardiomyopathy, unspecified Ica Pacer Schedule 06/05/2019 I10 Essential (primary) hypertension Carol Velasquez M.D. 06/05/2019 Z95.0 Presence of cardiac pacemaker Ica Pacer Schedule 06/05/2019 I34.0 Nonrheumatic mitral (valve) insufficiency Carol Velasquez M.D. 06/05/2019 I42.9 Cardiomyopathy, unspecified Carol Velasquez M.D. 06/05/2019 R06.02 Shortness of breath Carol Velasquez M.D. 06/05/2019 Z95.810 Presence of automatic (implantable) cardiac Carol Velasquez M.D. defibrillator 06/05/2019 I45.10 Unspecified right bundle-branch block Carol Velasquez M.D. 06/05/2019 R42 Dizziness and giddiness Carol Velasquez M.D. 05/09/2019 D64.9 Anemia, unspecified Hank YULIYA Gautam 05/02/2019 D64.9 Anemia, unspecified Hank YULIYA Gautam 05/02/2019 R42 Dizziness and giddiness Hank Quinonesnn, YULIYA 05/02/2019 I10 Essential (primary) hypertension Hank QuinonesYULIYA velez 05/02/2019 M54.9 Dorsalgia, unspecified Hank YULIYA Gautam 04/28/2019 R42 Dizziness and giddiness Cindy Vasques MD 04/28/2019 Z00.00 Encounter for general adult medical examination Hank YULIYA Gautam without abno 04/28/2019 R42 Dizziness and giddiness Hank Gautam NP 04/28/2019 I10 Essential (primary) hypertension Hank Gautam NP 03/24/2019 I48.0 Paroxysmal atrial fibrillation Carol Velasquez M.D. 03/24/2019 I44.2 Atrioventricular block, complete Carol Velasquez M.D. 03/24/2019 I34.0 Nonrheumatic mitral (valve) insufficiency Carol Velasquez M.D. 03/24/2019 I42.9 Cardiomyopathy, unspecified Carol Velasquez M.D. 03/24/2019 R06.02 Shortness of breath Carol Velasquez M.D. 03/24/2019 Z95.0 Presence of cardiac pacemaker Carol Velasquez M.D. 03/24/2019 I45.10 Unspecified right bundle-branch block Carol Velasquez M.D. Plan of Treatment Future Appointment(s):09/23/2019 1:30 pm - Mireille Argueta N.P. at [facility]06/20/2019 - Hank QuinonesYULIYA velezM25.522 Pain in left elbowNew Medication:Diclofenac Sodium 1 % - apply 2 grams to affected area twice dailyElbow Support/Pressure Pads/Left-Right/Small-Medium - Wear on left elbow during the dayComments:You can try the over the counter elbow pad that we discussed.Try the Voltaren twice daily to the area. If you would like a referral to the hand specialist let me know.R22.2 Localized swelling, mass and lump, trunkReferral:Olu Pineda MD, Surgery,General Functional Status Description No Information Available Mental Status Description No Information Available Referrals Refer to Reason for Referral Status Appt Date Olu Pineda MD Sent [address] [facility] [address] [phone]
[2019-07-05 08:27] LABS: ABS Basophils 0.1 10^3/ul (0-0.2); ABS Eosinophils 0.2 10^3/ul (0-0.6); ABS Monocytes 0.6 10^3/ul (0-0.8); ABS Neutrophils 3.7 10^3/ul (1.5-7.7); Eosinophil % 3.4 %; Hematocrit 36 % (42-52); Hemoglobin 11.9 g/dL (14.0-18.0); Lymphocyte % 17.9 %; Mean Corpuscular HGB Conc 33 g/dL (31-36); Mean Corpuscular Hemoglobin 26 pg (27-31); Mean Corpuscular Volume 79 fL (80-94); Mean Platelet Volume 6.4 fL (7.4-10.4); Platelet Count 303 10^3/uL (150-450); Red Blood Count 4.55 10^6 /uL (4.18-5.48); Red Cell Distribution Width 17 % (10-15); White Blood Count 5.7 10^3/uL (3.5-10.8)
[2019-07-05 08:39] LABS: Activated Partial Thrombo Time 39.9 seconds (26.0-38.0); INR 1.25 (0.82-1.09)
[2019-07-05 08:42] LABS: ALT 15 U/L (7-52); AST 13 U/L (13-39); Albumin 3.7 g/dL (3.2-5.2); Albumin/Globulin Ratio 1.5 (1-3); Alkaline Phosphatase 58 U/L (34-104); Anion Gap 2 mmol/L (2-11); BUN/Creatinine Ratio 8.8 (8-20); Blood Urea Nitrogen 13 mg/dL (6-24); CO2 Carbon Dioxide 28 mmol/L (22-32); Calcium 8.8 mg/dL (8.6-10.3); Chloride 109 mmol/L (101-111); Cholesterol 149 mg/dL; EGFR African American 56.9 (>60); Globulin 2.4 g/dL (2-4); Glucose 102 mg/dL (70-100); LDL Cholesterol 80 mg/dL; Potassium 3.9 mmol/L (3.5-5.0); Sodium 139 mmol/L (135-145); Total Protein 6.1 g/dL (6.4-8.9); Triglycerides 39 mg/dL
[2019-07-05 08:43] LABS: Troponin I 0.01 ng/mL (<0.04)
[2019-07-05] MEDS ORDERED: Iodixanol* (CONTRAST) 320 MG/ML 100 ML SDV IV ONE (08:52)
[2019-07-05] MEDS ORDERED: Atorvastatin* 40 MG TAB PO ONE (09:42)
[2019-07-05] MEDS ORDERED: Carvedilol TAB* 25 MG PO ONE (09:46)
[2019-07-05] MEDS ORDERED: Acetaminophen TAB* 325 MG PO PRN (11:59)
[2019-07-05] MEDS ORDERED: Ondansetron INJ* 2 MG/ML VIAL IV PRN (11:59)
[2019-07-05] MEDS ORDERED: Albuterol HFA INHALER* 8 gm MDI INH PRN (12:21)
[2019-07-05 12:55] LABS: % Iron Saturation 6 % (15-55); Iron 22 ug/dL (50-212); Total Iron Binding Capacity 377 mcg/dL (250-450); Transferrin 269 mg/dL (203-362)
[2019-07-05 13:14] LABS: Ferritin 8.7 ng/mL (24-336)
--- NOTE | 2019-07-05 15:21 | HP ---
CC: Dr. Lepe; Dr. Velasquez * MEDICINE HISTORY AND PHYSICAL: DATE OF ADMISSION: 07/05/19 PROVIDER: Akua Darby NP ATTENDING PHYSICIAN: Dr. Joel King * (dictated by Akua Darby NP) . PRIMARY CARE PROVIDER: Dr. Lepe. CONSULTING NEUROLOGIST: Dr. Lamonte Davis. CHIEF COMPLAINT: Dizziness. HISTORY OF PRESENT ILLNESS: Mr. Bhatia is a 69-year-old male who presented to the ER today with concern for dizziness. He states that he woke up and was texting on his phone. He started to note that he felt dizzy and noted that the time was 5:53 on his phone. He was lying down at that time and noted that his vision felt wavy and that there was a sensation that the room was moving from side to side. When he sat up, these symptoms became more pronounced. He then got up to go get a drink of water and felt significantly dizzy and wobbly. He held onto the wall and was able to make it to a seated position. He texted his son, who is a cardiac nurse in [place], who recommended that he get to the hospital for further evaluation. He then called a cab and arrived by cab to the ER. Upon arrival, a darion rebolledo was called at 7:[address] of the brain showed no evidence for gross acute infarct, mass effect, or hemorrhage. Telestroke services were activated. He was recommended to have a CTA of the head, which showed a linear intraluminal filling defect in the posterior aspect of the right carotid bulb extending into the proximal internal carotid artery suggestive of a short segmental dissection. No significant carotid artery narrowing is present. No evidence for large vessel intracranial thrombus. The intraluminal filling defect within the right carotid bulb is also consistent with a carotid artery web. These findings were reviewed with Dr. Jean from [place], who also conveyed that he thinks the patient has a web, not a dissection and recommended that the patient take his morning Eliquis , a statin, and obtain an MRI. However, an MRI was unable to be obtained secondary to pacemaker placement and unknown status of pacemaker whether or not it is MRI compatible. It was then recommended that the patient be admitted to have a repeat CT scan in 24 hours with a plan for MRI on Sunday if pacemaker is compatible with the MRI machinery. He is advised to have q.2 hour neuro checks and at this point, he was referred for admission. In the room, Mr. Bhatia is sitting up in the hospital stretcher, in no acute distress. He was texting on his phone. He apparently had got himself out of bed and walked to the bathroom and returned with no assistance. He reports that his dizziness improved while he was here in the ER, but they are starting to escalate again. Denies wavy vision, but does state that he has some mild dizziness and some slight head pressure. He denies any recent cold or flu symptoms, fever, chills, chest pain. He denies shortness of breath, cough, hemoptysis. He denies abdominal pain, nausea, vomiting, diarrhea. He denies any dysuria or hematuria. He denies difficulty with swallowing. Denies any tinnitus or hearing complaints. Other than blurry vision, denies any other visual complaints recently. Denies any new joint or muscle pains, rashes, or lesions or other concerns. Overall, Mr. Bhatia states that he has been doing well. He had moved to [place] for a short period of time given his cardiac history in order to be closer to family, so he would not be alone; however, he has recently moved back to [place] and lives with his . PAST MEDICAL HISTORY: Significant for: 1. Non-ischemic cardiomyopathy. Patient states this is resolved; no follow up echo seen in [facility] records. 2. Atrial fibrillation. 3. Chronic kidney disease, stage 3. 4. Hypertension. 5. Mitral regurgitation. 6. Pacemaker placement. PAST SURGICAL HISTORY: Includes: 1. Hernia repair. 2. Cardiac catheterization. HOME MEDICATIONS: 1. Propafenone 150 mg b.i.d. 2. CoQ10 200 mg daily. 3. Triphala Wellness 1 capsule daily. 4. Magnesium 250 mg daily. 5. Finasteride 5 mg q.a.m. 6. Cyanocobalamin 1000 mcg every other day. 7. Curcumin with Johanne and Turmerones 1 capsule daily. 8. Chyawanprash 5 mL daily. 9. Carvedilol 25 mg b.i.d. 10. Apixaban 5 mg b.i.d. 11. Albuterol inhaler 2 puffs inhaled q.4 hours p.r.n. ALLERGIES: No known drug allergies. He has environmental allergies. FAMILY HISTORY: Includes an uncle with diabetes and breast and throat cancer in his mother. SOCIAL HISTORY: He reports smoking a pack of cigarettes as a teenager, but no further smoking history since then. He denies any alcohol or illicit drug use. He is retired from a [employer]. He is and has a son. His , Emily, and his son, Rober Bhatia IV, are his surrogate decision makers in the event of emergency with Emily being the primary. REVIEW OF SYSTEMS: As per HPI. PHYSICAL EXAMINATION VITAL SIGNS: Temperature 98.1, heart rate 60, respiratory rate 18, blood pressure 165/113, and O2 saturation is 100% on room air. HEENT: Head is atraumatic, normocephalic. Pupils are equal and round and reactive to light and accommodation. Oral mucosa is moist without erythema or exudate. NECK: Supple. No JVD noted. No lymphadenopathy appreciated. No carotid bruit is auscultated. LUNGS: Clear to auscultation bilaterally with no wheezes, rales, or rhonchi noted. CARDIAC: Regular rate and rhythm. No murmur appreciated. Normal S1, S2 heart sounds. Distal pulses intact to the radial and pedal pulses and 2+ and symmetric. No peripheral edema noted. ABDOMEN: Soft, nontender, nondistended with normoactive bowel sounds. MUSCULOSKELETAL: There is no clubbing or cyanosis. There is full range of motion in all 4 extremities. SKIN: Appears grossly intact. NEUROLOGIC: He is alert, oriented x4. Strength is equal bilaterally in the upper and lower extremities. Cranial nerves II through XII are grossly intact. Negative pronator drift. Jdac-lz-jddr intact. Mgeajxl-jr-qfxu intact. Rapid alternating movements are intact. Left-sided leaning noted with ambulation. There is no pronator drift. LABORATORY DATA AND DIAGNOSTIC STUDIES: CT report as per above. EKG shows AV paced rate of 60 beats per minute. CBC: WBCs 5.7, hemoglobin 11.9, hematocrit 36, MCV 79, MCH 26, platelet count of 303. CMP: Sodium 139, potassium 3.9, chloride 109, carbon dioxide 28, BUN 13, creatinine 1.48, glucose 102. Lactic acid 1.1, calcium 8.8, total bilirubin 0.5, AST 13, ALT 15, alk phos 58, troponin 0.01. Total protein 6.1, albumin 3.7. Triglycerides 39, cholesterol 149, LDL 80, and HDL 61. Old medical records were reviewed. ASSESSMENT AND PLAN: This is a 69-year-old male with a past medical history significant for atrial fibrillation, nonischemic cardiomyopathy, hypertension, and chronic kidney disease, who presents today with dizziness and visual alterations that are concerning for transient ischemic attack versus cerebrovascular accident. He will be admitted for further evaluation and observation. Plans are as follows: 1. Dizziness, transient ischemic attack, rule out cerebrovascular accident. I did discuss the patient and his plan of care with Dr. Davis. He is in agreement and recommends continuing with close neurological followup. Mr. Bhatia is ordered q.2 hour neuro checks. As there is concern for a web and not a dissection, Mr. Bhatia was advised to continue on his Eliquis and was not recommended to have aspirin. Dr. Davis is in agreement with his plan. However , this does potentially increase the risk for hemorrhagic conversion and further bleeding and so we will closely monitor Mr. Bhatia. I have asked the nursing staff to contact the [employer] administrative representative to see if the patient's pacemaker is MRI compatible in order to obtain MRI on Sunday; however, we will also check a repeat CT scan tomorrow on Sunday, [address] scan. Currently, Mr. Bhatia is endorsing some dizziness, but no further deficits. He is without complaint. We will allow for permissive hypertension in the presence of a potential cerebrovascular accident. We will hold his carvedilol, but continue his propafenone for his atrial fibrillation. Check an echocardiogram tomorrow and order physical and occupational therapies for further evaluations. 2. For history of atrial fibrillation, again, propafenone be continued with carvedilol on hold at this time. He will continue on his home Eliquis. 3. History of nonischemic cardiomyopathy. He said that he recently had cardiac followup. We will look for previous echocardiograms for comparison. He does have a history of low ejection fraction and previously was wearing a LifeVest, this is no longer the case and states that he has been stable with improved cardiac function. Plan to recheck echocardiogram per stroke protocol. 4. Chronic kidney disease, stage 3, appears to be roughly within baseline, continue to monitor intermittently. 5. Hypertension. We will hold on antihypertensives as he has concern for acute cerebrovascular accident and we will allow for permissive hypertension. 6. FEN. He is a vegetarian and will be ordered a vegetarian heart-healthy diet. 7. DVT prophylaxis. Continue Apixaban. He is also ordered SCDs. 8. Code status. He is a full code. TIME SPENT: Approximately 60 minutes was spent on this admission with more than half that time spent [id number] with the patient, obtaining history and physical, performing physical examination, and reviewing the plan of care. Plan of care was also reviewed with my attending, Dr. King, who is in agreement. AKUA DARBY, YULIYA [id number]/CPS #: [id number] CELE
[2019-07-05] MEDS: Apixaban* 5 MG TAB PO SCH (20:55)
[2019-07-05] MEDS ORDERED: Apixaban* 5 MG TAB PO SCH (21:00)
[2019-07-05] MEDS: proPAFENone TAB* 150 MG PO SCH (21:51)
[2019-07-06 07:07] LABS: ABS Basophils 0.1 10^3/ul (0-0.2); ABS Eosinophils 0.2 10^3/ul (0-0.6); ABS Lymphocytes 1.1 10^3/ul (1.0-4.8); ABS Monocytes 0.6 10^3/ul (0-0.8); Eosinophil % 3.7 %; Hematocrit 37 % (42-52); Hemoglobin 12.6 g/dL (14.0-18.0); Lymphocyte % 17.9 %; Mean Corpuscular HGB Conc 34 g/dL (31-36); Mean Corpuscular Hemoglobin 27 pg (27-31); Mean Corpuscular Volume 79 fL (80-94); Mean Platelet Volume 6.9 fL (7.4-10.4); Platelet Count 299 10^3/uL (150-450); Red Cell Distribution Width 17 % (10-15); White Blood Count 5.9 10^3/uL (3.5-10.8)
[2019-07-06 07:14] LABS: BUN/Creatinine Ratio 7.9 (8-20); Calcium 8.6 mg/dL (8.6-10.3); EGFR African American 61.1 (>60); EGFR Non-African American 50.5 (>60); Potassium 3.7 mmol/L (3.5-5.0)
[2019-07-06] MEDS: Ferrous Sulfate TAB* 325 MG PO SCH (07:49)
[2019-07-06] MEDS: Finasteride TAB* 5 MG PO SCH (07:49)
[2019-07-06] MEDS: Apixaban* 5 MG TAB PO SCH ×2 (07:49→20:07)
[2019-07-06] MEDS: Magnesium Oxide TAB* 400 MG PO SCH (07:50)
[2019-07-06] MEDS: proPAFENone TAB* 150 MG PO SCH ×2 (07:51→20:07)
[2019-07-06] MEDS ORDERED: UBIDECARENONE 200 MG PO SCH (09:00)
[2019-07-06 10:35] LABS: Urine Appearance Cloudy; Urine Bilirubin Negative (Negative); Urine Blood Negative (Negative); Urine Color Yellow; Urine Glucose Negative (Negative); Urine Ketones Negative (Negative); Urine Nitrite Negative (Negative); Urine Protein Negative (Negative); Urine Specific Gravity 1.019 (1.010-1.030); Urine Urobilinogen Negative (Negative)
--- NOTE | 2019-07-06 10:46 | PN ---
Subjective Date of Service: 07/06/19 Interval History: Mr. Bhatia reports some mild dizziness that is much improved from arrival. He notes being much more steady on his feet when he got up to the bathroom this morning. He denies other complaint including weakness, headache, vision changes , chest pain, SOB, nausea, or abdominal pain. Objective Active Medications: Acetaminophen (Tylenol Tab*) 650 mg PO Q4H PRN Albuterol (Ventolin Hfa Inhaler*) 2 puff INH Q4H PRN Apixaban (Eliquis*) 5 mg PO BID LAYLA Atorvastatin Calcium (Lipitor*) 40 mg PO 1700 LAYLA Ferrous Sulfate (Ferrous Sulfate Tab*) 325 mg PO DAILY LAYLA Finasteride (Proscar Tab*) 5 mg PO QAM LAYLA Magnesium Oxide (Magox 400 Tab*) 200 mg PO DAILY LAYLA Ondansetron HCl (Zofran Inj*) 4 mg IV Q6H PRN Propafenone HCl (Rythmol*) 150 mg PO BID LAYLA Vital Signs: Temp Pulse Resp BP Pulse Ox 98 F 61 18 144/100 100 07/06/19 08:20 07/06/19 08:20 07/06/19 08:20 07/06/19 08:20 07/06/19 08:20 Oxygen Devices in Use Now: None Appearance: Male lying in bed in NAD Eyes: No Scleral Icterus Ears/Nose/Mouth/Throat: Mucous Membranes Moist Respiratory: Symmetrical Chest Expansion and Respiratory Effort, Clear to Auscultation Cardiovascular: NL Sounds; No Murmurs; No JVD, No Edema Abdominal: NL Sounds; No Tenderness; No Distention Extremities: No Edema Skin: No Rash or Ulcers Neurological: Alert and Oriented x 3, NL Muscle Strength and Tone Nutrition: Taking PO's Result Diagrams: 07/06/19 06:24 07/06/19 06:24 Assess/Plan/Problems-Billing Assessment: Mr. Bhatia is a 69 yo M with a PMH of non-ischemic CM, afin, CKD Stage 3, HTN, and pacemaker who was admitted on 07/05/19 with dizziness. - Patient Problems (1) Dizziness Comment: - Symptoms resolving - ? TIA, CVA - CT brain negative - Continue eliquis, no aspirin - Neuro consult pending - Plan for MRI Sunday (2) Atrial fibrillation Comment: - HR 60s - Continue carvedilol and propafenone - Continue Eliquis. (3) CKD (chronic kidney disease) stage 3, GFR 30-59 ml/min Comment: - At baseline (4) Asthma Comment: - No evidence of exacerbation - Albuterol inhaler prn. (5) DVT prophylaxis Comment: - Eliquis. (6) Full code status Comment: Status and Disposition: Inpatient. Anticipate discharge to home when medically stable.
--- NOTE | 2019-07-06 16:29 | CONS ---
CONSULTATION REPORT: DATE OF CONSULT: 07/06/19 PATIENT OF: Siri Hanley NP; Dr. Lepe; and Dr. Velasquez. HISTORY OF PRESENT ILLNESS: This is a 69-year-old man who I am asked to evaluate for dizziness and abnormal CTA. He notes that he has had brief episodes of dizziness off and on on occasion for the past several years' time. He does not remember the details of this. He notes that the dizziness began again yesterday with a feeling of room spinning and it became worse as he changed position and he felt wobbly and needing to hold onto a wall. He had some waviness of his vision, but it was unclear whether that was because of the sensation of movement or not. There was no headache, no weakness, no numbness. He states it felt like he was going to go to left. There was no ringing of his ears. He feels better today but still has some mild dizziness, worse with head movements. He had a negative CT scan. A CTA showed an intraluminal filling defect in the right carotid bulb which was thought to be a carotid web by the neurosurgeon at [place] and recommended discontinuation of Eliquis that he is on for his AFib. He had a repeat CT scan that I reviewed and compared to the prior, which showed no clear-cut abnormalities. His brainstem was not well visualized on CT scan. PAST MEDICAL HISTORY: Significant for nonischemic cardiomyopathy; atrial fibrillation; chronic kidney disease, stage 3; hypertension. PAST SURGICAL HISTORY: Pacemaker placement. He is status post cardiac cath, herniorrhaphy. HOME MEDICATIONS: Include: 1. Propafenone 150 b.i.d. 2. Coenzyme Q10 200 daily. 3. Triphala Wellness 1 capsule daily. 4. Magnesium 250 daily. 5. Finasteride 5 mg q.a.m. 6. Cyanocobalamin 1000 mcg every other day. 7. Carvedilol 25 mg daily. 8. Apixaban 5 mg b.i.d. 9. Albuterol 2 puffs q.4 hours. ALLERGIES: He has no known drug allergies. FAMILY HISTORY: He has family history of an uncle with diabetes, and breast and throat cancer in his mother. SOCIAL HISTORY: He smoked a pack of cigarettes as a teenager, but none since. No alcohol or drug use. He is . REVIEW OF SYSTEMS: Negative in all 14 spheres other than HPI. PHYSICAL EXAM: Temperature 98.2, pulse 62, respirations 20, blood pressure 140/ 97. He was alert and oriented with normal speech and comprehension. Cranial nerves II through XII were intact. Fundi were benign. There was no nystagmus. He notes that he felt dizzy when he moved his head from [id number]. There was no nystagmus though at that time and no past-pointing. Rapid alternating movements were intact. Gait was narrow and normal except on turns when he swayed in either direction and felt slightly dizzy with namely room spinning. Romberg was negative. Strength was 5/5. Reflexes were 2+. He had somewhat of a startle, but he says he does not have startle in general. Sensation intact to light touch and position. Chest: Clear. Cardiovascular: Regular rate and rhythm. Abdomen is soft with positive bowel sounds. DIAGNOSTIC STUDIES/LAB DATA: I reviewed his CT scans and a CTA, which were as described. His labs include normal CBC other than MCV of 79. INR of 1.25, PTT 39.9. Chemistries were normal other than a creatinine of 1.39, glucose of 101. Hemoglobin A1c was 6. Iron was 22 with percent saturation 6, ferritin 8.7. LDL was 80 and he is on a statin now. IMPRESSION AND PLAN: I think that Mr. Valdez vertigo may be peripheral with a strong positional component and episodic, but it is reasonable to get an MRI scan. It has been discussed and ordered if pacer is compatible. I reviewed his cards and there are instructions to make sure that our MRI machine is compatible with it. The pacer was placed in November, so most likely it will be compatible. Please go ahead and contact Radiology tomorrow morning ordering the MRI scan and asking them to double check to make sure that the MRI scan is compatible. I would recommend him having physical therapy for instructions how to clear potential grit from his inner ear if the MRI scan is negative so that if this happens again, he will have a plan for potentially dealing with this. Dr. Cuenca is on beginning tomorrow to follow up the MRI scan as needed. Thank you for sharing his case. [id number]/CPS #: [id number] CELE
[2019-07-06] MEDS: Atorvastatin* 40 MG TAB PO SCH (16:51)
[2019-07-07] MEDS: Apixaban* 5 MG TAB PO SCH ×2 (07:38→20:26)
[2019-07-07] MEDS: Ferrous Sulfate TAB* 325 MG PO SCH (07:38)
[2019-07-07] MEDS: proPAFENone TAB* 150 MG PO SCH ×2 (07:38→20:25)
[2019-07-07] MEDS: Magnesium Oxide TAB* 400 MG PO SCH (07:38)
[2019-07-07] MEDS: Finasteride TAB* 5 MG PO SCH (07:38)
--- NOTE | 2019-07-07 10:38 | PN ---
Subjective Date of Service: 07/07/19 Interval History: Pt states that his dizziness resolved this morning for the first time. He notes that he became dizzy again around 904. He states that hes feels "floaty. " He notes that this is worse with standing, and nothing resolves it. Pt states that he has had this intermittently for "months," but it was worse 2 days ago when he was seen in the ER. He denies associated vision changes, n/v, extremity weakness, dysphagia. He does admit to b/l temporal pressures at times that is intermittently associated with dizziness. No other complaints today. Objective Active Medications: Acetaminophen (Tylenol Tab*) 650 mg PO Q4H PRN Albuterol (Ventolin Hfa Inhaler*) 2 puff INH Q4H PRN Apixaban (Eliquis*) 5 mg PO BID LAYLA Atorvastatin Calcium (Lipitor*) 40 mg PO 1700 LAYLA Ferrous Sulfate (Ferrous Sulfate Tab*) 325 mg PO DAILY LAYLA Finasteride (Proscar Tab*) 5 mg PO QAM LAYLA Magnesium Oxide (Magox 400 Tab*) 200 mg PO DAILY LAYLA Ondansetron HCl (Zofran Inj*) 4 mg IV Q6H PRN Propafenone HCl (Rythmol*) 150 mg PO BID LAYLA Vital Signs: Temp Pulse Resp BP Pulse Ox 97.4 F 69 16 128/95 100 07/07/19 07:18 07/07/19 07:18 07/07/19 07:18 07/07/19 07:18 07/07/19 07:18 Oxygen Devices in Use Now: None Appearance: Pt is sitting up in bed. Intermittently closes eyes, due to dizzines; otherwise appears to be in no acute distress. Cooperative, appropriate, pleasant. Eyes: No Scleral Icterus, PERRLA Ears/Nose/Mouth/Throat: NL Teeth, Lips, Gums, Clear Oropharnyx, Mucous Membranes Moist Neck: NL Appearance and Movements; NL JVP, Trachea Midline Respiratory: Symmetrical Chest Expansion and Respiratory Effort, Clear to Auscultation Cardiovascular: NL Sounds; No Murmurs; No JVD, RRR, No Edema Abdominal: NL Sounds; No Tenderness; No Distention, No Hepatosplenomegaly Extremities: No Edema, No Clubbing, Cyanosis Neurological: Alert and Oriented x 3, NL Sensation, NL Muscle Strength and Tone , - - CN II-XII grossly intact Result Diagrams: 07/06/19 06:24 07/06/19 06:24 Assess/Plan/Problems-Billing Assessment: Mr. Bhatia is a 69 yo M with a PMH of non-ischemic CM, afib, CKD Stage 3, HTN, and pacemaker who was admitted on 07/05/19 with dizziness. - Patient Problems (1) Dizziness Comment: - Symptoms resolved, then reappeared later this morning - ? TIA, CVA - CT brain negative - Continue eliquis, no aspirin - Neuro consulted and recommends MRI - MRI on hold until PPM compatibility determined; MRI nursing staff working on this at this time (2) Atrial fibrillation Comment: - HR 60s - Continue propafenone - Continue Eliquis - Carvedilol on hold currently; will restart at lower dose (3) Hyperlipidemia Comment: -Continue lipitor (4) Anemia Comment: -Iron deficiency anemia -Ferrous sulfate (5) Asthma Comment: - No evidence of exacerbation - Albuterol inhaler prn. (6) CKD (chronic kidney disease) stage 3, GFR 30-59 ml/min Comment: - At baseline (7) DVT prophylaxis Comment: - Eliquis. (8) Full code status Comment: Status and Disposition: Inpatient. Anticipate discharge to home when medically stable. Currently awaiting MRI head; must ensure that PPM is compatible; MRI nursing staff working on this currently.
--- NOTE | 2019-07-07 13:21 | ECHO ---
*[facility]* [place] [address] Fax #: [phone] Transthoracic Echocardiogram Patient: Rober Bhatia : 1950 Study Date: 07/07/2019 Age: 69 Gender: M HR: 74 bpm Height: 69 in /175.3 cm BSA: 1.95 m^2 Weight: 173.6 lb /78.9 kg BMI: 25.7 kg/m^2 *Utilities Ground Worker: * Angela Reyes [facility] *Referring Physician: * Cecy Cordova *Reading Physician: * Jeevan Haq MD Indications: TIA. History: Atrial fibrillation. Mitral regurgitation. PMH: Cardiomyopathy. Functional status: Renal failure. Risk factors: Hypertension. Labs, prior tests, procedures, and surgery: Permanent pacemaker system implantation. Valve surgery. Mitral valve repair. Tricuspid valve repair. Maze procedure. Cardiovascular surgery. Left atrial appendage tie off. Conclusions Summary: - Left ventricle: Systolic function is mildly to moderately reduced. The estimated ejection fraction is 40-45%. Hypokinesis of the mid-apicalanterolateral and inferolateral myocardium. - Right ventricle: Systolic function is low normal. - Ventricular septum: There is abnormal interventricular septal wall motion consistent with an RV pacemaker. - Mitral valve: Prior procedures include surgical repair. There is mild to moderate regurgitation. - Aortic valve: There is no evidence of stenosis. There is trace regurgitation. - Tricuspid valve: There is trace to mild regurgitation. - Ascending aorta: The ascending aorta is upper normal in size. - Pericardium, extracardiac: There is no significant pericardial effusion. - Pulmonary arteries: Systolic pressure can not be accurately estimated. - Compared to transesophageal echocardiogram fome 07/26/17, left ventricle funciton has improved. Study data: Transthoracic echocardiogram. Procedure: Transthoracic echocardiography was performed. Image quality was good. Complete 2D, spectral Doppler, and color flow Doppler. Location: Bedside. Patient status: Inpatient. Patient room number: 441-02. Rhythm: Paced rhythm. Findings Left ventricle: The cavity size is mildly dilated. There is mild asymmetric hypertrophy of the septum. Systolic function is mildly to moderately reduced. The estimated ejection fraction is 40-45%. Mild diffuse hypokinesis. Regional wall motion abnormalities: Hypokinesis of the mid-apicalanterolateral and inferolateral myocardium. There is no consistent Doppler evidence of clinically significant diastolic dysfunction. Right ventricle: The cavity size is mildly dilated. Pacer wire noted in the right ventricle. Systolic function is low normal. Ventricular septum: There is abnormal interventricular septal wall motion consistent with an RV pacemaker. Left atrium: The atrium is severely dilated. Right atrium: The atrium is mildly dilated. Pacer wire noted in right atrium. Mitral valve: Prior procedures include surgical repair. The leaflets are mildly thickened. There is no evidence of stenosis. There is mild to moderate regurgitation. Aortic valve: The leaflets are mildly thickened. Thickening, consistent with sclerosis. There is no evidence of stenosis. There is trace regurgitation. Tricuspid valve: Prior procedures include surgical repair. The leaflets are normal thickness. There is no evidence of stenosis. There is trace to mild regurgitation. Pulmonic valve: The leaflets are normal thickness. There is no evidence of stenosis. There is trace to mild regurgitation. Aorta: Aortic root: The aortic root is appears normal. Ascending aorta: The ascending aorta is upper normal in size. Aortic arch: The aortic arch is appears normal. Pericardium: There is no significant pericardial effusion. Pulmonary arteries: The main pulmonary artery is normal-sized. Systolic pressure can not be accurately estimated. Systemic veins: Inferior vena cava: The vessel is normal in size. There is (>= 50%) respiratory change in the IVC dimension. Measurements Left ventricle Value Ref Aortic valve Value Ref RIOS, LAX (H) 6.1 cm 4.2 - 5.8 Ash diam, ED 1.8 cm ---- ESD, LAX (H) 4.9 cm 2.5 - 4.0 Peak v, S 0.97 m/sec ---- FS, LAX (L) 19 % 25 - 43 VTI, S 21.5 cm ---- PW, ED, LAX 0.9 cm 0.6 - 1.0 Mean grad, S 3.0 mm Hg ---- FS (L) 19 % 25 - 43 Peak grad, S 5.0 mm Hg ---- PW, ED 0.9 cm 0.6 - 1.0 LVOT/AV, VTI ratio 0.65 ---- PW/ID, ED 0.15 NUHA, VTI 2.04 cm^2 ---- E', lat ash, TDI (L) 6.7 cm/sec >=10.0 NUHA, Vmax 1.91 cm^2 -- -- E/e', lat ash, 15 TDI Mitral valve Value Ref E', med ash, TDI (L) 4.8 cm/sec >=7.0 Peak E 0.99 m/sec -- -- E/e', med ash, 21 Peak A 0 m/sec ---- TDI Decel time 173 ms ---- E', avg, TDI 5.8 cm/sec PHT 107 ms ---- E/e', avg, TDI (H) 17 <=14 Mean grad, D 2.0 mm Hg -- -- Peak grad, D 4.0 mm Hg ---- LVOT Value Ref MVA, PHT 2.1 cm^2 ---- Diam, S 2.00 cm Max MR v 4.12 m/sec ---- Area 3.1 cm^2 Regurg VTI 147.0 cm ---- Peak moshe, S 0.69 m/sec VTI, S 14.0 cm Pulmonic valve Value Ref Mean grad, S 1 mm Hg Peak v, S 0.97 m/sec ---- SV 45 ml Peak grad, S 4.0 mm Hg ---- SV/bsa 23 ml/m^2 MO v, ED 0.98 m/sec ---- Ventricular septum Value Ref Aortic root Value Ref IVS, ED (H) 1.2 cm 0.6 - 1.0 Root diam 3.6 cm <4.1 Root max diam, ED 3.6 cm <4.1 Right ventricle Value Ref RIOS, LAX 3.9 cm Ascending aorta Value Ref RIOS minor ax, A4C (H) 4.7 cm 1.9 - 3.5 AAo AP diam, S 3.6 cm ---- mid Aortic arch Value Ref Left atrium Value Ref Arch diam 2.1 cm ---- AP dim, ES (H) 5.10 cm 3.00 - 4.00 Decending aorta Value Ref ML dim, A4C 6.8 cm Amanda peak moshe 0.5 m/sec ---- SI dim, A4C 7.1 cm Vol/bsa, ES, 1-p (H) 82 ml/m^2 12 - 37 Inferior vena cava Value Ref A4C Diam 1.8 cm ---- Vol/bsa, ES, A/L (H) 92 ml/m^2 16 - 34 Right atrium Value Ref SI dim, ES (H) 5.7 cm 3.4 - 5.3 ML dim, ES, A4C 3.9 cm 2.6 - 4.4 SI dim, ES, A4C (H) 5.7 cm 3.4 - 5.3 Estimated RAP 3 mm Hg Legend: (L) and (H) isis values outside specified reference range. Prepared and electronically signed by Jeevan Haq MD 07/07/2019 13:21
--- NOTE | 2019-07-07 14:47 | PN ---
Subjective Date of Service: 07/07/19 Length of Stay: 2 Days Neurology is following for evaluation of vertigo. Interval History: The patient stated that he was excited that his symptoms improved and he was going home. However, he got up today and then felt dizzy again. He has vertigo with fogginess sensation in his head each time he makes a certain movement. He feels off balance and is leaning towards the left when he walks. This is new for him. He has a pacemaker that is MRI compatible, but will not be able to get an MRI until Sunday or Sunday. CT head without contrast: no acute intracranial abnormalities x 2 (Jul 05 and Jul 06). CTA head and neck: no evidence for large vessel intracranial thrombus. There is a linear intraluminal filling defect in the posterior aspect of the right carotid bulb extending into the proximal ICA, suggestive of a short segmental dissection. No significant carotid artery narrowing is present. TTE 07/07/2019: the atrium is severely dilated. EF 40-45% I reviewed the medical history. The patient presented to [facility] on 07/06/2019 with symptoms of dizziness. He was found to have an abnormal CTA of the neck noted above and [facility] neurosurgery was contacted. 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 No further treatment was recommended. Review of Systems: Denied CP, SOB, or palpitations. Objective Active Medications: Acetaminophen (Tylenol Tab*) 650 mg PO Q4H PRN PRN Reason: PAIN-MILD/TEMP >/= 100.4 Albuterol (Ventolin Hfa Inhaler*) 2 puff INH Q4H PRN PRN Reason: SOB/WHEEZING Apixaban (Eliquis*) 5 mg PO BID [facility] Last Admin: 07/07/19 07:38 Dose: 5 mg Atorvastatin Calcium (Lipitor*) 40 mg PO 1700 [facility] Last Admin: 07/06/19 16:51 Dose: 40 mg Carvedilol (Coreg Tab*) 3.125 mg PO BID [facility] Ferrous Sulfate (Ferrous Sulfate Tab*) 325 mg PO DAILY [facility] Last Admin: 07/07/19 07:38 Dose: 325 mg Finasteride (Proscar Tab*) 5 mg PO QAM [facility] Last Admin: 07/07/19 07:38 Dose: 5 mg Magnesium Oxide (Magox 400 Tab*) 200 mg PO DAILY [facility] Last Admin: 07/07/19 07:38 Dose: 200 mg Ondansetron HCl (Zofran Inj*) 4 mg IV Q6H PRN PRN Reason: NAUSEA/VOMITING Propafenone HCl (Rythmol*) 150 mg PO BID LAYLA Last Admin: 07/07/19 07:38 Dose: 150 mg Vital Signs 07/06/19 07/06/19 07/06/19 15:00 19:20 20:00 Temperature 98.2 F 98.4 F Pulse Rate 65 73 Respiratory 16 17 16 Rate Blood Pressure 138/86 134/96 (mmHg) O2 Sat by Pulse 100 100 Oximetry 07/07/19 07/07/19 07/07/19 00:03 03:49 07:10 Temperature 97.9 F 97.8 F Pulse Rate 71 65 Respiratory 16 16 16 Rate Blood Pressure 128/91 130/94 (mmHg) O2 Sat by Pulse 99 100 Oximetry 07/07/19 07/07/19 07:18 12:01 Temperature 97.4 F 97.9 F Pulse Rate 69 68 Respiratory 16 20 Rate Blood Pressure 128/95 151/106 (mmHg) O2 Sat by Pulse 100 100 Oximetry Intake and Output Last 24 Hours 07/05/19 07/06/19 07/07/19 07/08/19 06:59 06:59 06:59 06:59 Intake Total 1125 1560 120 Output Total 0 0 Balance 1125 1560 120 Weight 180 lb 9.6 oz Intake: IV Fluids 1000 Oral 125 1560 120 Output: Urine 0 0 Oxygen Devices in Use Now: None Neurology Exam: General: Well nourished, well developed, and in no acute distress HEENT: Normocephelic/atraumatic, sclera anicteric, mucous membranes moist Neck: Supple Chest: Clear to auscultation bilaterally Cardiovascular: Regular rate and rhythm without murmurs, rubs, gallops Extremities: No clubbing, cyanosis, or edema Neurological Findings: Awake, alert, and oriented to person, place, and time. Speech: fluent without dysarthria, repetition intact Cranial Nerve: PERRL, EOM intact, VFF, no nystagmus, face symmetric bilaterally , facial sensation intact, hearing intact to finger rub bilaterally, palate elevates symmetrically, tongue midline, SCM and Trapezius s/s. Position induced vertigo and lightheadedness that resolves within 10 seconds. HINT negative. Motor: s/s throughout, proximal and distal extremities x4 tone/bulk normal Sensation: intact to LT/PP bilaterally upper and lower extremities Deep Tendon Reflex: 2+ symmetric in the upper/lower extremities, Babinski - down going Finger to nose, rapid alternating movements intact without tremor, no dysdiadochokinesia Gait: intact with good arm swing and stride. Mild swaying towards the left Result Diagrams: 07/06/19 06:24 07/06/19 06:24 Assessment/Plan Mr. Rober Bhatia is a 69-year-old man with history of atrial fibrillation s/p ablation therapy, pacemaker placement Nov 2018, who presented to [facility] with new onset vertigo. On examination, the patient has a negative HINT exam (could suggest a central cause of vertigo). However, he had mild positive DixHallpike positive towards the left. I suspect he has a peripheral cause for his vertigo like a mild case of BPPV, but given his risk factors, I recommend obtaining further imaging with MRI brain without contrast to rule out secondary and central causes of vertigo (small stroke, compressive lesions). Recommendations: - Continue Eliquis 5 mg twice daily - atorvastatin 40 mg nightly - neuro checks every 4 hours - Work with PT to evaluate and treat - Please work with radiology and cardiology to obtain the MRI. I will continue to follow.
[2019-07-07] MEDS: Atorvastatin* 40 MG TAB PO SCH (16:47)
[2019-07-07] MEDS: Carvedilol TAB* 3.125 MG PO SCH (20:26)
[2019-07-08 06:52] LABS: ABS Basophils 0.1 10^3/ul (0-0.2); ABS Eosinophils 0.3 10^3/ul (0-0.6); ABS Lymphocytes 1.5 10^3/ul (1.0-4.8); ABS Monocytes 0.7 10^3/ul (0-0.8); ABS Neutrophils 4.2 10^3/ul (1.5-7.7); Eosinophil % 4.1 %; Hematocrit 39 % (42-52); Lymphocyte % 22.5 %; Mean Corpuscular HGB Conc 33 g/dL (31-36); Mean Corpuscular Hemoglobin 27 pg (27-31); Mean Corpuscular Volume 80 fL (80-94); Mean Platelet Volume 6.8 fL (7.4-10.4); Nucleated Red Blood Cells % 0.1; Platelet Count 333 10^3/uL (150-450); Red Blood Count 4.92 10^6 /uL (4.18-5.48); Red Cell Distribution Width 18 % (10-15); White Blood Count 6.8 10^3/uL (3.5-10.8)
[2019-07-08 07:11] LABS: BUN/Creatinine Ratio 11.8 (8-20); Calcium 9.2 mg/dL (8.6-10.3); EGFR African American 54.7 (>60); EGFR Non-African American 45.2 (>60); Potassium 3.6 mmol/L (3.5-5.0)
[2019-07-08] MEDS: Magnesium Oxide TAB* 400 MG PO SCH (08:25)
[2019-07-08] MEDS: Carvedilol TAB* 3.125 MG PO SCH ×2 (08:26→20:05)
[2019-07-08] MEDS: Apixaban* 5 MG TAB PO SCH ×2 (08:26→20:05)
[2019-07-08] MEDS: proPAFENone TAB* 150 MG PO SCH ×2 (08:27→20:05)
[2019-07-08] MEDS: Finasteride TAB* 5 MG PO SCH (08:27)
[2019-07-08] MEDS: Ferrous Sulfate TAB* 325 MG PO SCH (08:28)
[2019-07-08] MEDS ORDERED: Meclizine TAB* 12.5 MG PO PRN (13:05)
--- NOTE | 2019-07-08 13:05 | PN ---
Subjective Date of Service: 07/08/19 Interval History: Pt notes that dizziness went away at some point while he was asleep, and he woke with relief. Shortly after 0900, dizziness slowly returned. Pt states that it seems worse at times, but he is unable to notice a trend or exacerbating factor. He has no other complaints today, including no lightheadedness, presyncope, vision changes, muscle weakness. Objective Active Medications: Acetaminophen (Tylenol Tab*) 650 mg PO Q4H PRN Albuterol (Ventolin Hfa Inhaler*) 2 puff INH Q4H PRN Apixaban (Eliquis*) 5 mg PO BID LAYLA Atorvastatin Calcium (Lipitor*) 40 mg PO 1700 LAYLA Carvedilol (Coreg Tab*) 3.125 mg PO BID LAYLA Ferrous Sulfate (Ferrous Sulfate Tab*) 325 mg PO DAILY LAYLA Finasteride (Proscar Tab*) 5 mg PO QAM LAYLA Magnesium Oxide (Magox 400 Tab*) 200 mg PO DAILY LAYLA Ondansetron HCl (Zofran Inj*) 4 mg IV Q6H PRN Propafenone HCl (Rythmol*) 150 mg PO BID LAYLA Vital Signs: Temp Pulse Resp BP Pulse Ox 98.3 F 69 17 146/97 97 07/08/19 07:49 07/08/19 07:49 07/08/19 08:00 07/08/19 07:49 07/08/19 08:00 Oxygen Devices in Use Now: None Appearance: Pt is sitting up in bed eating lunch. He appears comfortable and in no acute distress. He is cooperative and appropriate. Eyes: No Scleral Icterus Ears/Nose/Mouth/Throat: NL Teeth, Lips, Gums, Clear Oropharnyx, Mucous Membranes Moist Neck: NL Appearance and Movements; NL JVP, Trachea Midline Respiratory: Symmetrical Chest Expansion and Respiratory Effort, Clear to Auscultation Cardiovascular: NL Sounds; No Murmurs; No JVD, RRR, No Edema Abdominal: NL Sounds; No Tenderness; No Distention, No Hepatosplenomegaly Extremities: No Edema, No Clubbing, Cyanosis Neurological: Alert and Oriented x 3, NL Sensation, NL Muscle Strength and Tone Result Diagrams: 07/08/19 06:23 07/08/19 06:23 Assess/Plan/Problems-Billing Assessment: Mr. Bhatia is a 69 yo M with a PMH of non-ischemic CM, afib, CKD Stage 3, HTN, and pacemaker who was admitted on 07/05/19 with dizziness. - Patient Problems (1) Dizziness Comment: - Symptoms resolved at night, reappear in mid-morning - ? TIA, CVA - CT brain negative - Continue eliquis, no aspirin - Neuro consulted and recommends MRI - MRI scheduled for 1500 07/09 - In the meantime, will offer meclizine (2) Atrial fibrillation Comment: - HR 60s - Continue propafenone - Continue Eliquis - Carvedilol restarted evening 07/07 (3) Hyperlipidemia Comment: -Continue lipitor (4) Anemia Comment: -Iron deficiency anemia -Ferrous sulfate -Improving (5) Asthma Comment: - No evidence of exacerbation - Albuterol inhaler prn. (6) CKD (chronic kidney disease) stage 3, GFR 30-59 ml/min Comment: - At baseline (7) DVT prophylaxis Comment: - Eliquis. (8) Full code status Comment: Status and Disposition: Inpatient. Anticipate discharge to home when medically stable. Currently awaiting MRI head; must ensure that PPM is compatible; MRI nursing staff working on this currently.
--- NOTE | 2019-07-08 14:41 | PN ---
Subjective Length of Stay: 3 Days Neurology is following [] for the evaluation and management of [] Interval History: He woke up asymptomatic but then developed lightheadedness at 09:20 a.m. The dizziness is ill-described and he feels a foggy sensation in his head. He is no longer off balance. He has walked the hallways many times. The symptoms are not associated with tinnitus or hearing loss. He denied any double vision, headache, swallowing difficulty, or weakness. He is still waiting for the MRI to be done. Should be done tomorrow. CT head without contrast: no acute intracranial abnormalities x 2 (Jul 05 and Jul 06). CTA head and neck: no evidence for large vessel intracranial thrombus. There is a linear intraluminal filling defect in the posterior aspect of the right carotid bulb extending into the proximal ICA, suggestive of a short segmental dissection. No significant carotid artery narrowing is present. TTE 07/07/2019: the atrium is severely dilated. EF 40-45% Review of Systems: Denied CP, SOB, or palpitations. Objective Active Medications: Acetaminophen (Tylenol Tab*) 650 mg PO Q4H PRN PRN Reason: PAIN-MILD/TEMP >/= 100.4 Albuterol (Ventolin Hfa Inhaler*) 2 puff INH Q4H PRN PRN Reason: SOB/WHEEZING Apixaban (Eliquis*) 5 mg PO BID [facility] Last Admin: 07/08/19 08:26 Dose: 5 mg Atorvastatin Calcium (Lipitor*) 40 mg PO 1700 [facility] Last Admin: 07/07/19 16:47 Dose: 40 mg Carvedilol (Coreg Tab*) 3.125 mg PO BID [facility] Last Admin: 07/08/19 08:26 Dose: 3.125 mg Ferrous Sulfate (Ferrous Sulfate Tab*) 325 mg PO DAILY [facility] Last Admin: 07/08/19 08:28 Dose: 325 mg Finasteride (Proscar Tab*) 5 mg PO QAM [facility] Last Admin: 07/08/19 08:27 Dose: 5 mg Magnesium Oxide (Magox 400 Tab*) 200 mg PO DAILY [facility] Last Admin: 07/08/19 08:25 Dose: 200 mg Meclizine HCl (Antivert Tab*) 25 mg PO Q8HR PRN PRN Reason: VERTIGO Ondansetron HCl (Zofran Inj*) 4 mg IV Q6H PRN PRN Reason: NAUSEA/VOMITING Propafenone HCl (Rythmol*) 150 mg PO BID [facility] Last Admin: 07/08/19 08:27 Dose: 150 mg Vital Signs 07/07/19 07/07/19 07/07/19 15:58 19:36 20:00 Temperature 98.3 F 98.1 F Pulse Rate 70 77 Respiratory 18 20 20 Rate Blood Pressure 146/105 131/91 (mmHg) O2 Sat by Pulse 100 100 Oximetry 07/08/19 07/08/19 07/08/19 00:40 03:20 07:49 Temperature 97.7 F 98.1 F 98.3 F Pulse Rate 69 67 69 Respiratory 16 16 20 Rate Blood Pressure 132/91 127/89 146/97 (mmHg) O2 Sat by Pulse 100 100 100 Oximetry 07/08/19 08:00 Temperature Pulse Rate Respiratory 17 Rate Blood Pressure (mmHg) O2 Sat by Pulse 97 Oximetry Intake and Output Last 24 Hours 07/06/19 07/07/19 07/08/19 07/09/19 06:59 06:59 06:59 06:59 Intake Total 1125 1560 520 Output Total 0 0 Balance 1125 1560 520 Weight 180 lb 9.6 oz Intake: IV Fluids 1000 Oral 125 1560 520 Output: Urine 0 0 Oxygen Devices in Use Now: None Neurology Exam: General: Well nourished, well developed, and in no acute distress HEENT: Normocephelic/atraumatic, sclera anicteric, mucous membranes moist Neck: Supple Chest: Clear to auscultation bilaterally Cardiovascular: Regular rate and rhythm without murmurs, rubs, gallops Extremities: No clubbing, cyanosis, or edema Neurological Findings: Awake, alert, and oriented to person, place, and time. Speech: fluent without dysarthria, repetition intact Cranial Nerve: PERRL, EOM intact, no nystagmus. No facial asymmetr.y Motor: s/s throughout, proximal and distal extremities x4 tone/bulk normal Sensation: intact to LT/PP bilaterally upper and lower extremities Deep Tendon Reflex: 1+ symmetric in the upper/lower extremities, Babinski - down going Finger to nose, rapid alternating movements intact without tremor, no dysdiadochokinesia Gait: intact with good arm swing and stride Result Diagrams: 07/08/19 06:23 07/08/19 06:23 Assessment/Plan Mr. Rober Bhatia is a 69-year-old man with history of atrial fibrillation s/p ablation therapy, pacemaker placement Nov 2018, who [place] [facility] [place]. On examination, the patient has a negative HINT exam (could suggest a central cause of vertigo). I suspect he has a peripheral cause for his vertigo likely a mild case of BPPV, but given his risk factors, I recommend obtaining further imaging with MRI brain without contrast to rule out secondary and central causes of vertigo ( small stroke, compressive lesions). The symptoms have improved and he is no longer ataxic. Recommendations: - Continue Eliquis 5 mg twice daily - Atorvastatin 40 mg nightly - Neuro checks every 4 hours - Reduce the meclizine to 12.5 every 12 as needed for vertigo. - Pending MRI tomorrow. I will continue to follow.
[2019-07-08] MEDS: Atorvastatin* 40 MG TAB PO SCH (17:34)
[2019-07-09] MEDS: Ferrous Sulfate TAB* 325 MG PO SCH (07:58)
[2019-07-09] MEDS: Carvedilol TAB* 3.125 MG PO SCH (07:58)
[2019-07-09] MEDS: Finasteride TAB* 5 MG PO SCH (07:58)
[2019-07-09] MEDS: Magnesium Oxide TAB* 400 MG PO SCH (07:58)
[2019-07-09] MEDS: proPAFENone TAB* 150 MG PO SCH (07:58)
[2019-07-09] MEDS: Apixaban* 5 MG TAB PO SCH (08:36)
[2019-07-09] MEDS: Atorvastatin* 40 MG TAB PO SCH (17:28)
[2019-07-09 17:32] VITALS: BP 162/115
[2019-07-09] MEDS ORDERED: Meclizine TAB* 12.5 MG PO ONE (17:53)
--- NOTE | 2019-07-09 23:04 | DS ---
DISCHARGE SUMMARY: DATE OF ADMISSION: 07/05/19 DATE OF DISCHARGE: 07/09/19 PRIMARY CARE PROVIDER: Lissette Lepe MD NEUROLOGIST: Lamonte Davis MD ATTENDING PHYSICIAN: Lu Pickens MD * (DICTATED BY JENNIFER MARIE) PRIMARY DIAGNOSIS: Dizziness, suspected benign paroxysmal positional vertigo. SECONDARY DIAGNOSES: 1. Nonischemic cardiomyopathy. 2. Atrial fibrillation. 3. Chronic kidney disease, stage 3. 4. Hypertension. 5. Mitral regurgitation. 6. Pacemaker. CONSULTATIONS WHILE IN THE HOSPITAL: Neurology. Impression and Plan: I think that Mr. Valdez vertigo may be peripheral with a positional component and episodic; but it is reasonable to get MRI scan, make sure MRI machine is compatible with pacer, which was placed in November, so most likely compatible. STUDIES WHILE IN THE HOSPITAL: 1. Brain CT. Impression: Negative unenhanced head CT. 2. Brain MRI. Impression: No restriction of diffusion is noted. Likely microvascular change. No acute changes are identified. 3. ANAHY. Summary: LV systolic function mildly to moderately reduced. EF 40% to 45%. Mitral valve prior procedures include surgical repair. There is mild to moderate regurgitation. Aortic valve trace regurgitation, tricuspid valve mild regurgitation. DISCHARGE MEDICATIONS: Home Medications: 1. Albuterol 2 puff inhalation q.4 hours p.r.n. shortness of breath/wheeze. 2. Apixaban 5 mg p.o. b.i.d. 3. Atorvastatin 40 mg p.o. at bedtime. 4. Carvedilol 25 mg p.o. b.i.d. 5. Chyawanprash 5 mL p.o. daily. 6. Curcumin with Johanne and Turmerones 1 cap p.o. daily. 7. Cyanocobalamin 1000 mcg p.o. every other day. 8. Finasteride 5 mg p.o. q.a.m. 9. Magnesium oxide 250 mg p.o. daily. 10. Propafenone 150 mg p.o. b.i.d. 11. Triphala Wellness 1 cap p.o. daily. 12. CoQ10 of 200 mg p.o. daily. New home medications: 1. Atorvastatin 40 mg p.o. at bedtime. 2. Ferrous sulfate 325 mg p.o. daily. 3. Meclizine 12.5 mg p.o. q.12 hours p.r.n. vertigo. HISTORY OF PRESENT ILLNESS/HOSPITAL COURSE: Mr. Bhatia is a 69-year-old male with a past medical history of nonischemic cardiomyopathy, AFib, hypertension, CKD, stage 3; who presented to the ER today with complaints of dizziness. For full and complete details, please see the history and physical dictated by Cecy Cordova NP, dictated on 07/05/19. But in short, the patient notes that he woke and started to feel dizzy. The symptoms worsened when he sat up. He felt dizzy and unsteady with walking. He then called a cab and came to the ER. He was admitted with dizziness, rule out TIA versus CVA. A CTA of the head was performed and was within normal limits. Neurology was consulted. MRI was recommended. The patient was noted to have a pacemaker in place. It was discovered that his pacemaker was compatible with MRI machine. An MRI was performed and revealed no acute abnormalities. The patient's symptoms were consistent with BPPV and TIA/stroke was ruled out. The patient was offered meclizine, which he has agreed to try to help with symptoms of vertigo. The patient has a history of nonischemic cardiomyopathy. Echocardiogram for comparison is not available. Echo was rechecked and results are as above with EF of 40% to 45%. The patient was noted to have an LDL of 80, he was started on atorvastatin. He was noted to have a mild anemia upon admission. He was started on iron after iron studies revealed iron-deficiency anemia. His hemoglobin improved throughout his stay and he will be discharged home on iron. Mr. Bhatia is stable for discharge. Temperature 98.5 oral, heart rate 74, respiratory rate 100% on room air, blood pressure 145/95, respiratory rate 16. REVIEW OF SYSTEMS: A 14-point review of systems has been performed and all the pertinent positives and negatives are in the HPI. All other systems are negative. PHYSICAL EXAMINATION: General: Mr. Bhatia is a well-developed, well-nourished 69- year-old -[place] man who is sitting up in bed. He is very pleasant , cooperative, and appropriate. He appears to be in no acute distress. HEENT: Visual boyd grossly intact, PERRL, EOMI. Nonicteric sclerae. Hearing grossly intact. Oral mucous membranes are moist, there is no lesions. The tongue is at midline. The pharynx is clear. Palate elevates symmetrically. Cardiovascular : Regular rate and rhythm with S1 and S2 present without murmurs, rubs, clicks, or gallops. There is no JVD. There is no peripheral edema. Radial and pedal pulses are palpable. Pulmonary: Symmetrical chest expansion without use of accessory muscles. Lungs are clear to auscultation bilaterally without rhonchi , wheezes, or rubs. No digital clubbing or cyanosis. Abdomen: Flat, bowel sounds in all quadrants. The abdomen is soft, there is no tenderness to palpation. There is no hepatosplenomegaly. Musculoskeletal: Full range of motion without pain or deformities. Neuro: The patient is awake, he is alert and oriented x3 with cranial nerves grossly intact. He is able to move all of his extremities with the motor strength of 5/5 in bilateral upper and lower extremities. 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 Peripheral sensation intact. DISCHARGE PLAN: Mr. Bhatia is stable for discharge to home. CONDITION: Good. DIET: Heart healthy. MEDICATIONS: 1. Atorvastatin 40 mg p.o. at bedtime. 2. Ferrous sulfate 325 mg p.o. daily. 3. Meclizine 12.5 mg p.o. q.12 hours p.r.n. vertigo. ACTIVITY: As tolerated. EDUCATION: 1. Follow up with primary care provider in 4 to 7 days. 2. Return to the ER or nearest hospital if you experience any worsening of symptoms, chest discomfort or pain, shortness of breath, dizziness, lightheadedness, loss of consciousness, high fevers, chills, night sweats, or any other worrisome signs or symptoms. This is a summarized report of a complex medical history and hospital stay. For further details please see the entire medical record. TIME SPENT: Approximately 35 minutes were spent on this discharge, greater than half that time was spent [id number] with the patient discussing discharging plans and instructions. JENNIFER MARIE [id number]/[facility] #: [id number] CELE
== END 2019-07-09 19:35 | disposition home or self-care (01) | DRG 149 ==
LOC: ED 07:46 → MEDTELE 11:59
PROVIDERS: ADMIT Internal Medicine; ATTEND Internal Medicine
DX: H81.10 Benign paroxysmal vertigo, unspecified ear (principal); I42.9 Cardiomyopathy, unspecified; I13.2 Hypertensive heart and chronic kidney disease with heart failure and with stage 5 chronic kidney disease, or end stage renal disease; I48.91 Unspecified atrial fibrillation; N18.3 Chronic kidney disease, stage 3 (moderate); J45.909 Unspecified asthma, uncomplicated; E78.5 Hyperlipidemia, unspecified; D50.9 Iron deficiency anemia, unspecified; Z95.0 Presence of cardiac pacemaker; I08.1 Rheumatic disorders of both mitral and tricuspid valves; Z79.51 Long term (current) use of inhaled steroids; Z79.899 Other long term (current) drug therapy; Z83.3 Family history of diabetes mellitus; Z80.3 Family history of malignant neoplasm of breast; Z80.0 Family history of malignant neoplasm of digestive organs
CPT/HCPCS: 36415; 70450; 70496; 70498; 70551; 80048; 80053; 80061; 81003; 82728; 83036; 83540; 83550; 83605; 83735; 84484; 85025; 85610; 85730; 93005; 93306; 99285; A9270-GY; G8978-GP-CH; G8979-GP-CH; G8980-GP-CH; Q9967

== ENCOUNTER 2019-12-20 19:39 | Emergency (ER) | payer OTHER ==
--- OUTSIDE RECORDS SUMMARY | 2019-12-20 19:52 | XMS REPORT | Continuity of Care Document ---
:1950 External Reference #:[id number] Author Name Gricel Marinelli DNP, RN, GLASS OR MIRROR INSPECTOR-BC (transmitted by agent of provider Shereen Augustine) Address [address], [address] [place] [address] Care Team Providers Name Role Phone Lissette Lepe MD - Internal Care Team Information Medical Radiation Dosimetrist Medicine Luis Lara MD - Urology Care Team Information Medical Radiation Dosimetrist [phone] Joya Kilgore K., MD - Clinical Care Team Information Medical Radiation Dosimetrist Cardiac Electrophysiology Problems Active Problems Provider Date Persistent atrial fibrillation Carol Velasquez M.D. Onset: 07/03/2017 Mitral valve disorder Carol Velasquez M.D. 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 Onset: 07/03/2017 diastolic heart failure Paroxysmal atrial fibrillation Carol Velasquez M.D. Onset: 08/17/2017 Nonobstructive cardiomyopathy Carol Velasquez M.D. Onset: 08/17/2017 Sleep apnea Gricel Marinelli DNP, RN, Onset: 10/23/2017 MICHELLE-MARIA E Obstructive sleep apnea syndrome Gricel Marinelli DNP, RN, Onset: 01/14/2018 MICHELLE-MARIA E Essential hypertension Carol Velasquez M.D. Onset: 05/31/2018 Cardiomyopathy Carol Velasquez M.D. Onset: 05/31/2018 Social History Type Date Description Comments Sex Unknown Tobacco Use Start: Unknown Never Smoked Cigarettes Smoking Status Reviewed: 11/19/19 Never Smoked Cigarettes ETOH Use Denies alcohol use Tobacco Use Start: Unknown Patient has never smoked Recreational Drug Use Denies Drug Use Exercise Type/Frequency Does not exercise Limited by cardiac condition Allergies, Adverse Reactions, Alerts Active Allergies Reaction Severity Comments Date NKDA 07/03/2017 Seasonal 09/23/2019 Animals 09/23/2019 Medications Active Medications SIG Qnty Indications Ordering Date Provider Furosemide 1 by mouth every 3tabs Mireille Argueta, 11/19/2019 20mg day for 3 days N.P. Tablets Atorvastatin Calcium 1 by mouth every 90tabs Hank Gautam NP 08/04/2019 day 40mg Tablets Meclizine HCL 1 pill twice a day 60tabs Hank Gautam NP 07/22/2019 12.5mg if too sedating Tablets reduce to one pill at bedtime Iron Protein Plus 1 tablet twice Hank Gautam NP 07/16/2019 daily Diclofenac Sodium apply 2 grams to 200gm M25.522 Hank Gautam NP 06/20/2019 1% affected area Gel twice daily Elbow wear on left elbow 1units M25.522 Hank Gautam [...] Marinelli, 01/14/2018 Advancement Device appliance DNP, RN, GLASS OR MIRROR INSPECTOR-BC /mandibular Device advancement device for sleep apnea with needed adjustments. Compression knee high closed 1Pair Carol Velasquez, 09/04/2017 Stockings toe moderate M.D. Misc compression 20-30 mmHg Coq10 1 by mouth every Unknown 200mg Capsules day Eliquis 1 by mouth twice a 180tabs Carol Velasquez, 5mg Tablets day M.D. Ventolin HFA Inhale 2 Puffs By 18units Hank Gautam NP Mouth Four Times A 108(90Base) mcg/Act Day as Needed Aerosol Finasteride 1 by mouth every Unknown 5mg other day Tablets Triphala GI 1 po daily Unknown Wellness Tablet Advanced 1 softgel po daily Unknown Bio-Curcumin With Johanne & Turmerones 600mg/60mg Dha 1 daily by mouth Unknown 200mg Capsules History Medications Amlodipine Besylate 1 by mouth every 90tabs Mireille Argueta, 05/26/2019 - 5mg day N.P. 06/05/2019 Tablets Immunizations CPT Code Status Date Vaccine Reaction Lot # [id number] Given 05/09/2018 Hepatitis A Vaccine Adult [id number] Dosage [id number] Given 11/09/2017 Tdap - No immediat [id number] Tetanus/Diptheria/Acellula reaction... r Pertussis 04133 Given 11/09/2017 Hepatitis A Vaccine Adult no immedite [id number] Dosage reaction... Vital Signs Date Vital Result Comment 11/19/2019 2:54pm Height 69 inches 5'9" Weight 192.00 lb Heart Rate 78 /min BP Systolic 110 mmHg BP Diastolic 70 mmHg O2 % BldC Oximetry 97 % BMI (Body Mass Index) 28.4 kg/m2 11/18/2019 1:45pm Height 69 inches 5'9" Weight 192.00 lb with shoes Heart Rate 60 /min BP Systolic Sitting 108 mmHg Rue reg cuff BP Diastolic Sitting 76 mmHg Rue reg cuff Respiratory Rate 18 /min BMI (Body Mass Index) 28.4 kg/m2 Ejection Fraction 40-45% ECHO 07/07/2019 Results Test Acquired Date Facility Test Result H/L Range Note CBC Auto 11/18/2019 [facility] White Blood 7.0 10^3/uL Normal 3.5-10.[address] Count [place], [place] [id number] [phone] Red Blood Count 4.71 10^6/uL Normal 4.18-5.48 Hemoglobin 13.5 g/dL Low 14.0-18.0 Hematocrit 41 % Low 42-52 Mean Corpuscular Volume 86 fL Normal 80-94 Mean Corpuscular Hemoglobin 29 pg Normal 27-31 Mean Corpuscular HGB Conc 33 g/dL Normal 31-36 Red Cell Distribution Width 18 % High 10-15 Platelet Count 289 10^3/uL Normal 150-450 Mean Platelet Volume 7.5 fL Normal 7.4-10.4 Abs Neutrophils 4.3 10^3/uL Normal 1.5-7.7 Abs Lymphocytes 1.4 10^3/uL Normal 1.0-4.8 Abs Monocytes 0.8 10^3/uL Normal 0-0.8 Abs Eosinophils 0.3 10^3/uL Normal 0-0.6 Abs Basophils 0.1 10^3/uL Normal 0-0.2 Abs Nucleated RBC 0.0 10^3/uL Granulocyte % 61.7 % Lymphocyte % 20.6 % Monocyte % 11.9 % Eosinophil % 4.4 % Basophil % 1.4 % Nucleated Red Blood Cells % 0.0 Laboratory 11/18/2019 [facility] TSH (Thyroid 0.79 Normal 0.34 -5.60 test finding [address] Stim Horm) mcIU/[place] [address] [phone] Magnesium 2.0 mg/dL Normal 1.9-2.7 Comp Metabolic 11/18/2019 [facility] Sodium 141 mmol/L Normal 135-[address] [place] [address] [phone] Potassium 4.2 mmol/L Normal 3.5-5.0 Chloride 105 mmol/L Normal 101-111 Co2 Carbon Dioxide 29 mmol/L Normal 22-32 Anion Gap 7 mmol/L Normal 2-11 Glucose 84 mg/dL Normal 70-100 Blood Urea Nitrogen 18 mg/dL Normal 6-24 Creatinine 1.39 mg/dL High 0.67-1.17 BUN/Creatinine Ratio 12.9 Normal 8-20 Calcium 9.6 mg/dL Normal 8.6-10.3 Total Protein 6.5 g/dL Normal 6.4-8.9 Albumin 4.1 g/dL Normal 3.2-5.2 Globulin 2.4 g/dL Normal 2-4 Albumin/Globulin Ratio 1.7 Normal 1-3 Total Bilirubin 0.70 mg/dL Normal 0.2-1.0 Alkaline Phosphatase 73 U/L Normal 34-104 Alt 25 U/L Normal 7-52 Ast 21 U/L Normal 13-39 Egfr Non- 50.5 >60 Egfr 61.1 >60 1 Laboratory test 11/18/2019 [facility] B-Type 295 pg/mL High <= [address] [place] [address] Peptide BNP [phone] Cell Morphology 11/18/2019 [facility] Angelica Cells [address] [place], [place] [id number] [phone] Acanthocytes 1+ Surgical 10/29/2019 [facility] Surgical SEE RESULT [address] [place] [address] [phone] PDFReport SEE IMAGE Urinalysis Profile 07/05/2019 [facility] Urine Color Yellow [address] [place] [address] [phone] Urine Appearance Cloudy Urine Specific [place] 1.019 Normal 1.010-1.030 Urine pH 5.0 Normal 5-9 Urine Urobilinogen Negative Negative Urine Ketones Negative Negative Urine Protein Negative Negative Urine Leukocytes Negative Negative Urine Blood Negative Negative Urine Nitrite Negative Negative Urine Bilirubin Negative Negative Urine Glucose Negative Negative Laboratory test 07/05/2019 [facility] Ferritin 8.7 ng/mL Low 24-[address] [place], [place] [id number] [phone] Hemoglobin A1c (Glyco HGB) 6.0 % High 4.0-5.6 3 Iron & Iron Binding 07/05/2019 [facility] Iron 22 g/dL Low 50-212 [place] [address] [phone] Unsaturated Iron Binding < 362 g/dL Total Iron Binding Capacity 377 g/dL Normal 250-450 Transferrin 269 mg/dL Normal 203-362 % Iron Saturation 6 % Low 15-55 Laboratory test 07/05/2019 [facility] Magnesium 2.0 mg/dL Normal 1.9-2.7 [place] [address] [phone] CBC Auto Diff 07/05/2019 [facility] White Blood 5.7 Normal 3.5 -10.8 DRIVE Count 10^3/[place] [address] [phone] Red Blood Count 4.55 10^6/uL Normal 4.18-5.48 Hemoglobin 11.9 g/dL Low 14.0-18.0 Hematocrit 36 % Low 42-52 Mean Corpuscular Volume 79 fL Low 80-94 Mean Corpuscular Hemoglobin 26 pg Low 27-31 Mean Corpuscular HGB Conc 33 g/dL Normal 31-36 Red Cell Distribution Width 17 % High 10-15 Platelet Count 303 10^3/uL Normal 150-450 Mean Platelet Volume 6.4 fL Low 7.4-10.4 Abs Neutrophils 3.7 10^3/uL Normal 1.5-7.7 Abs Lymphocytes 1.0 10^3/uL Normal 1.0-4.8 Abs Monocytes 0.6 10^3/uL Normal 0-0.8 Abs Eosinophils 0.2 10^3/uL Normal 0-0.6 Abs Basophils 0.1 10^3/uL Normal 0-0.2 Abs Nucleated RBC 0.0 10^3/uL Granulocyte % 65.9 % Lymphocyte % 17.9 % Monocyte % 11.3 % Eosinophil % 3.4 % Basophil % 1.5 % Nucleated Red Blood Cells % 0.0 Laboratory test 07/05/2019 [facility] Troponin-I (TnI) 0.01 ng/ mL <0.04 4 finding [address] [place] [address] [phone] Lipid Profile 07/05/2019 [facility] Triglycerides 39 mg/dL 5 (Trig/Chol/HDL) [address] [place] [address] [phone] Cholesterol 149 mg/dL 6 HDL Cholesterol 61.0 mg/dL 7 LDL Cholesterol 80 mg/dL 8 Comp Metabolic 07/05/2019 [facility] Sodium 139 mmol/L Normal 135-145 Panel [address] [place] [address] [phone] Potassium 3.9 mmol/L Normal 3.5-5.0 Chloride 109 mmol/L Normal 101-111 Co2 Carbon Dioxide 28 mmol/L Normal 22-32 Anion Gap 2 mmol/L Normal 2-11 Glucose 102 mg/dL High 70-100 Blood Urea Nitrogen 13 mg/dL Normal 6-24 Creatinine 1.48 mg/dL High 0.67-1.17 BUN/Creatinine Ratio 8.8 Normal 8-20 Calcium 8.8 mg/dL Normal 8.6-10.3 Total Protein 6.1 g/dL Low 6.4-8.9 Albumin 3.7 g/dL Normal 3.2-5.2 Globulin 2.4 g/dL Normal 2-4 Albumin/Globulin Ratio 1.5 Normal 1-3 Total Bilirubin 0.50 mg/dL Normal 0.2-1.0 Alkaline Phosphatase 58 U/L Normal 34-104 Alt 15 U/L Normal 7-52 Ast 13 U/L Normal 13-39 Egfr Non- 47.0 >60 Egfr 56.9 >60 9 Laboratory test 07/05/2019 [facility] Partial 39.9 High 26.0- 38.[address] [place] [address] PTT [phone] Lactic Acid 1.1 mmol/L Normal 0.5-2.0 10 Inr/Protime 07/05/2019 [facility] Inr 1.25 High 0.82-1.[address] [place], [place] [id number] [phone] Laboratory 07/05/2019 [facility] Point of Care 99 Normal 70- 100 12 test finding [address] Glucose mg/[place] [address] [phone] Lipid Profile 07/05/2019 [facility] Triglycerides 46 13 (Trig/Chol/HDL [address] mg/dL ) [place] [address] [phone] Cholesterol 150 mg/dL 14 HDL Cholesterol 61.0 mg/dL 15 LDL Cholesterol 80 mg/dL 16 1 Because ethnic data is not always [...] 5 Kidney failure <15 (or dialysis) 2 SEE RESULT BELOW Name: ROBER PATINO : [address]: Olu Pineda MD Acct: [id number] Unit: [id number] AGE: 69 Location: OR Re10/29/19 SEX: M Status: DEP [facility] SPEC: [id number] MELISSA: 10/29/19- SUBM DR: Olu Pineda MD REQ: [id number] RECD: 10/29/19 STATUS: SOUT _ ORDERED: LEVEL 3 FINAL DIAGNOSIS Soft tissue, left hip, excision: -- Lipoma. PRE-OPERATIVE DIAGNOSIS Localized swelling, mass and limp left lower limb GROSS DESCRIPTION The specimen is received in formalin labeled, Left Hip Lipoma, and consists of a 7.0 x 6.8 x 2.5 cm yellow ovoid predominantly well encapsulated adipose tissue fragment. The cut surface is glistening yellow and lobulated. The specimen is inked, serially sectioned and technical services representative sections are submitted in one cassette. Signed by and Reported on: Fady Guerra MD 08/10 1402 END OF REPORT DEPARTMENT OF PATHOLOGY, [address] [place] [address] Fady Guerra M.D. Director [facility] # [id number] 3 Therapeutic target for the treatment of diabetes mellitus patients is <7% HBA1C, and in selective patients <6.0%. Please refer to [place] [employer] diabetic care guidelines for further information. 4 Troponin-I testing on Plasma Separator Tubes (PST) has a known false positive rate of 0.20-0.40%. All positive troponins reflex immediately to secondary confirmatory testing. Using the [employer] DxI 800 Access Immunoassay systems, the 99th percentile upper reference limit was demonstrated to be < 0.03 ng/mL. 5 Desirable: <150 Borderline High: 150-199 High: 200-499 Very High: >500 6 Desirable: <200 Borderline High: 200-239 High: >239 7 Low: <40 Desirable: 40-60 High: >60 8 Desirable: <100 Near Optimal: 100-129 Borderline High: 130-159 High: 160-189 Very High: >189 9 Because ethnic data is not always readily [...] 15-29 5 Kidney failure <15 (or dialysis) 10 [facility] Severe Sepsis and Septic Shock Management Bundle Measure requires all lactic acids initially measuring >2.0 mmol/L be repeated. 11 Standard intensity warfarin therapeutic range: 2.0-3.0 High intensity warfarin therapeutic range: 2.5-3.5 12 Audit Clerks Supervisor: [id number] Desirable: <150 Borderline High: 150-199 High: 200-499 Very High: >500 14 Desirable: <200 Borderline High: 200-239 High: >239 15 Low: <40 Desirable: 40-60 High: >60 16 Desirable: <100 Near Optimal: 100-129 Borderline High: 130-159 High: 160-189 Very High: >189 Procedures Date Code Description Status 11/18/2019 03923 Pace Maker Eval W/Iterative Adjment Dual Lead Completed 11/18/2019 37968 EKG Tracing & Interpretation Completed 10/29/2019 31269 Excision Tumor Soft Tissue Pelvis/Hip Area Subcutaneous 3 Completed CM Or > 09/16/2019 93542 EKG Tracing & Interpretation Completed 07/09/2019 28448 EKG, Interpretation Only Completed 07/07/2019 17216 ECHO Transthorasic Realtime 2D W Doppler & Color Flow Hosp Completed 06/05/2019 70700 Pace Maker Eval W/Iterative Adjment Dual Lead Completed 06/05/2019 29501 Pace Maker Eval W/Iterative Adjment Dual Lead Completed 06/05/2019 91957 EKG Tracing & Interpretation Completed Medical Devices Description No Information Available Encounters Type Date Location Provider Dx Diagnosis Office Visit 09/16/2019 [facility] Carol Velasquez, R22.42 Localized 9:45a [facility] swelling, mass and lump, left lower limb I48.0 Paroxysmal atrial fibrillation Z95.0 Presence of cardiac pacemaker I42.9 Cardiomyopathy, unspecified I34.0 Nonrheumatic mitral (valve) insufficiency I10 Essential (primary) hypertension Office Visit 09/10/2019 9:53a [facility] Clyde Sahu, I10 Essential Assoc,justice MILES (primary) Hospitalists hypertension Office Visit 08/28/2019 1:[facility]p [facility] Olu P. R22.42 Localized Of [place] Pineda MD, swelling, mass and FACS lump, left lower limb Office Visit 08/22/2019 11:40a [facility] Hank Gautam, I10 Essential Medicine - Ccmob SOD CUTTER (primary) hypertension Office Visit 07/31/2019 11:00a [facility] Olu PLita R22.42 Localized Of [place] Pineda MD, swelling, mass and FACS lump, left lower limb Office Visit 07/14/2019 11:00a [facility] Olu Oakes R22.42 Localized Of [place] Pineda MD, swelling, mass and FACS lump, left lower limb Office Visit 07/11/2019 2:00p [facility] Internal Hank Gautam, R42 Dizziness and Medicine - Ccmob SOD CUTTER giddiness D64.9 Anemia, unspecified Office Visit 07/09/2019 8:49a [facility] Axel2 Dizziness and Assoc,pc JENNIFER Xiao Hospitalists I48.91 Unspecified atrial fibrillation N18.3 Chronic kidney disease, stage 3 (moderate) I12.9 Hypertensive chronic kidney disease w stg 1-4/unsp chr kdny Office Visit 07/08/2019 8:49a [facility] Axel2 Dizziness and Assoc,pc JENNIFER Xiao Hospitalists I48.91 Unspecified atrial fibrillation D64.9 Anemia, unspecified N18.3 Chronic kidney disease, stage 3 (moderate) Office Visit 07/08/2019 7:00a [facility] Etelvina Coley Dizziness and MD murdock Office Visit 07/07/2019 8:48a [facility] Assoc,pc Brenna Main Dizziness and Hospitalists mathieu Xiao I48.91 Unspecified atrial fibrillation D64.9 Anemia, unspecified N18.3 Chronic kidney disease, stage 3 (moderate) Office Visit 07/07/2019 7:00a [facility] Etelvina Coley Dizziness and MD murdock Office Visit 07/06/2019 7:00a [facility] Lamonte Main Dizziness and MD mathieu Davis R94.09 Abnormal results of function studies of CORPORATE REAL ESTATE SPECIALIST Office Visit 07/06/2019 8:48a [facility] Etelvina Guerra Dizziness and Assoc,pc N.P. mathieu Hospitalists I48.91 Unspecified atrial fibrillation N18.3 Chronic kidney disease, stage 3 (moderate) J45.909 Unspecified asthma, uncomplicated Office Visit 07/05/2019 8:47a [facility] Axel Garza2 Dizziness and Assoc,pc SOD CUTTER mathieu Hospitalists G45.9 Transient cerebral ischemic attack, unspecified N18.3 Chronic kidney disease, stage 3 (moderate) I12.9 Hypertensive chronic kidney disease w stg 1-4/unsp [facility] kdny Office Visit 06/20/2019 2:20p [facility] Internal Hank Dain, SOD CUTTER M25.522 Pain in left Medicine - Ccmob elbow R22.2 Localized swelling, mass and lump, trunk Office Visit 06/18/2019 3:30p [facility] Nurse Visit I10 Essential (primary) Of [facility] IC hypertension Assessments Date Code Description Provider 11/19/2019 G47.33 Obstructive sleep apnea (adult) Gricel Marinelli DNP, RN, (pediatric) GLASS OR MIRROR INSPECTOR-BC 11/18/2019 I48.0 Paroxysmal atrial fibrillation Mireille S. Foster, N.P. 11/18/2019 I48.0 Paroxysmal atrial fibrillation Ica Pacer Schedule 11/18/2019 Z95.0 Presence of cardiac pacemaker Mireille S. Foster, N.P. 11/18/2019 Z95.0 Presence of cardiac pacemaker Ica Pacer Schedule 11/18/2019 I42.9 Cardiomyopathy, unspecified Mireille S. Foster, N.P. 11/18/2019 I42.9 Cardiomyopathy, unspecified Ica Pacer Schedule 11/18/2019 I10 Essential (primary) hypertension Mireille S. Foster, N.P. 11/18/2019 R06.00 Dyspnea, unspecified Mireille S. Foster, N.P. 11/06/2019 D17.24 Benign lipomatous neoplasm of skin JENNIFER Lora and subcutaneous tissue of left leg 10/29/2019 D17.24 Benign lipomatous neoplasm of skin Olu Pineda MD, FACS and subcutaneous tissue of left leg 10/02/2019 R22.42 Localized swelling, mass and lump, Olu Pineda MD, FACS left lower limb 10/02/2019 Z01.818 Encounter for other preprocedural Olu Pineda MD, FACS examination 09/16/2019 R22.42 Localized swelling, mass and lump, Carol Velasquez M.D. left lower limb 09/16/2019 I48.0 Paroxysmal atrial fibrillation Carol Velasquez M.D. 09/16/2019 Z95.0 Presence of cardiac pacemaker Carol Velasquez M.D. 09/16/2019 I42.9 Cardiomyopathy, unspecified Carol Velasquez M.D. 09/16/2019 I34.0 Nonrheumatic mitral (valve) Carol Velasquez M.D. [facility] 09/16/2019 I10 Essential (primary) hypertension Carol Velasquez M.D. 09/10/2019 I10 Essential (primary) hypertension Clyde Sahu MD 08/28/2019 R22.42 Localized swelling, mass and lump, Olu Pineda MD, FACS left lower limb 08/22/2019 I10 Essential (primary) hypertension Hank Gautam, SOD CUTTER 07/31/2019 R22.42 Localized swelling, mass and lump, Olu Pineda MD, FACS left lower limb 07/14/2019 R22.42 Localized swelling, mass and lump, Olu Pineda MD, FACS left lower limb 07/11/2019 R42 Dizziness and giddiness Hanksophia Gautam, SOD CUTTER 07/11/2019 D64.9 Anemia, unspecified Hanksophia Gautam, SOD CUTTER 07/09/2019 R94.31 Abnormal electrocardiogram [ECG] Dwight Allison M.D. [EKG] 07/09/2019 R42 Dizziness and giddiness Brenna Xiao PA 07/09/2019 I48.91 Unspecified atrial fibrillation JENNIFER Breaux 07/09/2019 N18.3 Chronic kidney disease, stage 3 JENNIFER Breaux (moderate) 07/09/2019 I12.9 Hypertensive chronic kidney disease JENNIFER Breaux with stage 1 through stage 4 chronic kidney disease, or unspecified chronic kidney disease 07/08/2019 R42 Dizziness and giddiness Sheron Cuenca MD 07/08/2019 R42 Dizziness and giddiness Brenna Xiao PA 07/08/2019 I48.91 Unspecified atrial fibrillation Brenna Xiao PA 07/08/2019 D64.9 Anemia, unspecified Brenna Xiao PA 07/08/2019 N18.3 Chronic kidney disease, stage 3 JENNIFER Breaux (moderate) 07/07/2019 R42 Dizziness and giddiness Sheron Cuenca MD 07/07/2019 G45.9 Transient cerebral ischemic attack, Jeevan Haq M.D. unspecified 07/07/2019 R42 Dizziness and giddiness JENNIFER Breaux 07/07/2019 I48.91 Unspecified atrial fibrillation JENNIFER Breaux 07/07/2019 D64.9 Anemia, unspecified JENNIFER Breaux 07/07/2019 N18.3 Chronic kidney disease, stage 3 JENNIFER Breaux (moderate) 07/06/2019 R42 Dizziness and giddiness Lamonte Davis MD 07/06/2019 R94.09 Abnormal results of other function Lamonte Davis MD studies of central nervous system 07/06/2019 R42 Dizziness and giddiness Siri Hanley, N.P. 07/06/2019 I48.91 Unspecified atrial fibrillation Siri Hanley, N.P. 07/06/2019 N18.3 Chronic kidney disease, stage 3 Siri Hanley, N.P. (moderate) 07/06/2019 J45.909 Unspecified asthma, uncomplicated Siri Hanley, N.P. 07/05/2019 R42 Dizziness and giddiness Cecy Cordova NP 07/05/2019 G45.9 Transient cerebral ischemic attack, Cecy Cordova NP unspecified 07/05/2019 N18.3 Chronic kidney disease, stage 3 Cecy Cordova NP (moderate) 07/05/2019 I12.9 Hypertensive chronic kidney disease Cecy Cordova NP with stage 1 through stage 4 chronic kidney disease, or unspecified chronic kidney disease 06/20/2019 M25.522 Pain in left elbow Hank Gautam NP 06/20/2019 R22.2 Localized swelling, mass and lump, Hank Gautam NP trunk 06/18/2019 I10 Essential (primary) hypertension Nurse Visit IC 06/05/2019 I48.0 Paroxysmal atrial fibrillation Ica Pacer Schedule 06/05/2019 I48.0 Paroxysmal atrial fibrillation Carol Velasquez M.D. 06/05/2019 Z95.0 Presence of cardiac pacemaker Carol Velasquez M.D. 06/05/2019 I42.9 Cardiomyopathy, unspecified Ica Pacer Schedule 06/05/2019 I10 Essential (primary) hypertension Carol Velasquez M.D. 06/05/2019 Z95.0 Presence of cardiac pacemaker Ica Pacer Schedule 06/05/2019 I34.0 Nonrheumatic mitral (valve) Carol Velasquez M.D. insufficiency 06/05/2019 I42.9 Cardiomyopathy, unspecified Carol Velasquez M.D. 06/05/2019 R06.02 Shortness of breath Carol Velasquez M.D. 06/05/2019 Z95.810 Presence of automatic (implantable) Carol Velasquez M.D. cardiac defibrillator 06/05/2019 I45.10 Unspecified right bundle-branch block Carol Velasquez M.D. 06/05/2019 R42 Dizziness and giddiness Carol Velasquez M.D. Plan of Treatment Future Appointment(s):01/20/2020 1:45 pm - Gricel Marinelli DNP, RN, GLASS OR MIRROR INSPECTOR-BC at [facility]11/28/2019 3:00 pm - Mireille Argueta, N.P. at [facility]11/21/2019 1:30 pm - Traveling ECHO 1 at [facility]03/22/2020 1:50 pm - Carol Velasquez M.D. at [facility]11/18/2019 - Mireille Agrueta, N.P.I48.0 Paroxysmal atrial [id number] Presence of cardiac pacemakerRecommendations:We made some changes on your pacemaker that might make your breathing feel better.I42.9 Cardiomyopathy, [id number] Essential (primary) hypertensionRecommendations: please call [phone] to follow up with sleep ztnumwR32.00 Dyspnea, unspecifiedNew Orders:Echocardiogram, Scheduled: 11/21/19Follow up:МАРИНА Kendrick after echo OV 03/2020Recommendations:Lungs are clear. Swelling in your legs could be front salt. Will check LV function and valve Functional Status Description No Information Available Mental Status Description No Information Available Referrals Refer to Reason for Referral Status Appt Date [facility] No appt yet 07/28 Received Partial 08/21/[address] [place] [address] [phone] Olu Pineda MD Sent 07/08/2019 [address] [facility] [address] [phone]
--- OUTSIDE RECORDS SUMMARY | 2019-12-20 19:52 | XMS REPORT | Continuity of Care Document ---
:1950 External Reference #:[id number] Author Name Hank Gautam NP (transmitted by agent of provider Shweta Rivera) Address [address], [place] [address] Care Team Providers Name Role Phone Lissette Lepe MD - Internal Care Team Information Automobile Glass Technician Medicine Luis Lara MD - Urology Care Team Information Automobile Glass Technician [phone] Joya Kilgore K., MD - Clinical Care Team Information Automobile Glass Technician Cardiac Electrophysiology Problems Active Problems Provider Date Persistent atrial fibrillation Carol Velasquez M.D. Onset: 07/03/2017 Mitral valve disorder Carol Velasquez M.D. 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 Onset: 07/03/2017 diastolic heart failure Paroxysmal atrial fibrillation Carol Velasquez M.D. Onset: 08/17/2017 Nonobstructive cardiomyopathy Carol Velasquez M.D. Onset: 08/17/2017 Sleep apnea Gricel Marinelli DNP, RN, Onset: 10/23/2017 [facility] Obstructive sleep apnea syndrome Gricel Marinelli DNP, RN, Onset: 01/14/2018 [facility] Essential hypertension Carol Velasquez M.D. Onset: 05/31/2018 Cardiomyopathy Carol Velasquez M.D. Onset: 05/31/2018 Social History Type Date Description Comments Sex Unknown Tobacco Use Start: Unknown Never Smoked Cigarettes Smoking Status Reviewed: 12/03/19 Never Smoked Cigarettes ETOH Use Denies alcohol use Tobacco Use Start: Unknown Patient has never smoked Recreational Drug Use Denies Drug Use Exercise Type/Frequency Does not exercise Limited by cardiac condition Allergies, Adverse Reactions, Alerts Active Allergies Reaction Severity Comments Date NKDA 07/03/2017 Seasonal 09/23/2019 Animals 09/23/2019 Medications Active Medications SIG Qnty Indications Ordering Date Provider Furosemide 1 by mouth every 30tabs Mireille Argueta, 11/19/2019 20mg day if need for N.P. Tablets sob or weight gain Atorvastatin Calcium 1 by mouth every 90tabs [...] Marinelli, 01/14/2018 Advancement Device appliance DNP, RN, POWER TRANSFORMER INSPECTOR-BC /mandibular Device advancement device for sleep [...] 1 daily by mouth Unknown 200mg Capsules Immunizations CPT Code Status Date Vaccine Reaction Lot # [id number] Given 05/09/2018 Hepatitis A Vaccine Adult [id number] Dosage [id number] Given 11/09/2017 Tdap - No immediat [id number] Tetanus/Diptheria/Acellula reaction... r Pertussis [id number] Given 11/09/2017 Hepatitis A Vaccine Adult no immedite [id number] Dosage reaction... Vital Signs Date Vital Result Comment 12/03/2019 2:43pm Height 69 inches 5'9" Weight 189.00 lb Heart Rate 88 /min BP Systolic 141 mmHg BP Diastolic 96 mmHg BP Systolic Recheck 140 mmHg BP Diastolic Recheck 84 mmHg O2 % BldC Oximetry 99 % BMI (Body Mass Index) 27.9 kg/m2 11/19/2019 2:54pm Height 69 inches 5'9" Weight 192.00 lb Heart Rate 78 /min BP Systolic 110 mmHg BP Diastolic 70 mmHg O2 % BldC Oximetry 97 % BMI (Body Mass Index) 28.4 kg/m2 Results Test Acquired Date Facility Test Result H/L Range Note Laboratory test 11/25/2019 [facility] C Reactive < 1.00 mg/L Normal <8.[address] [place] [address] [phone] Erythrocyte Sed Rate 3 mm/Hr Normal 0-19 CBC Auto 11/18/2019 [facility] White Blood 7.0 10^3/uL Normal 3.5-10.[address] [place] [address] [phone] Red Blood Count 4.71 10^6/uL Normal 4.18-5.48 [...] Red Blood Cells % 0.0 Laboratory 11/18/2019 [facility] TSH (Thyroid 0.79 Normal 0.34 -5.60 test finding [address] Stim Horm) mcIU/[place] [address] [phone] Magnesium 2.0 mg/dL Normal 1.9-2.7 Comp Metabolic 11/18/2019 [facility] Sodium 141 mmol/L Normal 135-[address] [place] [address] [phone] Potassium 4.2 mmol/L Normal 3.5-5.0 Chloride 105 [...] Egfr 61.1 >60 1 Laboratory test 11/18/2019 [facility] B-Type 295 pg/mL High <= [address] [place] [address] Peptide BNP [phone] Cell Morphology 11/18/2019 [facility] Friedheim Cells 1+ [address] [place], [place] [id number] [phone] Acanthocytes 1+ Laboratory test 11/18/2019 [facility] Pathologist Review (SEE NOTE) 2 finding [address] [place], [place] [id number] [phone] Surgical 10/29/2019 [facility] Surgical Pathology SEE RESULT [address] [place] [address] [phone] PDFReport SEE IMAGE Urinalysis Profile 07/05/2019 [facility] Urine Color Yellow [address] [place] [address] [phone] Urine Appearance Cloudy Urine Specific Lawrence 1.019 Normal 1.010-1.030 Urine pH 5.0 Normal 5-9 Urine Urobilinogen Negative Negative Urine Ketones Negative Negative Urine Protein Negative Negative Urine Leukocytes Negative Negative Urine Blood Negative Negative Urine Nitrite Negative Negative Urine Bilirubin Negative Negative Urine Glucose Negative Negative Laboratory test 07/05/2019 [facility] Ferritin 8.7 ng/mL Low 24-336 finding [address] [place] [address] [phone] Hemoglobin A1c (Glyco HGB) 6.0 % High 4.0-5.6 4 Iron & Iron Binding 07/05/2019 [facility] Iron 22 g/dL Low 50-[address] [place] [phone] Unsaturated Iron Binding < 362 g/dL Total Iron Binding Capacity 377 g/dL Normal 250-450 Transferrin 269 mg/dL Normal 203-362 % Iron Saturation 6 % Low 15-55 Laboratory test 07/05/2019 [facility] Magnesium 2.0 mg/dL Normal 1.9-2.7 finding [address] [place] [address] [phone] CBC Auto Diff 07/05/2019 [facility] White Blood 5.7 Normal 3.5 -10.8 [facility] Count 10^3/[place] [address] [phone] Red Blood Count 4.55 10^6/uL Normal 4.18-5.48 [...] Blood Cells % 0.0 Laboratory test 07/05/2019 [facility] Troponin-I (TnI) 0.01 ng/ mL <0.04 5 finding [address] [place] [address] [phone] Lipid Profile 07/05/2019 [facility] Triglycerides 39 mg/dL 6 (Trig/Chol/HDL) [address] [place] [address] [phone] Cholesterol 149 mg/dL 7 HDL Cholesterol 61.0 mg/dL 8 LDL Cholesterol 80 mg/dL 9 Comp Metabolic 07/05/2019 [facility] Sodium 139 mmol/L Normal 135-145 Panel [address] [place] [address] [phone] Potassium 3.9 mmol/L Normal 3.5-5.0 Chloride 109 [...] Egfr Non- 47.0 >60 Egfr 56.9 >60 10 Laboratory test 07/05/2019 [facility] Partial 39.9 High 26.0- 38.[address] [place] [address] PTT [phone] Lactic Acid 1.1 mmol/L Normal 0.5-2.0 11 Inr/Protime 07/05/2019 [facility] Inr 1.25 High 0.82-1.[address] [place] [address] [phone] Laboratory 07/05/2019 [facility] Point of Care 99 Normal 70- 100 13 test finding [address] Glucose mg/[place] [address] [phone] Lipid Profile 07/05/2019 [facility] Triglycerides 46 14 (Trig/Chol/HDL [address] mg/dL ) [place], [place] [id number] [phone] Cholesterol 150 mg/dL 15 HDL Cholesterol 61.0 mg/dL 16 LDL Cholesterol 80 mg/dL 17 1 Because ethnic data is not always [...] 5 Kidney failure <15 (or dialysis) 2 Mild normocytic anemia noted. Additional studies clinically warranted. Reviewed by Dr. Guerra 3 SEE RESULT BELOW Name: ROBER PATINO : [address]: Olu Pineda MD Acct: [id number] Unit: [id number] AGE: 69 Location: OR Re10/29/19 SEX: M Status: DEP [facility] SPEC: [id number] MELISSA: 10/29/19- SUBM DR: Olu Pineda MD REQ: [id number] RECD: 10/29/19 STATUS: SOUT _ ORDERED: LEVEL [...] The specimen is inked, serially sectioned and market survey representative sections are submitted in one cassette. Signed by and Reported on: Fady Guerra MD 08/10 1402 END OF REPORT DEPARTMENT OF PATHOLOGY, [address] [place] [address] Fady Guerra M.D. Director [facility] # [id number] 4 Therapeutic target for the treatment of diabetes mellitus patients is <7% HBA1C, and in selective patients <6.0%. Please refer to [place] [employer] diabetic care guidelines for further information. 5 Troponin-I testing on Plasma Separator Tubes (PST) has a known false positive rate of 0.20-0.40%. All positive troponins reflex immediately to secondary confirmatory testing. Using the [employer] DxI 800 Access Immunoassay systems, the 99th percentile upper reference limit was demonstrated to be < 0.03 ng/mL. 6 Desirable: <150 Borderline High: 150-199 High: 200-499 Very High: >500 7 Desirable: <200 Borderline High: 200-239 High: >239 8 Low: <40 Desirable: 40-60 High: >60 9 Desirable: <100 Near Optimal: 100-129 Borderline High: 130-159 High: 160-189 Very High: >189 10 Because ethnic data is not always readily [...] 15-29 5 Kidney failure <15 (or dialysis) 11 [facility] Severe Sepsis and Septic Shock Management Bundle Measure requires all lactic acids initially measuring >2.0 mmol/L be repeated. 12 Standard intensity warfarin therapeutic range: 2.0-3.0 High intensity warfarin therapeutic range: 2.5-3.5 13 Clinical Neuropsychologist: [id number] 14 Desirable: <150 Borderline High: 150-199 High: 200-499 Very High: >500 15 Desirable: <200 Borderline High: 200-239 High: >239 16 Low: <40 Desirable: 40-60 High: >60 17 Desirable: <100 Near Optimal: 100-129 Borderline High: 130-159 High: 160-189 Very High: >189 Procedures Date Code Description Status 11/21/2019 23117 ECHO Transthoracic, Real-Time 2D With Doppler And Color Completed Flow 11/21/2019 37890 ECHO Transthoracic, Real-Time 2D With Doppler And Color Completed Flow 11/18/2019 79145 Pace Maker Eval W/Iterative Adjment Dual Lead Completed 11/18/2019 43220 Pace Maker Eval W/Iterative Adjment Dual Lead Completed 11/18/2019 61137 EKG Tracing & Interpretation Completed 10/29/2019 64371 Excision Tumor Soft Tissue Pelvis/Hip Area Subcutaneous 3 Completed CM Or > 09/16/2019 68986 EKG Tracing & Interpretation Completed 07/09/2019 47953 EKG, Interpretation Only Completed 07/07/2019 12049 ECHO Transthorasic Realtime 2D W Doppler & Color Flow Hosp Completed 06/05/2019 14529 Pace Maker Eval W/Iterative Adjment Dual Lead Completed 06/05/2019 29122 Pace Maker Eval W/Iterative Adjment Dual Lead Completed 06/05/2019 72938 EKG Tracing & Interpretation Completed Medical Devices Description No Information Available Encounters Type Date Location Provider Dx Diagnosis Office Visit 11/19/2019 [facility] Gricel Marinelli, G47.33 Obstructive sleep 3:[facility]p [facility] RN, POWER TRANSFORMER INSPECTOR-BC apnea (adult) Noc Analyst (pediatric) Office Visit 09/16/2019 [facility] Carol Velasquez, R22.42 Localized 9:45a [facility] swelling, mass and lump, left lower limb I48.0 Paroxysmal atrial fibrillation Z95.0 Presence of cardiac pacemaker I42.9 Cardiomyopathy, unspecified I34.0 Nonrheumatic mitral (valve) insufficiency I10 Essential (primary) hypertension Office Visit 09/10/2019 9:53a [facility] Clyde Sahu, I10 Essential Assoc,justice MILES (primary) Hospitalists hypertension Office Visit 08/28/2019 1:00p [facility] Olu Oakes R22.42 Localized Of [facility] Pineda MD, swelling, mass and FACS lump, left lower limb Office Visit 08/22/2019 11:40a [facility] Internal Hanksophia Gautam, I10 Essential Medicine - Ccmob FIRE HAZARD INSPECTOR (primary) hypertension Office Visit 07/31/2019 11:00a [facility] Olu Oakes R22.42 Localized Of [place] Pineda MD, swelling, mass and FACS lump, left lower limb Office Visit 07/14/2019 11:00a [facility] Olu Oakes R22.42 Localized Of [place] Pineda MD, swelling, mass and FACS lump, left lower limb Office Visit 07/11/2019 2:00p [facility] Internal Hank Gautam R42 Dizziness and Medicine - Ccmob FIRE HAZARD INSPECTOR giddiness D64.9 Anemia, unspecified [facility]pc JENNIFER Xiao Hospitalists I48.91 Unspecified atrial fibrillation N18.3 Chronic kidney disease, stage 3 (moderate) I12.9 Hypertensive chronic kidney disease w stg 1-4/unsp [facility] kdny Office Visit 07/08/2019 8:49a [facility] Brenna Main Dizziness and Assoc,pc JENNIFER Xiao Hospitalists I48.91 Unspecified atrial fibrillation D64.9 Anemia, unspecified N18.3 Chronic kidney disease, stage 3 (moderate) Office Visit 07/08/2019 7:00a [facility] Etelvina Coley Dizziness and MD murdock Office Visit 07/07/2019 8:48a [facility] Brenna Main Dizziness and Hospitalists mathieu Xiao I48.91 Unspecified atrial fibrillation D64.9 Anemia, unspecified N18.3 Chronic kidney disease, stage 3 (moderate) Office Visit 07/07/2019 7:00a [facility] Etelvina Coley and MD [place] Office Visit 07/06/2019 7:00a [facility] Lamonte R42 Dizziness and MD mathieu Davis R94.09 Abnormal results of function studies of [employer] Office Visit 07/06/2019 8:48a [facility] Siri Talon, R42 Dizziness and Assoc,pc N.P. mathieu Hospitalists I48.91 Unspecified atrial fibrillation N18.3 Chronic kidney disease, stage 3 (moderate) J45.909 Unspecified asthma, uncomplicated Office Visit 07/05/2019 8:47a [facility] Cecy Cordova, R42 Dizziness and Assoc,pc FIRE HAZARD INSPECTOR mathieu Hospitalists G45.9 Transient cerebral ischemic attack, unspecified N18.3 Chronic kidney disease, stage 3 (moderate) I12.9 Hypertensive chronic kidney disease w stg 1-4/unsp chr kdny Office Visit 06/20/2019 2:20p [facility] Internal Hank Gautam NP M25.522 Pain in left Medicine - Ccmob elbow R22.2 Localized swelling, mass and lump, trunk Office Visit 06/18/2019 3:30p [facility] Nurse Visit I10 Essential (primary) [facility] IC hypertension Assessments Date Code Description Provider 12/03/2019 R21 Rash and other nonspecific skin Hank Gautam NP eruption 11/21/2019 R06.00 Dyspnea, unspecified Carol Velasquez M.D. 11/21/2019 R06.00 Dyspnea, unspecified Traveling ECHO 1 11/19/2019 G47.33 Obstructive sleep apnea (adult) Gricel Marinelli DNP, RN, (pediatric) [facility]- 11/18/2019 I48.0 Paroxysmal atrial fibrillation Carol Velasquez M.D. 11/18/2019 I48.0 Paroxysmal atrial fibrillation Mireille Argueta N.P. 11/18/2019 I48.0 Paroxysmal atrial fibrillation Ica Pacer Schedule 11/18/2019 Z95.0 Presence of cardiac pacemaker Carol Velasquez M.D. 11/18/2019 Z95.0 Presence of cardiac pacemaker Mireille Argueta N.P. 11/18/2019 Z95.0 Presence of cardiac pacemaker Ica Pacer Schedule 11/18/2019 I42.9 Cardiomyopathy, unspecified Carol Velasquez M.D. 11/18/2019 I42.9 Cardiomyopathy, unspecified Mireille Argueta N.P. 11/18/2019 I42.9 Cardiomyopathy, unspecified Ica Pacer Schedule 11/18/2019 I10 Essential (primary) hypertension Mireille Argueta, N.P. 11/18/2019 R06.00 Dyspnea, unspecified Mireille Argueta, N.P. 11/06/2019 D17.24 Benign lipomatous neoplasm of skin Irwin Cespedes, PA -C and subcutaneous tissue of left leg 10/29/2019 [...] Nonrheumatic mitral (valve) Carol Velasquez M.D. insufficiency 09/16/2019 I10 Essential (primary) hypertension Carol Velasquez M.D. 09/10/2019 I10 Essential (primary) hypertension Clyde Sahu MD 08/28/2019 R22.42 Localized swelling, mass and lump, Olu Pineda MD, FACS left lower limb 08/22/2019 I10 Essential (primary) hypertension Hank Gautam NP 07/31/2019 R22.42 Localized swelling, mass and lump, Olu Pineda MD, FACS left lower limb 07/14/2019 R22.42 Localized swelling, mass and lump, Olu Pineda MD, FACS left lower limb 07/11/2019 R42 Dizziness and giddiness Hank Gautam NP 07/11/2019 D64.9 Anemia, unspecified Hank Gautam NP 07/09/2019 R94.31 Abnormal electrocardiogram [ECG] Dwight Allison M.D. [EKG] 07/09/2019 R42 Dizziness and giddiness JENNIFER Breaux 07/09/2019 I48.91 Unspecified atrial fibrillation JENNIFER Breaux 07/09/2019 N18.3 Chronic kidney disease, stage 3 JENNIFER Breaux (moderate) 07/09/2019 I12.9 Hypertensive chronic kidney disease JENNIFER Breaux with stage 1 through stage 4 chronic kidney disease, or unspecified chronic kidney disease 07/08/2019 R42 Dizziness and giddiness Sheron Cuenca MD 07/08/2019 R42 Dizziness and giddiness JENNIFER Breaux 07/08/2019 I48.91 Unspecified atrial fibrillation JENNIFER Breaux 07/08/2019 D64.9 Anemia, unspecified JENNIFER Breaux 07/08/2019 N18.3 Chronic kidney disease, stage 3 [...] system 07/06/2019 R42 Dizziness and giddiness Siri Hanley N.P. 07/06/2019 I48.91 Unspecified atrial fibrillation Siri Hanley, N.P. 07/06/2019 N18.3 Chronic kidney disease, stage 3 Siri Hanley, N.P. (moderate) 07/06/2019 J45.909 Unspecified asthma, uncomplicated Siri Hanley N.P. 07/05/2019 R42 Dizziness and giddiness Cecy Cordova NP 07/05/2019 G45.9 Transient cerebral ischemic attack, Cecy NavarroYULIYA monge unspecified 07/05/2019 N18.3 Chronic kidney disease, stage [...] Carol Velasquez M.D. Plan of Treatment Future Appointment(s):01/19/2020 11:15 am - Gricel Marinelli DNP, RN, POWER TRANSFORMER INSPECTOR-BC at [facility]03/22/2020 1:50 pm - Carol Velasquez M.D. at [facility]12/03/2019 - Hank Gautam NPR21 Rash and other nonspecific skin eruptionComments:CONTINUE TO MONITOR THE AREA AND IF THERE IS ANY WORSENING LET ME KNOW. Functional Status Description No Information Available Mental Status Description No Information Available Referrals Refer to Reason for Referral Status Appt Date [facility] No appt yet 07/28 Received Partial 08/21/2019 [address] [place] [address] [phone] Olu Pineda MD Sent 07/08/2019 [address] [facility] [address] [phone]
--- OUTSIDE RECORDS SUMMARY | 2019-12-20 19:52 | XMS REPORT | Continuity of Care Document ---
:1950 External Reference #:[id number] Author Name Mireille Argueta N.P. (transmitted by agent of provider Candice Chan) Address [address] [facility] [place] [address] Care Team Providers Name Role Phone Lissette Lepe MD - Internal Care Team Information Business Banking Relationship Manager Medicine Luis Lara MD - Urology Care Team Information Business Banking Relationship Manager [phone] Joya Kilgore K., MD - Clinical Care Team Information Business Banking Relationship Manager Cardiac Electrophysiology Problems Active Problems Provider Date Persistent atrial fibrillation Carol Velasquez M.D. Onset: 07/03/2017 Mitral valve disorder Carol Velasquez M.D. Onset: 07/03/2017 Chronic combined systolic and Caorl Velasquez M.D. Onset: 07/03/2017 diastolic heart failure Paroxysmal atrial fibrillation Carol Velasquez M.D. Onset: 08/17/2017 Nonobstructive cardiomyopathy Carol Velasquez M.D. Onset: 08/17/2017 Sleep apnea Gricel Marinelli DNP, RN, Onset: 10/23/2017 [facility] Obstructive sleep apnea syndrome Gricel Marinelli DNP RN, Onset: 01/14/2018 [facility] Essential hypertension Carol Velasquez M.D. Onset: 05/31/2018 Cardiomyopathy Carol Velasquez M.D. Onset: 05/31/2018 Social History Type Date Description Comments Sex Unknown Tobacco Use Start: Unknown Never Smoked Cigarettes Smoking Status Reviewed: 12/04/19 Never Smoked Cigarettes ETOH Use Denies alcohol use Tobacco Use Start: Unknown Patient has never smoked Recreational Drug Use Denies Drug Use Exercise Type/Frequency Does not exercise Limited by cardiac condition Allergies, Adverse Reactions, Alerts Active Allergies Reaction Severity Comments Date NKDA 07/03/2017 Seasonal 09/23/2019 Animals 09/23/2019 Medications Active Medications SIG Qnty Indications Ordering Date Provider Spironolactone 1/2 by mouth MWF 14tabs I42.9 Mireille Argueta, 12/04/2019 25mg only N.P. Tablets Furosemide 1 by mouth every 30tabs Mireille Argueta, 11/19/2019 20mg Tablets day if need for N.P. sob or weight gain Atorvastatin Calcium 1 [...] Gautam NP 06/20/2019 Support/Pressure during the day Pads/Left-Right/Small -Medium Misc Vitamin B-12 Every Other Day Unknown 04/28/2019 500mcg Tablets Magnesium Oxide Every Day Unknown 04/28/2019 250mg Tablets Chyawanprash 5 ml once daily Unknown 04/28/2019 Carvedilol 1 tab by mouth 180tabs Carol Velasquez, 02/14/2019 25mg Tablets twice a day M.D. Propafenone HCL take 1 tablet by 180tabs I48.0 Mireille Argueta, 04/25/2018 150mg mouth twice daily N.P. Tablets Mandibular fabricate oral 1units G47.33 Gricel Marinelli, 01/14/2018 Advancement Device appliance ZACHARY, RN, LEASE ATTENDANT-BC /mandibular Device advancement device for sleep apnea with needed adjustments. Compression Stockings knee high closed 1Pair Carol Velasquez, 09/04/2017 toe moderate M.D. Misc compression 20-30 mmHg Coq10 1 by mouth every Unknown 200mg Capsules day Eliquis 1 by mouth twice a 180tabs Carol Velasquez, 5mg Tablets day M.D. Ventolin HFA Inhale 2 Puffs By 18units Hank Gautam NP Mouth Four Times A 108(90Base) mcg/Act Day as Needed Aerosol Finasteride 1 by mouth every Unknown 5mg Tablets other day [facility] 1 po daily Unknown Tablet Advanced Bio-Curcumin 1 softgel po daily Unknown With Johanne & Turmerones 600mg/60mg Dha 1 daily by mouth Unknown 200mg Capsules Immunizations CPT Code Status Date Vaccine Reaction Lot # [id number] Given 05/09/2018 Hepatitis A Vaccine Adult [id number] Dosage [id number] Given 11/09/2017 Tdap - No immediat [id number] Tetanus/Diptheria/Acellula reaction... r Pertussis [id number] Given 11/09/2017 Hepatitis A Vaccine Adult no immedite [id number] Dosage reaction... Vital Signs Date Vital Result Comment 12/04/2019 12:47pm Height 69 inches 5'9" Weight 188.00 lb with shoes Heart Rate 80 /min BP Systolic Sitting 138 mmHg Ra BP Diastolic Sitting 88 mmHg Ra BP Systolic Standing 134 mmHg Ra BP Diastolic Standing 82 mmHg Ra BMI (Body Mass Index) 27.8 kg/m2 Ejection Fraction 45-50% Echo 11/21/2019 12/03/2019 2:43pm Height 69 inches 5'9" Weight 189.00 lb Heart Rate 88 /min BP Systolic 141 mmHg BP Diastolic 96 mmHg BP Systolic Recheck 140 mmHg BP Diastolic Recheck 84 mmHg O2 % BldC Oximetry 99 % BMI (Body Mass Index) 27.9 kg/m2 Results Test Acquired Date Facility Test Result H/L Range Note Laboratory test 11/25/2019 [facility] C Reactive < 1.00 mg/L Normal <8.[address] [place] [address] [phone] Erythrocyte Sed Rate 3 mm/Hr Normal 0-19 CBC Auto 11/18/2019 [facility] White Blood 7.0 10^3/uL Normal 3.5-10.[address] [place] [address] [phone] Red Blood Count 4.71 10^6/uL Normal 4.18-5.48 [...] Red Blood Cells % 0.0 Laboratory 11/18/2019 [facility] TSH (Thyroid 0.79 Normal 0.34 -5.60 test finding [address] Stim Horm) mcIU/[place] [address] [phone] Magnesium 2.0 mg/dL Normal 1.9-2.7 Comp Metabolic 11/18/2019 [facility] Sodium 141 mmol/L Normal 135-[address] [place] [address] [phone] Potassium 4.2 mmol/L Normal 3.5-5.0 Chloride 105 [...] Egfr 61.1 >60 1 Laboratory test 11/18/2019 [facility] B-Type 295 pg/mL High <= [address] [place] [address] Peptide BNP [phone] Cell Morphology 11/18/2019 [facility] Kelsi Cells 1+ [address] [place] [address] [phone] Acanthocytes 1+ Laboratory test 11/18/2019 [facility] Pathologist Review (SEE NOTE) [address] [place] [address] [phone] Surgical 10/29/2019 [facility] Surgical Pathology SEE RESULT 3 Pathology [address] [facility] [address] [place] [address] [phone] PDFReport SEE IMAGE Urinalysis Profile 07/05/2019 [facility] Urine Color Yellow [address] [email or web address] [address] [phone] Urine Appearance Cloudy Urine Specific Locust 1.019 Normal 1.010-1.030 Urine pH 5.0 Normal 5-9 Urine Urobilinogen Negative Negative Urine Ketones Negative Negative Urine Protein Negative Negative Urine Leukocytes Negative Negative Urine Blood Negative Negative Urine Nitrite Negative Negative Urine Bilirubin Negative Negative Urine Glucose Negative Negative Laboratory test 07/05/2019 [facility] Ferritin 8.7 ng/mL Low 24-336 finding [facility] [email or web address] [address] [phone] Hemoglobin A1c (Glyco HGB) 6.0 % High 4.0-5.6 4 Iron & Iron Binding 07/05/2019 [facility] Iron 22 g/dL Low 50-212 Capacity [facility] [place] [address] [phone] Unsaturated Iron Binding < 362 g/dL Total Iron Binding Capacity 377 g/dL Normal 250-450 Transferrin 269 mg/dL Normal 203-362 % Iron Saturation 6 % Low 15-55 Laboratory test 07/05/2019 [facility] Magnesium 2.0 mg/dL Normal 1.9-2.7 finding [address] [place] [address] [phone] CBC Auto Diff 07/05/2019 [facility] White Blood 5.7 Normal 3.5 -10.8 Count 10^3/[place] [address] [phone] Red Blood Count 4.55 10^6/uL Normal 4.18-5.48 [...] Blood Cells % 0.0 Laboratory test 07/05/2019 [facility] Troponin-I (TnI) 0.01 ng/ mL <0.04 5 finding [address] [place] [address] [phone] Lipid Profile 07/05/2019 [facility] Triglycerides 39 mg/dL 6 (Trig/Chol/HDL) [place] [address] [phone] Cholesterol 149 mg/dL 7 HDL Cholesterol 61.0 mg/dL 8 LDL Cholesterol 80 mg/dL 9 Comp Metabolic 07/05/2019 [facility] Sodium 139 mmol/L Normal 135-145 Panel [address] [place] [address] [phone] Potassium 3.9 mmol/L Normal 3.5-5.0 Chloride 109 [...] Egfr 56.9 >60 10 Laboratory test 07/05/2019 [facility] Partial 39.9 High 26.0- 38.[address] [place] [address] PTT [phone] Lactic Acid 1.1 mmol/L Normal 0.5-2.0 11 Inr/Protime 07/05/2019 [facility] Inr 1.25 High 0.82-1.[address] [place] [address] [phone] Laboratory 07/05/2019 [facility] Point of Care 99 Normal 70- 100 13 test finding [address] Glucose mg/[place] [address] [phone] Lipid Profile 07/05/2019 [facility] Triglycerides 46 14 (Trig/Chol/HDL [address] mg/dL ) [place], [place] [address] [phone] Cholesterol 150 mg/dL 15 HDL Cholesterol 61.0 [...] [address]: Olu Pineda MD Acct: [id number] Unit: [id number] AGE: 69 Location: OR Re10/29/19 SEX: M Status: [facility] SPEC: [id number] MELISSA: 10/29/19- SUBM DR: Olu Pineda MD REQ: [id number] RECD: 10/29/19 STATUS: SOUT _ ORDERED: LEVEL [...] The specimen is inked, serially sectioned and pest control service representative sections are submitted in one cassette. Signed by and Reported on: Fady Guerra MD 08/10 1402 END OF REPORT DEPARTMENT OF PATHOLOGY, [address] [place] [address] Fady Guerra M.D. Director [facility] # [id number] 4 Therapeutic target for the treatment of diabetes mellitus patients is <7% HBA1C, and in selective patients <6.0%. Please refer to [place] [employer] diabetic care guidelines for further information. 5 Troponin-I testing on Plasma Separator Tubes (PST) has a known false positive rate of 0.20-0.40%. All positive troponins reflex immediately to secondary confirmatory testing. Using the [employer] DxI 800 Access Immunoassay systems, the 99th [...] 5 Kidney failure <15 (or dialysis) 11 [facility] Severe Sepsis and Septic Shock Management Bundle Measure requires all lactic acids initially measuring >2.0 mmol/L be repeated. 12 Standard intensity warfarin therapeutic range: 2.0-3.0 High intensity warfarin therapeutic range: 2.5-3.5 13 Poultry Farmer Meat: [id number] 14 Desirable: <150 Borderline High: 150-199 High: 200-499 Very High: >500 15 Desirable: <200 Borderline High: 200-239 High: >239 16 Low: <40 Desirable: 40-60 High: >60 17 Desirable: <100 Near Optimal: 100-129 Borderline High: 130-159 High: 160-189 Very High: >189 Procedures Date Code Description Status 11/21/2019 90473 ECHO Transthoracic, Real-Time 2D With Doppler And Color Completed Flow 11/21/2019 35963 ECHO Transthoracic, Real-Time 2D With Doppler And Color Completed Flow 11/18/2019 54022 Pace Maker Eval W/Iterative Adjment Dual Lead Completed 11/18/2019 89900 Pace Maker Eval W/Iterative Adjment Dual Lead Completed 11/18/2019 62101 EKG Tracing & Interpretation Completed 10/29/2019 28852 Excision Tumor Soft Tissue Pelvis/Hip Area Subcutaneous 3 Completed CM Or > 09/16/2019 37476 EKG Tracing & Interpretation Completed 07/09/2019 32526 EKG, Interpretation Only Completed 07/07/2019 54054 ECHO Transthorasic Realtime 2D W Doppler & Color Flow Hosp Completed 06/05/2019 88393 Pace Maker Eval W/Iterative Adjment Dual Lead Completed 06/05/2019 66903 Pace Maker Eval W/Iterative Adjment Dual Lead Completed 06/05/2019 29386 EKG Tracing & Interpretation Completed Medical Devices Description No Information Available Encounters Type Date Location Provider Dx Diagnosis Office Visit 11/19/2019 [facility] Gricel Marinelli, G47.33 Obstructive sleep 3:00p [facility] ZACHARY RN, LEASE ATTENDANT-BC apnea (adult) [place] (pediatric) Office Visit 09/16/2019 [facility] Carol Velasquez, R22.42 Localized 9:45a Of Shelton HuertaDLita swelling, mass and lump, left lower limb I48.0 Paroxysmal atrial fibrillation Z95.0 Presence of cardiac pacemaker I42.9 Cardiomyopathy, unspecified I34.0 Nonrheumatic mitral (valve) insufficiency I10 Essential (primary) hypertension Office Visit 09/10/2019 9:53a [facility] Clyde Sahu, I10 Essential Assoc,justice MILES (primary) Hospitalists hypertension Office Visit 08/28/2019 1:00p [facility] Olu Oakes R22.42 Localized Of Shelton Pineda MD, swelling, mass and FACS lump, left lower limb Office Visit 08/22/2019 11:40a [facility] Internal Hank Gautam, I10 Essential Medicine - Ccmob KENO WRITER (primary) hypertension Office Visit 07/31/2019 11:00a [facility] Olu Oakes R22.42 Localized Of [place] Pineda MD, swelling, mass and FACS lump, left lower limb Office Visit 07/14/2019 11:00a [facility] Olu Oakes R22.42 Localized Of [place] Pineda MD, swelling, mass and FACS lump, left lower limb Office Visit 07/11/2019 2:00p [facility] Internal Hank Gautam, R42 Dizziness and Medicine - Ccmob KENO WRITER giddiness D64.9 Anemia, unspecified Office Visit 07/09/2019 8:49a [facility] Axel2 Dizziness and Assoc,JENNIFER Farrell Hospitalists I48.91 Unspecified atrial fibrillation N18.3 Chronic kidney disease, stage 3 (moderate) I12.9 Hypertensive chronic kidney disease w stg 1-4/unsp [facility] kdny Office Visit 07/[facility] Dizz[facility] and Assoc,JENNIFER Farrell Hospitalists I48.91 Unspecified atrial fibrillation D64.9 Anemia, unspecified N18.3 Chronic kidney disease, stage 3 (moderate) Office Visit 07/08/2019 7:00a [facility] Etelvina Coley Dizziness and MD vasqueziness Office Visit 07/07/2019 8:48a [facility] Brenna Main Dizziness and Hospitalists mathieu Xiao I48.91 Unspecified atrial fibrillation D64.9 Anemia, unspecified N18.3 Chronic kidney disease, stage 3 (moderate) Office Visit 07/07/2019 7:00a [facility] Etelvina Coley Dizziness and MD murdock Office Visit 07/06/2019 7:00a [facility] Lamonte R42 Dizziness and MD mathieu Davis R94.09 Abnormal 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 mathieu Hospitalists I48.91 Unspecified atrial fibrillation N18.3 Chronic kidney disease, stage 3 (moderate) J45.909 Unspecified asthma, uncomplicated Office Visit 07/05/2019 8:47a [facility] Cecy Cordova, R42 Dizziness and Assoc,pc KENO WRITER mathieu Hospitalists G45.9 Transient cerebral ischemic attack, unspecified N18.3 Chronic kidney disease, stage 3 (moderate) I12.9 Hypertensive chronic kidney disease w stg 1-4/unsp [facility] kdny Office Visit 06/20/2019 2:20p [facility] Internal Hank Gautam NP M25.522 Pain in left Medicine - Ccmob elbow R22.2 Localized swelling, mass and lump, trunk Office Visit 06/18/2019 3:30p [facility] Nurse Visit I10 Essential (primary) Of [facility] IC hypertension Assessments Date Code Description Provider 12/04/2019 I48.0 Paroxysmal atrial fibrillation Mireille Argueta, N.P. 12/04/2019 Z95.0 Presence of cardiac pacemaker Mireille Argueta N.P. 12/04/2019 I42.9 Cardiomyopathy, unspecified Mireille Argueta, N.P. 12/04/2019 I10 Essential (primary) hypertension Mireille Argueta, N.P. 12/04/2019 R42 Dizziness and giddiness Mireille Argueta, N.P. 12/03/2019 R21 Rash and other nonspecific skin Hank Gautam NP eruption 11/21/2019 R06.00 Dyspnea, unspecified Carol Velasquez M.D. 11/21/2019 R06.00 Dyspnea, unspecified Traveling ECHO 1 11/19/2019 G47.33 Obstructive sleep apnea (adult) Gricel Marinelli DNP, RN, (pediatric) LEASE ATTENDANT-BC 11/18/2019 I48.0 Paroxysmal atrial fibrillation Carol Velasquez M.D. 11/18/2019 I48.0 Paroxysmal atrial fibrillation Mireille Argueta, N.P. 11/18/2019 I48.0 Paroxysmal atrial fibrillation Ica Pacer Schedule 11/18/2019 Z95.0 Presence of cardiac pacemaker Carol Velasquez M.D. 11/18/2019 Z95.0 Presence of cardiac pacemaker Mireille Argueta, N.P. 11/18/2019 Z95.0 Presence of cardiac pacemaker Ica Pacer Schedule 11/18/2019 I42.9 Cardiomyopathy, unspecified Carol Velasquez M.D. 11/18/2019 I42.9 Cardiomyopathy, unspecified Mireille Argueta, N.P. 11/18/2019 I42.9 Cardiomyopathy, unspecified Ica Pacer Schedule 11/18/2019 I10 Essential (primary) hypertension Mireille SLita Argueta, N.P. 11/18/2019 R06.00 Dyspnea, unspecified Mireille [...] lower limb 08/22/2019 I10 Essential (primary) hypertension Hanksophia Gautam, KENO WRITER 07/31/2019 R22.42 Localized swelling, mass and lump, Olu Pineda MD, FACS left lower limb 07/14/2019 R22.42 Localized swelling, mass and lump, Olu Pineda MD, FACS left lower limb 07/11/2019 R42 Dizziness and giddiness Hank Dain, KENO WRITER 07/11/2019 D64.9 Anemia, unspecified Hank Dain, KENO WRITER 07/09/2019 R94.31 Abnormal electrocardiogram [ECG] Dwight Allison M.D. [EKG] 07/09/2019 R42 Dizziness and giddiness Brenna Xiao PA 07/09/2019 I48.91 Unspecified atrial fibrillation Brenna Xiao PA 07/09/2019 N18.3 Chronic kidney disease, stage 3 Brenna Xiao PA (moderate) 07/09/2019 I12.9 Hypertensive chronic kidney disease JENNIFER Breaux with stage 1 through stage 4 chronic kidney disease, or unspecified chronic kidney disease 07/08/2019 R42 Dizziness and giddiness Sheron Cuenca MD 07/08/2019 R42 Dizziness and giddiness Brenna Xiao PA 07/08/2019 I48.91 Unspecified atrial fibrillation Brenna Xiao PA 07/08/2019 D64.9 Anemia, unspecified Brennaleticia Xiao, PA 07/08/2019 N18.3 Chronic kidney disease, stage 3 Brennaleticia Xiao PA (moderate) 07/07/2019 R42 Dizziness and giddiness Sheron Cuenca MD 07/07/2019 G45.9 Transient cerebral ischemic attack, Jeevan Haq M.D. unspecified 07/07/2019 R42 Dizziness and giddiness Brenna Xiao PA 07/07/2019 I48.91 Unspecified atrial fibrillation Brenna iXao PA 07/07/2019 D64.9 Anemia, unspecified BrennaJENNIFER Jeffers 07/07/2019 N18.3 Chronic kidney disease, stage 3 [...] Carol Velasquez M.D. Plan of Treatment Future Appointment(s):01/27/2020 2:30 pm - Mireille Argueta, N.P. at [facility]01/19/2020 11:15 am - Gricel Marinelli DNP, RN, LEASE ATTENDANT-BC at [facility]03/22/2020 1:50 pm - Carol Velasquez M.D. at [facility]12/04/2019 - Mireille Argueta, N.P.I48.0 Paroxysmal atrial alegcphslsgkA06.0 Presence of cardiac ewfcptvqcC61.9 Cardiomyopathy, unspecifiedNew Medication:Spironolactone 25 mg - 1/2 by mouth MWF onlyFollow up: OV 03/2020 OV Mireille 01/2020Recommendations:Pump function actually improved 45-50 % Echo from 06/2019 had LV function at 40-45% Start Spironolactone 1/2 tab 3 days a week only. Use Lasix only if extra swelling.I10 Essential (primary) [id number] Dizziness and giddinessNew Orders:[facility], Ordered: 12/04/19Recommendations:Try to more regularly, just small meals. Functional Status Description No Information Available Mental Status Description No Information Available Referrals Refer to Reason for Referral Status Appt Date [facility] No appt yet 07/28 Received Partial 08/21/[address] [place] [id number] [phone] Olu Pineda MD Sent 07/08/[address] [facility] [address] [phone]
--- OUTSIDE RECORDS SUMMARY | 2019-12-20 19:53 | XMS REPORT | Continuity of Care Document ---
:1950 External Reference #:[id number] Author Name Irwin Cespedes PA-C (transmitted by agent of provider Lola Self) Address [address] [place] [address] Care Team Providers Name Role Phone Lissette Lepe MD - Internal Care Team Information Portable Track Line Marker [phone] Medicine Luis Lara MD - Urology Care Team Information Portable Track Line Marker [phone] Joya Kilgore K., MD - Clinical Care Team Information Portable Track Line Marker [phone] Cardiac Electrophysiology Problems Active Problems Provider Date Persistent atrial fibrillation Carol Velasquez M.D. Onset: 07/03/2017 Mitral valve disorder Carol Velasquez M.D. 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 Onset: 07/03/2017 diastolic heart failure Paroxysmal atrial fibrillation Carol Velasquez M.D. Onset: 08/17/2017 Nonobstructive cardiomyopathy Carol Velasquez M.D. Onset: 08/17/2017 Sleep apnea Gricel Marinelli DNP, RN, Onset: 10/23/2017 [facility] Obstructive sleep apnea syndrome Gricel Marinelli DNP RN, Onset: 01/14/2018 [facility] Essential hypertension Carol Velasquez M.D. Onset: 05/31/2018 Cardiomyopathy Carol Velasquez M.D. Onset: 05/31/2018 Social History Type Date Description Comments Sex Unknown Tobacco Use Start: Unknown Never Smoked Cigarettes Smoking Status Reviewed: 11/06/19 Never Smoked Cigarettes ETOH Use Denies alcohol use Tobacco Use Start: Unknown Patient has never smoked Recreational Drug Use Denies Drug Use Exercise Type/Frequency Does not exercise Limited by cardiac condition Allergies, Adverse Reactions, Alerts Active Allergies Reaction Severity Comments Date NKDA 07/03/2017 Seasonal 09/23/2019 Animals 09/23/2019 Medications Active Medications SIG Qnty Indications Ordering Date Provider Atorvastatin Calcium 1 by mouth every 90tabs [...] Marinelli, 01/14/2018 Advancement Device appliance DNP, RN, REC THERAPIST-BC /mandibular Device advancement device for sleep apnea [...] Unknown Bio-Curcumin With Johanne & Turmerones 600mg/60mg Eliquis Starter Pack 1 by mouth twice a Unknown day 5mg Tablets Dha 1 daily by mouth Unknown 200mg Capsules History Medications Amlodipine Besylate 1 by mouth every 90tabs Mireille Argueta, 05/26/2019 - 5mg day N.P. 06/05/2019 Tablets Immunizations CPT Code Status Date Vaccine Reaction Lot # [id number] Given 05/09/2018 Hepatitis A Vaccine Adult [id number] Dosage 48573 Given 11/09/2017 Tdap - No immediat [id number] Tetanus/Diptheria/Acellula reaction... r Pertussis [id number] Given 11/09/2017 Hepatitis A Vaccine Adult no immedite [id number] Dosage reaction... Vital Signs Date Vital Result Comment 11/06/2019 9:28am Heart Rate 72 /min BP Systolic 124 mmHg BP Diastolic 72 mmHg Respiratory Rate 16 /min Body Temperature 96.5 F 10/02/2019 1:48pm Height 69 inches 5'9" Weight 181.00 lb BP Systolic Sitting 92 mmHg BP Diastolic Sitting 66 mmHg Respiratory Rate 14 /min Body Temperature 96.8 F BMI (Body Mass Index) 26.7 kg/m2 Results Test Acquired Date Facility Test Result H/L Range Note Surgical 10/29/2019 [facility] Surgical SEE RESULT [address] [place] [address] [phone] PDFReport SEE IMAGE Urinalysis Profile 07/05/2019 [facility] Urine Color Yellow [address] [place] [address] [phone] Urine Appearance Cloudy Urine Specific [place] 1.019 Normal 1.010-1.030 Urine pH 5.0 Normal 5-9 Urine Urobilinogen Negative Negative Urine Ketones Negative Negative Urine Protein Negative Negative Urine Leukocytes Negative Negative Urine Blood Negative Negative Urine Nitrite Negative Negative Urine Bilirubin Negative Negative Urine Glucose Negative Negative Laboratory test 07/05/2019 [facility] Ferritin 8.7 ng/mL Low 24-336 finding [address] [place] [address] [phone] Hemoglobin A1c (Glyco HGB) 6.0 % High 4.0-5.6 2 Iron & Iron Binding 07/05/2019 [facility] Iron 22 g/dL Low 50-212 [address]acity [address] [place] [address] [phone] Unsaturated Iron Binding < 362 g/dL Total Iron Binding Capacity 377 g/dL Normal 250-450 Transferrin 269 mg/dL Normal 203-362 % Iron Saturation 6 % Low 15-55 Laboratory test 07/05/2019 [facility] Magnesium 2.0 mg/dL Normal 1.9-2.7 finding [address] [place] [address] [phone] CBC Auto Diff 07/05/2019 [facility] White Blood 5.7 Normal 3.5 -10.8 DRIVE Count 10^3/[place] [address] [phone] Red Blood Count 4.55 10^6/uL Normal 4.18-5.48 [...] Blood Cells % 0.0 Laboratory test 07/05/2019 [facility] Troponin-I (TnI) 0.01 ng/ mL <0.[address] [place], [place] [id number] [phone] Lipid Profile 07/05/2019 [facility] Triglycerides 39 mg/dL 4 (Trig/Chol/HDL) [address] [place], [place] [address] [phone] Cholesterol 149 mg/dL 5 HDL Cholesterol 61.0 mg/dL 6 LDL Cholesterol 80 mg/dL 7 Comp Metabolic 07/05/2019 [facility] Sodium 139 mmol/L Normal 135-[address] [place] [address] [phone] Potassium 3.9 mmol/L Normal 3.5-5.0 Chloride 109 [...] Egfr Non- 47.0 >60 Egfr 56.9 >60 8 Laboratory test 07/05/2019 [facility] Partial 39.9 High 26.0- 38.[address] [place] [address] PTT [phone] Lactic Acid 1.1 mmol/L Normal 0.5-2.0 9 Inr/Protime 07/05/2019 [facility] Inr 1.25 High 0.82-1.[address] [place] [address] [phone] Laboratory 07/05/2019 [facility] Point of Care 99 Normal 70- 100 11 test finding 101 [facility] Glucose mg/[place] [address] [phone] Lipid Profile 07/05/2019 [facility] Triglycerides 46 12 (Trig/Chol/HDL [address] mg/dL ) [place] [address] [phone] Cholesterol 150 mg/dL 13 HDL Cholesterol 61.0 mg/dL 14 LDL Cholesterol 80 mg/dL 15 Stool Occult BLD 05/09/2019 [facility] In House Occult Blood - negative x 3 ca 1-3 SPCS Diag Stool 1 SEE RESULT BELOW Name: ROBER PATINO : [address]: Olu Pineda MD Acct: [id number] Unit: [id number] AGE: 69 Location: OR Re10/29/19 SEX: M Status: DEP [facility] SPEC: [id number] MELISSA: 10/29/19- SUBM DR: Olu Pineda MD REQ: [id number] RECD: 10/29/19 STATUS: SOUT _ ORDERED: LEVEL [...] The specimen is inked, serially sectioned and hvac sales representative sections are submitted in one cassette. Signed by and Reported on: Fady Guerra MD 08/10 1402 END OF REPORT DEPARTMENT OF PATHOLOGY, [address] [place] [address] Fady Guerra M.D. Director [facility] # [id number] 2 Therapeutic target for the treatment of diabetes mellitus patients is <7% HBA1C, and in selective patients <6.0%. Please refer to [place] [employer] diabetic care guidelines for further information. 3 Troponin-I testing on Plasma Separator Tubes (PST) has a known false positive rate of 0.20-0.40%. All positive troponins reflex immediately to secondary confirmatory testing. Using the Pembe Panjur DxI 800 Access Immunoassay systems, the 99th percentile upper reference limit was demonstrated to be < 0.03 ng/mL. 4 Desirable: <150 Borderline High: 150-199 High: 200-499 Very High: >500 5 Desirable: <200 Borderline High: 200-239 High: >239 6 Low: <40 Desirable: 40-60 High: >60 7 Desirable: <100 Near Optimal: 100-129 Borderline High: 130-159 High: 160-189 Very High: >189 8 Because ethnic data is not always [...] 15-29 5 Kidney failure <15 (or dialysis) 9 [facility] Severe Sepsis and Septic Shock Management Bundle Measure requires all lactic acids initially measuring >2.0 mmol/L be repeated. 10 Standard intensity warfarin therapeutic range: 2.0-3.0 High intensity warfarin therapeutic range: 2.5-3.5 11 Graduate Fellow: [id number] Desirable: <150 Borderline High: 150-199 High: 200-499 Very High: >500 13 Desirable: <200 Borderline High: 200-239 High: >239 14 Low: <40 Desirable: 40-60 High: >60 15 Desirable: <100 Near Optimal: 100-129 Borderline High: 130-159 High: 160-189 Very High: >189 Procedures Date Code Description Status 10/29/2019 75338 Excision Tumor Soft Tissue Pelvis/Hip Area Subcutaneous 3 Completed CM Or > 09/16/2019 70344 EKG Tracing & Interpretation Completed 07/09/2019 07337 EKG, Interpretation Only Completed 07/07/2019 06956 ECHO Transthorasic Realtime 2D W Doppler & Color Flow Hosp Completed 06/05/2019 01324 Pace Maker Eval W/Iterative Adjment Dual Lead Completed 06/05/2019 11525 Pace Maker Eval W/Iterative Adjment Dual Lead Completed 06/05/2019 00564 EKG Tracing & Interpretation Completed Medical Devices Description No Information Available Encounters Type Date Location Provider Dx Diagnosis Office Visit 09/16/2019 [facility] Carol Velasquez, R22.42 Localized 9:45a Of [facility] swelling, mass and lump, left lower limb I48.0 Paroxysmal atrial fibrillation Z95.0 Presence of cardiac pacemaker I42.9 Cardiomyopathy, unspecified I34.0 Nonrheumatic mitral (valve) insufficiency I10 Essential (primary) hypertension Office Visit 09/10/2019 9:53a [facility] Clyde Sahu, I10 Essential Assoc,justice MILES (primary) Hospitalists hypertension Office Visit 08/28/2019 [facility] Olu Oakes R22.42 Localized Of [place] Pineda MD, swelling, mass and FACS lump, left lower limb Office Visit 08/22/2019 11:40a [facility] Internal Hank Dain, I10 Essential Medicine - Ccmob FEEDLOT MANAGER (primary) hypertension Office Visit 07/31/2019 11:00a [facility] Olu Oakes R22.42 Localized Of [place] Pineda MD, swelling, mass and FACS lump, left lower limb Office Visit 07/14/2019 11:00a [facility] Olu Oakes R22.42 Localized Of [place] Pineda MD, swelling, mass and FACS lump, left lower limb Office Visit 07/11/2019 2:00p [facility] Internal Axel Anderson2 Dizziness and Medicine - Ccmob FEEDLOT MANAGER giddiness D64.9 Anemia, unspecified Office Visit 07/09/2019 8:49a [facility] Axel2 Dizziness and Assoc,pc JENNIFER Xiao Hospitalists I48.91 Unspecified atrial fibrillation N18.3 Chronic kidney disease, stage 3 (moderate) I12.9 Hypertensive chronic kidney disease w stg 1-4/unsp [facility] kdny Office [facility] D[facility] Assoc,pc JENNIFER Xiao Hospitalists I48.91 Unspecified atrial fibrillation D64.9 Anemia, unspecified N18.3 Chronic kidney disease, stage 3 (moderate) Office Visit 07/08/2019 7:00a [facility] Etelvina Coley Dizziness and MD murdock Office Visit 07/07/2019 8:48a 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 Etelvina Guerra Dizziness and Assoc,pc N.PLita murdock Hospitalists I48.91 Unspecified atrial fibrillation N18.3 Chronic kidney disease, stage 3 (moderate) J45.909 Unspecified asthma, uncomplicated Office Visit 07/05/2019 8:47[facility], R42 Dizziness and Assoc,pc FEEDLOT MANAGER [facility] Hospital[facility] G45.9 Transient cerebral ischemic attack, unspecified N18.3 Chronic kidney disease, stage 3 (moderate) I12.9 Hypertensive chronic kidney disease w stg 1-4/unsp chr kdny Office Visit 06/20/2019 2:20p [facility] Internal Hank Gautam NP M25.522 Pain in left Medicine - Ccmob elbow R22.2 Localized swelling, mass and lump, trunk Office Visit 06/18/2019 3:30p [facility] Nurse Visit I10 Essential (primary) Of [facility] IC hypertension Assessments Date Code Description Provider 11/06/2019 D17.24 Benign lipomatous neoplasm of skin and Irwin Cespedes PA-C subcutaneous tissue of left leg 10/29/2019 D17.24 Benign lipomatous neoplasm of skin and Olu Pineda MD , FACS subcutaneous tissue of left leg 10/02/2019 R22.42 [...] limb 07/11/2019 R42 Dizziness and giddiness Hank Gautam, FEEDLOT MANAGER 07/11/2019 D64.9 Anemia, unspecified Hanksophia Gautam, FEEDLOT MANAGER 07/09/2019 R94.31 Abnormal electrocardiogram [ECG] [EKG] Dwight Allison M.D. 07/09/2019 R42 Dizziness and giddiness Brenna Xiao [...] 07/08/2019 N18.3 Chronic kidney disease, stage 3 Brenna Xiao PA (moderate) 07/07/2019 R42 Dizziness and giddiness Sheron Cuenca MD 07/07/2019 G45.9 Transient cerebral ischemic attack, Jeevan Hqa M.D. unspecified 07/07/2019 R42 Dizziness and giddiness Brenna Xiao PA 07/07/2019 I48.91 Unspecified atrial fibrillation Brenna Xiao PA 07/07/2019 D64.9 Anemia, unspecified Brenna Xiao PA 07/07/2019 N18.3 Chronic kidney disease, stage 3 Brenna Xiao PA (moderate) 07/06/2019 R42 Dizziness and giddiness Lamonte Davis MD 07/06/2019 R94.09 Abnormal results of other function Lamonte Davis MD studies of central nervous system 07/06/2019 R42 Dizziness and giddiness Siri Hanley NGamaliel. 07/06/2019 I48.91 Unspecified atrial fibrillation Siri Hanley, [...] 06/20/2019 R22.2 Localized swelling, mass and lump, Hanksophia Gautam NP trunk 06/18/2019 I10 Essential (primary) [...] Velasquez M.D. 05/09/2019 D64.9 Anemia, unspecified Hank Dain, FEEDLOT MANAGER Plan of Treatment Future Appointment(s):03/22/2020 1:50 pm - Carol Velsaquez M.D. at [facility]11/06/2019 - JENNIFER Lora-CD17.24 Benign lipomatous neoplasm of skin and subcutaneous tissue of left leg Functional Status Description No Information Available Mental Status Description No Information Available Referrals Refer to Dr Reason for Referral Status Appt Date [facility] No appt yet 07/28 Received Partial 08/21/[address] [place] [address] [phone] Olu Pineda MD Sent 07/08/2019 [address] [facility] [address] [phone]
--- OUTSIDE RECORDS SUMMARY | 2019-12-20 19:53 | XMS REPORT | Continuity of Care Document ---
:1950 External Reference #:[id number] Author Name Mireille Argueta N.P. (transmitted by agent of provider Ricarda Pino) Address [address] [place] [address] Care Team Providers Name Role Phone Lissette Lepe MD - Internal Care Team Information [facility] Medicine Luis Lara MD - Urology Care Team Information [facility] [phone] Joya Kilgore K., MD - Clinical Care Team Information [facility] Cardiac Electrophysiology Problems Active Problems Provider Date Persistent atrial fibrillation Carol Velasquez M.D. Onset: 07/03/2017 Mitral valve disorder Carol Velasquez M.D. 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 Onset: 07/03/2017 diastolic heart failure Paroxysmal atrial fibrillation Carol Velasquez M.D. Onset: 08/17/2017 Nonobstructive cardiomyopathy Carol Velasquez M.D. Onset: 08/17/2017 Sleep apnea Gricel Marinelli DNP, RN, Onset: 10/23/2017 [facility] Obstructive sleep apnea syndrome Gricel Marinelli DNP, RN, Onset: 01/14/2018 [facility]- Essential hypertension Carol Velasquez M.D. Onset: 05/31/2018 Cardiomyopathy Carol Velasquez M.D. Onset: 05/31/2018 Social History Type Date Description Comments Sex Unknown Tobacco Use Start: Unknown Never Smoked Cigarettes Smoking Status Reviewed: 11/18/19 Never Smoked Cigarettes ETOH Use Denies alcohol [...] Marinelli, 01/14/2018 Advancement Device appliance DNP, RN, [employer]-BC /mandibular Device advancement device for sleep apnea [...] Besylate 1 by mouth every 90tabs Mireille SLita Argueta, 05/26/2019 - 5mg day N.P. 06/05/2019 Tablets Immunizations CPT Code Status Date Vaccine Reaction Lot # [id number] Given 05/09/2018 Hepatitis A Vaccine Adult [id number] Dosage [id number] Given 11/09/2017 Tdap - No immediat [id number] Tetanus/Diptheria/Acellula reaction... r Pertussis [id number] Given 11/09/2017 Hepatitis A Vaccine Adult no immedite [id number] Dosage reaction... Vital Signs Date Vital Result Comment 11/18/2019 1:45pm Height 69 inches 5'9" Weight 192.00 lb with shoes Heart Rate 60 /min BP Systolic Sitting 108 mmHg Rue reg cuff BP Diastolic Sitting 76 mmHg Rue reg cuff Respiratory Rate 18 /min BMI (Body Mass Index) 28.4 kg/m2 Ejection Fraction 40-45% ECHO 07/07/201911/06/2019 9:28am Heart Rate 72 /min BP Systolic 124 mmHg BP Diastolic 72 mmHg Respiratory Rate 16 /min Body Temperature 96.5 F Results Test Acquired Date Facility Test Result H/L Range Note Surgical 10/29/2019 [facility] Surgical SEE RESULT [address] [place] [address] [phone] PDFReport SEE IMAGE Urinalysis Profile 07/05/2019 [facility] Urine Color Yellow [address] [place] [address] [phone] Urine Appearance Cloudy Urine Specific [place] 1.019 Normal 1.010-1.030 Urine pH 5.0 Normal 5-9 Urine Urobilinogen Negative Negative Urine Ketones Negative Negative Urine Protein Negative Negative Urine Leukocytes Negative Negative Urine Blood Negative Negative Urine Nitrite Negative Negative Urine Bilirubin Negative Negative Urine Glucose Negative Negative Laboratory test 07/05/2019 [facility] Ferritin 8.7 ng/mL Low 24-[address] [place] [address] [phone] Hemoglobin A1c (Glyco HGB) 6.0 % High 4.0-5.6 2 Iron & Iron Binding 07/05/2019 [facility] Iron 22 g/dL Low 50-212 [address] [place] [address] [phone] Unsaturated Iron Binding < 362 g/dL Total Iron Binding Capacity 377 g/dL Normal 250-450 Transferrin 269 mg/dL Normal 203-362 % Iron Saturation 6 % Low 15-55 Laboratory test 07/05/2019 [facility] Magnesium 2.0 mg/dL Normal 1.9-2.7 finding [address] [place] [address] [phone] CBC Auto Diff 07/05/2019 [facility] White Blood 5.7 Normal 3.5 -10.8 101 Count 10^3/[place] [address] [phone] Red Blood Count 4.55 10^6/uL Normal 4.18-5.48 [...] Blood Cells % 0.0 Laboratory test 07/05/2019 [facility] Troponin-I (TnI) 0.01 ng/ mL <0.04 3 finding [address] [place] [address] [phone] Lipid Profile 07/05/2019 [facility] Triglycerides 39 mg/dL 4 (Trig/Chol/HDL) [address] [place] [address] [phone] Cholesterol 149 mg/dL 5 HDL Cholesterol 61.0 mg/dL 6 LDL Cholesterol 80 mg/dL 7 Comp Metabolic 07/05/2019 [facility] Sodium 139 mmol/L Normal 135-[address] [place] [address] [phone] Potassium 3.9 mmol/L Normal 3.5-5.0 Chloride 109 [...] Egfr 56.9 >60 8 Laboratory test 07/05/2019 [facility] Partial 39.9 High 26.0- 38.[address] [place] [address] PTT [phone] Lactic Acid 1.1 mmol/L Normal 0.5-2.0 9 Inr/Protime 07/05/2019 [facility] Inr 1.25 High 0.82-1.[address] [place] [address] [phone] Laboratory 07/05/2019 [facility] Point of Care 99 Normal 70- 100 [address] Glucose mg/dL [place], [place] [id number] [phone] Lipid Profile 07/05/2019 [facility] Triglycerides 46 12 (Trig/Chol/HDL [address] mg/dL ) [place], [place] [id number] [phone] Cholesterol 150 mg/dL 13 HDL Cholesterol 61.0 mg/dL 14 LDL Cholesterol 80 mg/dL 15 1 SEE RESULT BELOW Name: ROBER PATINO : [address]: Olu Pineda MD Acct: [id number] Unit: [id number] AGE: 69 Location: OR Re10/29/19 SEX: M Status: DEP SDC SPEC: [id number] MELISSA: 10/29/19- SUBM DR: Olu Pineda MD REQ: [id number] RECD: 10/29/19 STATUS: SOUT _ ORDERED: LEVEL [...] The specimen is inked, serially sectioned and delivery representative sections are submitted in one cassette. Signed by and Reported on: Fady Guerra MD 08/10 1402 END OF REPORT DEPARTMENT OF PATHOLOGY, [address] [place] [address] Fady Guerra M.D. Director [facility] # [id number] 2 Therapeutic target for the treatment of diabetes mellitus patients is <7% HBA1C, and in selective patients <6.0%. Please refer to [place] [employer] diabetic care guidelines for further information. 3 Troponin-I testing on Plasma Separator Tubes (PST) has a known false positive rate of 0.20-0.40%. All positive troponins reflex immediately to secondary confirmatory testing. Using the [employer] DxI 800 Access Immunoassay systems, the 99th [...] 5 Kidney failure <15 (or dialysis) 9 [facility] Severe Sepsis and Septic Shock Management Bundle Measure requires all lactic acids initially measuring >2.0 mmol/L be repeated. 10 Standard intensity warfarin therapeutic range: 2.0-3.0 High intensity warfarin therapeutic range: 2.5-3.5 11 Auto Damage Estimator: [id number] Desirable: <150 Borderline High: 150-199 High: 200-499 Very High: >500 13 Desirable: <200 Borderline High: 200-239 High: >239 14 Low: <40 Desirable: 40-60 High: >60 15 Desirable: <100 Near Optimal: 100-129 Borderline High: 130-159 High: 160-189 Very High: >189 Procedures Date Code Description Status 11/18/2019 04751 Pace Maker Eval W/Iterative Adjment Dual Lead Completed 11/18/2019 37199 EKG Tracing & Interpretation Completed 10/29/2019 91595 Excision Tumor Soft Tissue Pelvis/Hip Area Subcutaneous 3 Completed CM Or > 09/16/2019 54157 EKG Tracing & Interpretation Completed 07/09/2019 67443 EKG, Interpretation Only Completed 07/07/2019 24231 ECHO Transthorasic Realtime 2D W Doppler & Color Flow Hosp Completed 06/05/2019 52415 Pace Maker Eval W/Iterative Adjment Dual Lead Completed 06/05/2019 65338 Pace Maker Eval W/Iterative Adjment Dual Lead Completed 06/05/2019 67266 EKG Tracing & Interpretation Completed Medical Devices Description No Information Available Encounters Type Date Location Provider Dx Diagnosis Office Visit 09/16/2019 [facility] Carol Velasquez, R22.42 Localized 9:45a Of [facility] swelling, mass and lump, left lower limb I48.0 Paroxysmal atrial fibrillation Z95.0 Presence of cardiac pacemaker I42.9 Cardiomyopathy, unspecified I34.0 Nonrheumatic mitral (valve) insufficiency I10 Essential (primary) hypertension Office Visit 09/10/2019 9:53a [facility] Clyde Sahu, I10 Essential Assocjustice MD (primary) Hospitalists hypertension Office Visit 08/28/2019 1[facility] Olu Oakes R22.42 Localized Of [facility] Pineda MD, swelling, mass and FACS lump, left lower limb Office Visit 08/22/2019 11:40a [facility] Hank Dain, I10 Essential Medicine - Ccmob AUTO CLAIM REPRESENTATIVE (primary) hypertension Office Visit 07/31/2019 11:00a [facility] Olu Oakes R22.42 Localized Of [place] Pineda MD, swelling, mass and FACS lump, left lower limb Office Visit 07/14/2019 11:00a [facility] Olu Oakes R22.42 Localized Of [place] Pineda MD, swelling, mass and FACS lump, left lower limb Office Visit 07/11/2019 2:00p [facility] Internal Hank Gautam, Axel2 Dizziness and Medicine - Ccmob AUTO CLAIM REPRESENTATIVE giddiness D64.9 Anemia, unspecified Office Visit 07/09/2019 8:49a [facility] Axel2 Dizziness and Assoc,pc JENNIFER Xiao Hospitalists I48.91 Unspecified atrial fibrillation N18.3 Chronic kidney disease, stage 3 (moderate) I12.9 Hypertensive chronic kidney disease w stg 1-4/unsp [facility] Office Visit 07/08/2019 8[facility] Dizziness and Assoc,pc JENNIFER Xiao Hospitalists I48.91 Unspecified atrial fibrillation D64.9 Anemia, unspecified N18.3 Chronic kidney disease, stage 3 (moderate) Office Visit 07/08/2019 7:00a [facility] Etelvina Coley Dizziness and MD murdock Office Visit 07/07/2019 8:48a [facility] Assoc,pc Brenna Main Dizziness and Hospitalists mathieu Xiao I48.91 Unspecified atrial fibrillation D64.9 Anemia, unspecified N18.3 Chronic kidney disease, stage 3 (moderate) Office Visit 07/07/2019 7:00a [facility] Etelvina Coley Dizziness and MD murdock Office Visit 07/06/2019 7:00a [facility] Lamonte Main Dizziness and MD matiheu Davis R94.09 Abnormal results of function studies of MECHANICAL DESIGN ENGINEER Office Visit 07/06/2019 8:48a [facility] Etelvina Guerra Dizziness and Assoc,pc N.PLita murdock Hospitalists I48.91 Unspecified atrial fibrillation N18.3 Chronic kidney disease, stage 3 (moderate) J45.909 Unspecified asthma, uncomplicated Office Visit 07/05/2019 8:47a [facility] Axel Garza2 Dizziness and Assoc,pc AUTO CLAIM REPRESENTATIVE mathieu Hospitalists G45.9 Transient cerebral ischemic attack, unspecified N18.3 Chronic kidney disease, stage 3 (moderate) I12.9 Hypertensive chronic kidney disease w stg 1-4/unsp chr kdny Office Visit 06/20/2019 2:20p [facility] Internal Hank Dain, AUTO CLAIM REPRESENTATIVE M25.522 Pain in left Medicine - Ccmob elbow R22.2 Localized swelling, mass and lump, trunk Office Visit 06/18/2019 3:30p [facility] Nurse Visit I10 Essential (primary) Of [facility] IC hypertension Assessments Date Code Description Provider 11/18/2019 I48.0 Paroxysmal atrial fibrillation Mireille S. [...] 08/22/2019 I10 Essential (primary) hypertension Hanksophia Gautam, AUTO CLAIM REPRESENTATIVE 07/31/2019 R22.42 Localized swelling, mass and lump, Olu Pineda MD, FACS left lower limb 07/14/2019 R22.42 Localized swelling, mass and lump, Olu Pineda MD, FACS left lower limb 07/11/2019 R42 Dizziness and giddiness Hanksophia Gautam, AUTO CLAIM REPRESENTATIVE 07/11/2019 D64.9 Anemia, unspecified Hank Dain, AUTO CLAIM REPRESENTATIVE 07/09/2019 R94.31 Abnormal electrocardiogram [ECG] [EKG] Dwight [...] Carol Velasquez M.D. Plan of Treatment Future Appointment(s):11/28/2019 3:00 pm - Mireille Argueta, N.PLita at [facility]11/21/2019 1:30 pm - Traveling ECHO 1 at [facility]03/22/2020 1:50 pm - Carol Velasquez M.D. at [facility]2019 - Mireille Argueta N.P.I48.0 Paroxysmal atrial [id number] Presence of cardiac pacemakerRecommendations:We made some changes on your pacemaker that might make your breathing feel better.I42.9 Cardiomyopathy, [id number] Essential (primary) hypertensionRecommendations:please call [phone] to follow up with sleep fjxxuaC90.00 Dyspnea, unspecifiedNew Orders:Echocardiogram, Scheduled: 11/21/19Follow up:МАРИНА Kendrick after echo [facility] 03/2020Recommendations: Lungs are clear. Swelling in your legs could be front salt. Will check LV function and valve Functional Status Description No Information Available Mental Status Description No Information Available Referrals Refer to Reason for Referral Status Appt Date [facility] No appt yet 07/28 Received Partial 08/21/[address] [place] [address] [phone] Olu Pineda MD Sent 07/08/2019 [address] [facility] [address] [phone]
[2019-12-20] MEDS ORDERED: Acetaminophen TAB* 325 MG PO ONE (20:12)
[2019-12-20] MEDS ORDERED: Albuterol/Ipratropium NEB.SOL* Albuterol 2.5 MG/Ipratropium 0.5 MG 3 ML INH ONE ×2 (20:30→22:30)
--- NOTE | 2019-12-20 20:30 | ED ---
Influenza-Like Illness - HPI Summary HPI Summary: 69 year old M with hx asthma and sleep apnea arriving via private car to [facility] complains of worsening congestion, nonproductive cough, shortness of breath since Sunday12/15/2019. The patient rates the pain 4/10 in severity. Symptoms aggravated by nothing. Symptoms alleviated by nothing. He used his inhaler at home prior to arrival. Patient uses CPAP machine at home. He did not receive influenza vaccination this year. He has not been around anyone sick. Medications reviewed. Allergies noted. Non smoker. Hx pacemaker. Patient had valve repair 1 year ago. His entry level sales consultant Dr. Jean. Home Medications Medication Instructions Recorded Confirmed Type Albuterol HFA INHALER* [Ventolin 2 puff INH Q4H PRN 06/21/17 10/29/19 History HFA Inhaler*] Apixaban* [Eliquis*] 5 mg PO BID #60 tab 06/28/17 10/29/19 Rx Finasteride TAB* [Proscar TAB*] 5 mg PO EVERY OTHER DAY 10/30/17 10/29/19 History Carvedilol TAB* [Coreg TAB*] 25 mg PO BID 04/28/19 10/29/19 History Chawanprash 5 ml PO QAM 04/28/19 10/29/19 History Curcumin W/Johanne & Turmerones 1 cap PO QAM 04/28/19 10/29/19 History Cyanocobalamin TAB* [Vitamin B12 1,000 mcg PO EVERY OTHER DAY 04/28/19 10/29/19 History TAB*] Magnesium Oxide [Magnesium] 250 mg PO QAM 04/28/19 10/29/19 History Triphala Wellness 1 cap PO QPM 04/28/19 10/29/19 History Ubidecarenone [Co Q-10] 200 mg PO QAM 04/28/19 10/29/19 History proPAFENone 150 mg TAB [Rythmol 150 mg PO BID 04/28/19 10/29/19 History 150 mg TAB] Atorvastatin* [Lipitor 40 MG*] 40 mg PO 1700 #30 tab 07/09/19 10/29/19 Rx Ferrous Sulfate TAB* 325 mg PO BID 09/04/19 10/29/19 History Meclizine TAB* [Antivert 12.5 TAB*] 12.5 mg PO Q12HR PRN 09/04/19 10/29/19 History amLODIPine TAB* [Norvasc 5 mg TAB*] 10 mg PO QAM 10/23/19 10/29/19 History - History of Current Complaint Chief Complaint: EDUpperRespComplaint Time Seen by Provider: 12/20/19 20:11 Hx Obtained From: Patient Onset/Duration: Lasting Days - 6, Still Present Severity: Mild - 4/10 - Allergy/Home Medications Allergies/Adverse Reactions: Allergies Allergy/AdvReac Type Severity Reaction Status Date / Time Environmental Allergies Allergy Congestion Uncoded 12/20/19 19:43 Home Medications: Home Medications Albuterol HFA INHALER* [Ventolin HFA Inhaler*] 2 puff INH Q4H PRN 06/21/17 [ History Confirmed 12/20/19] Apixaban* [Eliquis*] 5 mg PO BID #60 tab 06/28/17 [Rx Confirmed 12/20/19] Finasteride TAB* [Proscar TAB*] 5 mg PO EVERY OTHER DAY 10/30/17 [History Confirmed 12/20/19] Carvedilol TAB* [Coreg TAB*] 25 mg PO BID 04/28/19 [History Confirmed 12/20/19] Chawanprash 5 ml PO QAM 04/28/19 [History Confirmed 12/20/19] Curcumin W/Johanne & Turmerones 1 cap PO QAM 04/28/19 [History Confirmed 12/20/19 ] Cyanocobalamin TAB* [Vitamin B12 TAB*] 1,000 mcg PO EVERY OTHER DAY 04/28/19 [ History Confirmed 12/20/19] Magnesium Oxide [Magnesium] 250 mg PO QAM 04/28/19 [History Confirmed 12/20/19] Triphala Wellness 1 cap PO QPM 04/28/19 [History Confirmed 12/20/19] Ubidecarenone [Co Q-10] 200 mg PO QAM 04/28/19 [History Confirmed 12/20/19] proPAFENone 150 mg TAB [Rythmol 150 mg TAB] 150 mg PO BID 04/28/19 [History Confirmed 12/20/19] Atorvastatin* [Lipitor 40 MG*] 40 mg PO 1700 #30 tab 07/09/19 [Rx Confirmed ] Ferrous Sulfate TAB* 325 mg PO BID 11/14/19 [History Confirmed 12/20/19] Meclizine TAB* [Antivert 12.5 TAB*] 12.5 mg PO Q12HR PRN 09/04/19 [History Confirmed 12/20/19] amLODIPine TAB* [Norvasc 5 mg TAB*] 10 mg PO QAM 10/23/19 [History Confirmed ] Benzonatate CAP* [Tessalon 100 MG CAP*] 100 mg PO TID PRN 10 Days #30 cap [Rx] Oseltamivir CAP* [Tamiflu CAP*] 75 mg PO BID 5 Days #10 cap 12/20/19 [Rx] PMH/Surg Hx/FS Hx/Imm Hx Endocrine/Hematology History: Reports: Hx Anemia - ON IRON SUPPLEMENTS Denies: Hx Bone Marrow Disease, Hx Diabetes, Hx Sickle Cell Disease Cardiovascular History: Reports: Hx Cardiomegaly - nonischemic cardiomyopathy ejection fraction 20-25%, Hx Congestive Heart Failure, Hx Coronary Artery Disease, Hx Hypertension - ON MEDICATION FOR, Hx Pacemaker/ICD - MEDTRONIC A2DR01 - MR CONDITIONAL, Hx Valvular Heart Disease - MITRAL AND AORTIC VALVE REPAIR Denies: Hx Peripheral Vascular Disease Comment Only: Other Cardiovascular Problems/Disorders - CARIOLOGIST- DR. JEAN Respiratory History: Reports: Hx Asthma - exercise induced/ALLERGY RELATED, Hx Pulmonary Edema - HX OF 2 YEARS AGO, Hx Seasonal Allergies, Hx Sleep Apnea, Other Respiratory Problems/Disorders GI History: Reports: Hx Hiatal Hernia - HX OF IN THE PAST-REPORTS HAD SURGERY FOR Denies: Other GI Disorders History: Reports: Hx Kidney Stones - HX OF, Hx Renal Disease - STAGE 3 Denies: Hx Dialysis, Other Problems/Disorders Musculoskeletal History: Reports: Hx Arthritis - RIGHT WRIST, Hx Bursitis - LEFT ELBOW, Hx Tendonitis - HX OF LEFT WRIST IN THE PAST Denies: Other Musculoskeletal History Sensory History: Reports: Hx Cataracts - BILATERAL, Hx Contacts or Glasses - INSTRUCTS GIVEN Denies: Hx Hearing Aid Opthamlomology History: Reports: Hx Cataracts - BILATERAL, Hx Contacts or Glasses - INSTRUCTS GIVEN Neurological History: Reports: Hx Transient Ischemic Attacks (TIA) Denies: Other Neuro Impairments/Disorders Psychiatric History: Denies: Hx Panic Disorder - Surgical History Surgery Procedure, Year, and Place: hernia repair 1969 heart cath 06/26/17, [facility], ablation X2 , MITRAL AND AORTIC VALVE REPAIR 12/10. MEDTRONIC A2DR01 - MR CONDITIONAL PACEMAKER 12/10. COLONOSCOPY- 4-5 YEARS AGO Hx Anesthesia Reactions: Yes - SENSITIVE TO ANESTHESIA-SLOW TO WAKE UP - Immunization History Date of Influenza Vaccine: none Infectious Disease History: No Infectious Disease History: Denies: Traveled Outside the [place] in Last 30 Days - Family History Known Family History: Positive: Hypertension, Diabetes Negative: Other - NEG: CVA - Social History Alcohol Use: None Hx Substance Use: No Substance Use Type: Reports: None Hx Tobacco Use: No Smoking Status (MU): Never Smoked Tobacco Have You Smoked in the Last Year: No Review of Systems Positive: Other - congestion Positive: Shortness Of Breath, Cough All Other Systems Reviewed And Are Negative: Yes Physical Exam - Summary Physical Exam Summary: Constitutional: Well-developed, Well-nourished, Alert. (-) Distressed Skin: Warm, Dry HENT: Normocephalic; Atraumatic Eyes: Conjunctiva normal Neck: Musculoskeletal ROM normal neck. (-) JVD, (-) Stridor, (-) Nuchal rigidity Cardio: Rhythm regular, rate normal, Heart sounds normal; Intact distal pulses; Radial pulses are 2+ and symmetric. (-) Murmur Pulmonary/Chest wall: Effort normal. (-) Respiratory distress, (-) Wheezes, (-) Rales Abd: Soft, (-) tenderness, (-) Distension, (-) Guarding, (-) Rebound Musculoskeletal: (-) Edema Lymph: (-) Cervical adenopathy Neuro: Alert, Oriented x3 Psych: Mood and affect Normal Triage Information Reviewed: Yes Vital Signs On Initial Exam: Initial Vitals Temp Pulse Resp BP Pulse Ox 100.5 F 80 15 152/104 97 12/20/19 19:41 12/20/19 19:41 12/20/19 19:41 12/20/19 19:41 12/20/19 19:41 Vital Signs Reviewed: Yes Procedures - Sedation Patient Received Moderate/Deep Sedation with Procedure: No Diagnostics - Vital Signs Vital Signs Temp Pulse Resp BP Pulse Ox 12/20/19 20:17 79 96 12/20/19 19:41 100.5 F 80 15 152/104 97 - Laboratory Result Diagrams: 12/20/19 20:40 12/20/19 20:40 Lab Statement: Any lab studies that have been ordered have been reviewed, and results considered in the medical decision making process. - Radiology CXR Radiology Interpretation Completed By: ED Physician - NO ACUTE PROCESS Pending official report Re-Evaluation - Re-Evaluation First Eval Re-Evaluation Time: 21:39 Comment: patient will ambulate Second Eval Re-Evaluation Time: 21:52 Comment: patient is ambulatory. O2 sat 95. he agrees to discharge Flu Symptom Course/Dx - Course Course Of Treatment: 69 y/o male w hx asthma, pacemaker, p/w congestion and cough for 2 days. VS febrile. Easy WOB on RA. Check flu, CXR for PNA. Given Tylenol, duoneb. Flu A+. Patient well appearing. Patient does not have increased work of breathing, productive cough to suggest pneumonia. CXR w/o infiltrate. No headache, neck pain or nuchal rigidity. Given duoneb and tessalon pearls. First dose tamiflu here. Tolerating by mouth. Plan for discharge w symptomatic control and will return for worsening symptoms. Ambulatory O2 sat 95%, denies DOUGLASS. - Diagnoses Provider Diagnoses: Influenza, Shortness of breath Discharge ED - Sign-Out/Discharge Documenting (check all that apply): Patient Departure - Discharge Plan Condition: Stable Disposition: HOME Prescriptions: Benzonatate CAP* [Tessalon 100 MG CAP*] 100 mg PO TID PRN 10 Days #30 cap PRN Reason: Cough Oseltamivir CAP* [Tamiflu CAP*] 75 mg PO BID 5 Days #10 cap Patient Education Materials: Influenza (ED) Referrals: Lissette Lepe MD [Primary Care Provider] - Additional Instructions: You were seen in the emergency department for cough and shortness of breath. You are flu A+. Please take Tamiflu twice a day. Please take Tessalon Perles for cough. You can take your inhaler, albuterol as needed. Please follow up with your primary care doctor in next 2-3 days and return to emergency department for worsening cough, shortness breath, or concerning symptoms. It was a pleasure taking care of you today. - Billing Disposition and Condition Condition: STABLE Disposition: Home - Attestation Statements Document Initiated by Scribe: Yes Documenting Scribe: Nan Yap Provider For Whom Scribe is Documenting (Include Credential): Chema Segura MD Scribe Attestation: I, Nan Yap, scribed for Chema Segura MD on 12/20/19 at 8515. Scribe Documentation Reviewed: Yes Provider Attestation: The documentation as recorded by the scribe, Nan Yap accurately reflects the service I personally performed and the decisions made by me, Chema Segura MD Status of Scribe Document: Viewed
[2019-12-20 20:46] LABS: ABS Basophils 0.1 10^3/ul (0-0.2); ABS Eosinophils 0.1 10^3/ul (0-0.6); ABS Monocytes 1.4 10^3/ul (0-0.8); ABS Neutrophils 7.4 10^3/ul (1.5-7.7); Eosinophil % 0.7 %; Hematocrit 40 % (42-52); Hemoglobin 13.4 g/dL (14.0-18.0); Lymphocyte % 9.8 %; Mean Corpuscular HGB Conc 34 g/dL (31-36); Mean Corpuscular Hemoglobin 29 pg (27-31); Mean Corpuscular Volume 86 fL (80-94); Mean Platelet Volume 7.1 fL (7.4-10.4); Platelet Count 235 10^3/uL (150-450); Red Blood Count 4.63 10^6 /uL (4.18-5.48); Red Cell Distribution Width 17 % (10-15)
[2019-12-20 20:49] LABS: Influenza A Molecular POSITIVE (Negative)
[2019-12-20 21:01] LABS: Albumin 3.8 g/dL (3.2-5.2); Albumin/Globulin Ratio 1.4 (1-3); BUN/Creatinine Ratio 8.2 (8-20); EGFR African American 52.7 (>60); EGFR Non-African American 43.6 (>60); Globulin 2.8 g/dL (2-4); Potassium 3.8 mmol/L (3.5-5.0); Total Bilirubin 0.7 mg/dL (0.2-1.0); Total Protein 6.6 g/dL (6.4-8.9)
[2019-12-20] MEDS ORDERED: Oseltamivir CAP* 75 MG CAP PO ONE (21:37)
[2019-12-20] MEDS ORDERED: Benzonatate CAP* 100 MG PO ONE (21:52)
[2019-12-20 23:18] VITALS: BP 136/96
== END 2019-12-20 23:15 | disposition home or self-care (01) ==
LOC: ED 19:39
DX: J11.1 Influenza due to unidentified influenza virus with other respiratory manifestations (principal); R06.02 Shortness of breath; R05 Cough; Z86.73 Personal history of transient ischemic attack (TIA), and cerebral infarction without residual deficits; R09.81 Nasal congestion
CPT/HCPCS: 36415; 71046; 80053; 85025; 99284; A9270-GY